=== PATIENT | male | born 1950 | race Caucasian/White ===

== ENCOUNTER 2020-04-24 11:40 | Emergency (ER) | payer MEDICARE, SELFPAY ==
[2020-04-24 11:41] VITALS: PULSE 136; RESP 20; TEMP 35.7; O2SAT 98
--- NOTE | 2020-04-24 12:26 | ED.GENADULT ---
HPI - General Adult General Chief complaint: Skin/Abscess/Foreign Body Stated complaint: big boil on my butt Time Seen by Provider: 04/24/20 12:14 Source: patient and family Mode of arrival: ambulatory Limitations: no limitations History of Present Illness HPI narrative: Patient 70 years old white male presents with abscess at the right buttock started 2 weeks ago, was seen by Dr. Haskins and started on antibiotic, the abscess got bigger over the last 7 days. Patient is diabetic, denies any fever, chills, nausea, vomiting. Patient Related Data Home Medications Medication Instructions Recorded Confirmed montelukast 10 mg tablet 10 mg PO DAILY 04/15/19 04/06/20 multivitamin with iron 1 tablet PO DAILY 04/15/19 04/06/20 pantoprazole 40 mg tablet,delayed 40 mg PO QAM 04/15/19 04/06/20 release pantoprazole 40 mg tablet,delayed 40 mg PO QAM 04/15/19 04/06/20 release potassium gluconate 595 mg (99 mg) 595 mg PO DAILY 04/15/19 04/06/20 tablet aspirin 81 mg tablet,delayed 81 mg PO DAILY 04/16/19 04/06/20 release ezetimibe 10 mg tablet 10 mg PO DAILY 11/03/19 04/06/20 icosapent ethyl 1 gram capsule 2 gm PO BID 11/03/19 04/06/20 Allergies Allergy/AdvReac Type Severity Reaction Status Date / Time lidocaine Allergy Unknown Hives Verified 04/24/20 11:44 NEOPREEN Allergy Severe RASH Uncoded 04/06/20 11:05 Review of Systems Review of Systems: Narrative: CONSTITUTIONAL: Denies fever, chills, or sweats. EYES: Denies visual changes, redness, or discharge. ENT: Denies rhinorrhea, congestion, sore throat, or otalgia. CARDIOVASCULAR: Denies chest pain, palpitations, or edema. RESPIRATORY: Denies cough or dyspnea. GASTROINTESTINAL: Denies abdominal pain, nausea, vomiting, or diarrhea. GENITOURINARY: Denies dysuria or hematuria. SKIN: Denies rash or itching. MUSCULOSKELETAL: Denies back pain, joint pain, or myalgia. NEUROLOGIC: Denies headache, numbness, or weakness. PSYCHIATRIC: Denies anxiety or depression. [facility] Past Medical History Medical History (Updated 04/24/20 @ 12:59 by Rubina Dao MD) Bronchitis DJD (degenerative joint disease) GERD (gastroesophageal reflux disease) Hypercholesterolemia Tobacco abuse Surgical History Surgical History H/O knee surgery H/O wrist surgery History of adenoidectomy History of colonoscopy History of tonsillectomy Social History Social History Smoking packs per day: 1.5 Smoking cigarettes per day: 30.0 Years smoked: 57 Smoking pack-years: 85.50 Smoking status: Current every day smoker Alcohol intake: never Gender identity (if verbalized by the patient): Male Exam Narrative: Exam Narrative: General appearance: Well-developed, well-nourished Skin: Normal color, abscess-like lesion at the left buttock with border with the anus, 6 cm, fluctuant, hard in consistency, red and diffusely tender Head: Normocephalic, nontraumatic Eyes: Clear conjunctiva ENT: Oropharynx normal, ears normal, nose normal Neck: Supple, nontender Chest and respiratory: Airway patent, no respiratory distress, no accessory muscle use Heart: Regular rate/rhythm Abdomen: Soft, nontender, no organomegaly, quiet bowel sounds Vascular: Normal peripheral pulses, normal capillary refill. Musculoskeletal: Normal range of motion, nontender back Neurologic: Alert and oriented ?3, [employer]IS[employer]LYST is normal as tested, no gross motor deficit Course Course Emergency Course: Stable Consultations Consultation #1: Dr. Haskins I&D, outpatient follow-up tomorrow Date: 04/24/20 Time: 13:44 Vital Signs Vital signs: Vital Signs Temp
[2020-04-24 12:43] LABS: Basophils Absolute Auto 0.1 K/mm3 (0.0-0.1); Basophils Percent Auto 0.5 % (0.2-1.2); Eosinophils Absolute Auto 0.1 K/mm3 (0-0.3); Hematocrit 41.9 % (42.0-52.0); Hemoglobin 14.9 g/dL (14.0-18.0); Immature Granulocyte Absolute 0.12 K/mm3 (0.00-0.031); Immature Granulocyte Percent A 0.9 % (0-0.5); Lymphocytes Absolute Auto 1.99 K/mm3 (0.9-3.2); Lymphocytes Percent Auto 15.1 % (18.3-44.2); Mean Corpuscular HGB Conc 35.6 g/dl (32-36); Mean Corpuscular Hemoglobin 33.1 pg (26-34); Mean Corpuscular Volume 93.1 fl (80-100); Mean Platelet Volume 10.9 fl (7.4-10.4); Monocytes Percent Auto 7.3 % (2.6-8.5); Neutrophils Absolute Auto 9.9 K/mm3 (1.3-6.7); Neutrophils Percent Auto 75.2 % (45.5-73.1); Platelet Count Result 192 k/mm3 (150-375); Red Cell Distribution Width 12.9 % (11.5-14.5); White Blood Count 13.2 K/mm3 (4.5-10.0)
[2020-04-24 12:55] LABS: Alanine Aminotransferase 17 U/L (4-50); Albumin Level 4.1 g/dL (3.5-5.1); Alkaline Phosphatase 41 U/L (38-126); Anion Gap 8 mmol/L (8-16); Aspartate Amino Transferase 22 U/L (17-59); Bilirubin,Total 0.7 mg/dL (0.2-1.3); Blood Urea Nitrogen 11 mg/dL (9-20); Calcium 8.6 mg/dL (8.4-10.2); Carbon Dioxide 27 mmol/L (22-30); Chloride 104 mmol/L (98-107); Estimated CRCL calculation 87 ml/min; Estimated Glomerular Filt Rate > 60; Glucose 153 mg/dL (75-110); Potassium 3.6 mmol/L (3.4-5.0); Sodium 139 mmol/L (137-145)
[2020-04-24] MEDS: MORPHINE SULFATE (*CRX) 4 MG/ML INJ IV PUSH (13:16)
[2020-04-24] MEDS: ONDANSETRON INJ 4 MG/2 ML VIAL IV PUSH (13:17)
[2020-04-24 13:57] VITALS: BP 142/87; PULSE 98; RESP 18; O2SAT 99
== END 2020-04-24 13:59 | disposition home or self-care (01) ==
PROVIDERS: Emergency Provider Emergency Medicine; PCP Internal Medicine
DX: L02.31 Cutaneous abscess of buttock (principal); K21.9 Gastro-esophageal reflux disease without esophagitis; E78.00 Pure hypercholesterolemia, unspecified; F17.210 Nicotine dependence, cigarettes, uncomplicated
CPT/HCPCS: 10061; 36415; 46040; 80053; 85025; 87070; 87077; 87205; 96374; 96375; 99284; J2270; J2405

== ENCOUNTER 2020-12-28 13:55 | Outpatient (CLI) | payer MEDICARE, SELFPAY ==
[2020-12-28 14:24] LABS: Basophils Absolute Auto 0.1 K/mm3 (0.0-0.1); Basophils Percent Auto 0.9 % (0.2-1.2); Eosinophils Absolute Auto 0.3 K/mm3 (0-0.3); Eosinophils Percent Auto 4.1 % (0-4.4); Hemoglobin 15.2 g/dL (14.0-18.0); Immature Granulocyte Absolute 0.04 K/mm3 (0.00-0.031); Immature Granulocyte Percent A 0.5 % (0-0.5); Lymphocytes Absolute Auto 2.51 K/mm3 (0.9-3.2); Lymphocytes Percent Auto 32.1 % (18.3-44.2); Mean Corpuscular HGB Conc 33.8 g/dl (32-36); Mean Corpuscular Hemoglobin 31.6 pg (26-34); Mean Corpuscular Volume 93.6 fl (80-100); Mean Platelet Volume 10.6 fl (7.4-10.4); Monocytes Absolute Auto 0.6 K/mm3 (0.1-0.6); Neutrophils Absolute Auto 4.3 K/mm3 (1.3-6.7); Neutrophils Percent Auto 55.4 % (45.5-73.1); Platelet Count Result 141 k/mm3 (150-375); Red Blood Count 4.81 M/mm3 (4.6-6.20); Red Cell Distribution Width 13.8 % (11.5-14.5); White Blood Count 7.8 K/mm3 (4.5-10.0)
[2020-12-28 15:41] LABS: Alanine Aminotransferase 24 U/L (4-50); Albumin Level 4.4 g/dL (3.5-5.1); Alkaline Phosphatase 47 U/L (38-126); Anion Gap 7 mmol/L (8-16); Aspartate Amino Transferase 34 U/L (17-59); Bilirubin,Total 0.5 mg/dL (0.2-1.3); Blood Urea Nitrogen 12 mg/dL (9-20); Calcium 9.6 mg/dL (8.4-10.2); Carbon Dioxide 28 mmol/L (22-30); Chloride 103 mmol/L (98-107); Estimated Glomerular Filt Rate > 60; Glucose 147 mg/dL (65-110); Iron 82 ug/dL (49-181); Potassium 4.3 mmol/L (3.4-5.0); Sodium 138 mmol/L (137-145)
[2020-12-28 15:50] LABS: Percent Iron Saturation 20 % (20-50)
[2020-12-28 16:47] LABS: Folic Acid 17.7 ng/mL (2.76->20)
[2021-01-05 22:43] LABS: Platelet Ab,Indirect (IgA) POSITIVE (NEGATIVE); Platelet Ab,Indirect (IgG) NEGATIVE (NEGATIVE); Platelet Ab,Indirect (IgM) NEGATIVE (NEGATIVE)
== END 2020-12-28 13:56 | disposition home or self-care (01) ==
LOC: ANHLAB 13:57
PROVIDERS: PCP Internal Medicine; Visit Provider Internal Medicine Hematology & Oncology
DX: D69.59 Other secondary thrombocytopenia (principal)
CPT/HCPCS: 36415; 80053; 82607; 82728; 82746; 83540; 83550; 85025; 86022

== ENCOUNTER 2022-01-10 09:23 | Outpatient (CLI) | payer MEDICARE, SELFPAY ==
[2022-01-10 09:35] LABS: Basophils Absolute Auto 0.1 K/mm3 (0.0-0.1); Basophils Percent Auto 0.8 % (0.2-1.2); Eosinophils Absolute Auto 0.4 K/mm3 (0-0.3); Eosinophils Percent Auto 4.8 % (0-4.4); Hematocrit 42.6 % (42.0-52.0); Hemoglobin 14.8 g/dL (14.0-18.0); Immature Granulocyte Absolute 0.07 K/mm3 (0.00-0.031); Immature Granulocyte Percent A 0.9 % (0-0.5); Lymphocytes Absolute Auto 2.31 K/mm3 (0.9-3.2); Lymphocytes Percent Auto 30.7 % (18.3-44.2); Mean Corpuscular HGB Conc 34.7 g/dl (32-36); Mean Corpuscular Hemoglobin 31.8 pg (26-34); Mean Corpuscular Volume 91.4 fl (80-100); Mean Platelet Volume 10.5 fl (7.4-10.4); Monocytes Absolute Auto 0.6 K/mm3 (0.1-0.6); Monocytes Percent Auto 7.7 % (2.6-8.5); Neutrophils Absolute Auto 4.1 K/mm3 (1.3-6.7); Neutrophils Percent Auto 55.1 % (45.5-73.1); Platelet Count Result 155 k/mm3 (150-375); Red Blood Count 4.66 M/mm3 (4.6-6.20); Red Cell Distribution Width 13.2 % (11.5-14.5); White Blood Count 7.5 K/mm3 (4.5-10.0)
[2022-01-10 09:38] LABS: Blood Urea Nitrogen 9 mg/dL (8-26); Carbon Dioxide 26 mmol/L (22-30); Chloride 100 mmol/L (98-109); Estimated Glomerular Filt Rate > 60; Glucose 115 mg/dL (70-105); Ionized Calcium (POC) 1.04 mmol/L (1.11-1.31); Potassium 3.6 mmol/L (3.5-4.9); Sodium 142 mmol/L (138-146)
[2022-01-10 10:57] LABS: Alanine Aminotransferase 21 U/L (6-50); Albumin Level 4.2 g/dL (3.5-5.1); Alkaline Phosphatase 39 U/L (38-126); Aspartate Amino Transferase 26 U/L (17-59); Bilirubin,Total 0.5 mg/dL (0.2-1.3); Blood Urea Nitrogen 10 mg/dL (9-20); Calcium 7.9 mg/dL (8.4-10.2); Carbon Dioxide 25 mmol/L (22-30); Estimated Glomerular Filt Rate > 60; Glucose 114 mg/dL (65-110); Potassium 3.5 mmol/L (3.4-5.0); Sodium 141 mmol/L (137-145)
[2022-01-10 11:09] LABS: Anion Gap 15 mmol/L (8-16); Chloride 101 mmol/L (98-107)
== END 2022-01-10 09:24 | disposition home or self-care (01) ==
LOC: ANHLAB 09:25
PROVIDERS: PCP Internal Medicine; Visit Provider Internal Medicine Hematology & Oncology
DX: D69.59 Other secondary thrombocytopenia (principal)
CPT/HCPCS: 36415; 80047; 80053; 85025

== ENCOUNTER 2023-01-09 09:55 | Outpatient (CLI) | payer MEDICARE, SELFPAY ==
[2023-01-09 10:11] LABS: Basophils Absolute Auto 0.1 K/mm3 (0.0-0.1); Basophils Percent Auto 0.6 % (0.2-1.2); Eosinophils Absolute Auto 0.3 K/mm3 (0-0.3); Eosinophils Percent Auto 3.5 % (0-4.4); Hematocrit 43.4 % (42.0-52.0); Hemoglobin 14.6 g/dL (14.0-18.0); Immature Granulocyte Absolute 0.07 K/mm3 (0.00-0.031); Immature Granulocyte Percent A 0.8 % (0-0.5); Lymphocytes Absolute Auto 2.41 K/mm3 (0.9-3.2); Mean Corpuscular HGB Conc 33.6 g/dl (32-36); Mean Corpuscular Hemoglobin 31.7 pg (26-34); Mean Corpuscular Volume 94.1 fl (80-100); Mean Platelet Volume 10.5 fl (7.4-10.4); Monocytes Absolute Auto 0.7 K/mm3 (0.1-0.6); Monocytes Percent Auto 7.7 % (2.6-8.5); Neutrophils Absolute Auto 5.4 K/mm3 (1.3-6.7); Neutrophils Percent Auto 60.4 % (45.5-73.1); Platelet Count Result 145 k/mm3 (150-375); Red Blood Count 4.61 M/mm3 (4.6-6.20); Red Cell Distribution Width 13.7 % (11.5-14.5); White Blood Count 8.9 K/mm3 (4.5-10.0)
[2023-01-09 10:18] LABS: Blood Urea Nitrogen 16 mg/dL (8-26); Carbon Dioxide 28 mmol/L (22-30); Chloride 102 mmol/L (98-109); Estimated Glomerular Filt Rate > 60; Glucose 126 mg/dL (70-105); Ionized Calcium (POC) 1.23 mmol/L (1.11-1.31); Potassium 4.6 mmol/L (3.5-4.9); Sodium 140 mmol/L (138-146)
[2023-01-09 10:58] LABS: Alanine Aminotransferase 19 U/L (6-50); Albumin Level 4.2 g/dL (3.5-5.1); Alkaline Phosphatase 49 U/L (38-126); Anion Gap 8 mmol/L (8-16); Aspartate Amino Transferase 22 U/L (17-59); Bilirubin,Total 0.7 mg/dL (0.2-1.3); Blood Urea Nitrogen 17 mg/dL (9-20); Calcium 9.7 mg/dL (8.4-10.2); Carbon Dioxide 27 mmol/L (22-30); Chloride 103 mmol/L (98-107); Estimated Glomerular Filt Rate > 60; Glucose 124 mg/dL (65-110); Potassium 4.5 mmol/L (3.4-5.0); Sodium 138 mmol/L (137-145)
== END 2023-01-09 09:56 | disposition home or self-care (01) ==
LOC: ANHLAB 10:01
PROVIDERS: Visit Provider Internal Medicine Hematology & Oncology
DX: D69.59 Other secondary thrombocytopenia (principal)
CPT/HCPCS: 36415; 80047; 80053; 85025

== ENCOUNTER 2023-12-19 10:30 | Outpatient (CLI) | payer MEDICARE, SELFPAY ==
--- NOTE | ~2023-12-19 | US_ITS ---
EXAMINATION: US soft tissue LE RT DATE: 12/19/2023 10:45 INDICATION: Localized swelling, mass and lump, right lower limb. TECHNIQUE: Multiple grayscale and Doppler ultrasound images of the right lower limb were obtained. COMPARISON: None FINDINGS: In the patient's area of concern in right calf, there is a 1.4 x 1.0 x 0.4 cm hypoechoic mera bcutaneous mass. IMPRESSION: 1. Small subcutaneous mass in the patient's area of concern in right calf, likely inflammation or hem atoma. Reviewed, dictated and finalized at location A. IMPRESSION: 1. Small subcutaneous mass in the patient's area of concern in right calf, like ly inflammation or hematoma.
== END 2023-12-19 10:31 | disposition home or self-care (01) ==
LOC: GOSHIMG 10:31
PROVIDERS: PCP Internal Medicine; Visit Provider Podiatrist Foot & Ankle Surgery
DX: R22.41 Localized swelling, mass and lump, right lower limb (principal)
CPT/HCPCS: 76882

== ENCOUNTER 2024-01-28 10:06 | Outpatient (CLI) | payer MEDICARE, SELFPAY ==
[2024-01-28 10:17] LABS: Basophils Absolute Auto 0.1 K/mm3 (0.0-0.1); Basophils Percent Auto 0.7 % (0.2-1.2); Eosinophils Absolute Auto 0.5 K/mm3 (0-0.3); Eosinophils Percent Auto 6.1 % (0-4.4); Hematocrit 42.3 % (42.0-52.0); Hemoglobin 14.6 g/dL (14.0-18.0); Immature Granulocyte Absolute 0.06 K/mm3 (0.00-0.031); Immature Granulocyte Percent A 0.7 % (0-0.5); Lymphocytes Absolute Auto 2.75 K/mm3 (0.9-3.2); Lymphocytes Percent Auto 33.1 % (18.3-44.2); Mean Corpuscular HGB Conc 34.5 g/dl (32-36); Mean Corpuscular Hemoglobin 31.7 pg (26-34); Mean Platelet Volume 10.5 fl (7.4-10.4); Monocytes Absolute Auto 0.6 K/mm3 (0.1-0.6); Monocytes Percent Auto 7.7 % (2.6-8.5); Neutrophils Absolute Auto 4.3 K/mm3 (1.3-6.7); Neutrophils Percent Auto 51.7 % (45.5-73.1); Platelet Count Result 152 k/mm3 (150-375); Red Cell Distribution Width 14.3 % (11.5-14.5); White Blood Count 8.3 K/mm3 (4.5-10.0)
[2024-01-28 10:21] LABS: Blood Urea Nitrogen 8 mg/dL (8-26); Carbon Dioxide 30 mmol/L (22-30); Chloride 101 mmol/L (98-109); Estimated Glomerular Filt Rate > 60; Glucose 106 mg/dL (70-105); Ionized Calcium (POC) 1.12 mmol/L (1.11-1.31); Potassium 4.1 mmol/L (3.5-4.9); Sodium 141 mmol/L (138-146)
[2024-01-28 11:44] LABS: Alanine Aminotransferase 17 U/L (6-50); Albumin Level 4.1 g/dL (3.5-5.1); Alkaline Phosphatase 59 U/L (38-126); Anion Gap 7 mmol/L (4-12); Aspartate Amino Transferase 24 U/L (17-59); Bilirubin,Total 0.7 mg/dL (0.2-1.3); Blood Urea Nitrogen 9 mg/dL (9-20); Calcium 8.8 mg/dL (8.4-10.2); Carbon Dioxide 29 mmol/L (22-30); Chloride 104 mmol/L (98-107); Estimated Glomerular Filt Rate > 60; Glucose 108 mg/dL (65-110); Potassium 4.2 mmol/L (3.4-5.0); Sodium 140 mmol/L (137-145)
== END 2024-01-28 10:07 | disposition home or self-care (01) ==
LOC: ANHLAB 10:07
PROVIDERS: PCP Internal Medicine; Visit Provider Internal Medicine Hematology & Oncology
DX: D69.59 Other secondary thrombocytopenia (principal)
CPT/HCPCS: 36415; 80047; 80053; 85025

== ENCOUNTER 2024-09-09 11:11 | Emergency (ER) | payer MEDICARE, SELFPAY ==
--- NOTE | ~2024-09-09 | XR_ITS ---
CHEST RADIOGRAPH, PA AND LATERAL CLINICAL HISTORY: nausea . COMPARISON: Reference is made to a CT examination of the abdomen and pelvis demonstrating varicose br onchiectasis and right basilar consolidation with left lower lobe atelectasis. TECHNIQUE: PA and lateral views of the chest. FINDINGS The cardiomediastinal silhouette is borderline enlarged. Redemonstration of right basilar consolidation with left basilar atelectasis. The remainder of the lungs are clear. IMPRESSION: Right basilar consolidation with left basilar atelectasis. Reviewed, dictated and finalized at location A.
--- NOTE | ~2024-09-09 | CT_ITS ---
CLINICAL INDICATION: Nausea and vomiting COMPARISON: None. TECHNIQUE: Multiple contiguous axial images of the abdomen and pelvis were performed following the ad ministration of with 100 mL Omnipaque-350 intravenous contrast The dose-length product (DLP) was 1279.96 mGy-cm. Automated exposure control and iterative reconstruction technique were employed. FINDINGS/OBSERVATIONS: Visualized lower thorax: Varicose bronchiectasis with consolidation in the right lower lobe. Atelectasis within the left lower lobe. The remainder of the bilateral lung bases are otherwise clear. The heart is enlarged, without pericardial effusion. Small hiatal hernia is present. Liver: The liver demonstrates homogeneous enhancement and is enlarged measuring 20 cm in longitudinal dimens ion. Gallbladder and biliary system: The gallbladder is decompressed, consistent with recent oral intake. Pancreas: The pancreas enhances homogeneously without ductal dilatation. Spleen: The spleen enhances homogeneously and is not enlarged. Kidneys: The bilateral kidneys enhance symmetrically without hydronephrosis or renal calculi. Adrenal glands: Unremarkable. Gastrointestinal tract: Retained gastric contents within the stomach, suggesting recent oral intake. Colonic diverticulosis without surrounding inflammatory change. Fecal stasis within the rectum without significant mural thickening or surrounding inflammatory archer e. Appendix: The air-filled appendix is of normal caliber (axial series, images 126 through 141). Vasculature: Calcified atherosclerotic disease. Lymph nodes: No pathologically enlarged or morphologically suspicious lymph nodes within the retroperitoneum or at the root of the mesentery. Pelvic structures: The bladder is only minimally distended, and otherwise unremarkable. The prostate gland is not significantly enlarged. Body wall and musculoskeletal: Along the undersurface of the anterior abdominal wall at the level of the umbilicus is an irregular m ultilobulated focus of mixed attenuation with rim calcifications measuring 5 x 7.5 x 9.1 cm, likely c alcified mesh. Age-appropriate degenerative disease within the lumbosacral spine with osteophyte formation, disc spa ce narrowing, endplate changes and vacuum phenomena. Significant facet arthropathy is also noted. There are bridging endplate osteophytes at multiple levels in the thoracic spine, consistent with dif fuse idiopathic skeletal hyperostosis (DISH). IMPRESSION: No acute findings within the lower chest, abdomen or pelvis. Innumerable nonacute findings, as detailed above. Reviewed, dictated and finalized at location A.
--- OUTSIDE RECORDS SUMMARY | 2024-09-09 11:14 | XMS_ITS | Data Portability ---
Author Organization [facility] [employer]ental Units, Main Office Address [address] [place] [address] Care Team Providers Care Vault Clerk Name Role Phone CARMEN UP Primary Care Provider [phone] CARMEN UP Referring Provider Assessment Encounter Date Assessment Date Assessment LastModified by Organization Details LastModified Time 02/20/2024 02/20/2024 Left scrotal abscess. Appears to be improving on its own. Continues to drain. Patient feeling much better. Recommend conservative management keep clean dressing changes as needed. Follow-up here p.r.n.. [email or web address] Not available 02/20/2024 12:59:16 03/26/2024 03/26/2024 11/16/2021: TSH: WNL Chol 114, TG 246, HDL 41, LDL 24 Urine micro alb 6.1 01/10/2022: Dr June CMP: Gluc 114 CBC: WNL 03/13/2022: TSH: WNL TG 206 07/02/2022: Gluc 109 CBC: WNL 07/26/2022: A1C 5.7 PSA <0.064 Chol 231, TG 339, HDL 32, LDL 131 CBC/CMP: Dr Hernandez 11/09/2022: TG 178 02/06/2023: A1C 6.4 TG 243 PSA <0.064 07/03/2023: Dr Hernandez IJ Gluc 119 WBC 10.9 10/11/2023: Gluc 112 A1C 6.3 01/10/2024: A1C 6.4 TG 300 01/28/2024: Dr June [email or web address] Not available 03/25/2024 09:49:30 06/23/2024 06/23/2024 This note is dictated and transcribed by MModal Fluency Direct Software. Billet Bed Operator variances may occur. Despite proofreading, typographical errors may occur. Occasional wrong-word or '[id number]' substitutions may have occurred due to the inherent limitations of voice recording. Read the chart carefully and recognize, using context, where substitutions have occurred. [email or web address] Not available 06/23/2024 15:52:04 07/23/2024 07/23/2024 11/16/2021: TSH: WNL Chol 114, TG 246, HDL 41, LDL 24 Urine micro alb 6.1 01/10/2022: Dr June CMP: Gluc 114 CBC: WNL 03/13/2022: TSH: WNL TG 206 07/02/2022: Gluc 109 CBC: WNL 07/26/2022: A1C 5.7 PSA <0.064 Chol 231, TG 339, HDL 32, LDL 131 CBC/CMP: Dr Hernandez 11/09/2022: TG 178 02/06/2023: A1C 6.4 TG 243 PSA <0.064 07/03/2023: Dr Hernandez IJ Gluc 119 WBC 10.9 10/11/2023: Gluc 112 A1C 6.3 04/03/2024: A1C 6.4 Gluc 115 TG 298 06/25/2024: [facility] TG 173 OV 06/25/2024: A1C 5.9 45 minutes spent with the patient, labs reviewed, multiple referrals provided [email or web address] Not available 07/23/2024 11:54:16 Plan of Treatment Reminders Order Date Submit Date Provider Last Modified By Organization Details Last Modified Time Details Appointments Establish ed Patient 2024 10:15A M Junior Barnard DPM Not available Not available Not available Any 15 2024 10:30A M Carmen mallory MD Not available Not available Not available Lab vitamin D, 25-hydrox y, total, serum [email or web address] (Lab), [address] [place], [address], 07/24/2024 10:06:44 glycohemo globin, total, blood [email or web address] (Lab), [address] [place], [address], 07/24/2024 10:06:44 microalbu min, urine [address] (Lab), [address] [place], [address], 07/24/2024 10:06:44 lipid panel, serum [address] (Lab), [address] [place], [address], 07/24/2024 10:06:44 CBC w/ auto diff [address] (Lab), [address] [place], [address], 07/24/2024 10:06:45 CMP, serum or plasma [address] (Lab), [address] [place], [address], 07/24/2024 10:06:45 TSH, serum or plasma [address] (Lab), [address] [place], [address], 07/24/2024 10:06:45 vitamin D, 25-hydrox y, total, serum 2024 025 [email or web address] [facility] (Lab), [address] [place], [address], 03/26/2024 12:11:03 glycohemo globin, total, blood 2024 025 RENNY [facility] (Lab), [address] [place], [address], 04/03/2024 15:44:51 microalbu min, urine [address] (Lab), [address] [place], [address], 03/26/2024 12:11:04 CMP, serum or plasma 2024 025 [facility] (Lab), [address] [place], [address], 04/03/2024 14:20:16 lipid panel, serum 2024 025 [facility] (Lab), [address] [place], [address], 04/03/2024 14:12:41 CBC w/ auto diff 2024 025 [facility] (Lab), [address] [place], [address], 04/03/2024 13:42:55 CMP, serum or plasma [address] (Lab), [address] [place], [address], 03/26/2024 12:11:05 TSH, serum or plasma 2024 025 [facility] (Lab), [address] [place], [address], 04/03/2024 14:50:45 Referral podiatris t referral - Please call patient to schedule an appointme nt. Thank you. 2024 025 RENNY HOWELLM, [address] [facility], [address], [place], [address], 07/23/2024 14:54:09 gastroent erologist referral - Please call patient to schedule an appointme nt. Thank you. 2024 025 SHUBHAM Rivera MD, [address], [place], [address], 07/23/2024 15:20:36 pulmonolo gist referral - Please call patient to schedule an appointme nt. Thank you. 2024 025 [email or web address] Ze Blanco MD, [address] [place], [address], 07/23/2024 11:44:58 hematolog ist referral - Please call patient to schedule an appointme nt. Thank you. 2024 025 [email or web address] Yaya June MD, [address], [place], [address], 04/16/2024 17:12:19 podiatris t referral 2024 025 [email or web address] Junior Barnard DPM, [address] [facility], [address], [place], [address], 05/02/2024 11:49:20 cardiolog ist referral 2024 025 [email or web address] [place], [address], [address], [address], 05/02/2024 11:51:33 Procedures None recorded. Surgeries None recorded. Imaging LDCT, chest, for lung cancer screening - Please call patient to schedule. 2024 025 [facility], [facility] , [facility] [address], [place], [address], 08/25/2024 17:08:41 Medication Orders Nexlizet 180 mg-10 mg tablet 2024 025 [email or web address] [id number], [address], [place], [place], [id number], 06/04/2024 11:23:46 Patient TargetsNo targets recorded. Patient Instructions Encounter Date Encounter Id Patient Instructions Last Modified By Organization Details Last Modified Time 03/26/2024 [id number] diabetic eye exam* [email or web address] Not available 03/26/2024 12:11:06 Reason for Referral Supervisor Phosphorus Processing Referral for A sthma Please call patient to schedule an appointment. Thank you. Referring Physician: Carmen Up Internal Medicine, Encounter Date: 03/26/2024 Multi Sensor Operator Referral for Type 2 diabetes mellitus without complication Referring Physician: Carmen Up Internal [facility], Encounter Date: 03/26/2024 Plodder Operator Referral for Co ronary arteriosclerosis Referring Physician: Carmen Up Internal Medicine, Encounter Date: 03/26/2024 Please call patient to sched ule an appointment. Thank you. Referring Physician: Carmen Up Internal Medicine, Encounter Date: 03/26/2024 Motor Builder Winder Referral for Non-alcoholic fatty liver Please call patient to schedule an appointment. Thank you. Referring Physician: Carmen Up Internal Medicine, Encounter Date: 07/23/2024 Multi Sensor Operator Referral for Type 2 diabetes mellitus without complication Please call patient to schedule an appointment. Thank you. Referring Physician: Carmen Up Internal Medicine, Encounter Date: 07/23/2024 Results Created Date Observation Date Name Description Value Unit Range Abnormal Flag Note LastModifiedBy Organization Detail LastModifiedTime 04/03/1904/03/2024 CBC/C OMPLE TE BLD COUNT W/DIF F white blood cells 6.5 x10'3 /uL 4.2-10 .8 Not Available [facility] (Lab) [address] [place], [address], 04/03/2024 13:42:55 04/03/19 25 04/03/2024 CBC/C OMPLE TE BLD COUNT W/DIF F red blood cells 4.74 x10'6 /uL 4.10-5 .80 Not Available [facility] (Lab) [address] [place], [address], 04/03/2024 13:42:55 04/03/19 25 04/03/2024 CBC/C OMPLE TE BLD COUNT W/DIF F hemoglobin 15.2 g/dL 13.2-1 7.0 Not Available [facility] (Lab) [address] [place], [address], 04/03/2024 13:42:55 04/03/19 25 04/03/2024 CBC/C OMPLE TE BLD COUNT W/DIF F hematocrit 43.9 % 39.3-5 0.0 Not Available [facility] (Lab) [address] [place], [address], 04/03/2024 13:42:55 04/03/19 25 04/03/2024 CBC/C OMPLE TE BLD COUNT W/DIF F mean red cell volume 92.6 fL 80.0-9 7.0 Not Available [facility] (Lab) [address] [place], [address], 04/03/2024 13:42:55 04/03/19 25 04/03/2024 CBC/C OMPLE TE BLD COUNT W/DIF F mean red cell hemoglobin 32.1 pg 27.0-3 3.0 Not Available [facility] (Lab) [address] [place], [address], 04/03/2024 13:42:55 04/03/19 25 04/03/2024 CBC/C OMPLE TE BLD COUNT W/DIF F mean RBC HGB concentratio n 34.6 g/dL 31.0-3 6.0 Not Available [facility] (Lab) [address] [place], [address], 04/03/2024 13:42:55 04/03/19 25 04/03/2024 CBC/C OMPLE TE BLD COUNT W/DIF F red cell distribution width 13.9 % 11.8-1 5.5 Not Available [facility] (Lab) [address] [place], [address], 04/03/2024 13:42:55 04/03/19 25 04/03/2024 CBC/C OMPLE TE BLD COUNT W/DIF F platelets 151 x10'3 /uL 150-40 0 Not Available [facility] (Lab) [address] [place], [address], 04/03/2024 13:42:55 04/03/19 25 04/03/2024 CBC/C OMPLE TE BLD COUNT W/DIF F mean platelet volume 11.7 fL 9.0-12 .4 Not Available [facility] (Lab) [address] [place], [address], 04/03/2024 13:42:55 04/03/19 25 04/03/2024 CBC/C OMPLE TE BLD COUNT W/DIF F neutrophils 52.0 % 39.0-7 2.0 Not Available [facility] (Lab) [address] [place], [address], 04/03/2024 13:42:55 04/03/19 25 04/03/2024 CBC/C OMPLE TE BLD COUNT W/DIF F lymphocytes 34.4 % 16.0-4 7.0 Not Available [facility] (Lab) [address] [place], [address], 04/03/2024 13:42:55 04/03/19 25 04/03/2024 CBC/C OMPLE TE BLD COUNT W/DIF F monocytes 6.7 % 5.0-12 .0 Not Available [facility] (Lab) [address] [place], [address], 04/03/2024 13:42:55 04/03/19 25 04/03/2024 CBC/C OMPLE TE BLD COUNT W/DIF F eosinophils 4.9 % 1.0-7. 0 Not Available [facility] (Lab) [address] [place], [address], 04/03/2024 13:42:55 04/03/19 25 04/03/2024 CBC/C OMPLE TE BLD COUNT W/DIF F basophils 0.9 % 0.0-2. 0 Not Available [facility] (Lab) [address] [place], [address], 04/03/2024 13:42:55 04/03/19 25 04/03/2024 CBC/C OMPLE TE BLD COUNT W/DIF F immature granulocytes 1.1 % 0.00-0 .50 high Not Available [facility] (Lab) [address] [place], [address], 04/03/2024 13:42:55 04/03/19 25 04/03/2024 CBC/C OMPLE TE BLD COUNT W/DIF F neutrophils, absolute count 3.40 x10'3 /uL 1.5-8. 0 Not Available [facility] (Lab) [address] [place], [address], 04/03/2024 13:42:55 04/03/19 25 04/03/2024 CBC/C OMPLE TE BLD COUNT W/DIF F lymphocytes, absolute count 2.25 x10'3 /uL 1.07-3 .43 Not Available [facility] (Lab) [address] [place], [address], 04/03/2024 13:42:55 04/03/19 25 04/03/2024 CBC/C OMPLE TE BLD COUNT W/DIF F monocytes, absolute count 0.44 x10'3 /uL 0.29-0 .99 Not Available [facility] (Lab) [address] [place], [address], 04/03/2024 13:42:55 04/03/19 25 04/03/2024 CBC/C OMPLE TE BLD COUNT W/DIF F eosinophils, absolute count 0.32 x10'3 /uL 0.02-0 .53 Not Available [facility] (Lab) [address] [place], [address], 04/03/2024 13:42:55 04/03/19 25 04/03/2024 CBC/C OMPLE TE BLD COUNT W/DIF F basophils, absolute count 0.06 x10'3 /uL 0.01-0 .08 Not Available [facility] (Lab) [address] [place], [address], 04/03/2024 13:42:55 04/03/19 25 04/03/2024 CBC/C OMPLE TE BLD COUNT W/DIF F immature granulocytes ,absolute 0.07 x10'3 /uL 0.00-0 .05 high Not Available [facility] (Lab) [address] [place], [address], 04/03/2024 13:42:55 04/03/19 25 04/03/2024 CBC/C OMPLE TE BLD COUNT W/DIF F nucleated red blood cells 0.0 % -0 Not Available [facility] (Lab) [address] [place], [address], 04/03/2024 13:42:55 04/03/19 25 04/03/2024 CBC/C OMPLE TE BLD COUNT W/DIF F NRBC# 0.00 x10'3 /uL Not Available [facility] (Lab) [address] [place], [address], 04/03/2024 13:42:55 04/03/19 25 04/03/2024 LIPID PANEL cholesterol 144 mg/dL 140-19 9 NIH JANE NSUS RECOM MENDA TION FOR TABITHA STERO L: ADULT CHILD LOW RISK: <200 <170 BORDE RLINE : <200- 239 ----- HIGH RISK: >240 >200 Not Available [facility] (Lab) [address] [place], [address], 04/03/2024 14:12:41 04/03/19 25 04/03/2024 LIPID PANEL triglyceride s 298 mg/dL 0-150 high NIH JANE NSUS REPOR T RECOM MENDA TION FOR TRIGL YCERI MILDRED: ADULT CHILD LOW RISK: <150 ----- BODER LINE: 150-1 99 ----- HIGH RISK: >200 ----- Not Available [facility] (Lab) [address] [place], [address], 04/03/2024 14:12:41 04/03/1904/03/2024 LIPID PANEL HDL cholesterol 33 mg/dL 40- low Not Available [facility] (Lab) [address] [place], [address], 04/03/2024 14:12:41 04/03/1904/03/2024 LIPID PANEL LDL cholesterol, calculated 51 mg/dL 0-130 NIH JANE NSUS REPOR T RECOM MENDA TIONS FOR LDL: ADULT CHILD LOW RISK <130 <110 (OPTI MAL LDL) <100 ----- GABINO RLINE : 130-1 59 ----- HIGH RISK: >160 >130 A TRIGL YCERI DE RESUL T >400 INVAL IDATE S THE CALCU LATIO N FOR LDL FRACT IONAT ION - THE LDL RESUL T WILL NOT BE REPOR DESTINEE. Not Available [facility] (Lab) [address] [place], [address], 04/03/2024 14:12:41 04/03/19 25 04/03/2024 COMP MET PANEL /LIVE R sodium 140 mmol/ L 137-14 5 Not Available [facility] (Lab) [address] [place], [address], 04/03/2024 15:16:18 04/03/19 25 04/03/2024 COMP MET PANEL /LIVE R potassium 4.4 mmol/ L 3.5-5. 1 Not Available [facility] (Lab) [address] [place], [address], 04/03/2024 15:16:18 04/03/19 25 04/03/2024 COMP MET PANEL /LIVE R chloride 105 mmol/ L 98-107 Not Available [facility] (Lab) [address] [place], [address], 04/03/2024 15:16:18 04/03/19 25 04/03/2024 COMP MET PANEL /LIVE R carbon dioxide 30 mmol/ L 22-30 Not Available [facility] (Lab) [address] [place], [address], 04/03/2024 15:16:18 04/03/19 25 04/03/2024 COMP MET PANEL /LIVE R anion gap 9.4 mmol/ L 14-22 low Not Available [facility] (Lab) [address] [place], [address], 04/03/2024 15:16:18 04/03/19 25 04/03/2024 COMP MET PANEL /LIVE R glucose 115 mg/dL 70-99 high Not Available [facility] (Lab) [address] [place], [address], 04/03/2024 15:16:18 04/03/19 25 04/03/2024 COMP MET PANEL /LIVE R BUN 12 mg/dL 8-19 Not Available [facility] (Lab) [address] [place], [address], 04/03/2024 15:16:18 04/03/19 25 04/03/2024 COMP MET PANEL /LIVE R creatinine 0.82 mg/dL 0.66-1 .25 Not Available [facility] (Lab) [address] [place], [address], 04/03/2024 15:16:18 04/03/19 25 04/03/2024 COMP MET PANEL /LIVE R GFR >60 Refer ence Range : [place] ge GFR Healt hy Adult : >60 mL/mi n/1.7 3 m2 Chron ic Kidne y Disea se: 15-60 mL/mi n/1.7 3 m2 Kidne y Failu re: <15/m L/min /1.73 m2 www.n iddk. nih.g ov The MDRD study equat ion has not been valid ated in child clyde <18 years of age; pregn ant women ; the elder ly >85 years of age; or in some racia l or ethni c subgr oups, such as Hispa nics. Outsi de the valid ated jocy eters , estim ated GFR is less accur ate, requi ring clini teresa judgm ent on a case- by-ca se basis . Clini teresa inter preta tion for other races and ages must be made by the clini sydnie. The MDRD study equat ion has not been valid ated for the evalu ation of serum creat inine relat ed to nutri beatriz l statu s or medic ation usage . For perso ns <18 years of age, a pedia tric GFR calcu lator is avail able on the [facility] websi te: https ://gracia w.rojas davila.o marc/pr ofess ional s/kdo qi/gf r_cal culat or Not Available [facility] (Lab) [address] [place], [address], 04/03/2024 15:16:18 04/03/19 25 04/03/2024 COMP MET PANEL /LIVE R alkaline phosphatase 65 U/L 38-126 Not Available [facility] (Lab) [address] [place], [address], 04/03/2024 15:16:18 04/03/19 25 04/03/2024 COMP MET PANEL /LIVE R alanine aminotransfe rase 22 U/L 0-50 Not Available [facility] (Lab) [address] [place], [address], 04/03/2024 15:16:18 04/03/19 25 04/03/2024 COMP MET PANEL /LIVE R aspartate aminotransfe rase 29 U/L 15-46 Not Available [facility] (Lab) [address] [place], [address], 04/03/2024 15:16:18 04/03/19 25 04/03/2024 COMP MET PANEL /LIVE R bilirubin, total 0.70 mg/dL 0.20-1 .30 Not Available [facility] (Lab) [address] [place], [address], 04/03/2024 15:16:18 04/03/19 25 04/03/2024 COMP MET PANEL /LIVE R bilirubin, conjugated (direct) 0.00 mg/dL 0.00-0 .30 Not Available [facility] (Lab) [address] [place], [address], 04/03/2024 15:16:18 04/03/19 25 04/03/2024 COMP MET PANEL /LIVE R biliurubin,u ncong. (indirect) 0.20 mg/dL 0.00-1 .1 Not Available [facility] (Lab) [address] [place], [address], 04/03/2024 15:16:18 04/03/19 25 04/03/2024 COMP MET PANEL /LIVE R calcium 9.5 mg/dL 8.4-10 .2 Not Available [facility] (Lab) [address] [place], [address], 04/03/2024 15:16:18 04/03/19 25 04/03/2024 COMP MET PANEL /LIVE R total protein 7.1 g/dL 6.3-8. 2 Not Available [facility] (Lab) [address] [place], [address], 04/03/2024 15:16:18 04/03/19 25 04/03/2024 COMP MET PANEL /LIVE R albumin 4.1 g/dL 3.0-4. 4 Not Available [facility] (Lab) [address] [place], [address], 04/03/2024 15:16:18 04/03/19 25 04/03/2024 COMP MET PANEL /LIVE R globulin 3.0 g/dL 2.6-4. 2 Not Available [facility] (Lab) [address] [place], [address], 04/03/2024 15:16:18 04/03/19 25 04/03/2024 COMP MET PANEL /LIVE R A/G ratio 1.4 ratio 1.0-2. 0 Not Available [facility] (Lab) [address] [place], [address], 04/03/2024 15:16:18 04/03/19 25 04/03/2024 VITAM IN D 25-HY DROXY vd25oh 47.1 NG/mL 30-100 Vitam in D Statu s: Defic ient: <20 ng/mL Insuf ficie nt: 20-29 ng/mL Suffi cient : 30-10 0 ng/mL Not Available [facility] (Lab) [address] [place], [address], 04/03/2024 14:40:35 04/03/19 25 04/03/2024 TSH W/REF HECTOR FT4 TSH with reflex free T4 1.370 uIU/m L 0.465- 4.680 Not Available [facility] (Lab) [address] [place], [address], 04/03/2024 14:50:45 04/03/19 25 04/03/2024 HEMOG LOBIN A1C HA1C 6.4 % 4.0-6. 0 high Diabe milvia Scree rivera Crite carlyle: <5.7% Consi stent with absen ce of diabe milvia 5.7-6 .4% Consi stent with incre ased risk for diabe milvia (pred iabet es) >OR=6 .5% Consi stent with diabe milvia REFER ENCE: Diabe milvia Care 2016, 39(Gomez ppl.1 ):s13 -s22 Not Available [facility] (Lab) [address] [place], [address], 04/03/2024 15:44:51 07/31/19 25 07/30/2024 imagi ng/di agnos tic resul t No observ ation record ed. [facility] [address], [place], [address], 07/30/2024 18:21:20 Result Notes None recorded. Problems Name Problem SNOMED Code Status Onset Date Resolution Date Notes Provider Name and Address Organization Details Recorded Time Glucose level outside reference range 066542322 Active Not Available [facility] 3 06:11:27 Arthritis of left knee 2523532424765 104 Active 2018 Not Available [facility] 3 06:11:27 History of left total knee replacemen t 4308680186950 105 Active 2019 Not Available [facility] 3 06:11:27 Testicular hypofuncti on 668707840 Active [facility] Available [facility] 06:11:27 History of total knee arthroplas ty 5621509840583 Active 2018 Not Available [facility] 3 06:11:27 Pain in left sacroiliac joint 1020812089940 9102 Active 2021 Not Available [facility] 3 06:11:27 Pain in bilateral legs 8611939732291 9108 Active 2021 Not Available [facility] 3 06:11:27 Backache 124694286 Active Not Available [facility] 3 06:11:27 Dry skin 36916579 Active 2021 Not Available [facility] 3 06:11:27 Sciatica 19732957 Active Not Available [facility] 3 06:11:27 Gastroesop hageal reflux disease 389531824 Active Not Available [facility] 3 06:11:27 Morbid obesity 205652151 Active 2021 Not Available [facility] 3 06:11:27 Osteoarthr itis of knee 223093002 Active Not Available [facility] 3 06:11:27 Jaw pain 385707561 Active Not Available [facility] 3 06:11:27 Low back pain 790676659 Active Not Available [facility] 3 06:11:27 Insect bite to leg - nonvenomou s 751826012 Active Not Available [facility] 3 06:11:27 Knee pain Active Not Available [facility] 3 06:11:27 Type 2 diabetes mellitus without complicati on 786361792 Active 2022 Not Available [facility] 3 06:11:27 Neuropathy due to type 2 diabetes mellitus 4471391131458 06 Active 2020 Not Available [facility] 3 06:11:27 Sinusitis 53615528 Active Not Available [facility] 3 06:11:27 Neuropathy 313056556 Active Not Available [facility] 3 06:11:27 Osteoarthr itis 297272596 Active Not Available [facility] 3 06:11:27 Vertigo 593426859 Active Not Available [facility] 3 06:11:27 Dizziness 918249721 Active Not Available [facility] 3 06:11:27 Epidermoid cyst of skin 105347874 Active Not Available [facility] 3 06:11:27 Type 2 diabetes mellitus 12653375 Active 2021 Not Available [facility] 3 06:11:28 Pain of shoulder region 98841924 Active 2018 Not Available [facility] 3 06:11:28 Male hypogonadi sm 97837799 Active Not Available [facility] 3 06:11:28 Upper respirator y infection 87242510 Active Not Available [facility] 3 06:11:28 Hyperlipid emia 53676332 Active Not Available [facility] 3 06:11:28 Carpal tunnel syndrome 49498032 Active Not Available [facility] 3 06:11:28 Disorder of testis 61431318 Active Not Available [facility] 3 06:11:28 Rhinitis 89267878 Active Not Available [facility] 3 06:11:28 Diabetes mellitus 73059175 Active Not Available [facility] 3 06:11:28 Pain of elbow region 57139906 Active Not Available [facility] 3 06:11:28 Nausea 263482785 Active 2022 Not Available [facility] 3 06:11:27 Diarrhea 79844070 Active 2022 Not Available [facility] 3 06:11:28 Gastroesop hageal reflux disease without esophagiti s 040627328 Active 2022 Not Available [facility] 3 06:11:27 Essential hypertensi on 76293732 Active 2022 Not Available [facility] 3 06:11:28 Asthma 099981019 Active 2022 Not Available [facility] 3 06:11:27 Nicotine dependence 53261049 Active 2022 Not Available [facility] 3 06:11:28 Solitary nodule of lung 326252943 Active 2022 Not Available [facility] 3 06:11:28 Coronary arterioscl erosis 04611837 Active 2022 Not Available [facility] 3 06:11:28 Non-alcoho lic fatty liver 329704063 Active 2022 Not Available [facility] 3 06:11:27 Thrombocyt openic disorder 675239934 Active 2022 Not Available [facility] 3 06:11:27 Vitamin D deficiency 63130851 Active 2022 Not Available [facility] 3 06:11:27 Cyst of eyelid 72283130 Active 2022 Not Available [facility] 3 06:11:28 Chronic kidney disease 706386348 Active 2022 Not Available [facility] 3 06:11:28 Environmen lyle allergy 612358950 Active 2022 Not Available [facility] 3 06:11:28 Dry skin dermatitis [id number] Active 2022 Not Available [facility] 3 06:11:27 Hyperglyce hood 74186819 Active 2022 Kina Hahn null, [facility] 3 15:52:36 Chronic constipati on 682019576 Active 2022 Carmen haley MD [address], [place], [address] , [facility] 3 15:16:23 Urinary incontinen ce 640997428 Active 2022 Kina Hahn null, [facility] 3 14:26:37 Pneumonia 232840420 Active 2023 Lianne Florian RN null, [facility] 4 12:25:57 Cough 37181768 Active 2023 Lianne Florian RN null, [facility] 4 15:25:03 Skin lesion 69956231 Active 2023 Quin Martines MA null, [facility] 4 10:42:48 Ingrowing toenail 608357952 Active 2023 Junior Barnard DPM [address], [place], [address] , [facility] 4 15:39:48 Dystrophia unguium 81099936 Active 2023 Junior Barnard DPM [address], [place], [address] , [facility] 4 15:39:52 First metatarsop halangeal joint pain 529917011 Active 2023 Junior Barnard DPM [address], [place], [address] , [facility] 4 15:40:08 Hypertrigl yceridemia 985623402 Active 2023 Quin Martines MA null, [facility] 4 15:25:59 Mass of soft tissue of right lower limb [id number] 9105 Active 2023 Junior aBrnard DPM [address], [place], [address] , [facility] 4 12:38:11 Abdominal pain 03485598 Active 2023 Quin Martines MA null, [facility] 4 14:28:04 Furuncle 530588739 Active 2023 Carmen haley MD [address], [place], [address] , [facility] 4 17:24:16 Abscess of scrotum 67465902 Active 2023 Fish lee MD [address], [place], [address] , [facility] 4 16:11:23 Diabetic on oral treatment 741400704 Active 2024 Junior Barnard DPM [address], [place], [address] , [facility] 5 15:52:09 Problem Notes None recorded. Procedures Surgical History Date Name Laterality Status Provider Name and Address Organization Details Recorded Time 06/24/19 25 Nail Debridement completed Junior Barnard DPM [address], [place], [address], [facility] 06/23/2024 15:53:42 03/24/19 25 Nail Debridement completed Junior Barnard DPM [address], [place], [address], [facility] 03/25/2024 10:41:56 12/10/19 24 Nail Debridement completed Junior Barnard DPM [address], [place], [address], [facility] 12/10/2023 13:59:30 09/27/19 24 Chronic care management services completed Monalisa Fiore [facility] 09/27/2023 14:51:57 09/10/19 24 Nail Debridement completed Junior Barnard DPM [address], [place], [address], [facility] 10/03/2023 09:40:19 08/29/19 24 Chronic care management services completed Monalisa Fiore [facility] 08/29/2023 15:32:22 06/04/19 24 Joint Injection-Podiatr y completed Junior Barnard DPM [address], [place], [address], [facility] 06/04/2023 15:39:38 04/18/19 24 Medicare Wellness CPT Code, subsequent completed Akiko Stiles RN [facility] 04/18/2023 11:43:15 01/24/20 23 Colonoscopy completed Sue Erickson [facility] 04/18/2023 11:15:03 Carpal tunnel completed Not Available [facility] 05/02/2022 05:00:09 Rotator cuff surgery completed Not Available [facility] 05/02/2022 05:00:09 procedure on elbow completed Not Available [facility] 05/02/2022 05:00:09 Knee completed Not Available [facility] 03/2022 05:00:09 Knee Replacement completed Not Available [facility] 05/02/2022 05:00:09 Tonsillectomy completed Not Available [facility] 05/02/2022 05:00:09 Cataract Surgery completed Sue garcia Emanuel [facility] 03/26/2024 11:29:41 Imaging Results None recorded. Procedure Notes None recorded. Medical Equipment None Reported. Allergies Allergen ID Allergen Name Allergen Category Reaction Reaction Severity Criticality Documentation Date Start Date Code Code System Note Provider Name and Address Organization Details Recorded Time 9281 Vascepa medicatio n diarrhea severe Not available 05/02/2022 97283 80 RxNorm Not Available [facility] 3 05:15:09 9282 Substance with sulfonami de structure and antibacte rial mechanism of action (substanc e) medicatio n rash Not available Not available 05/02/2022 82647 8003 SNOMED Not Available [facility] 3 05:15:09 9283 Neoprene medicatio n rash Not available Not available 05/02/2022 06498 UNK Not Available [facility] 3 05:15:09 9284 lidocaine medicatio n rash Not available Not available 05/02/2022 6387 RxNorm Not Available [facility] 3 05:15:09 Medications Name Sig Start Date Stop Date Status Note LastModified by Organization Details LastModified Time losartan 50 mg tablet Take 1 tablet every day by oral route. 05/30 completed Not Available Not Available Not Available celecoxib 200 mg capsule active Not Available Not Available Not Available cyclobenz aprine 10 mg tablet TAKE 1 TABLET BY MOUTH EVERY 8 HOURS 08/02 completed Not Available Not Available Not Available amoxicill in 500 mg capsule TAKE 1 CAPSULE EVERY 8 HOURS UNTIL ALL TAKEN 02/11 completed Not Available Not Available Not Available fluconazo le 100 mg tablet active Not Available Not Available Not Available metformin 500 mg tablet TAKE 2 TABLETS BY MOUTH TWICE DAILY active Not Available Not Available No t Available atorvasta tin 80 mg tablet TAKE 1 TABLET BY MOUTH EVERY DAY 03/26 completed Not Available Not Available Not Available prednison e 10 mg tablet Take by oral route. 08/02 completed Not Available Not Available Not Available doxycycli ne hyclate 100 mg capsule Take 1 capsule twice a day by oral route for 14 days. active Not Available Not Available No t Available cefuroxim e axetil 250 mg tablet TAKE ONE TABLET TWICE DAILY UNTIL ALL TAKEN 10/27 completed Not Available Not Available Not Available ipratropi um 0.5 mg-albute rol 3 mg (2.5 mg base)/3 mL nebulizat ion soln Inhale 3 mL every 4-6 hours by nebuliza tion route as needed for 90 days. 04/07 completed Not Available Not Available Not Available ammonium lactate 12 % lotion APPLY TOPICALL Y TO FEET DAILY 11/27 completed Not Available Not Available Not Available sildenafi l 50 mg tablet TAKE ONE TABLET TWICE WEEKLY DIRECTED TAKE A HALF HOUR BEFORE SEX 07/09 completed Not Available Not Available Not Available azithromy janina 250 mg tablet TAKE 2 TABLETS ON DAY 1 THEN 1 TABLET DAILY THEREAFT ER TILL ALL TAKEN 08/30 completed Not Available Not Available Not Available aspirin 325 mg tablet Take 1 tablet every day by oral route. 03/23 completed Not Available Not Available Not Available ofloxacin 0.3 % eye drops 03/26 completed Not Available Not Available Not Available benzonata te 200 mg capsule Take 1 capsule twice a day by oral route as needed for 7 days. active Not Available Not Available No t Available cephalexi n 250 mg capsule Take 1 capsule every 6 hours by oral route for 7 days. active Not Available Not Available No t Available hydrocodo ne 5 mg-acetam inophen 325 mg tablet TAKE 1 TABLET BY MOUTH TWICE DAILY FOR 15 DAYS NEEDED 11/27 completed Not Available Not Available Not Available tretinoin 0.025 % topical cream active Not Available Not Available Not Available minocycli ne 100 mg capsule TAKE 1 CAPSULE BY MOUTH TWICE DAILY FOR 14 DAYS 07/24 completed Not Available Not Available Not Available ondansetr on HCl 4 mg tablet TAKE 1 TABLET BY MOUTH TWICE DAILY NEEDED 08/02 completed Not Available Not Available Not Available prednison e 20 mg tablet active Not Available Not Available Not Available metronida zole 250 mg tablet TAKE 1 TABLET BY MOUTH THREE TIMES DAILY FOR 10 DAYS 07/23 completed Not Available Not Available Not Available clindamyc in HCl 150 mg capsule active Not Available Not Available Not Available meclizine 12.5 mg tablet TAKE ONE TABLET TWICE DAILY active Not Available Not Available No t Available acetamino phen 300 mg-codein e 30 mg tablet Take 1 tablet every 6 hours by oral route as needed. 08/04 completed Not Available Not Available Not Available ciproflox acin 500 mg tablet TAKE 1 TABLET BY MOUTH TWICE DAILY FOR 10 DAYS 07/23 completed Not Available Not Available Not Available sulfameth oxazole 800 mg-trimet hoprim 160 mg tablet TAKE 1 TABLET TWICE A DAY UNTIL ALL TAKEN 08/04 completed Not Available Not Available Not Available aspirin 81 mg tablet,de layed release Take 1 tablet every day by oral route. 2021 active Not Available Not Available Not Avai lable tramadol 50 mg tablet TAKE ONE TO TWO TABLETS EVERY 6 HOURS NEEDED FOR PAIN 02/11 completed Not Available Not Available Not Available glimepiri de 1 mg tablet TAKE ONE TABLET DAILY -- STOP IF BLOOD SUGAR IS LESS THAN 150 FOR 2 DAYS active Not Available Not Available No t Available pantopraz ole 20 mg tablet,de layed release TAKE 1 TABLET BY MOUTH DAILY NEEDED active Not Available Not Available No t Available ketorolac 0.5 % eye drops 03/26 completed Not Available Not Available Not Available prednison e 10 mg tablets in a dose pack Take 1 tab by mouth, 3 times a day for 3 daysTake 1 tab by mouth 2 times a day for 2 daysTake 1 tab by mouth once a day for 1 day 04/05 completed Not Available Not Available Not Available oxycodone -acetamin ophen 5 mg-325 mg tablet TAKE 1 TABLET BY MOUTH EVERY 6 HOURS NEEDED FOR PAIN 09/30 completed Not Available Not Available Not Available hydrocort isone 2.5 % topical cream with perineal applicato r APPLY RECTALLY TO THE AFFECTED AREA TWICE DAILY FOR 2 WEEKS active Not Available Not Available No t Available potassium 99 mg tablet 2 times a week 2019 active Not Available Not Available Not Avai lable prednisol one acetate 1 % eye drops,julien pension 03/26 completed Not Available Not Available Not Available triamcino lone acetonide 0.1 % dental paste 02/19 completed Not Available Not Available Not Available tamsulosi n 0.4 mg capsule Take 1 capsule every day by oral route. active Not Available Not Available No t Available Kenalog 10 mg/mL suspensio n for injection In office injectio n administ ered by the provider 08/02 completed [facility]: [id number] 4-20 Not Available Not Available Not Available meclizine 25 mg tablet TAKE 1 TABLET BY MOUTH TWICE DAILY NEEDED active Not Available Not Available No t Available benzonata te 100 mg capsule TAKE 1 CAPSULE BY MOUTH TWICE DAILY FOR 5 DAYS NEEDED 04/18 completed Not Available Not Available Not Available hydrocodo ne 7.5 mg-acetam inophen 325 mg tablet TAKE 1 TABLET BY MOUTH TWICE DAILY FOR 15 DAYS NEEDED 08/02 completed Not Available Not Available Not Available cephalexi n 500 mg capsule Take 1 capsule twice a day by oral route. 03/26 completed Not Available Not Available Not Available pantopraz ole 40 mg tablet,de layed release TAKE 1 TABLET BY MOUTH EVERY DAY NEEDED active Not Available Not Available No t Available erythromy janina 5 mg/gram (0.5 %) eye ointment APPLY TO OUTER LEFT EYELID THREE TIMES DAILY FOR 1 WEEK active Not Available Not Available No t Available diclofena c potassium 50 mg tablet take one tablet twice a day as needed 06/02 completed Not Available Not Available Not Available gabapenti n 300 mg capsule TAKE 1 CAPSULE BY MOUTH THREE TIMES DAILY active Not Available Not Available No t Available diclofena c sodium 75 mg tablet,de layed release TAKE ONE TABLET TWICE DAILY WITH FOOD OR MILK active Not Available Not Available No t Available monteluka st 10 mg tablet TAKE 1 TABLET BY MOUTH DAILY IN THE EVENING active Not Available Not Available No t Available hydrocodo ne 5 mg-acetam inophen 500 mg tablet Take 1 tablet every 4-6 hours by oral route. active Not Available Not Available No t Available bisacodyl 5 mg tablet,de layed release TAKE 6 TABLETS BY MOUTH AT 8AM ON 01/22 completed Not Available Not Available Not Available desonide 0.05 % lotion active Not Available Not Available Not Available lisinopri l 5 mg tablet TAKE 1 TABLET BY MOUTH DAILY DIRECTED active Not Available Not Available No t Available mupirocin 2 % topical ointment APPLY A SMALL AMOUNT TO THE AFFECTED AREA BY TOPICAL ROUTE 2 TIMES PER DAY active Not Available Not Available No t Available diclofena c sodium 50 mg tablet,de layed release TAKE ONE TABLET TWICE DAILY WITH FOOD OR MILK-- TAKE ONLY NEEDED! 05/10 completed Not Available Not Available Not Available ergocalci ferol (vitamin D2) 1,250 mcg (50,000 unit) capsule TAKE 1 CAPSULE BY MOUTH ONCE A WEEK 07/23 completed Not Available Not Available Not Available lorazepam 1 mg tablet active Not Available Not Available Not Available azelastin e 137 mcg (0.1 %) nasal spray USE 1 SPRAY IN EACH NOSTRIL EVERY 12 HOURS 06/03 completed Not Available Not Available Not Available testoster one cypionate 200 mg/mL intramusc ular oil Inject 2 mL every 4 weeks by intramus cular route. 02/19 completed Not Available Not Available Not Available levofloxa janina 500 mg tablet Take 1 tablet every 24 hours by oral route. 06/26 completed Not Available Not Available Not Available methylpre dnisolone 4 mg tablets in a dose pack FOLLOW PACKAGE DIRECTIO NS 11/27 completed Not Available Not Available Not Available albuterol sulfate HFA 90 mcg/actua tion aerosol inhaler INHALE 1-2 PUFFS EVERY 4-6 HOURS active Not Available Not Available No t Available SSD 1 % topical cream active Not Available Not Available Not Available ondansetr on 4 mg disintegr ating tablet DISSOLVE 2 TABLETS ON THE TONGUE TWICE DAILY active Not Available Not Available No t Available fluticaso ne propionat e 50 mcg/actua tion nasal spray,julien pension SHAKE LIQUID AND USE 1 SPRAY IN EACH NOSTRIL TWICE DAILY 06/03 completed Not Available Not Available Not Available lisinopri l 2.5 mg tablet TAKE 1 TABLET BY MOUTH EVERY DAY 09/30 completed Not Available Not Available Not Available doxycycli ne hyclate 100 mg tablet TK 1 T PO BID active Not Available Not Available No t Available Microlet Lancet USE TWICE DAILY 04/07 completed Not Available Not Available Not Available amoxicill in 875 mg-potass ium clavulana te 125 mg tablet TAKE 1 TABLET BY MOUTH TWICE DAILY FOR 5 DAYS 04/18 completed Not Available Not Available Not Available neomycin 3.5 mg/g-poly myxin B 10,000 unit/g-de xameth 0.1 % eye oint APPLY A SMALL AMOUNT INTO BOTH EYES AT BEDTIME 11/27 completed Not Available Not Available Not Available neomycin- polymyxin -hydrocor t 3.5 mg-10,000 unit/mL-1 % ear drops,julien p INSTILL 3 DROPS INTO LEFT EAR TWICE DAILY 10/27 completed Not Available Not Available Not Available azithromy janina 500 mg tablet TAKE 1 TABLET BY MOUTH DAILY FOR 2 DAYS TAKE FIRST DOSE ON 03/02/2304/18 completed Not Available Not Available Not Available Skelaxin 800 mg tablet Take 1 tablet every day by oral route as needed for 30 days. 12/11 completed Not Available Not Available Not Available ezetimibe 10 mg tablet TAKE 1 TABLET BY MOUTH EVERY DAY 07/20 completed Too expensiv eStarted by Dr Hernandez [facility], wants to take fenofibr ate Not Available Not Available Not Available rosuvasta tin 5 mg tablet TAKE ONE TABLET DAILY active Not Available Not Available No t Available rosuvasta tin 20 mg tablet Take 2 tablets every day by oral route. 09/16 completed Not Available Not Available Not Available rosuvasta tin 40 mg tablet TAKE 1 TABLET BY MOUTH DAILY 04/12 completed Not Available Not Available Not Available Spiriva with HandiHale r 18 mcg and inhalatio n capsules Inhale 1 capsule every day by inhalati on route. 12/11 completed Not Available Not Available Not Available trospium 20 mg tablet TAKE 1 TABLET BY MOUTH TWICE DAILY active Not Available Not Available No t Available Tricor 48 mg tablet Take 1 tablet every day by oral route. 02/11 completed Not Available Not Available Not Available Boostrix Tdap 2.5 Lf unit-8 mcg-5 Lf/0.5 mL intramusc ular syringe ADM 0.5ML IM UTD active Not Available Not Available No t Available Fungi-Louise l active Not Available Not Available Not Available sildenafi l 50mg as needed 12/22 completed Not Available Not Available Not Available cyclobenz aprine 10mg (1 tab) as needed 10/08 completed Not Available Not Available Not Available Stool Softener PRN 08/02 completed Not Available Not Available Not Available Centrum 1 tab daily 2018 active Not Available Not Available Not Avai lable multivita min TK 1T PO QD 2019 active Not Available Not Available Not Avai lable Hydrocodo ne 12/08 completed Not Available Not Available Not Available fenofibra te 148MG 1T PO QD 07/25 completed Not Available Not Available Not Available lidocaine (PF) 10 mg/mL (1 %) injection solution In office injectio n administ ered by the provider 04/12 completed [facility]: [id number] 6- Not Available Not Available Not Available fenofibra te nanocryst allized 145 mg tablet TAKE 1 TABLET BY MOUTH EVERY DAY active Not Available Not Available No t Available Oysco 500/D 500 mg-5 mcg (200 unit) tablet TAKE 1 TABLET BY MOUTH DAILY 06/03 completed Not Available Not Available Not Available cholecalc iferol (vitamin D3) 1,250 mcg (50,000 unit) capsule TAKE 1 CAPSULE BY MOUTH ONCE A WEEK active Not Available Not Available No t Available Travel Sickness (meclizin e) 25 mg chewable tablet TAKE ONE TABLET 3 TIMES DAILY 05/01 completed Not Available Not Available Not Available GaviLyte- G 236 gram-22.7 4 gram-6.74 gram-5.86 gram oral solution MIX AND DRINK 1/2 JUG AT 5PM ON 01/22 AND 1/2 JUG AT 5AM ON 01/23 completed Not Available Not Available Not Available Xarelto 10 mg tablet active Not Available Not Available Not Available ropivacai ne (PF) 5 mg/mL (0.5 %) injection solution Take 20 mg by injectio n route. 08/02 completed [facility] [id number] 4- Not Available Not Available Not Available OneTouch Verio test strips TEST BLOOD GLUCOSE ONCE DAILY active Not Available Not Available No t Available Chantix Continuin g Month Box 1 mg tablet TAKE ONE TABLET TWICE DAILY 09/14 completed Not Available Not Available Not Available Chantix Starting Month Box 0.5 mg (11)-1 mg (42) tablets in dose pack Take 1 startr pk by oral route. active Not Available Not Available No t Available Vascepa 1 gram capsule Take 2 capsules twice a day by oral route. 03/23 completed Not Available Not Available Not Available Invokana 100 mg tablet TAKE 1 TABLET BY MOUTH EVERY DAY 04/05 completed Not Available Not Available Not Available Allergy Relief (cetirizi ne) 10 mg capsule Take 1 capsule daily by oral route. 2018 active Not Available Not Available Not Avai lable Breo Ellipta 100 mcg-25 mcg/dose powder for inhalatio n INHALE 1 PUFF BY MOUTH EVERY 24 HOURS. RINSE MOUTH AND SPIT AFTER EACH USE active Not Available Not Available No t Available Farxiga 10 mg tablet TAKE 1 TABLET BY MOUTH EVERY DAY 08/02 completed Not Available Not Available Not Available potassium chloride ER 20 mEq tablet,ex tended release TAKE 1 TABLET BY MOUTH EVERY DAY WITH FOOD 04/18 completed Not Available Not Available Not Available Jardiance 10 mg tablet Take 1 tablet every day by oral route for 90 days. 11/23 completed Not Available Not Available Not Available Incruse Ellipta 62.5 mcg/actua tion powder for inhalatio n INL 1 PUFF PO Q 24 H AT THE SAME TIME QD 03/23 completed Not Available Not Available Not Available Breo Ellipta 200 mcg-25 mcg/dose powder for inhalatio n INHALE 1 PUFF EVERY DAY AT THE SAME TIME EACH DAY. RINSE MOUTH AFTER EVERY USE. 08/04 completed Not Available Not Available Not Available naloxone 4 mg/actuat ion nasal spray CALL 911. SPR CONTENTS OF ONE SPRAYER (0.1ML) INTO ONE NOSTRIL. REPEAT IN 2-3 MIN IF SYMPTOMS OF OPIOID EMERGENC Y PERSIST, ALTERNAT E NOSTRILS 06/03 completed Not Available Not Available Not Available Flublok Quad [id number] (PF) 180 mcg (45 mcg x 4)/0.5 mL IM syringe IMMUNIZA TION 07/09 completed Not Available Not Available Not Available Fluzone High-Dose 2018- (PF) 180 mcg/0.5 mL intramusc ular syringe IMMUNIZA TION 12/29 completed Not Available Not Available Not Available OneTouch Verio Reflect Meter USE DIRECTED TO TEST BLOOD GLUCOSE ONCE DAILY 06/03 completed Not Available Not Available Not Available Nexlizet 180 mg-10 mg tablet Take by oral route for 90 days. active Not Available Not Available No t Available Fluad Quad (65yr up)(PF) 60 mcg (15 mcg x 4)/0.5mL IM syringe ADMINIST ER 0.5ML IN THE MUSCLE DIRECTED 12/08 completed Not Available Not Available Not Available Systane Complete PF active Not Available Not Available Not Available Vitals Date Recorded Body height Body mass index (BMI) Body weight Heart rate Respiratory rate Oxygen saturation Oxygen saturation in Arterial blood by Pulse oximetry Systolic And Diastolic Provider Name and Address Organization Details Last Updated DateTime 5 180.34 cm 35.1 kg/m2 716741. 28 g 112 /min 16 /min 97 % 97 % 151/95 mm[Hg] Nichelle uG [facility] 5 14:31:44 Date Recorded Body height Body mass index (BMI) Body weight Body temperature Heart rate Systolic And Diastolic Provider Name and Address Organization Details Last Updated DateTime 5 180.34 cm 34.9 kg/m2 774763. 09 g 97.6 [degF] 90 /min 124/60 mm[Hg] Sue Erickson [facility] 5 11:32:56 Date Recorded Body height Body mass index (BMI) Body weight Body temperature Heart rate Oxygen saturation Oxygen saturation in Arterial blood by Pulse oximetry Provider Name and Address Organization Details Last Updated DateTime 5 180.34 cm 34.9 kg/m2 202091. 09 g 97.7 [degF] 88 /min 96 % 96 % Raheem Gandara [facility] 5 14:55:40 Date Recorded Body height Body mass index (BMI) Body weight Body temperature Heart rate Systolic And Diastolic Provider Name and Address Organization Details Last Updated DateTime 5 180.34 cm 33.2 kg/m2 340147. 98 g 97.6 [degF] 84 /min 100/58 mm[Hg] Sue Erickson [facility] 5 11:09:30 Date Recorded Body height Body mass index (BMI) Body weight Heart rate Oxygen saturation Oxygen saturation in Arterial blood by Pulse oximetry Systolic And Diastolic Provider Name and Address Organization Details Last Updated DateTime 4 180.34 cm 35.1 kg/m2 796997. 28 g 88 /min 99 % 99 % 132/80 mm[Hg] Claribel Pugh [facility] 4 12:00:10 Social History Question Answer Notes LastModified by Organization Details LastModified Time Tobacco Smoking Status Current Every Day Smoker Not Available [facility] 05/02/2022 04:56:10 Do You Have An Advance Directive? No [id number] Information not available 05/02/2022 Are You Blind Or Do You Have Difficulty Seeing? No [id number] Information not available 05/02/2022 What Is Your Level Of Caffeine Consumption? Moderate [id number] Information not available 05/02/2022 In The 14 Days Before Symptom Onset, Have You Had Close Contact With A Laboratory-conf irmed COVID-19 While That Case Was Ill? No [id number] Information not available 05/02/2022 In The 14 Days Before Symptom Onset, Have You Had Close Contact With A Person Who Is Under Investigation For COVID-19 While That Person Was Ill? No [id number] Information not available 05/02/2022 Are You Deaf Or Do You Have Serious Difficulty Hearing? Yes Bilateral Hearing Aides MIGRATION.030 [id number] Information not available 05/02/2022 What Type Of Diet Are You Following? REGULAR MIGRATION.030 [id number] Information not available 05/02/2022 What Is The Highest Grade Or Level Of School You Have Completed Or The Highest Degree You Have Received? [id number] MIGRATION.030 [id number] Information not available 05/02/2022 Have There Been Any Changes To Your Family Or Social Situation? No MIGRATION.0301 012307 Information not available 05/02/2022 What Is The Fluoride Status Of Your Home? Fluoridated MIGRATION.030 471330 Information not available 05/02/2022 Are There Any Guns Present In Your Home? No MIGRATION.0301 495245 Information not available 05/02/2022 Do You Use Insect Repellent Routinely? No MIGRATION.0301 561794 Information not available 05/02/2022 Where Do You Live? Single[place]House MIGRATION.0301 116491 Information not available 05/02/2022 Guns Present In The Home? No [email or web address] Information not available 04/18/2023 Are You Able To Care For Yourself? Yes [email or web address] Information not available 04/18/2023 Are You Blind Or Do Yo Have Difficulty Seeing? No [email or web address] Information not available 04/18/2023 Are You Deaf Or Do You Have Serious Difficulty Hearing? No [email or web address] Information not available 04/18/2023 Live Alone Of With Others? With Others [email or web address] Information not available 04/18/2023 Do You Have A Medical Power Of Wildlife Control Agent? No MIGRATION.0301 601369 Information not available 05/02/2022 What Was The Date Of Your Most Recent Tobacco Screening? 07/23/2024 [email or web address] Information not available 07/23/2024 What Is Your Current Pack Years? [email or web address] MIGRATION.0301 610322 Information not available 05/02/2022 Do You Have Any Pets? Yes MIGRATION.0301 734568 Information not available 05/02/2022 What Is Your Relationship Status? MIGRATION.0301 508071 Information not available 05/02/2022 Do You Use Your Seat Belt Or Car Seat Routinely? Yes MIGRATION.0301 252807 Information not available 05/02/2022 Do You Have Smoke And Carbon Monoxide Detectors In Your Home? Yes MIGRATION.0301 792230 Information not available 05/02/2022 At What Age Did You Start Smoking Tobacco? 10 MIGRATION.0301 256704 Information not available 05/02/2022 Are You Passively Exposed To Smoke? No MIGRATION.0301 637310 Information not available 05/02/2022 Are There Any Smokers In Your House? No MIGRATION.0301 742931 Information not available 05/02/2022 How Much Tobacco Do You Smoke? 2 PPD MIGRATION.0301 158205 Information not available 05/02/2022 What Types Of Sporting Activities Do You Participate In? None MIGRATION.0301 181648 Information not available 05/02/2022 Do You Use Sunscreen Routinely? No MIGRATION.0301 645771 Information not available 05/02/2022 How Many Years Have You Smoked Tobacco? 64 [email or web address] Information not available 07/23/2024 Have You Recently Traveled Abroad? No MIGRATION.0301 724586 Information not available 05/02/2022 Do You Have Difficulty Walking Or Climbing Stairs? No MIGRATION.0301 631028 Information not available 05/02/2022 Do You Have Any Dietary Restrictions? No MIGRATION.0301 059825 Information not available 05/02/2022 Sex: Male Functional Status Question Answer Note LastModified by Organizat ion Details LastModified Time Do you use any illicit or recreational drugs? No MIGRATION.9867346 026 Information not available 05/02/2022 Do you or have you ever used any other forms of tobacco or nicotine? No MIGRATION.3372634 026 Information not available 05/02/2022 What is your level of alcohol consumption? None MIGRATION.2950657 026 Information not available 05/02/2022 Do you have transportation difficulties? No MIGRATION.8993731 026 Information not available 05/02/2022 Are you able to walk? YESWOREST MIGRATION.3274889 026 Information not available 05/02/2022 Do you have difficulty doing errands alone? No MIGRATION.5757176 026 Information not available 05/02/2022 Are you able to care for yourself? Yes MIGRATION.8127049 026 Information not available 05/02/2022 What is your occupation? Retired MIGRATION.8385986 026 Information not available 05/02/2022 Do you have difficulty dressing or bathing? No MIGRATION.7394104 026 Information not available 05/02/2022 What is your exercise level? None MIGRATION.4412864 026 Information not available 05/02/2022 Mental Status Question Answer Note LastModified by Organizat ion Details LastModified Time Do you feel stressed (tense, restless, nervous, or anxious, or unable to sleep at night)? [id number] MIGRATION.89876307 26 Information not available 05/02/2022 Do you have difficulty concentrating, remembering or making decisions? No MIGRATION.68343024 26 Information not available 05/02/2022 Family History Relationship Description Onset Age of this Age Resolved Age Notes LastModified by Organization Details LastModified Time Brother Psoriasis MIGRATION.061 [id number] Not available 05/02/2022 05:00:12 Medical History Condition Response NERVE DISEASE Y BLINDNESS N RHEUMATIC FEVER N KIDNEY STONES N BLADDER PROBLEMS N MRSA N OTHER # 1 N POLIO N LUNG DISEASE/DISORDER Y HISTORY OF DRUG ABUSE N RADIATION / CHEMOTHERAPY N COPD Y Other # 2 N BLOOD DISEASES N EAR OR HEARING PROBLEMS N MUMPS N SHINGLES N BOWEL PROBLEMS N DEPRESSION (INCLUDING POST ) N STROKE/TIA N ULCERS N BENIGN PROSTATIC HYPERPLASIA N MEASLES N HYPOTENSION N MYOCARDIAL INFARCTION N OBESITY N GERD/NAUSEA Y ANEURYSM N URINARY/BLADDER/KIDNEY PROBLEMS N CORONARY ARTERY DISEASE (CAD) N ADDICTION CONCERNS N ENDOMETRIOSIS N Impotence N USE OF BLOOD THINNERS N SKIN PROBLEMS N GASTROINTESTINAL DISORDER N PERIPHERAL VASCULAR DISEASE N MUSCLE,JOINT OR BONE PROBLEMS N GASTROINTESTINAL BLEEDING N BLOOD CLOTS N ASTHMA N CATARACTS N ERECTILE DYSFUNCTION N VARICOSITIES N GI PROBLEMS N Low Testosterone N INFERTILITY N AIDS/HIV N CHEMOTHERAPY / RADIATION N LIVER DISEASE N MALE HYPOGONADISM Y HYPERTENSION N Deficiency N TOURETTE'S N ANXIETY DISORDER N BLOOD TRANSFUSION N ANEMIA/BLOOD DISORDER N CHRONIC EAR INFECTIONS N BRONCHITIS N TUBERCULOSIS N GLAUCOMA N FOOT PROBLEM N DIVERTICULITIS N CHICKENPOX N SLEEP APNEA N INFECTIOUS DISEASE N HEART ARRHYTHMIA N PROSTATE N INSOMNIA N HIGH CHOLESTEROL / HYPERLIPIDEMIA Y HYPERTHYROIDISM N EYE PROBLEMS N EDEMA N CHRONIC PAIN SYNDROME N HYPOTHYROIDISM N CAROTID BLOCKAGE N CONSTIPATION N BACK / NECK PROBLEMS Y ATHEROSCLEROSIS N BREAST PROBLEMS N DIALYSIS N ECZEMA N OSTEOPOROSIS N ARTHRITIS Y APPENDICITIS N DIABETES, TYPE Y BAD TEETH N ENT N HEARTBURN / REFLUX N AUTISM SPECTRUM DISORDER (ASD) N HEPATITIS / LIVER DISEASE N GOUT N SLEEP DISORDER N ALZHEIMER'S DISEASE N Brain Problems N HERPES N DEMENTIA N HEADACHES/MIGRAINES N SEIZURES/EPILEPSY N VASCULAR DISEASE N PACEMAKER N Blood Disorder N DIZZINESS Y HEART DISEASE/HEART PROBLEMS N KIDNEY DISEASE N MULTIPLE SCLEROSIS N CARDIAC ARRHYTHMIA N CANCER: SPECIFY N ATRIAL FIBRILLATION N Gall Stones N PULMONARY EMBOLISM N AUTOIMMUNE DISEASE N Immunizations Vaccine Type Date Status Note Provider Nam e and Address Organization Details Recorded Time zoster recombinant 4 completed KATLYN Gonzalez [facility] 07/23/2024 11:07:09 zoster recombinant 3 completed Sue Erickson RMEmanuel rodriguez [facility] 07/23/2024 11:07:09 Influenza, adjuvanted, quadrivalent, PF 0 completed Sue Erickson RMEmanuel rodriguez, [facility] 07/23/2024 11:07:09 COVID-19, mRNA, LNP-S, PF, 30 mcg/0.3 mL dose 1 completed KATLYN Gonzalez [facility] 07/23/2024 11:07:10 COVID-19, mRNA, LNP-S, PF, 30 mcg/0.3 mL dose 1 completed Sue Erickson RMEmanuel rodriguez [facility] 07/23/2024 11:07:10 COVID-19, mRNA, LNP-S, PF, 30 mcg/0.3 mL dose, garrett-sucrose 2 completed KATLYN Gonzalez, [facility] 07/23/2024 11:07:10 RSV, bivalent, protein subunit RSVpreF, diluent reconstituted, 0.5 mL, PF 3 [facility] 11:07:10 COVID-19, mRNA, LNP-S, PF, garrett-sucrose, 30 mcg/0.3 mL 4 completed [facility] 11:07:10 COVID-19, mRNA, LNP-S, PF, garrett-sucrose, 30 mcg/0.3 mL 3 completed KATLYN Gonzalez, [facility] 07/23/2024 11:07:10 Tdap 8 completed KATLYN Gonzalez, [facility] 07/23/2024 11:07:10 Influenza, high-dose, quadrivalent, PF 3 completed Carmen Up MD [address] [place] [address], [id number], [facility] 12/11/2022 17:56:47 Influenza, split virus, trivalent, PF 3 completed Sue Erickson RMEmanuel rodriguez, [facility] 07/23/2024 11:07:10 COVID-19, mRNA, LNP-S, PF, 30 mcg/0.3 mL dose 1 completed KATLYN Gonzalez, [facility] 07/23/2024 11:07:09 COVID-19, mRNA, LNP-S, PF, 30 mcg/0.3 mL dose 1 completed Sue Erickson RMA jennifer, [facility] 07/23/2024 11:07:10 COVID-19, mRNA, LNP-S, PF, 100 mcg/0.5mL dose or 50 mcg/0.25mL dose 1 completed Sue Erickson RMA jennifer, [facility] 07/23/2024 11:07:09 Influenza, high-dose, trivalent, PF 0 completed Sue Erickson RMA null, [facility] 07/23/2024 11:07:10 Influenza, high-dose, trivalent, PF 9 completed Sue Erickson RMA null, [facility] 07/23/2024 11:07:10 Influenza, split virus, quadrivalent, preservative 8 completed Not Available [facility] 11/15/2022 06:11:29 Influenza, high-dose, quadrivalent, PF 2 completed Not Available [facility] 11/15/2022 06:11:29 Influenza, high-dose, quadrivalent, PF 1 completed Not Available [facility] 11/15/2022 06:11:29 Td (adult), 5 Lf tetanus toxoid, preservative free, adsorbed 1 completed Not Available [facility] 11/15/2022 06:11:29 pneumococcal polysaccharide PPV23 8 completed Not Available [facility] 11/15/2022 06:11:29 Influenza, high-dose, trivalent, PF 7 completed Not Available [facility] 11/15/2022 06:11:29 Pneumococcal conjugate PCV 13 5 completed Sue Erickson RMA null, [facility] 07/23/2024 11:07:10 Influenza, split virus, quadrivalent, PF 5 completed Not Available [facility] 11/15/2022 06:11:29 Influenza, split virus, trivalent, preservative 4 completed Sue rEickson RMA null, [facility] 07/23/2024 11:07:10 Influenza, high-dose, trivalent, PF 4 completed Carmen Up MD [address], [place], [address], [facility] 11/28/2023 15:03:07 Past Encounters Encounter ID Performer Location Encounter Start Date Encounter Closed Date Diagnosis/Indication Diagnosis SNOMED-CT Code Diagnosis ICD10 Code Diagnosis Note [id number] MD MARILEE HubbardS[facility] [place] [address] [facility] [address] [place] [address] 08/23/2020 00:00:00 08/23/2020 18:39:43 [id number] Carmen haley MD S_[facility] Internal Med [facility] [address] [facility] [address] [place] [address] 09/30/2020 00:00:00 09/30/2020 14:06:39 [id number] Carmen haley MD S[facility] Internal [facility] [address] [facility] [address] [place] [address] 10/04/2020 00:00:00 10/31/2020 09:41:36 [id number] [facility] ic[facility] [place] [address] [facility] [address] [place] [address] 10/24/2020 00:00:00 10/25/2020 06:18:09 [id number] Carmen haley MD S[facility] [place] [address] [address] 12/22/2020 00:00:00 12/22/2020 16:43:14 [id number] Carmen haley MD S[facility] Internal Med [facility] [address] [facility] [address] [place] [address] 03/23/2021 00:00:00 04/06/2021 12:25:44 [id number] MD MARILEE HubbardS[facility] Internal [facility] [address] [address] 04/25/2021 00:00:00 04/25/2021 11:08:49 [id number] S_Histor ic_Gateway _ATHENA_M IGRATION_ DEFAULT_1 _1 , 04/28/2021 00:00:00 04/30/2021 15:00:13 [id number] S_Histor ic_Gateway _ATHENA_M IGRATION_ DEFAULT_1 _1 , 06/23/2021 00:00:00 06/25/2021 21:30:01 [id number] Carmen haley MD S[facility] Internal Med [facility] [address] [place] [address] Ave[address] [address] 07/20/2021 00:00:00 07/24/2021 18:02:35 [id number] Carmen haley MD S[facility] Internal Med [facility] [address] [address] 11/23/2021 00:00:00 11/23/2021 18:03:40 [id number] S_Histor ic_Gateway _ATHENA_M IGRATION_ DEFAULT_1 _1 , 12/29/2021 00:00:00 12/31/2021 16:06:20 [id number] Hayes Solorzano MD [facility] [place] [address] [place] [address] 01/29/2022 00:00:00 01/29/2022 11:03:40 [id number] Hayes Solorzano MD S[facility] [place] [address] [place] [address] 03/12/2022 00:00:00 03/12/2022 11:08:46 [id number] MD MARILEE HubbardS_[facility] Internal Med [facility] [address] [place] [address] Ave[address] [address] 04/05/2022 00:00:00 04/05/2022 17:31:31 [id number] MD CARMINE Barone_[facility] [place] [address] [place] [address] 04/09/2022 00:00:00 04/09/2022 11:30:45 [id number] Carmen haley MD [facility] [address] [facility] [address] [place] [address] 08/02/2022 13:52:02 08/02/2022 14:39:00 Screening - NAD [id number] Z13.9 C-scope:, Dr Valdes nC-scope: 08/01/17: Next only if needed UTD on flu shot 12/05/18UT D on PCV #13, UTD #23 05/01/17Ge t shingles and TdapUTD COVID 19 vaccine Advised to quit smoking.He declines any interventi ons and states that he 'likes to smoke' and he will not 'quit'. RTC in 3 monthdo labsER if worsehe and his did verbalize their understand ing of the above Low back pain 386131471 M54.50 On hydorcodon e as needed, not using thisOn flexerill as needed not using this Hyperlipidemia 19088203 E78.5 On rosuvastat in 40mg daily, not taking thisOn zetia, filled by Dr Hernandez [facility] 07/08/2021 , d/c as expensiveO n fenofibrat e 145mg dailyGet labs Could not tolerate the vascepa, it gave him diarrhea Gastroesop hageal reflux disease without esophagitis 291824856 K21.9 On pantoprazo le 40mg daily, can take PRN, all side effects explained, can do TUMSEGD: Dr Delatorre n: 09/05/16: esophagiti s and gastritisA dvised to quit smoking! Type 2 sophia betes mellitus without complication 990748301 E11.9 Advised to diet!On metformin 500mg 2 tabs bidOn jardiance 10mg daily, given by Dr Hernandez, but very expensive, will d/c 07/20/2021 On invokana, will d/c 04/05/2022 as now his insurance will pay for FarxigaNot taking the farxiga either now Declines any ozempic todayGet A1C Did see eye MDDid see Dr Herrera Essential hypertension 79195301 I10 On lisinopril 5mg daily as per note from Dr Hernandez [facility] on 04/05/2020 Get labs Asthma 461086003 J45.90 9 On breo filled by Dr Brooks HHNNot on incruse filled by Dr Cecilia Del Cid n ventolin PRNNeeds to see Dr Castroeen by Mena Maradiaga PA 10/23/2021 Environmental allergy 42 5655162 T78.49XA On singulairD oes well Nicotine dependence 5629 4008 F17.200 LDCT 09/06/2021 : Next in one yearUS AAA 12/11/2021 : Neg Solitary n odule of lung 390764058 R91.1 LDCT 05/09/18: NotedPET CT: 06/16/18: NegKeep apt with pulmonolog ist is to see Dr Weaver on Saturday LDCT 08/17/2019 LDCT 08/31/2020 : Hepatic steatosisL DCT 09/06/2021 : Next on one year, needs to see [facility] Coronary arteriosclerosis 38524877 I25.10 S/p stress test 06/10/18: neg Did see Dr Hernandez 10/11/2020 , f/u in [address] Hernandez [facility] 10/09/2021 Non-alcoho lic fatty liver 586143770 K76.0 S/p US liver 10/16/18: Fatty liverS/p US abd 03/31/2021 : Fatty liver hepatomega ly Get an apt with Dr Frieddv ised to use hydrocodon e with tylenol sparingly 03/23/2021 Dr Koo 10/04/2021 Thrombocyt openic disorder 473884132 D69.6 Mildly lowRepeat the CBCDr Shaylee 01/11/2021 , next in one year, low PLT d/t NASHDr Shaylee 01/10/2022 Vitamin D deficiency 347 82971 E55.9 Cyst of eyelid 46060863 H02.829 Noted on the L medial canthusC/o slight pain, feels that he rubbed his eye when he had some allergy and this caused the cystGet on keflex po Did see Dr Berrios, and did remove it Chronic ki dney disease 466366860 N18.[address] Hernandez IJ on 12/01/2021 Given flomax but does not want to take this 04/05/2022 as it caused diarrhea Pain in le ft sacroiliac joint [id number] 3333441 M53.3 Dr Solorzano 03/12/2022 , f/u 04/09/2022 Vertigo [id number] R42 See case 08/01/2022 Diarrhea 23715750 R19.7 Seen in ER 07/02/2022 [facility] 07/02/2022 , see case, needs to see GI Dry skin dermatitis 2600 22414 L85.3 Seen in jaden feet, was seen by Dr Herrera and treated with amm lactate, will renew [id number] Carmen haley MD [facility] [address] [facility] [place] [address] 12/11/2022 14:17:40 12/11/2022 15:22:31 Screening - NAD [id number] Z13.9 C-scope:, Dr Valdes nC-scope: 08/01/17: Next only if needed UTD on flu shot 12/05/18UT D on PCV #13, UTD #23 05/01/17Ge t shingles and TdapUTD COVID 19 vaccineGet RSV vaccine Advised to quit smoking.He declines any interventi ons and states that he 'likes to smoke' and he will not 'quit'. RTC in 4 monthsdo labsER if worsehe and his did verbalize their understand ing of the above Low back pain 326515221 M54.50 On hydorcodon e as needed, not using thisOn flexerill as needed not using this Hyperlipidemia 28317151 E78.5 On rosuvastat in 40mg dailyOn zetia, filled by Dr Hernandez [facility] 07/08/2021 , d/c as expensiveO n fenofibrat e 145mg dailyGet labs Could not tolerate the vascepa, it gave him diarrhea Gastroesop hageal reflux disease without esophagitis 009284238 K21.9 On pantoprazo le 40mg daily, can take PRN, all side effects explained, can do TUMS EGD: Dr Delatorre n: 09/05/16: esophagiti s and gastritis Advised to quit smoking! Type 2 sophia betes mellitus without complication 949970086 E11.9 Advised to diet!On metformin 500mg 2 tabs bidOn jardiance 10mg daily, given by Dr Hernandez, but very expensive, will d/c 07/20/2021 On invokana, will d/c 04/05/2022 as now his insurance will pay for FarxigaNot taking the farxiga either now Declines any ozempic todayGet A1C Did see eye MDDid see Dr Herrera Essential hypertension 24191973 I10 On lisinopril 5mg daily as per note from Dr Hernandez [facility] on 04/05/2020 Get labs Asthma 297888022 J45.90 9 On breo filled by Dr Brooks HHJANEEot on incruse filled by Dr Cecilia Del Cid n ventolin PRNNeeds to see Dr Rios by Mena Maradiaga PA 10/23/2021 Environmental allergy 42 1853592 T78.49XA On singtamarirTeresa oes well Nicotine dependence 5629 4008 F17.200 LDCT 09/06/2021 : Next in one yearUS AAA 12/11/2021 : Neg Solitary n odule of lung 049245845 R91.1 LDCT 05/09/18: NotedPET CT: 06/16/18: NegKeep apt with pulmonolog ist is to see Dr Weaver on Saturday LDCT 08/17/2019 LDCT 08/31/2020 : Hepatic steatosisL DCT 09/06/2021 : Next on one year, [facility] : Next in one year Coronary arteriosclerosis 05380559 I25.10 S/p stress test 06/10/18: neg Did see Dr Hernandez 10/11/2020 , f/u in [address] David TIRADOV 10/09/2021 Dr David TIRADO 11/06/2022 , f/u in 05/06/2023 Non-alcoho lic fatty liver 776864577 K76.0 S/p US liver 10/16/18: Fatty liverS/p US abd 03/31/2021 : Fatty liver hepatomega ly Get an apt with Dr Rao ised to use hydrocodon e with tylenol sparingly 03/23/2021 Dr Koo 10/04/2021 , 09/17/2022 Thrombocyt openic disorder 425810620 D69.6 Mildly lowRepeat the CBCDr Shaylee 01/11/2021 , next in one year, low PLT d/t NASHDr Shaylee 01/10/2022 Vitamin D deficiency 347 76378 E55.9 Cyst of eyelid 40957925 H02.829 Noted on the L medial canthusC/o slight pain, feels that he rubbed his eye when he had some allergy and this caused the cystGet on keflex po Did see Dr Berrios, and did remove it Chronic ki dney disease 060713289 N18.[address] Hernandez IJ last OV 11/15/2022 , next in 3 monthsGive n flomax but does not want to take this 04/05/2022 as it caused diarrhea Pain in le ft sacroiliac joint 7746845516 8230125 M53.3 Dr Solorzano 03/12/2022 , 04/09/2022 Get a referral to [facility] Vertigo [id number] R42 See case 08/01/2022 Diarrhea 71109522 R19.7 Seen in ER 07/02/2022 [facility] A[facility]P 07/02/2022 , see case, needs to see GI Dry skin dermatitis 2600 01621 L85.3 Seen in [place], was seen by Dr Herrera and treated with amm lactate, will renew as needed Chronic constipation 236 015354 K59.09 This has now alternated with the diarrheaHe states that he would like a referral to GI, will refer to Dr Alvarez Administra tion of influenza vaccine [id number] Z23 [id number] Carmen haley MD [facility] [place] [address] [facility] [place] [address] 04/18/2023 11:04:47 04/18/2023 11:59:24 Screening - NAD 627387191 Z13.9 C-scope:, Dr Valdes nC-scope: 08/01/17: Next only if needed UTD on flu shot 12/05/18UT D on PCV #13, UTD #23 05/01/17Ge t shingles and TdapUTD COVID 19 vaccineGet RSV vaccine Advised to quit smoking.He declines any interventi ons and states that he 'likes to smoke' and he will not 'quit'. RTC in 4 monthsdo labsER if worsehe and his did verbalize their understand ing of the above Low back pain 270803749 M54.50 On hydorcodon e as needed, not using thisOn flexerill as needed not using this Hyperlipidemia 86440999 E78.5 Not on rosuvastat in 40mg dailyNot on zetia, filled by Dr Hernandez [facility] 07/08/2021 , d/c as expensiveN ot on fenofibrat e 145mg daily Now on atorvastat in 80mg dailyMore diet and exercise Get labs Could not tolerate the vascepa, it gave him diarrhea Gastroesop hageal reflux disease without esophagitis 335607318 K21.9 On pantoprazo le 40mg daily, can take PRN, all side effects explained, can do TUMS EGD: Dr Delatorre n: 09/05/16: esophagiti s and gastritis Advised to quit smoking! Type 2 sophia betes mellitus without complication 040430939 E11.9 Advised to diet!On metformin 500mg 2 tabs bidNot on jardiance 10mg daily, given by Dr Hernandez, but very expensive, will d/c 07/20/2021 On invokana, will d/c 04/05/2022 as now his insurance will pay for FarxigaNot taking the farxiga either now Declines any ozempic todayGet A1C Did see eye MDDid see Dr Herrera Essential hypertension 39139595 I10 On lisinopril 5mg daily as per note from Dr Hernandez [facility] on 04/05/2020 Get labs Asthma 449864576 J45.90 9 On breo filled by Dr Cecilia CAot on incruse filled by Dr Cecilia Del Cid n ventolin PRNNeeds to see Dr Rios by Mena DIXON 10/23/2021 Environmental allergy 42 0093078 T78.49XA On singtamarirTeresa oes well Nicotine dependence 5629 4008 F17.200 LDCT 09/06/2021 : Next in one yearUS AAA 12/11/2021 : Neg Solitary n odule of lung 184213885 R91.1 LDCT 05/09/18: NotedPET CT: 06/16/18: NegKeep apt with pulmonolog ist is to see Dr Weaver on Saturday LDCT 08/17/2019 LDCT 08/31/2020 : Hepatic steatosisL DCT 09/06/2021 : Next on one year, [facility] 09/10/2022 : Next in one year Coronary arteriosclerosis 50369544 I25.10 S/p stress test 06/10/18: neg Did see Dr Hernandez 10/11/2020 , f/u in [address] Hernandez [place] 10/09/2021 Dr Hernandez [facility] 11/06/2022 , f/u in 05/06/2023 Non-alcoho lic fatty liver 077690210 K76.0 S/p US liver 10/16/18: Fatty liverS/p US abd 03/31/2021 : Fatty liver hepatomega ly Get an apt with Dr Rao ised to use hydrocodon e with tylenol sparingly 03/23/2021 Dr Koo 10/04/2021 , 09/17/2022 Thrombocyt openic disorder 379304872 D69.6 Mildly lowRepeat the CBCDr Shaylee 01/11/2021 , next in one year, low PLT d/t NASHDr Shaylee 01/10/2022 Vitamin D deficiency 347 42122 E55.9 Cyst of eyelid 44033692 H02.829 Noted on the L medial canthusC/o slight pain, feels that he rubbed his eye when he had some allergy and this caused the cystGet on keflex po Did see Dr Berrios, and did remove it Chronic ki dney disease 343796484 N18.[address] Hernandez IJ last OV 11/15/2022 , next in 3 monthsGive n flomax but does not want to take this 04/05/2022 as it caused diarrhea Pain in le ft sacroiliac joint 7382728069 6934388 M53.3 Dr Solorzano 03/12/2022 , 04/09/2022 Get a referral to [facility] Vertigo [id number] R42 See case 08/01/2022 Diarrhea 64326396 R19.7 Seen in ER 07/02/2022 [facility] A/P 07/02/2022 , see case, needs to see GI Dry skin dermatitis 2600 98425 L85.3 Seen in jaden feet, was seen by Dr Herrera and treated with amm lactate, will renew as needed Chronic constipation 236 126623 K59.09 This has now alternated with the diarrheaHe states that he would like a referral to GI, will refer to Dr Alvarez Adult heal th examination [id number] Z00.00 Screening for disorder 141302933 Z13.9 [id number] Junior Barnard DPM [facility] [place] [address] [facility] [address] [place] [address] 06/04/2023 14:53:25 06/04/2023 16:01:49 Diabetes mellitus 89679509 E11.9 continue diabetic control per PCP recommenda tions Ingrowing toenail 351963 009 L60.0 bilateral great toesdebrid ed without incidented ucated on treatment optionsref uses partial matrixfoll ow-up as needed Dystrophia unguium 61841 009 L60.3 nails debrided without incident First metatarsophalangeal joint pain 193422851 M79.671 M79.672 left 1st metatarsop halangeal joint injection 06/04/2023 [id number] Carmen haley MD [facility] Internal [facility] [address] [facility] [address] [place] [address] 07/25/2023 11:01:10 07/25/2023 11:54:46 Screening - NAD 063134414 Z13.9 C-scope:, Dr Valdes nC-scope: 08/01/17: Next only if needed UTD on flu shot 12/05/18UT D on PCV #13, UTD #23 05/01/17Ge t shingles and TdapUTD COVID 19 vaccineGet RSV vaccine Advised to quit smoking.He declines any interventi ons and states that he 'likes to smoke' and he will not 'quit'. RTC in 4 monthsdo labsER if worsehe and his did verbalize their understand ing of the above Low back pain 208837975 M54.50 On hydorcodon e as needed, not using thisOn flexerill as needed not using this Hyperlipidemia 15237691 E78.5 Not on rosuvastat in 40mg dailyNot on zetia, filled by Dr Hernandez [facility] 07/08/2021 , d/c as expensiveN ot on fenofibrat e 145mg daily On atorvastat in 80mg dailyMore diet and exercise Get labs Could not tolerate the vascepa, it gave him diarrhea Gastroesop hageal reflux disease without esophagitis 289837723 K21.9 On pantoprazo le 40mg daily, can take PRN, all side effects explained, can do TUMS EGD: Dr Delatorre n: 09/05/16: esophagiti s and gastritis Advised to quit smoking! Type 2 sophia betes mellitus without complication 376126922 E11.9 Advised to diet!On metformin 500mg 2 tabs bidNot on jardiance 10mg daily, given by Dr Hernandez, but very expensive, will d/c 07/20/2021 On invokana, will d/c 04/05/2022 as now his insurance will pay for FarxigaNot taking the farxiga either now Declines any ozempic todayGet A1C Did see eye MDDid see Dr Herrera Essential hypertension 53600081 I10 On lisinopril 5mg daily as per note from Dr Hernandez [facility] on 04/05/2020 Get labs Asthma 337779222 J45.90 9 On breo filled by Dr Brooks HHJANEEot on incruse filled by Dr Cecilia Del Cid n ventolin PRNNeeds to see Dr Rios by Mena Maradiaga PA 10/23/2021 Environmental allergy 42 9608693 T78.49XA On singulairD oes well Nicotine dependence 5629 4008 F17.200 LDCT 09/06/2021 : Next in one yearUS AAA 12/11/2021 : Neg Solitary n odule of lung 442959076 R91.1 LDCT 05/09/18: NotedPET CT: 06/16/18: NegKeep apt with pulmonolog ist is to see Dr Weaver on Saturday LDCT 08/17/2019 LDCT 08/31/2020 : Hepatic steatosisL DCT 09/06/2021 : Next on one year, needs to see SLHVLDCT 09/10/2022 : Next in one year Coronary arteriosclerosis 82829724 I25.10 S/p stress test 06/10/18: neg Did see Dr Hernandez 10/11/2020 , f/u in [address] Hernandez SLV 10/09/2021 Dr Hernandez SL 11/06/2022 , f/u in 05/06/2023 Dr Hernandez [facility] 05/07/2023 : f/u in 6 months Non-alcoho lic fatty liver 718439021 K76.0 S/p US liver 10/16/18: Fatty liverS/p US abd 03/31/2021 : Fatty liver hepatomega ly Get an apt with Dr Frieddv ised to use hydrocodon e with tylenol sparingly 03/23/2021 Dr Koo 10/04/2021 , 09/17/2022 , needs to see GI hepatology Thrombocyt openic disorder 602176680 D69.6 Mildly lowRepeat the CBCDr Shaylee 01/11/2021 , next in one year, low PLT d/t NASHDr Shaylee 01/10/2022 Vitamin D deficiency 347 86184 E55.9 Cyst of eyelid 09995439 H02.829 Noted on the L medial canthusC/o slight pain, feels that he rubbed his eye when he had some allergy and this caused the cystGet on keflex po Did see Dr Berrios, and did remove it Chronic ki dney disease 289352166 N18.[address] Hernandez IJ last OV 11/15/2022 , next in 3 monthsGive n flomax but does not want to take this 04/05/2022 as it caused diarrhea Pain in le ft sacroiliac joint 2081962465 4074895 M53.3 Dr Solorzano 03/12/2022 , 04/09/2022 Chelsea Michelle NP 06/19/2023 [facility] Vertigo [id number] R42 See case 08/01/2022 Diarrhea 90873830 R19.7 Seen in ER 07/02/2022 [facility] 07/02/2022 , see case, needs to see GI Dry skin dermatitis 2600 98224 L85.3 Seen in [place]aden feet, was seen by Dr Herrera and treated with amm lactate, will renew as needed Chronic constipation 236 407188 K59.09 This has now alternated with the diarrheaHe states that he would like a referral to GI, will refer to Dr Alvarez Adult [facility] th examination 004019955 Z00.00 Screening for disorder 593095612 Z13.9 [id number] Carmen haley MD [facility] [address] [place] [address] 1 08/29/2023 15:28:20 09/02/2023 18:02:24 Chronic kidney disease 805109088 N18.9 Essential hypertension 46567260 I10 Hyperlipidemia 17996382 E78.5 Type 2 sophia betes mellitus 82067580 E11.9 [id number] Junior Barnard DPM [facility] Pod[facility] [place] [address] [address] 09/10/2023 12:20:31 10/03/2023 10:44:54 Diabetes mellitus 92630571 E11.9 continue diabetic control per PCP recommenda tionsconti nue supportive shoe gearCheck feet daily for wounds infectionF ollow-up 3 months Dystrophia unguium 69601 009 L60.3 nails debrided without incident [id number] Carmen haley MD [facility] [address] [facility] [address] 09/27/2023 14:49:03 11/21/2023 15:16:31 Essential hypertension 51855007 I10 Hyperlipidemia 70634535 E78.5 Type 2 sophia betes mellitus 31421176 E11.9 Neuropathy 722924615 G62 .9 [id number] Carmen haley MD [facility] [address] [facility], [address] 11/28/2023 11:22:46 11/28/2023 12:41:17 Hyperlipidemia 55862413 E78.5 Not on rosuvastat in 40mg dailyNot on zetia, filled by Dr Hernandez [facility] 07/08/2021 , d/c as expensiveN ot on fenofibrat e 145mg daily On atorvastat in 80mg dailyMore diet and exercise Get labs Could not tolerate the vascepa, it gave him diarrhea Screening - NAD 33846502 3 Z13.9 C-scope:, Dr Valdes nC-scope: 08/01/17: Next only if needed UTD on flu shot 12/05/18UT D on PCV #13, UTD #23 05/01/17Ge t shingles and TdapUTD COVID 19 vaccineGet RSV vaccine Advised to quit smoking.He declines any interventi ons and states that he 'likes to smoke' and he will not 'quit'. RTC in 4 monthsdo labsER if worsehe and his did verbalize their understand ing of the above Low back pain 044421028 M54.50 On hydorcodon e as needed, not using thisOn flexerill as needed not using this Gastroesop hageal reflux disease without esophagitis 689660953 K21.9 On pantoprazo le 40mg daily, can take PRN, all side effects explained, can do TUMS EGD: Dr Delatorre n: 09/05/16: esophagiti s and gastritis Advised to quit smoking! Type 2 sophia betes mellitus without complication 812711149 E11.9 Advised to diet!On metformin 500mg 2 tabs bidNot on jardiance 10mg daily, given by Dr Hernandez, but very expensive, will d/c 07/20/2021 On invokana, will d/c 04/05/2022 as now his insurance will pay for FarxigaNot taking the farxiga either now Declines any ozempic todayGet A1C Did see eye MDDid see Dr Herrera Essential hypertension 41926962 I10 On lisinopril 5mg daily as per note from Dr Hernandez SL on 04/05/2020 Get labs Asthma 196419600 J45.90 9 On breo filled by Dr Cecilia CAot on incruse filled by Dr Cecilia Del Cid n ventolin PRNNeeds to see Dr Rios by Mena Maradiaga PA 10/23/2021 Environmental allergy 42 2973253 T78.49XA On singtamarirTeresa oes well Nicotine dependence 5629 4008 F17.200 LDCT 09/06/2021 : Next in one yearLDCT 09/13/2023 : NegUS AAA 12/11/2021 : Neg Solitary n odule of lung 829600407 R91.1 LDCT 05/09/18: NotedPET CT: 06/16/18: NegKeep apt with pulmonolog ist is to see Dr Weaver on Saturday LDCT 08/17/2019 LDCT 08/31/2020 : Hepatic steatosisL DCT 09/06/2021 : Next on one year, needs to see SLLDCT 09/10/2022 : Next in one yearLDCT 09/13/2023 : Next in one year Coronary arteriosclerosis 87859659 I25.10 S/p stress test 06/10/18: neg Did see Dr Hernandez 10/11/2020 , f/u in [address] Hernandez [facility] 10/09/2021 Dr Hernandez [facility] 11/06/2022 , f/u in 05/06/2023 Dr Hernandez [facility] 05/07/2023 : f/u in 6 months Non-alcoho lic fatty liver 376367588 K76.0 S/p US liver 10/16/18: Fatty liverS/p US abd 03/31/2021 : Fatty liver hepatomega ly Get an apt with Dr Frieddv ised to use hydrocodon e with tylenol sparingly 03/23/2021 Dr Koo 10/04/2021 , 09/17/2022 , needs to see GI hepatology Thrombocyt openic disorder 846226485 D69.6 CBC Stable labs on 10/11/2023 Dr June 01/11/2021 Dr June 01/10/2022 Vitamin D deficiency 347 05180 E55.9 Cyst of eyelid 64617056 H02.829 Noted on the L medial canthusC/o slight pain, feels that he rubbed his eye when he had some allergy and this caused the cystGet on keflex po Did see Dr Berrios, and did remove it Chronic ki dney disease 563503901 N18.[address] Hernandez IJ last OV 11/15/2022 , next in 3 monthsGive n flomax but did not take this 04/05/2022 as it caused diarrhea Pain in le ft sacroiliac joint 9769789432 7340524 M53.3 Dr Solorzano 03/12/2022 , 04/09/2022 Chelsea Michelle NP 06/19/2023 [facility] Vertigo 727126920 R42 See case 08/01/2022 Diarrhea 51822260 R19.7 Seen in ER 07/02/2022 [facility] A[facility] 07/02/2022 , see case, needs to see GI Dry skin dermatitis 2600 51118 L85.3 Seen in [place]aden feet, was seen by Dr Herrera and treated with amm lactate, will renew as needed Chronic constipation 236 665863 K59.09 This has now alternated with the diarrheaHe states that he would like a referral to GI, will refer to Dr Alvarez Administra tion of influenza vaccine 42514082 Z23 [id number] Junior Barnard DPM [facility] [place] [address] [place] [address] 12/10/2023 11:33:32 12/11/2023 12:27:56 Mass of soft tissue of right lower limb 8507160574 9864915 R22.41 rule out benign soft tissue mass versus malignancy with ultrasound possible MRI depending on ultrasound findingsfo llow-up testing Diabetes mellitus 855130 09 E11.9 continue diabetic control per PCP recommenda tionsconti nue supportive shoe gearCheck feet daily for wounds infectionF ollow-up 3 months Dystrophia unguium 06340 009 L60.3 nails debrided without incident [id number] Junior Barnard DPM [facility] [place] [address] [address] 01/07/2024 14:02:58 02/28/2024 10:36:35 Mass of soft tissue of right lower limb 1772480486 0129955 R22.41 rule out benign soft tissue mass- Negativeco ntinue to monitor the area if the area pain or soft tissue lump debris appears follow-up for MRIfollow- up 3 months [id number] MD [facility] Internal Med [facility] [address] [facility] [address] [address] 02/11/2024 16:44:53 02/11/2024 17:29:09 Furuncle 529398563 L02.92 Noted on the L inner groin next to the scrotum, no obvious discharge noted but it is tender and fluctuant, will get on keflex and refer to Dr Mckinnon [id number] Fish lee MD [facility] General Surgery [address] [place] [address] 02/20/2024 11:21:14 02/27/2024 15:58:20 Abscess of scrotum 53079957 N49.2 Left [id number] Junior Barnard DPM [facility] Pod[facility] [place] [address] [place] [address] 2024 14:22:22 03/30/2024 11:43:28 Diabetes mellitus 62458983 E11.9 continue diabetic control per PCP recommenda tionsconti nue supportive shoe gearCheck feet daily for wounds infectionF ollow-up 3 months Dystrophia unguium 58168 009 L60.3 nails debrided without incident [id number] Carmen haley MD [facility] Internal [facility] [address] [facility], [facility] [address] [place] [address] 03/26/2024 11:12:01 03/26/2024 12:13:38 Hyperlipidemia 79292874 E78.5 Not on rosuvastat in 40mg dailyNot on zetia, filled by Dr Hernandez [facility] 07/08/2021 , d/c as expensiveN ot on fenofibrat e 145mg daily On atorvastat in 80mg daily, d/c this 03/26/2024 , d/t body achesStart on nexlizet daily 03/26/2024 More diet and exercise Get labs Could not tolerate the vascepa, it gave him diarrhea Screening - NAD 02721662 3 Z13.9 C-scope:, Dr Valdes nC-scope: 08/01/17: Next only if needed UTD on flu shot 12/05/18UT D on PCV #13, UTD #23 05/01/17Ge t shingles and TdapUTD COVID 19 vaccineGet RSV vaccine Advised to quit smoking.He declines any interventi ons and states that he 'likes to smoke' and he will not 'quit'. RTC in 4 monthsdo labsER if worsehe and his did verbalize their understand ing of the above Low back pain 697543510 M54.50 On hydorcodon e as needed, not using thisOn flexerill as needed not using this Gastroesop hageal reflux disease without esophagitis 082846679 K21.9 On pantoprazo le 40mg daily, can take PRN, all side effects explained, can do TUMS EGD: Dr Delatorre n: 09/05/16: esophagiti s and gastritis Advised to quit smoking! Type 2 sophia betes mellitus without complication 613647069 E11.9 Advised to diet!On metformin 500mg 2 tabs bidNot on jardiance 10mg daily, given by Dr Hernandez, but very expensive, will d/c 07/20/2021 On invokana, will d/c 04/05/2022 as now his insurance will pay for FarxigaNot taking the farxiga either now Declines any ozempic todayGet A1C Did see eye MDDid see Dr Herrera Essential hypertension 37624246 I10 On lisinopril 5mg daily as per note from Dr Hernandez [facility] on 04/05/2020 Get labs Asthma 163368811 J45.90 9 On breo filled by Dr Brooks HHNNot on incruse filled by Dr Cecilia Del Cid n ventolin PRNNeeds to see Dr Rios by Mena Maradiaga PA 10/23/2021 Environmental allergy 42 5126944 T78.49XA On singulairD oes well Nicotine dependence 5629 4008 F17.200 LDCT 09/06/2021 : Next in one yearLDCT 09/13/2023 : NegUS AAA 12/11/2021 : Neg Solitary n odule of lung 351830927 R91.1 LDCT 05/09/18: NotedPET CT: 06/16/18: NegKeep apt with pulmonolog ist is to see Dr Weaver on Saturday LDCT 08/17/2019 LDCT 08/31/2020 : Hepatic steatosisL DCT 09/06/2021 : Next on one year, needs to see SLHVLDCT 09/10/2022 : Next in one yearLDCT 09/13/2023 : Next in one year Coronary arteriosclerosis 91747322 I25.10 S/p stress test 06/10/18: neg Did see Dr Hernandez 10/11/2020 , f/u in [address] Hernandez SL[facility] 10/09/2021 Dr Hernandez SL 11/06/2022 , f/u in 05/06/2023 Dr Hernandez [facility] 05/07/2023 : f/u in 6 months Non-alcoho lic fatty liver 342968866 K76.0 S/p US liver 10/16/18: Fatty liverS/p US abd 03/31/2021 : Fatty liver hepatomega ly Get an apt with Dr Frieddv ised to use hydrocodon e with tylenol sparingly 03/23/2021 Dr Koo 10/04/2021 , 09/17/2022 , needs to see GI hepatology Dr Rivera 11/07/2023 , f/u PRN Thrombocyt openic disorder 432924680 D69.6 CBC Stable labs on 10/11/2023 Dr June 01/11/2021 Dr June 01/10/2022 Vitamin D deficiency 347 32159 E55.9 Cyst of eyelid 24803692 H02.829 Noted on the L medial canthusC/o slight pain, feels that he rubbed his eye when he had some allergy and this caused the cystGet on keflex po Did see Dr Berrios, and did remove it Chronic ki dney disease 139547668 N18.[address] Hernandez IJ last OV 11/15/2022 , next in 3 monthsGive n flomax but did not take this 04/05/2022 as it caused diarrhea Pain in le ft sacroiliac joint 8245160324 5715051 M53.3 Dr Solorzano 03/12/2022 , 04/09/2022 Chelsea Michelle TECHNICAL STAFF ASSISTANT 06/19/2023 [facility] Vertigo 681643505 R42 See case 08/01/2022 Diarrhea 00195963 R19.7 Seen in ER 07/02/2022 [facility] 07/02/2022 , see case, needs to see GI OV 03/26/2024 : Does we;; Dry skin dermatitis 2600 95249 L85.3 Seen in [place] feet, was seen by Dr Herrera and treated with amm lactate, will renew as needed Chronic constipation 236 468762 K59.09 This has now alternated with the diarrheaHe states that he would like a referral to GI, will refer to Dr Alvarez [id number] Junior Barnard DPM [facility] [place] [address] [facility] [address] [place] [address] 06/23/2024 14:51:20 06/24/2024 09:46:31 Diabetes mellitus 07041879 E11.9 continue diabetic control per PCP recommenda tionsconti nue supportive shoe gearCheck feet daily for wounds infectionF ollow-up 3 months Dystrophia unguium 94710 009 L60.3 nails debrided without incident Diabetic o n oral treatment 948652643 Z79.84 [id number] Carmen haley MD [facility] Internal [facility] [address] [facility] [address] [place] [address] 07/23/2024 10:52:16 07/23/2024 12:08:54 Hyperlipidemia 30523346 E78.5 Not on rosuvastat in 40mg dailyNot on zetia, filled by Dr Hernandez [facility] 07/08/2021 , d/c as expensiveN ot on atorvastat in 80mg dailyCould not tolerate the vascepa, it gave him diarrhea On fenofibrat e 145 mg dailyOn nexlizet 180-10mg dailyMore diet and exercise Get labs Screening - NAD 13405262 3 Z13.9 C-scope:, Dr Valdes nC-scope: 08/01/17: Next only if neededNow to get C-scope/EG D: Dr Rivera 08/19/2024 UTD on flu shot 12/05/18UT D on PCV #13, UTD #23 05/01/17Ge t shingles and TdapUTD COVID 19 vaccineGet RSV vaccine Advised to quit smoking.He declines any interventi ons and states that he 'likes to smoke' and he will not 'quit'. RTC in 4 monthsdo Feng if worsehe and his did verbalize their understand ing of the above Low back pain 950736792 M54.50 On hydorcodon e as needed, not using thisOn flexerill as needed not using this Gastroesop hageal reflux disease without esophagitis 617545592 K21.9 On pantoprazo le 40mg daily, can take PRN, all side effects explained, can do TUMS EGD: Dr Delatorre n: 09/05/16: esophagiti s and gastritis Advised to quit smoking! Type 2 sophia betes mellitus without complication 081794894 E11.9 Advised to diet!On metformin 500mg 2 tabs bidNot on jardiance 10mg daily, given by Dr Hernandez, but very expensive, will d/c 07/20/2021 On invokana, will d/c 04/05/2022 as now his insurance will pay for FarxigaNot taking the farxiga either now Declines any ozempic todayGet A1C Did see eye MDDid see Dr Herrera Essential hypertension 98332969 I10 On lisinopril 5mg daily as per note from Dr Hernandez SL on 04/05/2020 On KGet labs Asthma 691402345 J45.90 9 On breo filled by Dr Brooks HHJANEEot on incruse filled by Dr Cecilia Del Cid n ventolin PRNNeeds to see Dr Rios by Mena Maradiaga PA 10/23/2021 Seen by Mena DIXON 04/14/2024 Environmental allergy 42 7965072 T78.49XA On singulairD oes well Nicotine dependence 5629 4008 F17.200 LDCT 09/06/2021 : Next in one yearLDCT 09/13/2023 : NegUS AAA 12/11/2021 : Neg Solitary n odule of lung 973320253 R91.1 LDCT 05/09/18: NotedPET CT: 06/16/18: NegKeep apt with pulmonolog ist is to see Dr Weaver on Saturday LDCT 08/17/2019 LDCT 08/31/2020 : Hepatic steatosisL DCT 09/06/2021 : Next on one year, [facility] : Next in one yearLDCT 09/13/2023 : Next in one year Coronary arteriosclerosis 36646308 I25.10 S/p stress test 06/10/18: neg Did see Dr Hernandez 10/11/2020 , f/u in [address] Hernandez SL 10/09/2021 Dr Hernandez [facility] 11/06/2022 , f/u in 05/06/2023 Dr Hernandez [facility] 05/07/2023 : f/u in 6 monthsDr Hernandez [facility] 06/08/2024 , to get ECHO 07/30/2024 Non-alcoho lic fatty liver 745965634 K76.0 S/p US liver 10/16/18: Fatty liverS/p US abd 03/31/2021 : Fatty liver hepatomega ly Get an apt with Dr Rao ised to use hydrocodon e with tylenol sparingly 03/23/2021 Dr Koo 10/04/2021 , 09/17/2022 , needs to see GI hepatology Now sees Dr Rivera next on 09/18/2024 Thrombocyt openic disorder 612875971 D69.6 CBC Stable labs on 10/11/2023 Dr June 01/11/2021 Dr June 01/10/2022 Dr June 01/28/2024 : F/u as needed Vitamin D deficiency 347 12212 E55.9 Cyst of eyelid 82739028 H02.829 Noted on the L medial canthusC/o slight pain, feels that he rubbed his eye when he had some allergy and this caused the cystGet on keflex po Did see Dr Berrios, and did remove it Chronic ki dney disease 844591091 N18.[address] Hernandez IJ last OV 11/15/2022 , next in 3 monthsGive n flomax but did not take this 04/05/2022 as it caused diarrhea Pain in le ft sacroiliac joint 6729131671 3635159 M53.3 Dr Solorzano 03/12/2022 , 04/09/2022 Chelsea Michelle TECHNICAL STAFF ASSISTANT 06/19/2023 [facility]PC Vertigo 535431135 R42 See case 08/01/2022 Diarrhea 06331819 R19.7 [facility] see case, needs to see GI OV 07/23/2024 :Dr Rivera 07/10/2024 Dry skin dermatitis 2600 73050 L85.3 Seen in [place] feet, was seen by Dr Herrera and treated with amm lactate, will renew as needed Chronic constipation 236 059553 K59.09 This has now alternated with the diarrheaHe states that he would like a referral to GI, will refer to Dr Alvarez OV 07/23/2024 :Now sees Dr Rivera Goals Section Goal Description Progress Status Start Date LastModified by Organization Details LastModified Time Blood Pressure Maintains blood pressure goal as defined by care team improving active 2023 Monalisa Fiore CCM Information not available 09/27/2023 18:55:58 Exercise Regularly Follows a regular exercise regimen or instructed exercise plan as per care team recommendation (s) NoCcorky active 2023 Monalisa Fiore CCM Information not available 08/29/2023 19:39:04 Fluid Balance Managemen t Exhibits no signs or symptoms related to fluid imbalance NoChange active 2023 Monalisa Fiore CCM Information not available 08/29/2023 19:39:04 Activitie s of Daily Living Performs activities of daily living independently or with minimal assistance Kaz active 2023 Monalisa Fiore CCM Information not available 08/29/2023 19:39:04 Medicatio n Regimen Follows medication regimen as per care team recommendation (s) improving active 2023 Monalisa Fiore CCM Information not available 09/27/2023 18:56:13 Follow-up Appointme nt(s) Attends referral and/or follow-up appointment(s) as per care team recommendation (s) Kaz active 2023 Monalisa Fiore CCM Information not available 08/29/2023 19:39:04 Food Security Reports ability to access and obtain foods to meet nutritional needs NoCshannonge active 2023 Monalisa Fiore CCM Information not available 08/29/2023 19:39:04 Vaccinati on Status Remains up to date on vaccines as per care team recommendation (s) Kaz active 2023 Monalisa Fiore CCM Information not available 08/29/2023 19:39:05 Decreased Alcohol Consumpti on Reports decreased alcohol consumption as per care team recommendation (s) [facility] active 2023 Monalisa Fiore CCM Information not available 08/29/2023 19:39:05 Chronic Disease Symptom Managemen t Reports no new or [facility] Monalisa Fiore CCM Information not available 08/29/2023 19:39:05 Blood Glucose Maintains blood glucose within target range [facility] Monalisa Fiore CCM Information not available 08/29/2023 19:39:05 Effective Coping Manages life events with effective coping methods [facility] Monalisa Fiore CCM Information not available 08/29/2023 19:39:05 Diet Adherence Follows prescribed or recommended diet [facility] active 2023 Monalisa Fiore CCM Information not available 08/29/2023 19:39:05 Knowledge of Disease or Condition Demonstrates understanding of disease(s) or condition(s) [facility] active 2023 Monalisa Fiore CCM Information not available 08/29/2023 19:39:05 Fall Safety Reports no recent falls and/or [facility] M[facility] Fi[facility] CCM Information not available 08/29/2023 19:39:05 Financial Stability Reports financial status and/or income meets needs [facility] active 2023 Monalisa Fiore CCM Information not available 08/29/2023 19:39:05 Lab Testing Completes lab testing as per care team recommendation (s) [facility] active 2023 Monalisa Fiore CCM Information not available 08/29/2023 19:39:05 Diagnosti c Testing Completes diagnostic testing as per care team recommendation (s) [facility] active 2023 Monalisa Fiore CCM Information not available 08/29/2023 19:39:05 Hemoglobi n A1C Lowers or maintains hemoglobin A1C (HbA1c) as per care team recommendation (s) [TARGET: less than or equal to 7%] [facility] Monalisa Fiore CCM Information not available 08/29/2023 19:39:06 Weight Loss Decreases body weight as per care team recommendation (s) [facility] active 2023 Monalisa Fiore CCM Information not available 08/29/2023 19:39:06 Lipid Levels Maintains normal lipid levels as defined by care team [facility] active 2023 Monalisa Fiore CCM Information not available 08/29/2023 19:39:06 Weight Allan melgoza Exhibits stable weight with normal fluctuation [facility] active 2023 Monalisa Fiore CCM Information not available 08/29/2023 19:39:06 Health Concerns Section Related Observation LastModified by Organization Detai ls LastModified Time None Recorded Concern Status LastModified by Organization Details LastModified Time Hyperlipidemia Active Monalisa Fiore CCM Not Available 0 08/29/2023 19:39:34 Type 2 diabetes mellitus Active Monalisa Fiore CCM Not Available 08/29/2023 19:4 0:31 Essential hypertension Active Monalisa Fiore CCM Not Chinyere ilable 08/29/2023 19:39:53 Chronic kidney disease Active Monalisa Fiore CCM Not Chinyere ilable 08/29/2023 19:40:11 Advance Directives Directive N: Payers Insurance Date Sequence Insurance Name Policy Number Policy Kelsey Covered Member ID Kelsey Member ID Guarantor Name 07/20/2024 1 [facility] (MEDICARE REPLACEMENT/A DVANTAGE - HMO) [id number] Glenn Villalpando [id number] Glenn Villalpando Notes Date Note Type Note Provider Name and Address Organization Details Recorded Time 02/20/2024 text/html Patient complain s of swelling pain and drainage in his left groin for the last 2 weeks. Was given antibiotics by primary care physician. Denies fevers or chills. States it is getting better now and does not feel it nearly as much Fish Hernandez MD [address] [facility], [facility] [address], [place], [address], [place] [facility] [email or web address] [facility] [employer] 02/20/2024 16:11:34 2024 text/html . Patient is a [age] year-old male diabetic he returns for diabetic quick care. He denies any open wounds or injury of the foot. He states his nails are long and painful. He would like to have them cut as he cannot bend over to cut them. he has minor dry skin, but overall is doing very well. He has some mild swelling of the lower extremity. Denies any calf pain or intermittent clarification with walking. Junior Barnard, FLO [address] [facility], [address], [place], [address], [facility] [employer] 03/25/2024 11:06:44 03/26/2024 text/html 09/27/17Past Hx:DMIIAllergiesHypo gonadismLBPAllergies GERDHLDReviewed his past social, family and surgical historyHe is here for his one month apt, he states that he is doing well.He states that he was seen in the ER at [facility] recently for pancreatitis and is to now see Dr Vidal to get more testsHe also wants to discuss his testosterone levels and see if he needs this anymore. OV 02/19/18ACV:Here with URI symptomsHas sinus and nasal congestion with +ve cough,No blood in sputum or noseNo fevers or chills, no N/V, no chest pain or SOB, feels tiredHas had some diarrhea, no blood in stoolNo rashes noted+ve sinus headaches notedHe does continue to smoke OV 03/28/17:Here as he has been having sinus congestion and coughHe went to a on Saturday and caught the 'bug'Cough is clear, no bloodNo fevers or chills, feels coldNo N/VMild diarrhea, no blood+ve sinus tenderness OV 05/01/17:Here for his routine aptHe is doing well, here with his OV 08/14/17:Here for his routine aptHe feels that he is doing wellHe would like to get a 'bug bite' checked out, was admitted to [facility] a week ago for the biteNo pain, no fevers or chillsHe states that he is doing very well OV 09/23/17:Here to discuss his pain medsHe states that a script for the hydrocodone will last a yearHe has seen Dr Drew a back surgeon and is not seeing him any moreHe also states that he cannot do a MRI as it hurts it back OV 12/11/17:Here for his routine aptHe did do the labsHe wants to discuss his L ear, that has been hurting for 2 months, did see ENT Dr Noe OV 03/10/18:Here for his routine aptHe states that he is doing well at this timeHe did do the labs on 03/03/18He wants to get his testosterone checked and does want some viagra OV 04/08/18:Here to discuss the use of diclofenacHe takes this for his arthritis, in the hands and feels that this does helpS/p CTR 40 years agoS/p jaden hand surgery has had 'plates and screws'OV 05/14/18:Here with his wifeHere to discuss test results of the LDCTHe feels that he is doing well, he actually has tried to exercise, but he states that he has not had success with weight lossOV 06/09/18:Here for his routine aptHe feels wellHe did do the labs on 06/02/18 and is here to review theseOV 07/09/18:Her for ACV;C/o URI sx for a weekC/o sinus congestion and nasal congestionNo blood in sputum, or noseNo chest pain or SOBNo rashNo N/V or diarrhea OV 09/16/18:Here for ACV:C/o L>R LBPOngoing since 2-3 daysNo N/T in the LE, no weakness in the legsNo recent or remote trauma at this time, he was just stooping down to brush his teethPain increases with activity and decreases with restHe also has a L eye styeNo pain, no vision complaints, no photophobia, no diplopia, no excessive lacrimationOV 10/08/18:Here for his routine aptHere with his wifeHe does feel well, he did do the labs and is here to review these OV 12/29/18:ACV:Here for his apt to discuss mouth painSince a weekNoted to have swelling on the R side of the upper mouthCannot wear denturesNo fevers or chillsNo N/V or diarrheaNo rashNo problems eating soft foods and is able to hydrate wellNo cough, no blood in sputum or noseNo chest pain or SOBNo wheezingOV 02/11/19Here for his routine aptHe did do the labsHas L knee and shoulder painHe denies any acute or remote trauma to the shoulder or the kneeHe is to already see Dr Solorzano for the knee pain and the plan is to do surgeryOV 04/02/2019;Here for his post hospt aptHe feels well today but does have the pain in the knee stillHe is here with his wifeHe did have the labs done in the hospitalOV 12/09/2019;Here for his routine aptHe is here with his wifeHe is doing well, does have some R elbow pain, pain is sharp, no N/T in the handsHe is RHDHe is here for his MWVHe did do the labsOV 04/12/2020:Here for his routine aptHe feels well todayHe did do the labsHe states that the surgery with Dr Ware has helped but the elbow pain is not completley gone awayHe ishere with his OV 08/23/2020:Here for his routine aptHe is doing wellHere with Maryanne did do the labs OV 10/04/2020:Here for his one week f/u s/p OV for L finger injuryTreated with doxycycline and mupirocinAlso given tenivac injectionFeels that the finger is not better, but still has some pain but now there is a swelling and some 'pus'OV 12/22/2020:Here for his routine aptHe is doing well nowHe did do the labs on 11/14/2020He c/o R elbow pain, he went on his own to see Dr Haskins wants a referralOV 03/23/2021:Here for his routine aptHe is doing well OV 07/20/2021:Here for his routine aptHe feels wellHe is here with his wifeHe did do the labs on 2OV 11/23/2021:Here for his f/u apt with his , he did do the labs on 11/16/2021 OV 04/05/2022:Here for his f/u apt with his , does well, labs done on 03/13/2022, he is here for his MWV too, he is now agreeable to see pain management as his does too OV 08/02/2022:Here for his f/u apt with his , he does feel well, noted that he has had some vertigo, he did do the labs OV 12/11/2022: Here for his f/u apt, he is here with his , is doing very well, would like to see a back specialist, no N/T or weakness in the LE, no loss of bowel or bladder control, has LBP OV 04/18/2023: Here for his f/u apt with his , he is doing very well, he is here also for his MWV OV 07/25/2023: Here for his routine apt, he is here for his MWV, he did do the labs 07/03/2023, done by Dr David FAJARDO OV 11/28/2023: Here for his f/u apt, he is doing well here with his , he did do the labs on 10/11/2023 OV 02/11/2024: Here for his ACV, has noted a cyst in the groin area, tender and needs to get it 'lanced', no fevers or chills, no d/c from the cyst OV 03/26/2024: Here for his f/u apt, he is here with his Maria De Jesus, is doing well today, states that he has not yet done the labs he is waiting for Dr David Delong labs too, he has also got more muscle aches d/t the atorvastatin and would like to change this medication Carmen Up MD [address], [address], [place], [address], [employer] 03/26/2024 12:13:04 06/23/2024 text/html . Patient is a 74-year-old male diabetic who returns for diabetic foot care he denies any new complaints. Patient would like his nails cut. Junior Barnard DPM [address], [address], [place], [address], [employer] 06/23/2024 15:54:08 07/23/2024 text/html 09/27/17Past Hx:DMIIAllergiesHypo gonadismLBPAlllatricia Rowlandiewed his past social, family and surgical historyHe is here for his one month apt, he states that he is doing well.He states that he was seen in the ER at [facility] recently for pancreatitis and is to now see Dr Vidal to get more testsHe also wants to discuss his testosterone levels and see if he needs this anymore. OV 02/19/18ACV:Here with URI symptomsHas sinus and nasal congestion with +ve cough,No blood in sputum or noseNo fevers or chills, no N/V, no chest pain or SOB, feels tiredHas had some diarrhea, no blood in stoolNo rashes noted+ve sinus headaches notedHe does continue to smoke OV 03/28/17:Here as he has been having sinus congestion and coughHe went to a on Saturday and caught the 'bug'Cough is clear, no bloodNo fevers or chills, feels coldNo N/VMild diarrhea, no blood+ve sinus tenderness OV 05/01/17:Here for his routine aptHe is doing well, here with his OV 08/14/17:Here for his routine aptHe feels that he is doing wellHe would like to get a 'bug bite' checked out, was admitted to [facility] a week ago for the biteNo pain, no fevers or chillsHe states that he is doing very well OV 09/23/17:Here to discuss his pain medsHe states that a script for the hydrocodone will last a yearHe has seen Dr Drew a back surgeon and is not seeing him any moreHe also states that he cannot do a MRI as it hurts it back OV 12/11/17:Here for his routine aptHe did do the labsHe wants to discuss his L ear, that has been hurting for 2 months, did see ENT Dr Noe OV 03/10/18:Here for his routine aptHe states that he is doing well at this timeHe did do the labs on 03/03/18He wants to get his testosterone checked and does want some viagra OV 04/08/18:Here to discuss the use of diclofenacHe takes this for his arthritis, in the hands and feels that this does helpS/p CTR 40 years agoS/p jaden hand surgery has had 'plates and screws'OV 05/14/18:Here with his wifeHere to discuss test results of the LDCTHe feels that he is doing well, he actually has tried to exercise, but he states that he has not had success with weight lossOV 06/09/18:Here for his routine aptHe feels wellHe did do the labs on 06/02/18 and is here to review theseOV 07/09/18:Her for ACV;C/o URI sx for a weekC/o sinus congestion and nasal congestionNo blood in sputum, or noseNo chest pain or SOBNo rashNo N/V or diarrhea OV 09/16/18:Here for ACV:C/o L>R LBPOngoing since 2-3 daysNo N/T in the LE, no weakness in the legsNo recent or remote trauma at this time, he was just stooping down to brush his teethPain increases with activity and decreases with restHe also has a L eye styeNo pain, no vision complaints, no photophobia, no diplopia, no excessive lacrimationOV 10/08/18:Here for his routine aptHere with his wifeHe does feel well, he did do the labs and is here to review these OV 12/29/18:ACV:Here for his apt to discuss mouth painSince a weekNoted to have swelling on the R side of the upper mouthCannot wear denturesNo fevers or chillsNo N/V or diarrheaNo rashNo problems eating soft foods and is able to hydrate wellNo cough, no blood in sputum or noseNo chest pain or SOBNo wheezingOV 02/11/19Here for his routine aptHe did do the labsHas L knee and shoulder painHe denies any acute or remote trauma to the shoulder or the kneeHe is to already see Dr Solorzano for the knee pain and the plan is to do surgeryOV 04/02/2019;Here for his post hospt aptHe feels well today but does have the pain in the knee stillHe is here with his wifeHe did have the labs done in the hospitalOV 12/09/2019;Here for his routine aptHe is here with his wifeHe is doing well, does have some R elbow pain, pain is sharp, no N/T in the handsHe is RHDHe is here for his MWVHe did do the labsOV 04/12/2020:Here for his routine aptHe feels well todayHe did do the labsHe states that the surgery with Dr Ware has helped but the elbow pain is not completley gone awayHe ishere with his OV 08/23/2020:Here for his routine aptHe is doing wellHere with PatHe did do the labs OV 10/04/2020:Here for his one week f/u s/p OV for L finger injuryTreated with doxycycline and mupirocinAlso given tenivac injectionFeels that the finger is not better, but still has some pain but now there is a swelling and some 'pus'OV 12/22/2020:Here for his routine aptHe is doing well nowHe did do the labs on 11/14/2020He c/o R elbow pain, he went on his own to see Dr Haskins wants a referralOV 03/23/2021:Here for his routine aptHe is doing well OV 07/20/2021:Here for his routine aptHe feels wellHe is here with his wifeHe did do the labs on 2OV 11/23/2021:Here for his f/u apt with his , he did do the labs on 11/16/2021 OV 04/05/2022:Here for his f/u apt with his , does well, labs done on 03/13/2022, he is here for his MWV too, he is now agreeable to see pain management as his does too OV 08/02/2022:Here for his f/u apt with his , he does feel well, noted that he has had some vertigo, he did do the labs OV 12/11/2022: Here for his f/u apt, he is here with his , is doing very well, would like to see a back specialist, no N/T or weakness in the LE, no loss of bowel or bladder control, has LBP OV 04/18/2023: Here for his f/u apt with his , he is doing very well, he is here also for his MWV OV 07/25/2023: Here for his routine apt, he is here for his MWV, he did do the labs 07/03/2023, done by Dr Hernandez IJ OV 11/28/2023: Here for his f/u apt, he is doing well here with his , he did do the labs on 10/11/2023 OV 02/11/2024: Here for his ACV, has noted a cyst in the groin area, tender and needs to get it 'lanced', no fevers or chills, no d/c from the cyst OV 03/26/2024: Here for his f/u apt, he is here with his Pat, is doing well today, states that he has not yet done the labs he is waiting for Dr Hernandez IJs labs too, he has also got more muscle aches d/t the atorvastatin and would like to change this medication OV 07/23/2024: Here for his f/u apt, he feels well today, her is here with his Carmen Up MD [address] [facility], [address], [place], [address], [facility] 07/23/2024 11:57:04
--- OUTSIDE RECORDS SUMMARY | 2024-09-09 11:14 | XMS_ITS | Patient Health Record ---
Author Organization [facility] Address [address] [place] [address] Care Team Providers Care Hide Shaker Name Role Phone David Juve Unavailable [phone] Reason For Referral No Information Medications Medication SIG (Take, Route, Frequency, Duration) Notes Start Date End Date Status Vitamin D (Ergocalciferol) 1.25 MG (18212 UT) TAKE 1 CAPSULE BY MOUTH ONCE A WEEK; Duration: 91 Active Problems Problem Type SNOMED Code ICD Code Onset Dates Problem Status W/U Status Risk Notes Problem Hyperglycemia due to type 2 diabetes mellitus (990691451931082) Type 2 diabetes mellitus with hyperglycemia (E11.65) Active confirmed Problem Secondary hyperparathyroidism (02748131) Secondary hyperparathyroidism , not elsewhere classified (E21.1) Active confirmed Problem Morbid obesity (disorder) (963861562) Morbid (severe) obesity due to excess calories (E66.01) Active confirmed Problem Hypervitaminosis D (94753966) 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) Active confirmed Problem Pure hyperglyceridemia (604211263) Pure hyperglyceridemia (E78.1) Active confirmed Problem Chronic kidney disease stage 2 (635594327) Chronic kidney disease, stage 2 (mild) (N18.2) Active confirmed Problem Retention of urine (564331584) Retention of urine, unspecified (R33.9) Active confirmed Problem Chronic fatigue syndrome (disorder) (55458891) Chronic fatigue, unspecified (R53.82) Active confirmed Problem Proteinuria (07973434) Other proteinuria (R80.8) Active confirmed Problem Essential hypertension (55232715) Essential hypertension (I10) Active confirmed Encounters Encounter Location Date Provider Diagnosis [facility] [address] [facility] [address] [place] [address] 10/18/2023 Juve Hernandez Chronic kidney disea se, stage 2 (mild) N18.2 ; Essential hypertension I10 ; Other proteinuria R80.8 ; Type 2 diabetes mellitus with hyperglycemia E11.65 ; Morbid (severe) obesity due to excess calories E66.01 ; Retention of urine, unspecified R33.9 and Secondary hyperparathyroidism, not elsewhere classified E21.1 [facility] [address] [address] 01/17/2024 Juve Hernandez Chronic kidney disea se, stage 2 (mild) N18.2 ; Other proteinuria R80.8 ; Morbid (severe) obesity due to excess calories E66.01 ; Type 2 diabetes mellitus with hyperglycemia E11.65 ; Retention of urine, unspecified R33.9 ; Secondary hyperparathyroidism, not elsewhere classified E21.1 and Essential hypertension I10 [facility] [address] [address] 04/10/2024 Juve Hernandez Chronic kidney disea se, stage 2 (mild) N18.2 ; Other proteinuria R80.8 ; Morbid (severe) obesity due to excess calories E66.01 ; Type 2 diabetes mellitus with hyperglycemia E11.65 ; Retention of urine, unspecified R33.9 ; Secondary hyperparathyroidism, not elsewhere classified E21.1 ; Essential hypertension I10 and Pure hyperglyceridemia E78.1 [facility] [address] [address] 07/24/2024 Juve Hernandez Chronic kidney disea se, stage 2 (mild) N18.2 ; Essential hypertension I10 ; Other proteinuria R80.8 ; Morbid (severe) obesity due to excess calories E66.01 ; Type 2 diabetes mellitus with hyperglycemia E11.65 ; Retention of urine, unspecified R33.9 ; Secondary hyperparathyroidism, not elsewhere classified E21.1 ; Pure hyperglyceridemia E78.1 ; Hypervitaminosis D E67.3 and Chronic fatigue, unspecified R53.82 Assessments Encounter Date Diagnosis (ICD Code) Assessment Notes Treatment Notes Treatment Clinical Notes Section Notes 10/18/2023 Chronic kidney disease, stage 2 (mild) (ICD-10 - N18.2) 10/18/2023 Essential hypertension (ICD-10 - I10) 01/17/2024 Chronic kidney disease, stage 2 (mild) (ICD-10 - N18.2) 04/10/2024 Chronic kidney disease, stage 2 (mild) (ICD-10 - N18.2) 04/10/2024 Other proteinuria (ICD-10 - R80.8) 07/24/2024 Chronic kidney disease, stage 2 (mild) (ICD-10 - N18.2) 07/24/2024 Essential hypertension (ICD-10 - I10) 04/10/2024 Morbid (severe) obesity due to excess calories (ICD-10 - E66.01) 01/17/2024 Other proteinuria (ICD-10 - R80.8) 10/18/2023 Other proteinuria (ICD-10 - R80.8) 10/18/2023 Type 2 diabetes mellitus with hyperglycemia (ICD-10 - E11.65) 04/10/2024 Type 2 diabetes mellitus with hyperglycemia (ICD-10 - E11.65) 07/24/2024 Other proteinuria (ICD-10 - R80.8) 01/17/2024 Morbid (severe) obesity due to excess calories (ICD-10 - E66.01) 07/24/2024 Morbid (severe) obesity due to excess calories (ICD-10 - E66.01) 04/10/2024 Retention of urine, unspecified (ICD-10 - R33.9) 10/18/2023 Morbid (severe) obesity due to excess calories (ICD-10 - E66.01) 01/17/2024 Type 2 diabetes mellitus with hyperglycemia (ICD-10 - E11.65) 10/18/2023 Retention of urine, unspecified (ICD-10 - R33.9) 01/17/2024 Retention of urine, unspecified (ICD-10 - R33.9) 04/10/2024 Secondary hyperparathyroidism, not elsewhere classified (ICD-10 - E21.1) 07/24/2024 Type 2 diabetes mellitus with hyperglycemia (ICD-10 - E11.65) 07/24/2024 Retention of urine, unspecified (ICD-10 - R33.9) 04/10/2024 Essential hypertension (ICD-10 - I10) 01/17/2024 Secondary hyperparathyroidism, not elsewhere classified (ICD-10 - E21.1) 10/18/2023 Secondary hyperparathyroidism, not elsewhere classified (ICD-10 - E21.1) 01/17/2024 Essential hypertension (ICD-10 - I10) 04/10/2024 Pure hyperglyceridemia (ICD-10 - E78.1) 07/24/2024 Secondary hyperparathyroidism, not elsewhere classified (ICD-10 - E21.1) 07/24/2024 Pure hyperglyceridemia (ICD-10 - E78.1) 07/24/2024 Hypervitaminosis D (ICD-10 - E67.3) 07/24/2024 Chronic fatigue, unspecified (ICD-10 - R53.82) Plan Of Treatment Next Appt Details Provider Name:Juve Hernandez , 10/09/2024 01:15:00 PM, [address] [facility] [address], [address],
--- OUTSIDE RECORDS SUMMARY | 2024-09-09 11:14 | XMS_ITS | Clinical Summary ---
Author Organization [facility] [place] Address [address] [place] [address] Care Team Providers Care Senior Foreman Name Role Phone Alona Up MD Primary Care Provide r Allergies Active Allergy Reactions Criticality Noted Date Comments Sulfa Rash Medium 07/29/2024 Encounters Date Type Department Care Team Description 07/29/2024 11:00 AM CDT - 07/29/2024 11:59 PM CDT Hospital [facility] [address] [place] [address] Abnormal weight loss Discharge Disposition: Discharge to home or self care from Last 3 Months Social History Tobacco Use Types Packs/Day Years Used Date Smoking Tobacco: Never Assessed Sex and Gender Information Value Date Recorded Sex Assigned at Not on file 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 Gender Identity Not on file Sexual Orientation Not on file Plan of Treatment Health Maintenance Due Date Last Done Comments Depression Screening 1950 Fall Risk Assessment 1950 Hepatitis C Screening 1950 Hepatitis B Screening 1966 Well Visit 65+ 2013 Covid-19 Vaccine (9 - 2023-2 5 season) 2024 12/10/2023, 12/15/2022, 09/22/2021, Additional history exists DTaP/Tdap/Td Vaccine (3 - Td or Tdap) 09/30/2030 09/30/2020, 12/15/2017 Pneumococcal vaccine 65+ Completed 05/01/2017, 12/04 Zoster Vaccine Completed 04/06/2023, 12/28/2022 Influenza Vaccine Completed 11/28/2023, , 12/01/2021, Additional history exists Procedures Procedure Name Priority Date/Time Associated Diagnosis Comments CT ABDOMEN PELVIS W CONTRAST Schedule Routine, Read Routine (OP Routine) 07/29/2024 11:09 AM CDT Abnormal weight loss from Last 3 Months Results * CT Abdomen Pelvis W Contrast (07/29/2024 11:09 AM CDT) Anatomical Region Laterality Modality Body N/A Computed Tomogra phy 08/05/2024 4:54 PM CDT Narrative 08/05/2024 5:03 PM CDT EXAM DESCRIPTION: CT ABDOMEN PELVIS W CONTRAST REASON FOR STUDY: abnormal weight loss Patient states he has had unintentional weight loss of 40 pounds since March of this year with nausea and abdominal pain. No prior surgical history TECHNIQUE: CT scan of the abdomen and pelvis was performed with intravenous and without oral contrast using helical scanning technique with dynamic intravenous contrast injection. Reconstructed coronal and sagittal MPR images were reviewed. All images stored on PACS. Automated exposure control was used as a dose optimization technique for this examination. CONTRAST TYPE/DOSE: 100mL of IOVERSOL 350 MG IODINE/ML INTRAVENOUS SYRINGE injected via right arm IV . COMPARISON: None Available . REFERENCE: Per ACR white paper recommendations, unless otherwise specified no follow-up imaging is recommended for incidental renal and adrenal lesions per consensus recommendations based on imaging criteria. Further lab evaluation could be pursued based on clinical findings. FINDINGS: LOWER CHEST: Atelectasis left lung base. LIVER: Normal size. No cystic or solid masses. GALLBLADDER: Cholelithiasis.. BILE DUCTS: No intrahepatic or extrahepatic biliary ductal dilatation. SPLEEN: Normal size. No focal lesions. PANCREAS: No cystic or solid masses. No significant calcifications. No adjacent inflammation or peripancreatic fluid collections. Pancreatic duct not dilated. ADRENALS: Normal. KIDNEYS/URINARY TRACT: No significant cystic or solid masses. No evidence of nephrolithiasis. No hydronephrosis or hydroureter. Symmetric enhancement. The urinary bladder is unremarkable. GI: No dilated bowel loops. No obvious wall thickening. Normal appendix. Scattered diverticular disease without diverticulitis. Small distal duodenal diverticulum. There is normal appendix. PERITONEUM: 6.8 by 4.0 cm peripherally calcified fat density mass in the anterior abdomen likely an area of fat necrosis. No ascites or pneumoperitoneum RETROPERITONEUM: No mass or adenopathy. REPRODUCTIVE: No significant abnormality. VASCULATURE: No abdominal aortic aneurysm. MUSCULOSKELETAL: No significant abnormality. OTHER: No other abnormality. IMPRESSION: No acute findings in the abdomen or pelvis. Cholelithiasis. Colonic diverticulosis without evidence of diverticulitis. THIS IS AN ELECTRONICALLY VERIFIED FINAL REPORT 08/05/2024 5:03 PM - Electronically signed by Riccardo Carrera M.D. RW T: Report ID: [id number] Reading Location: [id number] Procedure Note Riccardo Carrera MD - 08/05/2024 EXAM DESCRIPTION: CT ABDOMEN PELVIS W CONTRAST REASON FOR STUDY: abnormal weight loss Patient states he has had unintentional weight loss of 40 pounds sinceJanuary of this year with nausea and abdominal pain. No prior surgical history TECHNIQUE: CT scan of the abdomen and pelvis was performed withintravenous and without oral contrast using helical scanning technique with dynamic intravenous contrast injection. Reconstructed coronal and sagittal MPRimages were reviewed. All images stored on PACS. Automated exposure control was used as a dose optimization technique forthis examination. CONTRAST TYPE/DOSE: 100mL of IOVERSOL 350 MG IODINE/ML INTRAVENOUSSYRINGE injected via right arm IV . COMPARISON: None Available . REFERENCE: Per ACR white paper recommendations, unless otherwise specifiedno follow-up imaging is recommended for incidental renal and adrenal lesionsper consensus recommendations based on imaging criteria. Further labevaluation could be pursued based on clinical findings. FINDINGS: LOWER CHEST: Atelectasis left lung base. LIVER: Normal size. No cystic or solid masses. GALLBLADDER: Cholelithiasis.. BILE DUCTS: No intrahepatic or extrahepatic biliary ductal dilatation. SPLEEN: Normal size. No focal lesions. PANCREAS: No cystic or solid masses. No significant calcifications. No adjacent inflammation or peripancreatic fluid collections. Pancreatic ductnot dilated. ADRENALS: Normal. KIDNEYS/URINARY TRACT: No significant cystic or solid masses. Noevidence of nephrolithiasis. No hydronephrosis or hydroureter. Symmetric enhancement. The urinary bladder is unremarkable. GI: No dilated bowel loops. No obvious wall thickening. Normal appendix. Scattered diverticular disease without diverticulitis. Small distalduodenal diverticulum. There is normal appendix. PERITONEUM: 6.8 by 4.0 cm peripherally calcified fat density mass in the anterior abdomen likely an area of fat necrosis. No ascites or pneumoperitoneum RETROPERITONEUM: No mass or adenopathy. REPRODUCTIVE: No significant abnormality. VASCULATURE: No abdominal aortic aneurysm. MUSCULOSKELETAL: No significant abnormality. OTHER: No other abnormality. IMPRESSION: No acute findings in the abdomen or pelvis. Cholelithiasis. Colonic diverticulosis without evidence of diverticulitis. THIS IS AN ELECTRONICALLY VERIFIED FINAL REPORT 08/05/2024 5:03 PM - Electronically signed by Riccardo Carrera M.D. RW T: Report ID: [id number] Reading Location: [place] [address] Alisa Rivera MD IMG CT PROCEDURES Final R esult from Last 3 Months Insurance [facility] MEDICARE ADVANTAGE [facility] MEDICARE Address: [facility] [address] [place] [address] Care Teams Senior Foreman Relationship Specialty Start Date End Date Alona Up MD [address] [address] PCP - General 07/25/17
--- OUTSIDE RECORDS SUMMARY | 2024-09-09 11:14 | XMS_ITS ---
Author Organization [facility] Address [address] [address] Care Team Providers Care Test Examiner Name Role Phone Trinity Up Primary Care Provider CROW Estrada Unavailable [phone] Encounters Encounter Location Date Provider Diagnosis [facility] [address] [address] 03/25/2024 CROW ESTRADA Plan Of Treatment No Information Progress Notes * Glenn VILLALPANDODOB:1950 (74 yo M)Acc No.[id number]:03/25/2024 Patient: Glenn ROJAS Provider: Ana ESTRADA M.D. :1950 A ge:74 Y S ex:Male Date:03/25/2024 Address:[address] [place] [address] Pcp:Trinity Up Subjective: * Chief Complaints: * * Medical History: Objective: * Vitals: Assessment: Plan: * Treatment: * * Electronic signature of FRANCESCA ESTRADA MD on 09/09/2024 at 11:14 AM CDT Sign off status: Pending * Provider: Ana ESTRADA M.D. Date: 03/25/2024 Generated for Zachary woodard/Georges/Katyitting on: 0 09/09/2024 11:14 AM CDT
--- OUTSIDE RECORDS SUMMARY | 2024-09-09 11:14 | XMS_ITS ---
Author Organization [facility] Address [address] [place] [address] Care Team Providers Care Zinc Furnace Charger Name Role Phone David Juve Unavailable [phone] Medications Medication SIG (Take, Route, Frequency, Duration) Notes Start Date End Date Status Vitamin D (Ergocalciferol) 1.25 MG (91697 UT) TAKE ONE CAPSULE BY MOUTH ONCE A WEEK; Duration: 91 Active Encounters Encounter Location Date Provider Diagnosis [facility] [address] [facility] [address] [place] [address] 01/17/2024 Juve Hernandez Chronic kidney disease, stage 2 (mild) N18.2 ; Other proteinuria R80.8 ; Morbid (severe) obesity due to excess calories E66.01 ; Type 2 diabetes mellitus with hyperglycemia E11.65 ; Retention of urine, unspecified R33.9 ; Secondary hyperparathyroidism, not elsewhere classified E21.1 and Essential hypertension I10 Assessments Encounter Date Diagnosis (ICD Code) Assessment Notes Treatment Notes Treatment Clinical Notes Section Notes 01/17/2024 Chronic kidney disease, stage 2 (mild) (ICD-10 - N18.2) 01/17/2024 Other proteinuria (ICD-10 - R80.8) 01/17/2024 Morbid (severe) obesity due to excess calories (ICD-10 - E66.01) 01/17/2024 Type 2 diabetes mellitus with hyperglycemia (ICD-10 - E11.65) 01/17/2024 Retention of urine, unspecified (ICD-10 - R33.9) 01/17/2024 Secondary hyperparathyroidis m, not elsewhere classified (ICD-10 - E21.1) 01/17/2024 Essential hypertension (ICD-10 - I10) Plan Of Treatment Next Appt Details Provider Name:Juve Hernandez , 10/09/2024 01:15:00 PM, [address] [facility], [facility] [address], [place], [address], Progress Notes * AMENA FOSTERDOB:1950 (74 yo F)Acc No.[id number]:01/17/2024 Progress Notes Patient: AMENA ROJAS Provider: Julieth FORTUNE MD, Jaden.Emanuel.Kedar.P, F.A.S.N. :1950 A ge:73 Y S ex:Female Date:01/17/2024 Address:[address] [place] [address] [place] [address] Subjective: * Chief Complaints: * * Medical History: * Medications: T aking Vitamin D (Ergocalciferol) 1.25 MG (44449 UT) Capsule TAKE ONE CAPSULE BY MOUTH ONCE A WEEK Objective: * Vitals: Assessment: * Assessment: 1. C hronic kidney disease, stage 2 (mild) - N18.2 (Primary) 2 . O ther proteinuria - R80.8 3 . M orbid (severe) obesity due to excess calories - E66.01? 4. T ype 2 diabetes mellitus with hyperglycemia - E11.65 5 . R etention of urine, unspecified - R33.9 6 . S econdary hyperparathyroidism, not elsewhere classified - E21.1 7 . E ssential hypertension - I10 Plan: * Treatment: * Billing Information: * Visit Code: 88715 Office Visit, Est Pt., Level 4. * Procedure Codes: * Electronic signature of Moira Hernandez MD on 09/09/2024 at 11:14 AM CDT Sign off status: Pending * Provider: Julieth FORTUNE MD, F.Emanuel.C.P, F.A.S.N. Date: 03/18/2023 Generated for Printing/Faxing/eTransmitting on: 0 09/09/2024 11:14 AM CDT
--- OUTSIDE RECORDS SUMMARY | 2024-09-09 11:14 | XMS_ITS | Encounter Summary ---
Author Organization [facility] Address [address] [place] [address] Care Team Providers Care Textile Colorist Dyer Name Role Phone Trinity Up MD Primary Care Provider Encounter Details Date Type Department Care Team (Late st Contact Info) Description 05/28/2023 Lab Requisition [facility] - DermPath Lab [address] [place] [address] Garret Machado MD [address] [place] [address] Social History Tobacco Use Types Packs/Day Years Used Date Smoking Tobacco: Every Day Cigarettes 2 55 Smokeless Tobacco: Never Alcohol Use Standard Drinks/Week Comments Not Currently 0 (1 standard drink = 0.6 oz pur e alcohol) AUDIT-C Answer Date Recorded Frequency of Alcohol Consumption Never 04/21/2019 Average Number of Drinks Not on file 020 Frequency of Binge Drinking Not on file 04/04 Sex and Gender Information Value Date Recorded Sex Assigned at Not on file 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 Author Medication Management General On track( 022 1:38 PM CDT) Treva Lopez, RN Note: Expected end date: Ongoing Interventions: Take all medications as prescribed Let your doctor know right away about any changes in your medications Make sure to request a refill of your medication at least one week prior to your last dose documented as of this encounter Procedures Procedure Name Priority Date/Time Associated Diagnosis Comments DERMATOPATHOLOGY Routine 05/28/2023 12:0 0 AM CDT documented in this encounter Results * DERMATOPATHOLOGY (05/28/2023 12:00 AM CDT) Case Report Dermatopathology Report Case: [id number] Authorizing Provider: Garret Machado MD Collected: 05/28/2023 12:00 AM Ordering Location: [facility] - Received: 05/28/2023 03:41 PM DermPath Lab Pathologist: Jaki Rueda MD Specimen: Skin, right gnosticist 2:41 PM CDT DERMATOPATHOLOGY LABORATORY Final Diagnosis Specimen A. SKIN, right gnosticist: BASAL CELL CARCINOMA, NODULAR TYPE (C44.319) 2:41 PM CDT DERMATOPATHOLOGY LABORATORY at 1441 CDT Clinical History R/O BCC. 2:41 PM CDT DERMATOPATHOLOGY LABORATORY Gross Description Specimen A: Received is one formalin filled container labeled with the patient's name and designated right gnosticist. The specimen consists of a shave biopsy measuring 9x12x4 mm. Jar 0. 2:41 PM CDT DERMATOPATHOLOGY LABORATORY Microscopic Description Specimen A. SKIN, right gnosticist: Within the dermis there are aggregates of basaloid cells with a high nuclear to cytoplasmic ratio and peripheral palisading. 2:41 PM CDT DERMATOPATHOLOGY LABORATORY Disclaimer An external and internal positive and negative controls are appropriate for the histochemical, immunohistochemical and immunofluorescence stain(s) in this case (if any), except where stated explicitly. The performance characteristics of the stain(s) cited in this report were developed and its performance characteristic determined by the Dermatopathology Laboratory at [facility], directed by Dr. Richard Rueda. These tests need not be, and therefore are not, approved by the [place] Food and Drug Administration. The tests are used for clinical purposes. Billing Codes Specimen Charges Stain Charges 69062 1 03/28/202 4 2:41 PM CDT DERMATOPATHOLOGY LABORATORY Embedded Images 4 2:41 PM CDT DERMATOPATHOLOGY LABORATORY Pathology/Cytolog y TISSUE SPECIMEN FROM SKIN / Unknown 05/28/2023 05/28/2023 3:41 PM CDT Garret Machado MD LAB - PATHOLOGY/CYTOLOGY ORDERAB LES Final Result DERMATOPATHOLOGY LABORATORY [facility] - Department of Dermatology [facility] [address] [place] [address], [address] [phone] documented in this encounter Visit Diagnoses Not on filedocumented in this encounter Care Teams Textile Colorist Dyer Relationship Specialty Start Date End Date Trinity Up MD [address] [address] PCP - General Internal Medicine 12/03/18 documented as of this encounter
--- OUTSIDE RECORDS SUMMARY | 2024-09-09 11:14 | XMS_ITS | Clinical Summary ---
Author Organization [facility] Address [address] [place] [address] Care Team Providers Care Testing Coordinator Name Role Phone Trinity Up MD Primary Care Provider Source Comments [facility],non-owned Affiliates and Associated Physician Practices is amultiple site organization consisting of ambulatory clinics and hospital sitesin [place], [place], [place]. This disclosure is being madepursuant to the Care Everywhere program and may not contain all information available regarding this patient. Last updated 17.[facility] Allergies Active Allergy Reactions Criticality Noted Date Comments Epa Ethyl Sheryl Diarrhea High 12/28/2020 Ezetimibe Unknown 12/28/2020 Fenofibrate Unknown 12/28/2020 Lidocaine Rash Medium 12/28/2020 Sulfa Drugs Rash Medium 04/21/2019 Medications * Be aware that medications may not be up to date on this document. Alwaysverify current medications with the patient. albuterol HFA (PROVENTIL; VENTOLIN; PROAIR) 108 (90 Base) MCG/ACT inhaler Active BREO ELLIPTA 200-25 MCG/INH inhaler 9 Active metFORMIN (GLUCOPHAGE) 500 MG tablet Take 1 (one) tablet by mouth once daily Active pantoprazole EC (PROTONIX) 40 MG tablet Take 1 (one) tablet by mouth once daily Active Multiple Vitamins-Monroe als (CENTRUM SILVER 50+MEN) TABS Take 1 tablet by mouth once daily Active cetirizine (ZYRTEC) 10 MG tablet Take 1 (one) tablet by mouth once daily Active Potassium 99 MG tablet Take 1 (one) tablet by mouth once daily Active aspirin EC (ECOTRIN) 81 MG tablet Take 1 (one) tablet by mouth once daily Active lisinopril (PRINIVIL; ZESTRIL) 5 MG tablet Take 1 (one) tablet by mouth once daily Active Docusate Calcium (STOOL SOFTENER PO) Take by mouth once daily Active acetaminophen (TYLENOL) 500 MG tablet Take 2 (two) tablets by mouth 3 times daily as needed for Fever or Pain Maximum allowable Acetaminophen amount = 4 Grams (4000 mg) / 24 hours. Active Cholecalcifero l (vitamin D3) 1.25 MG (75010 UT) capsule Take 1 (one) capsule by mouth every 7 days Active montelukast (Singulair) 10 MG tablet Take 1 (one) tablet by mouth at bedtime Active Active Problems Problem Noted Date Diagnosed Date NAFLD (nonalcoholic fatty liver disease) Overview (10/06/2021): 10/03/21 Fibroscan CAP 351, LSM 8.2 kPa Diabetes mellitus type 2, controlled, without co mplications 04/21/2019 GERD (gastroesophageal reflux disease) 0 Asthma 04/21/2019 Other hyperlipidemia 04/21/2019 Social History Tobacco Use Types Packs/Day Years Used Date Smoking Tobacco: Every Day Cigarettes 2 55 Smokeless Tobacco: Never Tobacco Cessation:Ready to Q uit: Not Asked; Counseling Given: Not Answered Alcohol Use Standard Drinks/Week Comments Not Currently 0 (1 standard drink = 0.6 oz pur e alcohol) AUDIT-C Answer Date Recorded Frequency of Alcohol Consumption Never 04/21/2019 Average Number of Drinks Not on file 020 Frequency of Binge Drinking Not on file 04/04 Sex and Gender Information Value Date Recorded Sex Assigned at Not on file 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 Gender Identity Not on file Sexual Orientation Not on file Last Filed Vital Signs Vital Sign Reading Time Taken Comments Blood Pressure 121/79 09/17/2022 11:20 AM CDT Pulse 81 09/17/2022 11:20 AM CDT Temperature 36.3 C (97.4 F) 09/17/2022 11:20 AM CDT Respiratory Rate 18 09/18/2021 1:29 PM CDT Oxygen Saturation 97% 09/17/2022 11: 20 AM CDT Inhaled Oxygen Concentration - - Weight 107.6 kg (237 lb 3.2 oz) 023 11:20 AM CDT Height 180.3 cm (5' 11) 09/17/2022 11: 20 AM CDT Body Mass Index 33.08 09/17/2022 11:20 AM CDT Plan of Treatment Health Maintenance Due Date Last Done Comments HEPATITIS C SCREENING 03/20/1966 DTAP/TDAP/TD VACCINES (1 - Tdap) 1967 PNEUMOCOCCAL VACCINE 50+ (1 of 2 - PCV) 1967 DIABETES-STATIN 1988 LUNG CANCER SCREENING 1998 ZOSTER VACCINE (1 of 2) 1998 DIABETES RETINOPATHY SCREENING 04/21/2019 DIABETES-FOOT EXAM WITH MONOFILAMENT 04/21/2019 DIABETES-HGB A1C 04/21/2019 DIABETES-SERUM CREATININE 09/18/2022 09/18/2021 Respiratory Syncytial Virus (RSV) Vaccine Pt: or over 60 yrs (1 - 1-dose 75+ series) 2023 COVID-19 VACCINE (2023- season) 2023 12/07/2020, 06/03/2020, 05/10/2020 DEPRESSION SCREENING 03/04/2024 DIABETES - URINE PROTEIN SCREENING 03/04/2024 MEDICARE AWV CALENDAR YEAR 2024 INFLUENZA VACCINE (#1) 2024 0, 12/05/2018, 11/20/2017, Additional history exists HEPATITIS B VACCINE Aged Out No longe r eligible based on patient's age to complete this topic HIB VACCINE Aged Out No longer eligi ble based on patient's age to complete this topic HPV VACCINE Aged Out No longer eligi ble based on patient's age to complete this topic MENINGOCOCCAL (Group B) VACCINE SHARED DECISION-MAKING Aged Out No longer eligible based on patient's age to complete this topic MENINGOCOCCAL GROUPS A/C/Y/W VACCINE Aged Out No longer eligible based on patient's age to complete this topic Goals Goal Patient Goal Type Associated Problems Recent Progress Patient-Stated? Author Medication Management General On track( 022 1:38 PM CDT) No Treva Macario RN Note: Expected end date: Ongoing Interventions: Take all medications as prescribed Let your doctor know right away about any changes in your medications Make sure to request a refill of your medication at least one week prior to your last dose Procedures Procedure Name Priority Date/Time Associated Diagnosis Comments COMPREHENSIVE METABOLIC PANEL Routine 09/18/2021 2:19 PM CDT NAFLD (nonalcoholic fatty liver disease) from Last 3 Months or Most Recently Relevant to Health Maintenance Results * (ABNORMAL) COMPREHENSIVE METABOLIC PANEL (09/18/2021 2:19 PM CDT) BUN 7 7 - 26 mg/dL 09/18/2021 3:[address] [facility] Creatinine 0.79 0.71 - 1.16 mg/dL 09/18/2021 3:[address] [facility] Sodium 142 136 - 145 mmol/L 09/18/2021 3:[address] [facility] Potassium 3.9 3.5 - 4.5 mmol/L 09/18/2021 3:[address] [facility] Chloride 106 98 - 107 mmol/L 09/18/2021 3:[address] [facility] CO2 24 22 - 29 mmol/L 09/18/2021 3:[address] [facility] Glucose 129(H) 70 - 115 mg/dL 09/18/2021 3:[address] [facility] Calcium 9.3 8.4 - 10.2 mg/dL 09/18/2021 3:[address] [facility] Protein Total 7.3 6.0 - 8.3 g/dL 09/18/2021 3:[address] [facility] Albumin 3.5 3.4 - 5.0 g/dL 09/18/2021 3:[address] [facility] Bilirubin Total 0.5 0.2 - 1.2 mg/dL 09/18/2021 3:[address] [facility] Alkaline Phosphatase 45 40 - 150 U/L 09/18/2021 3:[address] [facility] ALT 16 5 - 55 U/L 09/18/2021 3:[address] [facility] AST 19 5 - 34 U/L 09/18/2021 3:27 PM CDT [facility] Anion Gap 16 8 - 18 09/18/2021 3:27 PM T [facility] BUN/Creatinine Ratio 9 7 - 23 09/18/2021 3:27 PM T [facility] Osmolality Calculated 294 270 - 300 mOsm/kg 09/18/2021 3:27 PM T [facility] Albumin/Globulin Ratio 0.9(L) 1.1 - 2.3 09/18/2021 3:27 PM T [facility] eGFR by CKD-EPI >90 >=90 mL/min/1.7 3 m2 09/18/2021 3:27 PM T [facility] Blood BLOOD SPECIMEN / Unknown Lab Venipuncture / Unknown 09/18/2021 2:19 PM CDT 09/18/2021 2:57 PM CDT Mitul Koo MD LAB - CHEMISTRY ORDERABLES Fin al Result [facility] [address] [place] [address], [facility] [place] [phone] from Last 3 Months or Most Recently Relevant to Health Maintenance Insurance [facility] MANAGED MEDICARE ADV MEDICARE [facility] Care Teams Testing Coordinator Relationship Specialty Start Date End Date Trinity Up MD [address] [facility] [address] [place] [id number] PCP - General Internal Medicine 12/03/18
--- OUTSIDE RECORDS SUMMARY | 2024-09-09 11:14 | XMS_ITS | Encounter Summary ---
Author Organization 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 - Received: 06/12/2023 06:52 AM DermPath Lab Pathologist: Jaki Rueda MD Specimen: Skin, right mosque 5:02 PM CDT DERMATOPATHOLOGY LABORATORY Final Diagnosis Specimen A. SKIN, right mosque: BASAL CELL CARCINOMA, KERATOTIC TYPE; FRAGMENTS OF (C44.319) 5:02 PM CDT DERMATOPATHOLOGY LABORATORY at 1702 CDT Clinical History BCC bx Site 4 5:02 PM CDT DERMATOPATHOLOGY LABORATORY Gross Description Specimen A: Received is one formalin filled container labeled with the patient's name and designated right mosque. The specimen consists of a shave biopsy measuring 10x9x1 mm. Jar 0. 5:02 PM CDT DERMATOPATHOLOGY LABORATORY Microscopic Description Specimen A. SKIN, right mosque: The specimen is fragmented. The dermis is infiltrated by nests of basaloid cells that show peripheral palisading and are associated with fibromyxoid stroma. Both mitotic figures and necrotic cells are identified. There are also areas with squamous differentiation and keratinization within the nests. 5:02 PM CDT DERMATOPATHOLOGY LABORATORY Disclaimer An external and internal positive and negative controls are appropriate for the histochemical, immunohistochemical and immunofluorescence stain(s) in this case (if any), except where stated explicitly. The performance characteristics of the stain(s) cited in this report were developed and its performance characteristic determined by the Dermatopathology Laboratory at [facility], directed by Dr. Richard Rueda. These tests need not be, and therefore are not, approved by the [place] Food and Drug Administration. The tests are used for clinical purposes. Billing Codes Specimen Charges Stain Charges 82903 1 4 5:02 PM CDT DERMATOPATHOLOGY LABORATORY Embedded Images 4 5:02 PM CDT DERMATOPATHOLOGY LABORATORY Pathology/Cytolo gy TISSUE SPECIMEN FROM SKIN / Unknown 06/11/2023 3:33 AM CDT 06/12/2023 6:52 AM CDT Garret Machado MD LAB - PATHOLOGY/CYTOLOGY ORDERAB LES Final Result DERMATOPATHOLOGY LABORATORY [facility] - Department of Dermatology [facility] Medicine [address] [place] [address], [address] [phone] documented in this encounter Visit Diagnoses Not on filedocumented in this encounter Care Teams Core Piler Relationship Specialty Start Date End Date Trinity Up MD [address] [phone] PCP - General Internal Medicine 12/03/18 documented as of this encounter
--- OUTSIDE RECORDS SUMMARY | 2024-09-09 11:15 | XMS_ITS ---
Author Organization [facility] Address [address] [facility] [address] [facility] [address] [place] [address] Care Team Providers Care Blindstitch Machine Operator Name Role Phone Juve Hernandez Unavailable [phone] Medications Medication SIG (Take, Route, Frequency, Duration) Notes Start Date End Date Status Vitamin D (Ergocalciferol) 1.25 MG (75544 UT) TAKE ONE CAPSULE BY MOUTH ONCE A WEEK; Duration: 91 Active Problems Problem Type SNOMED Code ICD Code Onset Dates Problem Status W/U Status Risk Notes Problem Pure hyperglyceridemia (E78.1) Active confirmed Encounters Encounter Location Date Provider Diagnosis [place] [facility] [address] [facility] [address] [place] [address] 04/10/2024 Juve Hernandez Chronic kidney disea se, stage 2 (mild) N18.2 ; Other proteinuria R80.8 ; Morbid (severe) obesity due to excess calories E66.01 ; Type 2 diabetes mellitus with hyperglycemia E11.65 ; Retention of urine, unspecified R33.9 ; Secondary hyperparathyroidism, not elsewhere classified E21.1 ; Essential hypertension I10 and Pure hyperglyceridemia E78.1 Assessments Encounter Date Diagnosis (ICD Code) Assessment Notes Treatment Notes Treatment Clinical Notes Section Notes 04/10/2024 Chronic kidney disease, stage 2 (mild) (ICD-10 - N18.2) 04/10/2024 Other proteinuria (ICD-10 - R80.8) 04/10/2024 Morbid (severe) obesity due to excess calories (ICD-10 - E66.01) 04/10/2024 Type 2 diabetes mellitus with hyperglycemia (ICD-10 - E11.65) 04/10/2024 Retention of urine, unspecified (ICD-10 - R33.9) 04/10/2024 Secondary hyperparathyroidism, not elsewhere classified (ICD-10 - E21.1) 04/10/2024 Essential hypertension (ICD-10 - I10) 04/10/2024 Pure hyperglyceridemia (ICD-10 - E78.1) Plan Of Treatment Next Appt Details Provider Name:Juve David , 10/09/2024 01:15:00 PM, [address] [facility], [facility] [address], [place], [address], Progress Notes * AMENA FOSTERDOB:1950 (74 yo F)Acc No.[id number]:04/10/2024 Progress Notes Patient: AMENA ROJAS Provider: Julieth FORTUNE MD, F.A.C.P, F.A.S.N. :1950 A ge:74 Y S ex:Female Date:04/10/2024 Address:[address] [place], [place] [id number] Subjective: * Chief Complaints: * * Medical History: * Medications: T aking Vitamin D (Ergocalciferol) 1.25 MG (49442 UT) Capsule TAKE ONE CAPSULE BY MOUTH [...] 7 . E ssential hypertension - I10 8 . P ure hyperglyceridemia - E78.1 Plan: * Treatment: * Billing Information: * Visit Code: 45999 Office Visit, Est Pt., Level 4. * Procedure Codes: * Electronic signature of Moira Hernandez MD on 09/09/2024 at 11:15 AM CDT Sign off status: Pending * Provider: Julieth FORTUNE MD, F.A.C.P, F.A.S.N. Date: 0 04/10/2024 Generated for Printing/Faxing/eTransmitting on: 0 09/09/2024 11:15 AM CDT
--- OUTSIDE RECORDS SUMMARY | 2024-09-09 11:15 | XMS_ITS | Referral Summary ---
Author Organization [facility] [place] Address [address] [place] [address] Care Team Providers Care Slabber Light Name Role Phone Alona Up MD Primary Care Provide r Encounters Date Type Department Care Team Description 07/29/2024 11:00 AM CDT - 07/29/2024 11:59 PM CDT Hospital [facility] [address] [place] [address] Abnormal weight loss Discharge Disposition: Discharge to home or self care from Last 3 Months Allergies Active Allergy Reactions Criticality Noted Date Comments Sulfa Rash Medium 07/29/2024 Social History Tobacco Use Types Packs/Day Years Used Date Smoking Tobacco: Never Assessed Sex and Gender Information Value Date Recorded Sex Assigned at Not on file 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 RW T: Report ID: [id number] Reading Location: [place] [address] Procedure Note Riccardo Carrera MD - 08/05/2024 [...] Riccardo Carrera M.D. RW T: Report ID: [id number] Reading Location: [place] [address] Alisa Rivera MD IMG CT PROCEDURES Final R esult from Last 3 Months Insurance [facility] MEDICARE ADVANTAGE Care Teams Slabber Light Relationship Specialty Start Date End Date Alona Up MD [address] [facility] [address] [place] [address] PCP - General 07/25/17
--- OUTSIDE RECORDS SUMMARY | 2024-09-09 11:15 | XMS_ITS ---
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 [address] [place] [address] 07/24/2024 Juve Hernandez Chronic kidney disea se, [...] Treatment Notes Treatment Clinical Notes Section Notes 07/24/2024 Chronic kidney disease, stage 2 (mild) (ICD-10 - N18.2) 07/24/2024 Essential hypertension (ICD-10 - I10) 07/24/2024 Other proteinuria (ICD-10 - R80.8) 07/24/2024 Morbid (severe) obesity due to excess calories (ICD-10 - E66.01) 07/24/2024 Type 2 diabetes mellitus with hyperglycemia (ICD-10 - E11.65) 07/24/2024 Retention of urine, unspecified (ICD-10 - R33.9) 07/24/2024 Secondary hyperparathyroidism, not elsewhere classified (ICD-10 - E21.1) 07/24/2024 Pure hyperglyceridemia (ICD-10 - E78.1) 07/24/2024 Hypervitaminosis D (ICD-10 - E67.3) 07/24/2024 Chronic fatigue, unspecified (ICD-10 - R53.82) Plan Of Treatment Next Appt Details Provider Name:Juve David , 10/09/2024 01:15:00 PM, [address]43 [facility], [facility] [address], [place], [address], Progress Notes * AMENA FOSTERDOB:1950 (74 yo F)Acc No.[id number]:07/24/2024 Progress Notes Patient: AMENA ROJAS Provider: Julieth FORTUNE MD, F.A.C.P, F.A.S.N. :1950 A ge:74 Y S ex:Female Date:07/24/2024 Address:[address] [place], [place] [address] Subjective: * Chief Complaints: * * Medical History: Objective: * Vitals: Assessment: * Assessment: 1. C hronic kidney disease, stage 2 (mild) - N18.2 (Primary) 2 . E ssential hypertension - I10 3 . O ther proteinuria - R80.8 4 . M orbid (severe) obesity due to excess calories - E66.01 5 . T ype 2 diabetes mellitus with hyperglycemia - E11.65 6 . R etention of urine, unspecified - R33.9 ? 7 . S econdary hyperparathyroidism, not elsewhere classified - E21.1 8 . P ure hyperglyceridemia - E78.1 9 . H ypervitaminosis D - E67.3 & #160; 1 0. C hronic fatigue, unspecified - R53.82 Plan: * Treatment: * Billing Information: * Visit Code: 07215 Office Visit, Est Pt., Level 4. * Procedure Codes: * Electronic signature of Moira Hernandez MD on 09/09/2024 at 11:14 AM CDT Sign off status: Pending * Provider: Julieth FORTUNE MD, F.A.C.P, F.A.S.N. Date: 07/24/2024 Generated for Printing/Faxing/eTransmitting on: 0 09/09/2024 11:14 AM CDT
--- OUTSIDE RECORDS SUMMARY | 2024-09-09 11:15 | XMS_ITS | Patient Health Record ---
Author Organization [facility] [employer] Address [address] [address] Care Team Providers Care Window Framer Name Role Phone MargiechuchoTrinity haley Primary Care Provider CROW Estrada Unavailable [phone] Allergies Allergen (clinical drug ingredient) Drug/Non Drug Allergy documented on EMR Reaction Allergy Type Onset Date Status icosapent ethyl Vascepa Unknown Drug Allergy A ctive Neoprene Neoprene Unknown Allergy Active Substance with sulfonamide structure and antibacterial mechanism of action (substance) Sulfa Antibiotics Unknown Drug Allergy Active Reason For Referral No Information Medications Medication SIG (Take, Route, Frequency, Duration) Notes Start Date End Date Status Atorvastatin Calcium 10 MG 1 tablet Oral ly Once a day Active Vitamin D 50 MCG (1999 UT) 1 capsule Ora lly Once a day Active Potassium 99 MG 1 tablet Orally Once a day Active Trospium Chloride 20 MG 1 tablet at bedt yohana on an empty stomach Orally Once a day Active Gabapentin 300 MG 1 capsule Orally Sta rt 1 cap QHS x 1 week, then 2 caps qhs x 1 week, then 1 q AM and 2 qHS Active Centrum Adult 50+ MultiGummies - as directed Orally Active Lisinopril 5 MG 1 tablet Orally Once a day Active Montelukast Sodium 10 MG 1 tablet Orally Once a day Active metFORMIN HCl 500 MG 1 tablet with a tonja l Orally Once a day Active Pantoprazole Sodium 20 MG 1 tablet 1/2 t o 1 hour before morning meal Orally Once a day Active Tamsulosin HCl 0.4 MG 1 capsule Orally O nce a day Active Magnesium 400 MG as directed Orally Active Breo Ellipta 100-25 MCG/ACT 1 puff Inhal ation Once a day Active Bone Density 300-200 MG-UNIT 2 tablets before a meal Orally Once a day Active Aspir-81 Active Social History Tobacco Use: Social History Observation Description Date Details (start date - stop date) Current Smoker NA - NA AUDIT-C (Standard) Question Answer Notes Did you have a drink containing alcohol in the p ast year? No Points 0 Interpretation Negative Tobacco Control (Standard) Question Answer Notes Tobacco use: Current every day smoker Additional Findings: Tobacco user Chain smoker Problems Problem Type SNOMED Code ICD Code Onset Dates Problem Status W/U Status Risk Notes Problem 82034948 Sacroiliitis (M46.1) Active confirmed Problem 874165076 Lumbar spondylosis (M47.816) Active confirmed Problem 12228630 Spinal stenosis of lumbar region with neurogenic claudication (M48.062) Active confirmed Vital Signs Heart Rate 113 /min 12/04/2023 Temperature 98.6 degrees Fahrenheit 12/04/2023 Blood pressure diastolic 88 mm Hg 12/04/2023 Height 71 in 12/04/2023 Blood pressure systolic 141 mm Hg 12/04/2023 Weight 263 lbs 12/04/2023 BMI 36.68 kg/m2 12/04/2023 Encounters Encounter Location Date Provider Diagnosis [facility] [address] [place] [address] 12/04/2023 CROW ESTRADA Spinal stenosis of lumbar region with neurogenic claudication M48.062 ; Lumbar spondylosis M47.816 and Sacroiliitis M46.1 Assessments Encounter Date Diagnosis (ICD Code) Assessment Notes Treatment Notes Treatment Clinical Notes Section Notes 12/04/2023 Lumbar spondylosis (ICD-10 - M47.816) THe patient has lumbar spondylosis with multilevel lumbar spondylosis from L1-L2 to L5-S1 level. He had lumbar medial branch blocks for the L4-L5 and L5-S1 facet joints. That did provide him with some relief of pain confirming the diagnosis. He also has pain in the L1-L2 and L2-L3 and L3-L4 joints. The patient tolerated candidate for considering the frequency nerve ablation posture, the L4-L5 and L5-S1 joints and then if he has more pain in the joints above to consider doing ablation for the L1-L2 and L2-L3 and L3-L4 facet joints. He was recommended to lose weight as it will affect his long-term prognosis. And he was also recommended to quit smoking. Due to his weight and tobacco use he is not a surgical candidate. 12/04/2023 Spinal stenosis of lumbar region with neurogenic claudication (ICD-10 - M48.062) The patient complains of low back pain and bilateral lower extremity pain, left more than right leg. We discussed the causes and the treatment options for the low back pain. The patient was recommended to take back precautions, and to avoid any activities that aggravate the symptoms. And home exercises were recommended. The patient has clinical and radiological evidence of lumbar spinal stenosis with neurogenic claudication. The patients symptoms are worse with standing and walking and relieved with sitting. The MRI findings indicate Ligamentum Flavum hypertrophy. The patient would be a good candidate for the MILD procedure. The procedure was discussed with the patient as well as risks and benefits. The patient would like to proceed with the MILD procedure. He has had multiple epidural steroid injections with only short-term pain relief. He is not a candidate for surgery due to his obesity and tobacco use. Therefore at this time MILD procedure might be of value to relieve his leg pain symptoms. 12/04/2023 Sacroiliitis (ICD-10 - M46.1) The patient has pain in his lower back due to multiple causes including lumbar spinal stenosis, lumbar spondylosis and also the sacroiliac joint dysfunction. He has had physical therapy in the past. He was recommended to continue with his exercises to prevent recurrent symptoms. Plan Of Treatment No Information Insurance Providers Payer Name Payer Address Payer Phone Subscriber Number Group Number Insured Name Patient Relationship to Insured Coverage Start Date Coverage End Date [employer] MEDICARE COMPLETE [address] [address] [place] [address] [id number] Glenn Villalpando Self - patient is the insured Medical (General) History Medical History History ICD Code asthma - moderate persistent hypertension type II diabetes Arthritis Surgical History Surgery Date(Month/Year) tonsillectomy 1950 carpal tunnel release bilateral 1970 bilateral knee replacement 1989 bilateral rotator cuff tear repair 1990 cyst removal 1999 left knee replacement 2019 cataract-lens implants Right elbow arthroplasty 2019
--- OUTSIDE RECORDS SUMMARY | 2024-09-09 11:15 | XMS_ITS | Clinical Summary ---
Author Organization [facility] Jose argueta [facility] Address [address] [place] [address] Care Team Providers Care Transitional Living Specialist Name Role Phone Trinity Up MD Primary Care Provider Allergies Active Allergy Reactions Criticality Noted Date Comments Adhesive Tape-Silicones Rash Low 12/28/2020 Ezetimibe Unknown 12/28/2020 Fenofibrate Unknown 12/28/2020 Icosapent Ethyl Diarrhea High 12/28/2020 Lidocaine Rash Low 12/28/2020 Sulfa (Sulfonamide Antibiotics) Rash Medium 04/04 Medications Cetirizine 10 mg Capsule Allergy Relief (cetirizine) 10 mg capsule Take 1 capsule every day by oral route. 9 Active aspirin (OLE) 325 mg tablet 81 mg. 0 Active fluticasone furoate-vilant Susana (BREO ELLIPTA) 100-25 mcg/dose Disk with Device Breo Ellipta 100 mcg-25 mcg/dose powder for inhalation Active multivitamin tx with iron and folic acid tablet (Centrum) 18-400 mg-mcg Tablet Centrum 1 tab daily 9 Active blood sugar diagnostic (Contour Next Test Strips) Strip Contour Next Test Strips USE TO TEST BLOOD SUGAR ONCE DAILY Active ergocalciferol (VITAMIN D2) 50,000 unit capsule ergocalciferol (vitamin D2) 1,250 mcg (50,000 unit) capsule Active HYDROcodone-ac etaminophen (NORCO) 7.5-325 mg Tablet hydrocodone 7.5 mg-acetaminophen 325 mg tablet TAKE 1 TABLET BY MOUTH TWICE A DAY NEEDED Active lisinopriL (PRINIVIL) 5 mg tablet lisinopril 5 mg tablet Take 1 tablet every day by oral route. 0 Active metFORMIN (GLUCOPHAGE) 500 mg tablet metformin 500 mg tablet 9 Active montelukast (SINGULAIR) 10 mg tablet montelukast 10 mg tablet TAKE 1 TABLET BY MOUTH EVERY DAY IN THE EVENING 9 Active Multivitamin Capsule multivitamin TK 1T PO QD 0 Active mupirocin (BACTROBAN) 2 % Ointment mupirocin 2 % topical ointment APPLY SPARINGLY TO AFFECTED AREA TWICE A DAY Active pantoprazole (PROTONIX) 20 mg Tablet, Delayed Release (E.C.) pantoprazole 20 mg tablet,delayed release TAKE 1 TABLET BY MOUTH DAILY NEEDED ONLY Active Potassium 99 mg Tablet potassium 99 mg tablet Take 1 tablet every day by oral route. 0 Active rosuvastatin (CRESTOR) 40 mg tablet rosuvastatin 40 mg tablet Active docusate sodium (STOOL SOFTENER ORAL) Stool Softener PRN 0 Active albuterol sulfate 90 mcg/Actuation inhaler Ventolin HFA 90 mcg/actuation aerosol inhaler Inhale 2 puffs every 4-6 hours by inhalation route as needed. 0 Active acetaminophen (TYLENOL) 500 mg tablet Take 500 mg by mouth every 6 hours as needed. Active MAGNESIUM SULFATE, BULK, MISC Take 420 mg by mouth daily. Active CALCIUM CITRATE-VITAMI N D3 ORAL Take by mouth daily. 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 Encounters Date Type Department Care Team Description 08/18/2024 External Device Data [facility] ABSTRACTION Provider, Abstract 07/23/2024 External Device Data [facility] ABSTRACTION Provider, Abstract 07/23/2024 External Device Data [facility] ABSTRACTION Provider, Abstract 07/22/2024 External Device Data [facility] AB[facility]CTION Provider, Abstract 07/21/2024 External Device Data [facility] ABSTRACTION Provider, Abstract 06/16/2024 External Device Data [facility] ABSTRACTION Provider, Abstract from Last 3 Months Family History Relation Name Status Comments Brother Alive Father Mother Sister Alive Social History Tobacco Use Types Packs/Day Years Used Date Smoking Tobacco: Every Day Smokeless Tobacco: Never Tobacco Cessation:Ready to Q uit: Not Asked; Counseling Given: Not Answered Alcohol Use Standard Drinks/Week Comments Never 0 (1 standard drink = 0.6 oz pur e alcohol) Sex and Gender Information Value Date Recorded Sex Assigned at Not on file Legal Sex Male 10:51 AM CDT Gender Identity Not on file Sexual Orientation Not on file Last Filed Vital Signs Vital Sign Reading Time Taken Comments Blood Pressure 121/80 01/28/2024 10: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 Pulse 91 01/28/2024 10:26 AM OIL SPRAYING 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 Temperature 36.9 C (98.4 F) 01/28/2024 10:26 AM OIL 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 Respiratory Rate 17 01/28/2024 10:2 6 AM OIL SPRAYING 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 Oxygen Saturation 94% 01/28/2024 10: 26 AM OIL SPRAYING 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 Inhaled Oxygen Concentration - - Weight 114.6 kg (252 lb 9.6 oz) 024 10:26 AM OIL SPRAYING 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 Height 180.3 cm (5' 11) 01/11/2021 10: 59 AM OIL SPRAYING 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 Body Mass Index 35.23 01/11/2021 10:59 AM OIL SPRAYING 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 Plan of Treatment Health Maintenance Due Date Last Done Comments DIABETES ANNUAL FOOT EXAM 1966 DIABETES ANNUAL RETINAL EXAM 1966 DIABETES MICROALBUMIN ANNUAL SCREEN 1966 LDL CHOLESTEROL ANNUAL 1966 ZOSTER VACCINE (1 of 2) 1998 DTAP/TDAP/TD VACCINES (1 - Tdap) 10/01/2020 10/01/19 21 DIABETES HBA1C Q 6 MONTHS 01/14/2022 07/14/2021 RSV VACCINE (60+ or ) (1 - 1-dose 75+ series) 2023 INFLUENZA VACCINE (#1) 2024 2, 12/22/2020, 11/28/2019, Additional history exists PNEUMOCOCCAL VACCINE 50+ YEARS Completed 05/01/2017 , 12/31/[address] [id number] Care Teams Transitional Living Specialist Relationship Specialty Start Date End Date Trinity Up MD PCP - General Internal Medicine 12/28/20
[2024-09-09 11:17] VITALS: BP 164/86; PULSE 84; RESP 22; TEMP 36.4; O2SAT 93
--- NOTE | 2024-09-09 11:28 | ECG_ITS ---
Test Date: 2024-09-09 11:38:35 Measurements Intervals [place] Rate: 79 P: 49 [place]: 261 QRS: 24 QRSD: 93 T: 53 QT: 358 QTc: 412 Interpretive Statements ALTERNATE LEAD PLACEMENT: Pediatric V1: V1, V2: V2, V3: V3R, V4: V4, V5: V5, V6: V6 No evidence of myocardial injury Electronically Signed On 09-09-2024 14:42:29 CDT by Efrain Brewer M.D.
[2024-09-09] MEDS: PANTOPRAZOLE SODIUM IV 40 MG VIAL IV PUSH (11:35)
[2024-09-09] MEDS: SODIUM CHLORIDE 0.9% IV 1,000 ML 999 ML IV CONT (11:35)
[2024-09-09] MEDS: ONDANSETRON INJ 4 MG/2 ML VIAL IV PUSH (11:35)
[2024-09-09 11:39] LABS: Hematocrit 41.3 % (42.0-52.0); Hemoglobin 14.1 g/dL (14.0-18.0); Immature Granulocyte Percent A 1.6 % (0-0.5); Lymphocytes Absolute Auto 2.33 K/mm3 (0.9-3.2); Mean Corpuscular HGB Conc 34.1 g/dl (32-36); Mean Corpuscular Hemoglobin 31.0 pg (26-34); Mean Corpuscular Volume 90.8 fl (80-100); Nucleated Red Blood Cells Absolute Auto 0.000 K/mm3 (0.0-0.012); Nucleated Red Blood Cells Perc 0.0 % (0.0-0.2); Platelet Count Result 227 k/mm3 (150-375); Red Blood Count 4.55 M/mm3 (4.6-6.20); White Blood Count 8.0 K/mm3 (4.5-10.0)
--- OUTSIDE RECORDS SUMMARY | 2024-09-09 11:48 | XMS_ITS | Encounter Summary ---
Author Organization 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 SKIN, right faith: BASAL CELL CARCINOMA, KERATOTIC TYPE; FRAGMENTS OF (C44.319) 5:02 PM CDT DERMATOPATHOLOGY LABORATORY at 1702 CDT Clinical History BCC bx Site 4 5:02 PM CDT DERMATOPATHOLOGY LABORATORY Gross Description Specimen A: Received is one formalin filled container labeled with the patient's name and designated right faith. The specimen consists of a shave biopsy measuring 10x9x1 mm. Jar 0. 5:02 PM CDT DERMATOPATHOLOGY LABORATORY Microscopic Description Specimen A. SKIN, right faith: The specimen is fragmented. The dermis is [...] characteristic determined by the Dermatopathology Laboratory at [facility], directed by Dr. Richard Rueda. These tests need not be, and therefore are not, approved by the [place] Food and Drug Administration. The tests are used for clinical purposes. Billing Codes Specimen Charges Stain Charges 33387 1 4 5:02 PM CDT DERMATOPATHOLOGY LABORATORY Embedded Images 4 5:02 PM CDT DERMATOPATHOLOGY LABORATORY Pathology/Cytolo gy TISSUE SPECIMEN FROM SKIN / Unknown 06/11/2023 3:33 AM CDT 06/12/2023 6:52 AM CDT Garret Machado MD LAB - PATHOLOGY/CYTOLOGY ORDERAB LES Final Result DERMATOPATHOLOGY LABORATORY [facility] - Department of Dermatology [facility] Medicine [address] [place] [address], [address] [phone] documented in this encounter Visit Diagnoses Not on filedocumented in this encounter Care Teams Environmental Programs Manager Relationship Specialty Start Date End Date Trinity Up MD [address] [phone] PCP - General Internal Medicine 12/03/18 documented as of this encounter
--- OUTSIDE RECORDS SUMMARY | 2024-09-09 11:48 | XMS_ITS | Encounter Summary ---
Author Organization [facility] Address 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 SKIN, right mu-ism: BASAL CELL CARCINOMA, NODULAR TYPE (C44.319) 2:41 PM CDT DERMATOPATHOLOGY LABORATORY at 1441 CDT Clinical History R/O BCC. 2:41 PM CDT DERMATOPATHOLOGY LABORATORY Gross Description Specimen A: Received is one formalin filled container labeled with the patient's name and designated right mu-ism. The specimen consists of a shave biopsy measuring 9x12x4 mm. Jar 0. 2:41 PM CDT DERMATOPATHOLOGY LABORATORY Microscopic Description Specimen A. SKIN, right mu-ism: Within the dermis there are aggregates of [...] characteristic determined by the Dermatopathology Laboratory at [facility], directed by Dr. Richard Rueda. These tests need not be, and therefore are not, approved by the [place] Food and Drug Administration. The tests are used for clinical purposes. Billing Codes Specimen Charges Stain Charges 11995 1 03/28/202 4 2:41 PM CDT DERMATOPATHOLOGY LABORATORY Embedded Images 4 2:41 PM CDT DERMATOPATHOLOGY LABORATORY Pathology/Cytolog y TISSUE SPECIMEN FROM SKIN / Unknown 05/28/2023 05/28/2023 3:41 PM CDT Garret Machado MD LAB - PATHOLOGY/CYTOLOGY ORDERAB LES Final Result DERMATOPATHOLOGY LABORATORY [facility] - Department of Dermatology [facility] [address] [place] [address], [address]rd Floor [address] [phone] documented in this encounter Visit Diagnoses Not on filedocumented in this encounter Care Teams Radiologic Therapist Relationship Specialty Start Date End Date Trinity Up MD [address] [phone] PCP - General Internal Medicine 12/03/18 documented as of this encounter
--- OUTSIDE RECORDS SUMMARY | 2024-09-09 11:49 | XMS_ITS | Clinical Summary ---
Author Organization [facility] Address [address] [place] [place] [address] Care Team Providers Care Oracle Database Manager Name Role Phone Trinity Up MD Primary Care Provider Source Comments [facility],non-owned Affiliates and Associated Physician Practices is amultiple site organization consisting of ambulatory clinics and hospital sitesin [place], [place], [place] and [place]. This disclosure is being madepursuant to the Care Everywhere program and may not contain all information available regarding this patient. 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 Gender Identity Not on file Sexual Orientation [...] 7 - 26 mg/dL 09/18/2021 3:27 PM [facility] Creatinine 0.79 0.71 - 1.16 mg/dL 09/18/2021 3:27 PM [facility] Sodium 142 136 - 145 mmol/L 09/18/2021 3:27 PM [facility] Potassium 3.9 3.5 - 4.5 mmol/L 09/18/2021 3:27 PM [facility] Chloride 106 98 - 107 mmol/L 09/18/2021 3:27 PM [facility] CO2 24 22 - 29 mmol/L 09/18/2021 3:27 PM [facility] Glucose 129(H) 70 - 115 mg/dL 09/18/2021 3:27 PM [facility] Calcium 9.3 8.4 - 10.2 mg/dL 09/18/2021 3:27 PM [facility] Protein Total 7.3 6.0 - 8.3 g/dL 09/18/2021 3:27 PM [facility] Albumin 3.5 3.4 - 5.0 g/dL 09/18/2021 3:27 PM [facility] Bilirubin Total 0.5 0.2 - 1.2 mg/dL 09/18/2021 3:27 PM [facility] Alkaline Phosphatase 45 40 - 150 U/L 09/18/2021 3:27 PM [facility] ALT 16 5 - 55 U/L 09/18/2021 3:27 PM [facility] AST 19 5 - 34 U/L 09/18/2021 3:27 PM CDT [facility] Anion Gap 16 8 - 18 09/18/2021 3:27 PM T [facility] BUN/Creatinine Ratio 9 7 - 23 09/18/2021 3:27 PM T [facility] Osmolality Calculated 294 270 - 300 mOsm/kg 09/18/2021 3:27 PM T [facility] Albumin/Globulin Ratio 0.9(L) 1.1 - 2.3 09/18/2021 3:27 PM T [facility] eGFR by CKD-EPI >90 >=90 mL/min/1.7 3 m2 09/18/2021 3:27 PM T [facility] Blood BLOOD SPECIMEN / Unknown Lab Venipuncture / Unknown 09/18/2021 2:19 PM CDT 09/18/2021 2:57 PM CDT Mitul Koo MD LAB - CHEMISTRY ORDERABLES Fin al Result [facility] [address] [place] [address], [facility] [phone] from Last 3 Months or Most Recently Relevant to Health Maintenance Insurance [facility] [place] [address] [place] [address] [facility] Care Teams Oracle Database Manager Relationship Specialty Start Date End Date Trinity Up MD [address] [facility] [address] [place] [phone] PCP - General Internal Medicine 12/03/18
--- OUTSIDE RECORDS SUMMARY | 2024-09-09 11:49 | XMS_ITS | Referral Summary ---
Author Organization [facility] [place] Address [address] [place] [address] Care Team Providers Care Moving Consultant Name Role Phone Alona Up MD Primary Care Provide r Encounters Date Type Department Care Team Description 07/29/2024 11:00 AM CDT - 07/29/2024 11:59 PM CDT Hospital [facility] [address] [place] [address] Abnormal weight loss Discharge Disposition: Discharge to home or self care from Last 3 Months Allergies Active Allergy Reactions Criticality Noted Date Comments Sulfa Rash Medium 07/29/2024 Social History Tobacco Use Types Packs/Day Years Used Date Smoking Tobacco: Never Assessed Sex and Gender Information Value Date Recorded Sex Assigned at Not on file 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 RW T: Report ID: [id number] Reading Location: [place] [address] Procedure Note Riccardo Carrera MD - 08/05/2024 [...] Riccardo Carrera M.D. RW T: Report ID: [id number] Reading Location: [place] [address] Alisa Rivera MD IMG CT PROCEDURES Final R esult from Last 3 Mon[address] Insurance [facility] MEDICARE ADVANTAGE [facility] MEDICARE Address: [facility] [address] [place] [address] Care Teams Moving Consultant Relationship Specialty Start Date End Date Alona Up MD [address] [facility] [address] [place] [address] PCP - General 07/25/17
--- OUTSIDE RECORDS SUMMARY | 2024-09-09 11:49 | XMS_ITS | Clinical Summary ---
Author Organization [facility] Jose argueta [facility] Address [address] [place] [address] Care Team Providers Care Fitting Room Attendant Name Role Phone Trinity Up MD Primary [...] Comments Blood Pressure 121/80 01/28/2024 10:29 AM HYDROMETER FINISHER Pulse 91 01/28/2024 10:26 AM HYDROMETER FINISHER Temperature 36.9 C (98.4 F) 01/28/2024 10:26 AM HYDROMETER FINISHER Respiratory Rate 17 01/28/2024 10:2 6 AM HYDROMETER FINISHER Oxygen Saturation 94% 01/28/2024 10: 26 AM HYDROMETER FINISHER Inhaled Oxygen Concentration - - Weight 114.6 kg (252 lb 9.6 oz) 024 10:26 AM HYDROMETER FINISHER Height 180.3 cm (5' 11) 01/11/2021 10: 59 AM HYDROMETER FINISHER Body Mass Index 35.23 01/11/2021 10:59 AM HYDROMETER FINISHER Plan of Treatment Health Maintenance Due Date [...] 50+ YEARS Completed 05/01/2017 , 12/31/[address] [id number] Care Teams Fitting Room Attendant Relationship Specialty Start Date End Date Trinity Up MD PCP - General Internal Medicine 12/28/20
--- OUTSIDE RECORDS SUMMARY | 2024-09-09 11:49 | XMS_ITS | Clinical Summary ---
Author Organization [facility] [place] Address [address] [place] [phone] Care Team Providers Care Senior Geotechnical Engineer Name Role Phone Alona Up MD Primary Care Provide r Allergies Active Allergy Reactions Criticality Noted Date Comments Sulfa Rash Medium 07/29/2024 Encounters Date Type Department Care Team Description 07/29/2024 11:00 AM CDT - 07/29/2024 11:59 PM CDT Hospital Encounter [facility] [address] [place] [address] Abnormal weight loss Discharge Disposition: Discharge to home or self care from Last 3 Months Social History Tobacco Use Types Packs/Day Years Used Date Smoking Tobacco: Never Assessed Sex and Gender Information Value Date Recorded Sex Assigned at Not on file Legal Sex Male 9:33 PM PATENT COUNSEL Gender Identity Not on file Sexual Orientation [...] Riccardo Carrera M.D. RW T: Report ID: [id number] Reading Location: [id number] Procedure Note Riccardo Carrera MD - 08/05/2024 [...] Riccardo Carrera M.D. RW T: Report ID: [id number] Reading Location: [place] [address] Alisa Rivera MD IMG CT PROCEDURES Final R esult from Last 3 Months Insurance [facility] MEDICARE ADVANTAGE Care Teams Senior Geotechnical Engineer Relationship Specialty Start Date End Date Alona Up MD [address] [address] PCP - General 07/25/17
--- NOTE | 2024-09-09 11:50 | ECG_ITS ---
Test Date: 2024-09-09 11:50:33 Measurements Intervals Turner Rate: 72 P: 37 PA: 256 QRS: 16 QRSD: 93 T: 53 QT: 360 QTc: 396 Interpretive Statements SINUS RHYTHM WITH FIRST DEGREE AV BLOCK WITH OCCASIONAL ECTOPIC PREMATURE COMPLEXES Compared to ECG 09/09/2024 11:38:35 First degree AV block now present Electronically Signed On 09-10-2024 11:31:49 CDT by Efrain Brewer M.D.
[2024-09-09 11:52] LABS: Alanine Aminotransferase 22 U/L (6-50); Albumin Level 4.4 g/dL (3.5-5.1); Alkaline Phosphatase 36 U/L (38-126); Anion Gap 11 mmol/L (4-12); Aspartate Amino Transferase 40 U/L (17-59); Bilirubin,Total 0.7 mg/dL (0.2-1.3); Blood Urea Nitrogen 11 mg/dL (9-20); Calcium 8.3 mg/dL (8.4-10.2); Carbon Dioxide 27 mmol/L (22-30); Chloride 103 mmol/L (98-107); Estimated CRCL calculation 88 ml/min; Estimated Glomerular Filt Rate > 60; Glucose 133 mg/dL (65-110); Lipase 208 U/L (23-300); Potassium 3.5 mmol/L (3.4-5.0); Sodium 141 mmol/L (137-145); Total Protein 8.0 g/dL (6.3-8.2)
--- NOTE | 2024-09-09 12:06 | ED.NAVMDI ---
HPI - Nausea/Vomiting/Diarrhea General Chief complaint: Nausea/Vomiting/Diarrhea Stated complaint: n/v, shakes Time Seen by Provider: 09/09/24 11:14 History of Present Illness HPI Narrative: Patient is a 74-year-old male who presents ER with nausea vomiting. He has had in with issues with this for last 3 months. He has had an endoscopy that showed esophagitis and gastritis. He has been on sucralfate over last week. Reports he has also tried Pepto-Bismol with minimal improvement. He takes Protonix 20 mg daily. No blood in vomit or stool. No fevers chills or sweats. No syncope. Related Data Home Medications ?Medication ?Instructions ?Recorded ?Confirmed ?Last Taken ?Type potassium gluconate 595 mg (99 mg) 595 mg PO DAILY 04/15/19 04/14/24 Unknown History tablet aspirin 81 mg tablet,delayed 81 mg PO DAILY 04/16/19 04/14/24 Unknown History release lisinopril 10 mg tablet 5 mg PO DAILY 10/03/20 04/14/24 Unknown History metformin 500 mg tablet 500 mg PO DAILY 10/03/20 04/14/24 Unknown History acetaminophen 500 mg oral powder 500 mg PO Q6H PRN 10/23/21 04/14/24 Unknown History packet (Tylenol Extra Strength) pitatngs-rbi-yijgn acid 0.4 1 tablet PO DAILY 10/23/21 04/14/24 Unknown History mg-lycopene 300 mcg-lutein 250 mcg tablet (Centrum Silver) calcium 500 mg (as 1 tablet PO 08/29/22 04/14/24 Unknown History carbonate)-vitamin D3 5 mcg (200 unit) tablet (Oysco 500/D) ergocalciferol (vitamin D2) 1,250 1,250 mcg PO 08/29/22 04/14/24 Unknown History mcg (50,000 unit) capsule pantoprazole 20 mg tablet,delayed mg PO 08/29/22 04/14/24 Unknown History release Allergies Allergy/AdvReac Type Severity Reaction Status Date / Time Sulfa (Sulfonamide Allergy Mild Rash Verified 09/09/24 11:26 Antibiotics) lidocaine Allergy Unknown Hives Verified 09/09/24 11:26 NEOPREEN Allergy Severe RASH Uncoded 09/09/24 11:26 Review of Systems Review of Systems: All systems reviewed & are unremarkable except as noted in HPI and below Constitutional: Constitutional: Reports no additional constitutional complaints Cardiovascular: Cardiovascular: Reports no additional cardiovascular complaints Respiratory: Respiratory: Reports no additional respiratory complaints Gastrointestinal: Gastrointestinal: Reports no additional gastrointestinal complaints Genitourinary: Genitourinary: Reports no additional male genitourinary complaints Integumentary/Breasts: Skin/Breast: Reports system reviewed and no additional complaints, except as docu [facility] Past Medical History Medical History Obesity (BMI 30-39.9) Tobacco abuse Hypercholesterolemia DJD (degenerative joint disease) Bronchitis GERD (gastroesophageal reflux disease) RAOUL (obstructive sleep apnea) COPD (chronic obstructive pulmonary disease) Surgical History Surgical History H/O wrist surgery History of tonsillectomy H/O knee surgery History of adenoidectomy History of colonoscopy Social History Social History Smoking packs per day: 2 Smoking cigarettes per day: 40.0 Years smoked: 60 Smoking pack-years: 120.00 Smoking status: Current every day smoker Tobacco type: cigarettes Second hand tobacco smoke exposure: Yes Alcohol intake: never Gender identity (if verbalized by the patient): Male Exam Narrative: GENERAL: Well-appearing, well-nourished, and in no acute distress. HEAD: Normocephalic, atraumatic. ENT: Mucous membranes moist. CHEST: Clear to auscultation. No respiratory distress. HEART: Regular rate and rhythm. Normal peripheral pulses. ABDOMEN: Soft, nontender, nondistended. EXTREMITIES: Normal range of motion. No edema. SKIN: Warm, dry, no rash. NEURO: Alert and oriented x3. PSYCH: Normal mood and affect. Course Course Emergency Course: Unremarkable labs and imaging. Discharge home. Will give increased dosage of Protonix to 40 mg twice a day for the next 2 weeks. Follow up with his GI doctor. Antiemetics for home. Vital Signs Vital signs: Vital Signs Temperature 97.6 F 09/09/24 11:17 Pulse Rate 84 09/09/24 11:17 Respiratory Rate 22 H 09/09/24 11:17 Blood Pressure 164/86 H 09/09/24 11:17 Pulse Oximetry 93 07/09/25 11:17 Oxygen Delivery Room Air 09/09/24 11:17 Temperature 97.6 F 09/09/24 11:17 Pulse Rate 69 09/09/24 13:00 Respiratory Rate 16 09/09/24 13:00 Blood Pressure 136/75 09/09/24 13:00 Pulse Oximetry 93 09/09/24 13:00 Oxygen Delivery Room Air 09/09/24 11:17 MDM - Nausea/Vomiting/Diarrhea Lab Data 09/09/24 11:32 09/09/24 11:32 Labs: Lab Results 09/09/24 Range/Units 11:32 WBC 8.0 (4.5-10.0) K/mm3 RBC 4.55 L (4.6-6.20) M/mm3 Hgb 14.1 (14.0-18.0) g/dL Hct 41.3 L (42.0-52.0) % MCV 90.8 (80-100) fl MCH 31.0 (26-34) pg MCHC 34.1 (32-36) g/dl RDW 13.6 (11.5-14.5) % Plt Count 227 (150-375) k/mm3 MPV 11.2 H (7.4-10.4) fl Immature Gran % (Auto) 1.6 H (0-0.5) % Neut % (Auto) 61.0 (45.5-73.1) % Lymph % (Auto) 29.2 (18.3-44.2) % Crook % (Auto) 5.8 (2.6-8.5) % Eos % (Auto) 1.9 (0-4.4) % Baso % (Auto) 0.5 (0.2-1.2) % Lymph # (Auto) 2.33 (0.9-3.2) K/mm3 Crook # (Auto) 0.5 (0.1-0.6) K/mm3 Eos # (Auto) 0.2 (0-0.3) K/mm3 Baso # (Auto) 0.0 (0.0-0.1) K/mm3 Abs Immat Gran (auto) 0.13 H (0.00-0.031) K/mm3 Absolute Neuts (auto) 4.9 (1.3-6.7) K/mm3 Absolute Nucleated RBC 0.000 (0.0-0.012) K/mm3 Nucleated RBC % 0.0 (0.0-0.2) % Sodium 141 (137-145) mmol/L Potassium 3.5 (3.4-5.0) mmol/L Chloride 103 (98-107) mmol/L Carbon Dioxide 27 (22-30) mmol/L Anion Gap 11 (4-12) mmol/L BUN 11 (9-20) mg/dL Creatinine 0.75 (0.7-1.3) mg/dL Estim Creat Clear Calc 88 ml/min Estimated GFR > 60 (59 - ) Glucose 133 H (65-110) mg/dL Calcium 8.3 L (8.4-10.2) mg/dL Total Bilirubin 0.7 (0.2-1.3) mg/dL AST 40 (17-59) U/L ALT 22 (6-50) U/L Alkaline Phosphatase 36 L (38-126) U/L Total Protein 8.0 (6.3-8.2) g/dL Albumin 4.4 (3.5-5.1) g/dL Lipase 208 (23-300) U/L Imaging Data Radiologist's impression: ITS Impressions Abdomen/Pelvis CT 09/09/24 12:24 IMPRESSION: No acute findings within the lower chest, abdomen or pelvis. Innumerable nonacute findings, as detailed above. Chest X-Ray 09/09/24 12:47 IMPRESSION: Right basilar consolidation with left basilar atelectasis. Discharge Plan Discharge Clinical Impression: Gastritis, Vomiting Patient Disposition: Home Condition: Stable Instructions: Gastritis (ED) Additional Instructions: Return to the emergency department if you develop severe abdominal pain, severe nausea and vomiting to the point where you are unable to keep down fluids, if you develop chest pain or difficulty breathing, blood in your stool, dizziness or fainting, or if you develop any other new or concerning symptoms as these could be signs of more serious medical illness. Try to stay well hydrated. Patient Language: Ukrainian Prescriptions: New ondansetron 4 mg tablet,disintegrating 4 mg PO Q6H PRN (Reason: nausea and vomiting) Qty: 10 0RF pantoprazole [Protonix] 40 mg tablet,delayed release (DR/EC) 40 mg PO BID Qty: 28 0RF Held pantoprazole 20 mg tablet,delayed release (DR/EC) PO Hold Instructions: Resume on 09/24/24. No Action potassium gluconate 595 mg (99 mg) tablet 595 mg PO DAILY aspirin 81 mg tablet,delayed release (DR/EC) 81 mg PO DAILY metformin 500 mg tablet 500 mg PO DAILY lisinopril 10 mg tablet 5 mg PO DAILY fluticasone furoate-vilanterol [Breo Ellipta] 100-25 mcg/dose blister with device 1 inh INHALATION Q24H 30 Days Qty: 60 11RF Rx Instructions: Rinse mouth and spit after each use albuterol sulfate [Ventolin HFA] 90 mcg/actuation HFA aerosol inhaler 1 - 2 inh inhalation Q4-6H Qty: 8.5 3RF Centrum Silver 0.4 mg-300 mcg- 250 mcg tablet 1 tablet PO DAILY Tylenol Extra Strength 500 mg powder in packet 500 mg PO Q6H PRN ergocalciferol (vitamin D2) 1,250 mcg (50,000 unit) capsule 1,250 mcg PO calcium carbonate-vitamin D3 [Oysco 500/D] 500 mg-5 mcg (200 unit) tablet 1 tablet PO montelukast 10 mg tablet 10 mg PO DAILY Qty: 30 11RF Follow-up/Referrals: Annel,MD Trinity [Primary Care Provider] - 1 Week
[2024-09-09 13:00] VITALS: BP 136/75; PULSE 69; RESP 16; O2SAT 93
[2024-09-09 14:24] VITALS: BP 158/93; PULSE 107; RESP 18; O2SAT 93
== END 2024-09-09 14:40 | disposition home or self-care (01) ==
PROVIDERS: Emergency Provider Emergency Medicine; PCP Internal Medicine
DX: K29.70 Gastritis, unspecified, without bleeding (principal); R11.2 Nausea with vomiting, unspecified; F17.210 Nicotine dependence, cigarettes, uncomplicated; E78.5 Hyperlipidemia, unspecified; K21.9 Gastro-esophageal reflux disease without esophagitis; G40.909 Epilepsy, unspecified, not intractable, without status epilepticus; J44.9 Chronic obstructive pulmonary disease, unspecified; M19.90 Unspecified osteoarthritis, unspecified site
CPT/HCPCS: 36415; 71046; 74177; 80053; 83690; 85025; 93005; 96361; 96374; 96375; 99284; J2405; J2470; J7030; Q9967

== ENCOUNTER 2024-09-13 11:17 | Inpatient (IN) | payer MEDICARE, SELFPAY ==
[2024-09-13] VITALS (17 sets, daily range): BP systolic 102–149; BP diastolic 64–101; PULSE 71–105; RESP 16–24; TEMP 36.6; O2SAT 90–98; BMI 30.6
--- NOTE | ~2024-09-13 | XR_ITS ---
Clinical Indication: Weakness AP and lateral views of the chest: Comparison: 09/09/2024 Findings: Probable subsegmental left basilar atelectatic change. Right lung clear. Cardiomediastinal silhouette is within normal limits. Bones and soft tissues are unremarkable. Impression: Subsegmental left basilar atelectatic change. Reviewed, dictated and finalized at location . Impression: Subsegmental left basilar atelectatic change.
--- NOTE | ~2024-09-13 | US_ITS ---
BILATERAL LOWER EXTREMITY VENOUS ULTRASOUND Ordering provider: Michel Hoffman MD History: . PE . Comparison: None. FINDINGS: RIGHT LOWER EXTREMITY VEINS: --COMMON FEMORAL: Patent and free of thrombus. Normal compressibility, phasic flow and augmentation. --PROXIMAL SUPERFICIAL FEMORAL: Patent and free of thrombus. Normal compressibility, phasic flow and augmentation. --DISTAL SUPERFICIAL FEMORAL: Patent and free of thrombus. Normal compressibility, phasic flow and au gmentation. --POPLITEAL: Thrombosis is noted. --POSTERIOR TIBIAL: Patent and free of thrombus. Normal compressibility, phasic flow and augmentation . LEFT LOWER EXTREMITY VEINS: --COMMON FEMORAL: Patent and free of thrombus. Normal compressibility, phasic flow and augmentation. --PROXIMAL SUPERFICIAL FEMORAL: Patent and free of thrombus. Normal compressibility, phasic flow and augmentation. --DISTAL SUPERFICIAL FEMORAL: Patent and free of thrombus. Normal compressibility, phasic flow and au gmentation. --POPLITEAL: Patent and free of thrombus. Normal compressibility, phasic flow and augmentation. --POSTERIOR TIBIAL: Patent and free of thrombus. Normal compressibility, phasic flow and augmentation . IMPRESSION: DVT in the right popliteal vein. Other appearances are unremarkable. Physician: Michel Hoffman MD Was notified with the result of the patient at 6:25 PM on September 13, 2024 Reviewed, dictated and finalized at location A.
--- NOTE | ~2024-09-13 | CT_ITS ---
CTA chest PE abdomen pel Ordering provider: Michel Hoffman MD History: . Vomiting, Weight loss, Shortness of breath . Comparison: September 09, 2024 Technique: CT angiogram chest was performed following timed intravenous injection of contrast. Thin s lice axial images and reformatted coronal images were obtained. Three dimensional reformatted images of the chest were also obtained using a [employer] workstation. Also, CT of the abdomen and pelvis was pe rformed with IV contrast. . Automated exposure control and iterative reconstruction technique were e mployed. The dose-length product was 2060.20 mGy-cm. 100 mL Omnipaque 350 was given IV. FINDINGS: CHEST: --PULMONARY ARTERIES: Pulmonary embolism is seen in the left main pulmonary artery and its branches. Right ventricular strain is noted. --VISUALIZED THORACIC INLET: Normal. --MEDIASTINUM: Aorta/coronary arteries: Moderate atheromatous disease. . Heart/other: The heart is slightly enlarged. Lymph nodes: No mediastinal or hilar adenopathy. Small lymph nodes are seen with the largest measures 1.2 cm. --LUNGS: Consolidation seen in the right lower lobe suggestive of atelectasis versus pneumonia. Atelectatic ch anges seen in the left lower lobe area. No pulmonary nodules or masses. No effusions. No pneumothorax . Underlying emphysematous changes are noted. --MUSCULOSKELETAL: Bones: Age appropriate degenerative changes of the spine. Superficial soft tissues: The superficial soft tissues are normal. ABDOMEN/PELVIS: --MUSCULOSKELETAL: Superficial soft tissues: The superficial soft tissues are normal. Bones: Age appropriate degenerative changes of the spine. Bilateral hip moderate osteoarthritic archer es. --UPPER ABDOMINAL ORGANS: Liver: Hepatomegaly. Gallbladder: Normal. Spleen: Normal. Stomach/duodenum: Thickened wall of the stomach is seen.Further evaluation advised. Pancreas: Slightly atrophic. Adrenals: Normal. Kidneys: Normal. --PELVIC ORGANS: The bladder is normal. No bladder stones. --BOWEL AND MESENTERY: Colon: No evidence of diverticulitis. Normal appendix. Small Bowel: Normal. No obstruction. Peritoneum/mesentery: No free air or free fluid. No mesenteric lymphadenopathy. Area of calcification seen in the anterior mesentery unchanged from previous examination. --RETROPERITONEUM: Mild atheromatous disease of the abdominal aorta. No retroperitoneal lymphadenop athy. IMPRESSION: CHEST: 1. Pulmonary embolism with right ventricular strain. 2. Consolidation in the right lower lobe area. Atelectatic changes in the left lung base. ABDOMEN/PELVIS: 1. No evidence of appendicitis, diverticulitis or intestinal obstruction. 2. Grossly thickened wall of the stomach. Further evaluation advised. 3. Slightly atrophic pancreas. 4. Calcified mesenteric area unchanged from previous examination. 5. Hepatomegaly. Was notified with the result of the patient at 2:50 PM on September 13, 2024 Reviewed, dictated and finalized at location A.
--- OUTSIDE RECORDS SUMMARY | 2024-09-13 11:20 | XMS_ITS | Encounter Summary ---
Author Organization [facility] Health Address [address] [place] [address] Care Team Providers Care Day Care Director Name Role Phone Trinity Up MD Primary Care Provider Encounter Details Date Type Department Care Team (Late st Contact Info) Description 05/28/2023 Lab Requisition [facility] - DermPath Lab [address] [place] [address] Garret Machado MD [address] [place] [address] Social History Tobacco Use Types Packs/Day Years [...] on file Legal Sex Male 5:26 AM SPECIAL NEEDS NANNY Gender Identity Not on file Sexual Orientation [...] AM CDT) Case Report Dermatopathology Report Case: [id number] Authorizing Provider: Garret Machado MD Collected: 05/28/2023 12:00 AM Ordering Location: [facility] - Received: 05/28/2023 03:41 PM DermPath Lab Pathologist: Jaki Rueda MD Specimen: Skin, right hoahaoism 2:41 PM CDT DERMATOPATHOLOGY LABORATORY Final Diagnosis Specimen A. SKIN, right hoahaoism: BASAL CELL CARCINOMA, NODULAR TYPE (C44.319) 2:41 PM CDT DERMATOPATHOLOGY LABORATORY at 1441 CDT Clinical History R/O BCC. 2:41 PM CDT DERMATOPATHOLOGY LABORATORY Gross Description Specimen A: Received is one formalin filled container labeled with the patient's name and designated right hoahaoism. The specimen consists of a shave biopsy measuring 9x12x4 mm. Jar 0. 2:41 PM CDT DERMATOPATHOLOGY LABORATORY Microscopic Description Specimen A. SKIN, right hoahaoism: Within the dermis there are aggregates of [...] determined by the Dermatopathology Laboratory at [facility], directed by Dr. Richard Rueda. These tests need not be, and therefore are not, approved by the [place] Food and Drug Administration. The tests are used for clinical purposes. Billing Codes Specimen Charges Stain Charges 50810 1 03/28/202 4 2:41 PM CDT DERMATOPATHOLOGY LABORATORY Embedded Images 4 2:41 PM CDT DERMATOPATHOLOGY LABORATORY Pathology/Cytolog y TISSUE SPECIMEN FROM SKIN / Unknown 05/28/2023 05/28/2023 3:41 PM CDT Garret Machado MD LAB - PATHOLOGY/CYTOLOGY ORDERAB LES Final Result DERMATOPATHOLOGY LABORATORY [facility] - Department of Dermatology [facility] [address] [place] [address], [address] [phone] documented in this encounter Visit Diagnoses Not on filedocumented in this encounter Care Teams Day Care Director Relationship Specialty Start Date End Date Trinity Up MD [address] [id number] PCP - General Internal Medicine 12/03/18 documented as of this encounter
--- OUTSIDE RECORDS SUMMARY | 2024-09-13 11:20 | XMS_ITS | Data Portability ---
Author Organization [facility], Main Office Address [address] [place] [address] Care Team Providers Care Supervisor [employer] Name Role Phone CARMEN UP Primary Care Provider [phone] CARMEN UP Referring Provider [phone] Assessment Encounter Date Assessment Date Assessment LastModified [...] and transcribed by MModal Fluency Direct Software. Ice Maker variances may occur. Despite proofreading, typographical errors may occur. Occasional wrong-word or '[id number]' substitutions may have occurred due to the [...] D, 25-hydrox y, total, serum [email or web address] (Lab), [address] [place], [address], 07/24/2024 10:06:44 glycohemo globin, total, blood [email or web address] (Lab), [address] [place], [address], 07/24/2024 10:06:44 microalbu min, urine [address] (Lab), [address] [place], [address], 07/24/2024 10:06:44 lipid panel, serum [address] (Lab), [address] [place], [address], 07/24/2024 10:06:44 CBC w/ auto diff 2024 025 [facility] (Lab), [address] [place], [address], 09/09/2024 16:50:16 CMP, serum or plasma 2024 025 [facility] (Lab), [address] [place], [address], 09/09/2024 16:50:15 TSH, serum or plasma [address] (Lab), [address] [place], [address], 07/24/2024 10:06:45 vitamin D, 25-hydrox y, total, serum [email or web address] [place] [address] (Lab), [address] [place], [address], 03/26/2024 12:11:03 glycohemo globin, total, blood 2024 025 [facility] (Lab), [address] [place], [address], 04/03/2024 15:44:51 microalbu min, urine [address] (Lab), [address] [place], [address], 03/26/2024 12:11:04 CMP, serum or plasma 2024 025 [facility] (Lab), [address] [place], [address], 04/03/2024 14:20:16 lipid panel, serum 2024 025 [facility] (Lab), [address] [place], [address], 04/03/2024 14:12:41 CBC w/ auto diff 2024 025 [facility] (Lab), [address] [place], [address], 04/03/2024 13:42:55 CMP, serum or plasma [address] (Lab), [address] [place], [address], 03/26/2024 12:11:05 TSH, serum or plasma 2024 025 [facility] (Lab), [address] [place], [address], 04/03/2024 14:50:45 Referral podiatris t referral - Please call patient to schedule an appointme nt. Thank you. 2024 025 RENNY HOWELLM, [address] [facility], [address], [place], [address], 07/23/2024 14:54:09 gastroent erologist referral - Please call patient to schedule an appointme nt. Thank you. 2024 025 SHUBHAM Rivera MD, [address], [place], [address], 07/23/2024 15:20:36 pulmonolo gist referral - Please call patient to schedule an appointme nt. Thank you. 2024 025 Ze Blanco MD, [address] [place], [address], 07/23/2024 11:44:58 hematolog ist referral - Please call patient to schedule an appointme nt. Thank you. 2024 025 [email or web address] Yaya June MD, [address], [place], [address], 04/16/2024 17:12:19 podiatris t referral 2024 025 [email or web address] Junior HOWELLM, [address] [facility], [address], [place], [address], 05/02/2024 11:49:20 cardiolog ist referral 2024 025 [email or web address] [place], [address], [address], [place], [address], 05/02/2024 11:51:33 Procedures None recorded. Surgeries None recorded. Imaging LDCT, chest, for lung cancer screening - Please call patient to schedule. 2024 025 [email or web address] [facility], [address] [facility] , [facility] [address], [place], [address], 08/25/2024 17:08:41 Medication Orders Nexlizet 180 mg-10 mg tablet 2024 025 [email or web address] [id number], [address], [place], [place], [id number], 06/04/2024 11:23:46 Patient TargetsNo targets recorded. Patient Instructions Encounter Date Encounter Id Patient Instructions Last Modified By Organization Details Last Modified Time 03/26/2024 [id number] diabetic eye exam* [email or web address] Not available 03/26/2024 12:11:06 Reason for Referral Deal Architect Referral for A sthma Please call patient to schedule an appointment. Thank you. Referring Physician: Carmen Up Internal Medicine, Encounter Date: 03/26/2024 Manager Professional Development Referral for Type 2 diabetes mellitus without complication Referring Physician: Carmen Up Internal Medicine, Encounter Date: 03/26/2024 Registered Art Therapist Referral for Co ronary arteriosclerosis Referring Physician: Carmen Up [facility], Encounter Date: 03/26/2024 Please call patient to sched ule an appointment. Thank you. Referring Physician: Carmen Up [facility], Encounter Date: 03/26/2024 Lining Strap Closer Referral for Non-alcoholic fatty liver Please call patient to schedule an appointment. Thank you. Referring Physician: Carmen Up Internal Medicine, Encounter Date: 07/23/2024 Manager Professional Development Referral for Type 2 diabetes mellitus without complication Please call patient to schedule an appointment. Thank you. Referring Physician: Carmen Up [facility], Encounter Date: 07/23/2024 Results Created Date Observation Date Name Description Value Unit Range Abnormal Flag Note LastModifiedBy Organization Detail LastModifiedTime 04/03/1904/03/2024 CBC/C OMPLE TE BLD COUNT W/DIF F white blood cells 6.5 x10'3 /uL 4.2-10 .8 Not Available [facility] (Lab) [address] [place], [address], 04/03/2024 13:42:55 04/03/19 25 04/03/2024 CBC/C OMPLE TE BLD COUNT W/DIF F red blood cells 4.74 x10'6 /uL 4.10-5 .80 Not Available [facility] (Lab) [address] [place], [address], 04/03/2024 13:42:55 04/03/19 25 04/03/2024 CBC/C OMPLE TE BLD COUNT W/DIF F hemoglobin 15.2 g/dL 13.2-1 7.0 Not Available [facility] (Lab) [address] [place], [address], 04/03/2024 13:42:55 04/03/19 25 04/03/2024 CBC/C OMPLE TE BLD COUNT W/DIF F hematocrit 43.9 % 39.3-5 0.0 Not Available [facility] (Lab) [address] [place], [address], 04/03/2024 13:42:55 04/03/19 25 04/03/2024 CBC/C OMPLE TE BLD COUNT W/DIF F mean red cell volume 92.6 fL 80.0-9 7.0 Not Available [facility] (Lab) [address] [place], [address], 04/03/2024 13:42:55 04/03/19 25 04/03/2024 CBC/C OMPLE TE BLD COUNT W/DIF F mean red cell hemoglobin 32.1 pg 27.0-3 3.0 Not Available [facility] (Lab) [address] [place], [address], 04/03/2024 13:42:55 04/03/19 25 04/03/2024 CBC/C OMPLE TE BLD COUNT W/DIF F mean RBC HGB concentratio n 34.6 g/dL 31.0-3 6.0 Not Available [facility] (Lab) [address] [place], [address], 04/03/2024 13:42:55 04/03/19 25 04/03/2024 CBC/C OMPLE TE BLD COUNT W/DIF F red cell distribution width 13.9 % 11.8-1 5.5 Not Available [facility] (Lab) [address] [place], [address], 04/03/2024 13:42:55 04/03/19 25 04/03/2024 CBC/C OMPLE TE BLD COUNT W/DIF F platelets 151 x10'3 /uL 150-40 0 Not Available [facility] (Lab) [address] [place], [address], 04/03/2024 13:42:55 04/03/19 25 04/03/2024 CBC/C OMPLE TE BLD COUNT W/DIF F mean platelet volume 11.7 fL 9.0-12 .4 Not Available [facility] (Lab) [address] [place], [address], 04/03/2024 13:42:55 04/03/19 25 04/03/2024 CBC/C OMPLE TE BLD COUNT W/DIF F neutrophils 52.0 % 39.0-7 2.0 Not Available [facility] (Lab) [address] [place], [address], 04/03/2024 13:42:55 04/03/19 25 04/03/2024 CBC/C OMPLE TE BLD COUNT W/DIF F lymphocytes 34.4 % 16.0-4 7.0 Not Available [facility] (Lab) [address] [place], [address], 04/03/2024 13:42:55 04/03/19 25 04/03/2024 CBC/C OMPLE TE BLD COUNT W/DIF F monocytes 6.7 % 5.0-12 .0 Not Available [facility] (Lab) [address] [place], [address], 04/03/2024 13:42:55 04/03/19 25 04/03/2024 CBC/C OMPLE TE BLD COUNT W/DIF F eosinophils 4.9 % 1.0-7. 0 Not Available [facility] (Lab) [address] [place], [address], 04/03/2024 13:42:55 04/03/19 25 04/03/2024 CBC/C OMPLE TE BLD COUNT W/DIF F basophils 0.9 % 0.0-2. 0 Not Available [facility] (Lab) [address] [place], [address], 04/03/2024 13:42:55 04/03/19 25 04/03/2024 CBC/C OMPLE TE BLD COUNT W/DIF F immature granulocytes 1.1 % 0.00-0 .50 high Not Available [facility] (Lab) [address] [place], [address], 04/03/2024 13:42:55 04/03/19 25 04/03/2024 CBC/C OMPLE TE BLD COUNT W/DIF F neutrophils, absolute count 3.40 x10'3 /uL 1.5-8. 0 Not Available [facility] (Lab) [address] [place], [address], 04/03/2024 13:42:55 04/03/19 25 04/03/2024 CBC/C OMPLE TE BLD COUNT W/DIF F lymphocytes, absolute count 2.25 x10'3 /uL 1.07-3 .43 Not Available [facility] (Lab) [address] [place], [address], 04/03/2024 13:42:55 04/03/19 25 04/03/2024 CBC/C OMPLE TE BLD COUNT W/DIF F monocytes, absolute count 0.44 x10'3 /uL 0.29-0 .99 Not Available [facility] (Lab) [address] [place], [address], 04/03/2024 13:42:55 04/03/19 25 04/03/2024 CBC/C OMPLE TE BLD COUNT W/DIF F eosinophils, absolute count 0.32 x10'3 /uL 0.02-0 .53 Not Available [facility] (Lab) [address] [place], [address], 04/03/2024 13:42:55 04/03/19 25 04/03/2024 CBC/C OMPLE TE BLD COUNT W/DIF F basophils, absolute count 0.06 x10'3 /uL 0.01-0 .08 Not Available [facility] (Lab) [address] [place], [address], 04/03/2024 13:42:55 04/03/19 25 04/03/2024 CBC/C OMPLE TE BLD COUNT W/DIF F immature granulocytes ,absolute 0.07 x10'3 /uL 0.00-0 .05 high Not Available [facility] (Lab) [address] [place], [address], 04/03/2024 13:42:55 04/03/19 25 04/03/2024 CBC/C OMPLE TE BLD COUNT W/DIF F nucleated red blood cells 0.0 % -0 Not Available [facility] (Lab) [address] [place], [address], 04/03/2024 13:42:55 04/03/19 25 04/03/2024 CBC/C OMPLE TE BLD COUNT W/DIF F NRBC# 0.00 x10'3 /uL Not Available [facility] (Lab) [address] [place], [address], 04/03/2024 13:42:55 04/03/19 25 04/03/2024 LIPID PANEL cholesterol 144 mg/dL 140-19 9 NIH JANE NSUS RECOM MENDA TION FOR TABITHA STERO L: ADULT CHILD LOW RISK: <200 <170 BORDE RLINE : <200- 239 ----- HIGH RISK: >240 >200 Not Available [facility] (Lab) [address] [place], [address], 04/03/2024 14:12:41 04/03/19 25 04/03/2024 LIPID PANEL triglyceride s 298 mg/dL 0-150 high NIH JANE NSUS REPOR T RECOM MENDA TION FOR TRIGL YCERI MILDRED: ADULT CHILD LOW RISK: <150 ----- BODER LINE: 150-1 99 ----- HIGH RISK: >200 ----- Not Available [facility] (Lab) [address] [place], [address], 04/03/2024 14:12:41 04/03/19 25 04/03/2024 LIPID PANEL HDL cholesterol 33 mg/dL 40- low Not Available [facility] (Lab) [address] [place], [address], 04/03/2024 14:12:41 04/03/19 25 04/03/2024 LIPID PANEL LDL cholesterol, calculated 51 mg/dL 0-130 NIH JANE NSUS REPOR T RECOM MENDA TIONS FOR LDL: ADULT CHILD LOW RISK <130 <110 (OPTI MAL LDL) <100 ----- ROCKYDE RLINE : 130-1 59 ----- HIGH RISK: >160 >130 A TRIGL YCERI DE RESUL T >400 INVAL IDATE S THE CALCU LATIO N FOR LDL FRACT IONAT ION - THE LDL RESUL T WILL NOT BE REPOR DESTINEE. Not Available [facility] (Lab) [address] [place], [address], 04/03/2024 14:12:41 04/03/19 25 04/03/2024 COMP MET PANEL /LIVE R sodium 140 mmol/ L 137-14 5 Not Available [facility] (Lab) [address] [place], [address], 04/03/2024 15:16:18 04/03/19 25 04/03/2024 COMP MET PANEL /LIVE R potassium 4.4 mmol/ L 3.5-5. 1 Not Available [facility] (Lab) [address] [place], [address], 04/03/2024 15:16:18 04/03/19 25 04/03/2024 COMP MET PANEL /LIVE R chloride 105 mmol/ L 98-107 Not Available [facility] (Lab) [address] [place], [address], 04/03/2024 15:16:18 04/03/19 25 04/03/2024 COMP MET PANEL /LIVE R carbon dioxide 30 mmol/ L 22-30 Not Available [facility] (Lab) [address] [place], [address], 04/03/2024 15:16:18 04/03/19 25 04/03/2024 COMP MET PANEL /LIVE R anion gap 9.4 mmol/ L 14-22 low Not Available [facility] (Lab) [address] [facility] [place], [address], 04/03/2024 15:16:18 04/03/19 25 04/03/2024 COMP MET PANEL /LIVE R glucose 115 mg/dL 70-99 high Not Available [facility] (Lab) [address] [facility] [place], [address], 04/03/2024 15:16:18 04/03/19 25 04/03/2024 COMP MET PANEL /LIVE R BUN 12 mg/dL 8-19 Not Available [facility] (Lab) [address] [place], [address], 04/03/2024 15:16:18 04/03/19 25 04/03/2024 COMP MET PANEL /LIVE R creatinine 0.82 mg/dL 0.66-1 .25 Not Available [facility] (Lab) [address] [facility] [place], [address], 04/03/2024 15:16:18 04/03/19 25 04/03/2024 COMP MET PANEL /LIVE R GFR >60 Refer ence Range : Lares ge GFR Healt hy Adult : >60 [...] serum creat inine relat ed to nutri ebatriz l statu s or medic ation usage . For perso ns <18 years of age, a pedia tric GFR calcu lator is avail able on the [facility] websi te: https ://gracia w.rojas davila.o rg/pr ofess ional s/kdo qi/gf r_cal culat or Not Available [facility] (Lab) [address] [place], [address], 04/03/2024 15:16:18 04/03/19 25 04/03/2024 COMP MET PANEL /LIVE R alkaline phosphatase 65 U/L 38-126 Not Available [facility] (Lab) [address] [place], [address], 04/03/2024 15:16:18 04/03/19 25 04/03/2024 COMP MET PANEL /LIVE R alanine aminotransfe rase 22 U/L 0-50 Not Available [facility] (Lab) [address] [place], [address], 04/03/2024 15:16:18 04/03/19 25 04/03/2024 COMP MET PANEL /LIVE R aspartate aminotransfe rase 29 U/L 15-46 Not Available [facility] (Lab) [address] [place], [address], 04/03/2024 15:16:18 04/03/19 25 04/03/2024 COMP MET PANEL /LIVE R bilirubin, total 0.70 mg/dL 0.20-1 .30 Not Available [facility] (Lab) [address] [place], [address], 04/03/2024 15:16:18 04/03/19 25 04/03/2024 COMP MET PANEL /LIVE R bilirubin, conjugated (direct) 0.00 mg/dL 0.00-0 .30 Not Available [facility] (Lab) [address] [place], [address], 04/03/2024 15:16:18 04/03/19 25 04/03/2024 COMP MET PANEL /LIVE R biliurubin,u ncong. (indirect) 0.20 mg/dL 0.00-1 .1 Not Available [facility] (Lab) [address] [place], [address], 04/03/2024 15:16:18 04/03/19 25 04/03/2024 COMP MET PANEL /LIVE R calcium 9.5 mg/dL 8.4-10 .2 Not Available [facility] (Lab) [address] [place], [address], 04/03/2024 15:16:18 04/03/19 25 04/03/2024 COMP MET PANEL /LIVE R total protein 7.1 g/dL 6.3-8. 2 Not Available [facility] (Lab) [address] [place], [address], 04/03/2024 15:16:18 04/03/19 25 04/03/2024 COMP MET PANEL /LIVE R albumin 4.1 g/dL 3.0-4. 4 Not Available [facility] (Lab) [address] [place], [address], 04/03/2024 15:16:18 04/03/19 25 04/03/2024 COMP MET PANEL /LIVE R globulin 3.0 g/dL 2.6-4. 2 Not Available [facility] (Lab) [address] [place], [address], 04/03/2024 15:16:18 04/03/19 25 04/03/2024 COMP MET PANEL /LIVE R A/G ratio 1.4 ratio 1.0-2. 0 Not Available [facility] (Lab) [address] [place], [address], 04/03/2024 15:16:18 04/03/19 25 04/03/2024 VITAM IN D 25-HY DROXY [id number] 47.1 NG/mL 30-100 Vitam in D Statu s: Defic ient: <20 ng/mL Insuf ficie nt: 20-29 ng/mL Suffi cient : 30-10 0 ng/mL Not Available [facility] (Lab) [address] [place], [address], 04/03/2024 14:40:35 04/03/19 25 04/03/2024 TSH W/REF HECTOR FT4 TSH with reflex free T4 1.370 uIU/m L 0.465- 4.680 Not Available [facility] (Lab) [address] [place], [address], 04/03/2024 14:50:45 04/03/19 25 04/03/2024 HEMOG LOBIN A1C HA1C 6.4 % 4.0-6. 0 high Diabe milvia Scree rivera Crite carlyle: <5.7% Consi stent with absen ce of diabe milvia 5.7-6 .4% Consi stent with incre ased risk for diabe milvia (pred iabet es) >OR=6 .5% Consi stent with diabe milvia REFER ENCE: Diabe milvia Care 2016, 39(Gomez ppl.1 ):s13 -s22 Not Available [facility] (Lab) [address] [facility], [place], [address], 04/03/2024 15:44:51 07/31/19 25 07/30/2024 imagi ng/di agnos tic resul t No observ ation record ed. [facility] [address], [place], [address], 07/30/2024 18:21:20 09/10/19 25 09/09/2024 imagi ng/di agnos tic resul t No observ ation record ed. [address], [place], [address], 09/09/2024 13:54:37 09/10/19 25 09/09/2024 imagi ng/di agnos tic resul t No observ ation record ed. [address], [place], [address], 09/09/2024 13:55:19 Result Notes None recorded. Problems Name Problem SNOMED Code Status Onset Date Resolution Date Notes Provider Name and Address Organization Details Recorded Time Glucose level outside reference range 870655967 Active Not Available [facility] 3 06:11:27 Arthritis of left knee 9313257789307 104 Active 2018 Not Available [facility] 3 06:11:27 History of left total knee replacemen t 3638446331010 105 Active 2019 Not Available [facility] 3 06:11:27 Testicular hypofuncti on 740805361 Active Not Available [facility] 3 06:11:27 History of total knee arthroplas ty 3185166121896 Active 2018 Not Available [facility] 3 06:11:27 Pain in left sacroiliac joint 5141943885481 9102 Active 2021 Not Available [facility] 3 06:11:27 Pain in bilateral legs 4989979405880 9108 Active 2021 Not Available [facility] 3 06:11:27 Backache 174943088 Active Not Available [facility] 3 06:11:27 Dry skin 03636033 Active 2021 Not Available [facility] 3 06:11:27 Sciatica 56397268 Active Not Available [facility] 3 06:11:27 Gastroesop hageal reflux disease 046708543 Active Not Available [facility] 3 06:11:27 Morbid obesity 821653719 Active 2021 Not Available [facility] 3 06:11:27 Osteoarthr itis of knee 304042337 Active Not Available [facility] 3 06:11:27 Jaw pain 411346264 Active Not Available [facility] 3 06:11:27 Low back pain 397849265 Active Not Available [facility] 3 06:11:27 Insect bite to leg - nonvenomou s 141775686 Active Not Available [facility] 3 06:11:27 Knee pain Active Not Available [facility] 3 06:11:27 Type 2 diabetes mellitus without complicati on 354221410 Active 2022 Not Available [facility] 3 06:11:27 Neuropathy due to type 2 diabetes mellitus 8401033112890 06 Active 2020 Not Available [facility] 3 06:11:27 Sinusitis 00610968 Active Not Available [facility] 3 06:11:27 Neuropathy 590152590 Active Not Available [facility] 3 06:11:27 Osteoarthr itis 347145114 Active Not Available [facility] 3 06:11:27 Vertigo 061559591 Active Not Available [facility] 3 06:11:27 Dizziness 579367758 Active Not Available [facility] 3 06:11:27 Epidermoid cyst of skin 370574495 Active Not Available [facility] 3 06:11:27 Type 2 diabetes mellitus 56104100 Active 2021 Not Available [facility] 3 06:11:28 Pain of shoulder region 25890268 Active 2018 Not Available [facility] 3 06:11:28 Male hypogonadi sm 27853151 Active Not Available [facility] 3 06:11:28 Upper respirator y infection 82497828 Active Not Available [facility] 3 06:11:28 Hyperlipid emia 89137044 Active Not Available [facility] 3 06:11:28 Carpal tunnel syndrome 00568278 Active Not Available [facility] 3 06:11:28 Disorder of testis 47168757 Active Not Available [facility] 3 06:11:28 Rhinitis 36686204 Active Not Available [facility] 3 06:11:28 Diabetes mellitus 23306612 Active Not Available [facility] 3 06:11:28 Pain of elbow region 42533598 Active Not Available [facility] 3 06:11:28 Nausea 047722872 Active 2022 Not Available [facility] 3 06:11:27 Diarrhea 95515043 Active 2022 Not Available [facility] 3 06:11:28 Gastroesop hageal reflux disease without esophagiti s 928937223 Active 2022 Not Available [facility] 3 06:11:27 Essential hypertensi on 65497916 Active 2022 Not Available [facility] 3 06:11:28 Asthma 651174258 Active 2022 Not Available [facility] 3 06:11:27 Nicotine dependence 61015110 Active 2022 Not Available [facility] 3 06:11:28 Solitary nodule of lung 069283574 Active 2022 Not Available [facility] 3 06:11:28 Coronary arterioscl erosis 97128051 Active 2022 Not Available [facility] 3 06:11:28 Non-alcoho lic fatty liver 865471142 Active 2022 Not Available [facility] 3 06:11:27 Thrombocyt openic disorder 064411482 Active 2022 Not Available [facility] 3 06:11:27 Vitamin D deficiency 50478789 Active 2022 Not Available [facility] 3 06:11:27 Cyst of eyelid 52443686 Active 2022 Not Available [facility] 3 06:11:28 Chronic kidney disease 033530359 Active 2022 Not Available [facility] 3 06:11:28 Environmen lyle allergy 936954926 Active 2022 Not Available [facility] 3 06:11:28 Dry skin dermatitis 269596021 Active 2022 Not Available [facility] 3 06:11:27 Hyperglyce hood 10265451 Active 2022 Kina Hahn null, [facility] 3 15:52:36 Chronic constipati on 147024298 Active 2022 Carmen haley MD [address], [place], [address] , [facility] 3 15:16:23 Urinary incontinen ce 379010247 Active 2022 Kina rodriguez, [facility] 3 14:26:37 Pneumonia 904142099 Active 2023 Lianne Florian RN null, [facility] 4 12:25:57 Cough 85938882 Active 2023 Lianne Florian RN null, [facility] 4 15:25:03 Skin lesion 46482830 Active 2023 Quin Martines MA null, [facility] 4 10:42:48 Ingrowing toenail 830347018 Active 2023 Junior Barnard DPM [address], [place], [address] , [facility] 4 15:39:48 Dystrophia unguium 90226854 Active 2023 Junior Barnard DPM [address], [place], [address] , [facility] 4 15:39:52 First metatarsop halangeal joint pain 684157637 Active 2023 Junior Barnard DPM [address], [place], [address] , [facility] 4 15:40:08 Hypertrigl yceridemia 401792948 Active 2023 Quin Martines MA null, [facility] 4 15:25:59 Mass of soft tissue of right lower limb 1433124772635 9105 Active 2023 Junior Barnard DPM [address], [place], [address] , [facility] 4 12:38:11 Abdominal pain 11556964 Active 2023 Quin Martines MA null, [facility] 4 14:28:04 Furuncle 341845072 Active 2023 Carmen haley MD [address], [place], [address] , [facility] 4 17:24:16 Abscess of scrotum 97924407 Active 2023 Fish lee MD [address], [place], [address] , [facility] 4 16:11:23 Diabetic on oral treatment 843935258 Active 2024 Junior Barnard DPM [address], [place], [address] , [facility] [facility] 15:52:09 Problem Notes None recorded. Procedures Surgical History Date Name Laterality Status Provider Name and Address Organization Details Recorded Time 06/24/19 25 Nail Debridement completed Junior Barnard DPM [address], [place], [address], [facility] [employer] [facility] [employer] [facility] 06/23/2024 15:53:42 03/24/19 25 Nail Debridement completed Junior Barnard DPM [address], [place], [address], [facility] [employer] [facility] [employer] [facility] 03/25/2024 10:41:56 12/10/19 24 Nail Debridement completed Junior Barnard DPM [address], [place], [address], [facility] [employer] [facility] [employer] [facility] 12/10/2023 13:59:30 09/27/19 24 Chronic care management services completed Monalisa Fiore [facility] [employer] [facility] [employer] [facility] 09/27/2023 14:51:57 09/10/19 24 Nail Debridement completed Junior Barnard DPM [address], [place], [address], [employer] [facility] [employer] [facility] 10/03/2023 09:40:19 08/29/19 24 Chronic care management services completed Monalisa Fiore [facility] [employer] [facility] [employer] [facility] 08/29/2023 15:32:22 06/04/19 24 Joint Injection-Podiatr y completed Junior Barnard DPM [address], [place], [address], [facility] [employer] [facility] 06/04/2023 15:39:38 04/18/19 24 Medicare Wellness CPT Code, subsequent completed Akiko Stiles RN [facility] [employer] [facility] 04/18/2023 11:43:15 01/24/20 23 Colonoscopy completed KATLYN Gonzalez PA [employer] [facility] [employer] [facility] 04/18/2023 11:15:03 Carpal tunnel completed Not Available [facility] 05/02/2022 05:00:09 Rotator cuff surgery completed Not Available [facility] 05/02/2022 05:00:09 procedure on elbow completed [facility] 05/02/2022 05:00:09 Knee completed Not Available [facility] 03/2022 05:00:09 Knee Replacement completed Not Available [facility] 05/02/2022 05:00:09 Tonsillectomy completed Not Available [facility] 05/02/2022 05:00:09 Cataract Surgery completed KATLYN Romero [place] - [place] [employer] [facility] 03/26/2024 11:29:41 Imaging Results None recorded. Procedure Notes None recorded. Medical Equipment None Reported. Allergies Allergen ID Allergen Name Allergen Category Reaction Reaction Severity Criticality Documentation Date Start Date Code Code System Note Provider Name and Address Organization Details Recorded Time 9281 Vascepa medicatio n diarrhea severe Not available 05/02/2022 02929 80 RxNorm Not Available [facility] 3 05:15:09 9282 Substance with sulfonami de structure and antibacte rial mechanism of action (substanc e) medicatio n rash Not available Not available 05/02/2022 61085 8003 SNOMED Not Available [facility] 3 05:15:09 9283 Neoprene medicatio n rash Not available Not available 05/02/2022 69553 UNK Not Available [facility] 3 05:15:09 9284 lidocaine medicatio n rash Not available Not available 05/02/2022 6387 RxNorm Not Available [facility] 3 05:15:09 Medications Name Sig Start Date [...] TAKE 1 TABLET BY MOUTH EVERY DAY 01/23 /2025 completed Not Available Not Available Not Available [...] administ ered by the provider 08/02 completed [facility]: [id number] 4-20 Not Available Not Available Not [...] completed Too expensiv eStarted by Dr Hernandez [facility], wants to take fenofibr ate Not Available [...] administ ered by the provider 04/12 completed [facility]: [id number] 08-18 Not Available Not Available Not Available fenofibra [...] mg by injectio n route. 08/02 completed [facility] 82805-81 06-02 Not Available Not Available Not Available OneTouch [...] Available Not Available Not Available Flublok Quad 2610-3623 (PF) 180 mcg (45 mcg x 4)/0.5 [...] Updated DateTime 5 180.34 cm 35.1 kg/m2 903012. 28 g 112 /min 16 /min 97 % 97 % 151/95 mm[Hg] Nichelle Gu [place] [facility] [employer] 5 14:31:44 Date Recorded Body height Body mass index (BMI) Body weight Body temperature Heart rate Systolic And Diastolic Provider Name and Address Organization Details Last Updated DateTime 5 180.34 cm 34.9 kg/m2 189765. 09 g 97.6 [degF] 90 /min 124/60 mm[Hg] Sue Erickson [facility] [employer] [facility] 5 11:32:56 Date Recorded Body height Body mass index (BMI) Body weight Body temperature Heart rate Oxygen saturation Oxygen saturation in Arterial blood by Pulse oximetry Provider Name and Address Organization Details Last Updated DateTime 5 180.34 cm 34.9 kg/m2 787013. 09 g 97.7 [degF] 88 /min 96 % 96 % Raheem Gandara [facility] [employer] [facility] 5 14:55:40 Date Recorded Body height Body mass index (BMI) Body weight Body temperature Heart rate Systolic And Diastolic Provider Name and Address Organization Details Last Updated DateTime 5 180.34 cm 33.2 kg/m2 480954. 98 g 97.6 [degF] 84 /min 100/58 mm[Hg] Sue Erickson [facility] [place] [facility] [employer] [facility] 5 11:09:30 Date Recorded Body height Body mass index (BMI) Body weight Heart rate Oxygen saturation Oxygen saturation in Arterial blood by Pulse oximetry Systolic And Diastolic Provider Name and Address Organization Details Last Updated DateTime 4 180.34 cm 35.1 kg/m2 834038. 28 g 88 /min 99 % 99 % 132/80 mm[Hg] KATLYN Felton [place] [facility] 4 12:00:10 Social History Question Answer Notes LastModified by Organization Details LastModified Time Tobacco Smoking Status Current Every Day Smoker Not Available [facility] 05/02/2022 04:56:10 Do You Have An Advance Directive? No MIGRATION.030 235346 Information not available 05/02/2022 Are You Blind Or Do You Have Difficulty Seeing? No MIGRATION.030 954230 Information not available 05/02/2022 What Is Your Level Of Caffeine Consumption? Moderate MIGRATION.030 764076 Information not available 05/02/2022 In The 14 Days Before Symptom Onset, Have You Had Close Contact With A Laboratory-conf irmed COVID-19 While That Case Was Ill? No MIGRATION.030 296361 Information not available 05/02/2022 In The 14 Days Before Symptom Onset, Have You Had Close Contact With A Person Who Is Under Investigation For COVID-19 While That Person Was Ill? No MIGRATION.030 376705 Information not available 05/02/2022 Are You Deaf Or Do You Have Serious Difficulty Hearing? Yes Bilateral Hearing Aides MIGRATION.[id number] Information not available 05/02/2022 What Type Of Diet Are You Following? REGULAR MIGRATION.300026 Information not available 05/02/2022 What Is The Highest Grade Or Level Of School You Have Completed Or The Highest Degree You Have Received? [id number] MIGRATION.300026 Information not available 05/02/2022 Have There Been Any Changes To Your Family Or Social Situation? No MIGRATION.030 234458 Information not available 05/02/2022 What Is The Fluoride Status Of Your Home? Fluoridated MIGRATION.300026 Information not available 05/02/2022 Are There Any Guns Present In Your Home? No MIGRATION.030 287615 Information not available 05/02/2022 Do You Use Insect Repellent Routinely? No MIGRATION.0301 814085 Information not available 05/02/2022 Where Do You Live? [place]House MIGRATION.0301 828628 Information not available 05/02/2022 Guns Present In The Home? No [email or web address] Information not available 04/18/2023 Are You Able To Care For Yourself? Yes Information not available 04/18/2023 Are You Blind Or Do Yo Have Difficulty Seeing? No Information not available 04/18/2023 Are You Deaf Or Do You Have Serious Difficulty Hearing? No [email or web address] Information not available 04/18/2023 Live Alone Of With Others? With Others [email or web address] Information not available 04/18/2023 Do You Have A Medical Power Of Photo Specialist? No MIGRATION.0301 161386 Information not available 05/02/2022 What Was The Date Of Your Most Recent Tobacco Screening? 07/23/2024 [email or web address] Information not available 07/23/2024 What Is Your Current Pack Years? 30ormorepackyears MIGRATION.0301 468054 Information not available 05/02/2022 Do You Have Any Pets? Yes MIGRATION.0301 065901 Information not available 05/02/2022 What Is Your Relationship Status? MIGRATION.0301 857176 Information not available 05/02/2022 Do You Use Your Seat Belt Or Car Seat Routinely? Yes MIGRATION.0301 891739 Information not available 05/02/2022 Do You Have Smoke And Carbon Monoxide Detectors In Your Home? Yes MIGRATION.0301 492948 Information not available 05/02/2022 At What Age Did You Start Smoking Tobacco? 10 MIGRATION.0301 146948 Information not available 05/02/2022 Are You Passively Exposed To Smoke? No MIGRATION.0301 900619 Information not available 05/02/2022 Are There Any Smokers In Your House? No MIGRATION.0301 621765 Information not available 05/02/2022 How Much Tobacco Do You Smoke? 2 PPD MIGRATION.0301 271516 Information not available 05/02/2022 What Types Of Sporting Activities Do You Participate In? None MIGRATION.0301 432354 Information not available 05/02/2022 Do You Use Sunscreen Routinely? No MIGRATION.0301 699271 Information not available 05/02/2022 How Many Years Have You Smoked Tobacco? 64 [email or web address] Information not available 07/23/2024 Have You Recently Traveled Abroad? No MIGRATION.0301 167164 Information not available 05/02/2022 Do You Have Difficulty Walking Or Climbing Stairs? No MIGRATION.0301 418235 Information not available 05/02/2022 Do You Have Any Dietary Restrictions? No MIGRATION.0301 579485 Information not available 05/02/2022 Sex: Male Functional Status Question Answer Note LastModified by [email or web address] Details LastModified Time Do you use any illicit or recreational drugs? No MIGRATION.4033212 026 Information not available 05/02/2022 Do you or have you ever used any other forms of tobacco or nicotine? No MIGRATION.1783471 026 Information not available 05/02/2022 What is your level of alcohol consumption? None MIGRATION.3334577 026 Information not available 05/02/2022 Do you have transportation difficulties? No MIGRATION.0220082 026 Information not available 05/02/2022 Are you able to walk? YESWOREST MIGRATION.3109269 026 Information not available 05/02/2022 Do you have difficulty doing errands alone? No MIGRATION.1306059 026 Information not available 05/02/2022 Are you able to care for yourself? Yes MIGRATION.3403209 026 Information not available 05/02/2022 What is your occupation? Retired MIGRATION.7603519 026 Information not available 05/02/2022 Do you have difficulty dressing or bathing? No MIGRATION.9548822 026 Information not available 05/02/2022 What is your exercise level? None MIGRATION.3098762 026 Information not available 05/02/2022 Mental Status Question Answer Note LastModified by [employer] Details LastModified Time Do you feel stressed (tense, restless, nervous, or anxious, or unable to sleep at night)? QU8890-5 MIGRATION.40666147 26 Information not available 05/02/2022 Do you have difficulty concentrating, remembering or making decisions? No MIGRATION.53760087 26 Information not available 05/02/2022 Family History Relationship Description Onset Age of this Age Resolved Age Notes LastModified by Organization Details LastModified Time Brother Psoriasis MIGRATION.373 [id number] Not available 05/02/2022 05:00:12 Medical History Condition [...] ARTERY DISEASE (CAD) N ADDICTION CONCERNS N Impotence N ENDOMETRIOSIS N USE OF BLOOD THINNERS N SKIN [...] GLAUCOMA N FOOT PROBLEM N DIVERTICULITIS N SLEEP APNEA N CHICKENPOX N INFECTIOUS DISEASE N PROSTATE N HEART ARRHYTHMIA N INSOMNIA N HIGH CHOLESTEROL / HYPERLIPIDEMIA Y EYE PROBLEMS N HYPERTHYROIDISM N EDEMA N CHRONIC PAIN SYNDROME N HYPOTHYROIDISM N CONSTIPATION N CAROTID BLOCKAGE N BACK / NECK PROBLEMS Y ATHEROSCLEROSIS N BREAST PROBLEMS N DIALYSIS N ECZEMA N OSTEOPOROSIS N ARTHRITIS Y APPENDICITIS N DIABETES, TYPE Y BAD TEETH N ENT N HEARTBURN / REFLUX N AUTISM SPECTRUM DISORDER (ASD) N HEPATITIS / LIVER DISEASE N GOUT N SLEEP DISORDER N ALZHEIMER'S DISEASE N Brain Problems N DEMENTIA N HERPES N SEIZURES/EPILEPSY N HEADACHES/MIGRAINES N VASCULAR DISEASE N PACEMAKER N Blood Disorder N DIZZINESS Y HEART DISEASE/HEART PROBLEMS N KIDNEY DISEASE N MULTIPLE SCLEROSIS N CANCER: SPECIFY N CARDIAC ARRHYTHMIA N ATRIAL FIBRILLATION N Gall Stones N PULMONARY EMBOLISM N AUTOIMMUNE DISEASE N Immunizations Vaccine Type Date Status Note Provider Nam e and Address Organization Details Recorded Time zoster recombinant 4 completed KATLYN Gonzalez [facility] [employer] [facility] 07/23/2024 11:07:09 zoster recombinant 3 completed KATLYN Gonzalez, [facility] [employer] [facility] 07/23/2024 11:07:09 Influenza, adjuvanted, quadrivalent, PF 0 completed WANDA GonzalezEmanuel null, [facility] 07/23/2024 11:07:09 COVID-19, mRNA, LNP-S, PF, 30 mcg/0.3 mL dose 1 completed [facility] 11:07:10 COVID-19, mRNA, LNP-S, PF, 30 mcg/0.3 mL dose 1 completed [facility]24 11:07:10 COVID-19, mRNA, LNP-S, PF, 30 mcg/0.3 mL dose, garrett-sucrose 2 completed [facility] 07/23/2024 11:07:10 RSV, bivalent, protein subunit RSVpreF, diluent reconstituted, 0.5 mL, PF 3 completed [facility]ks[facility] 07/23/2024 11:07:10 COVID-19, mRNA, LNP-S, PF, garrett-sucrose, 30 mcg/0.3 mL 4 completed Sue Erickson RMEmanuel rodriguez, [facility] 07/23/2024 11:07:10 COVID-19, mRNA, LNP-S, PF, garrett-sucrose, 30 mcg/0.3 mL 3 completed Sue Erickson RMA null, [facility] 07/23/2024 11:07:10 Tdap 8 completed Sue Erickson RMA null, [facility] 07/23/2024 11:07:10 Influenza, high-dose, quadrivalent, PF 3 completed Carmen Up MD [address] [address], [place], [address], [facility] 12/11/2022 17:56:47 Influenza, split virus, trivalent, PF 3 completed WANDA GonzalezA null, [facility] 07/23/2024 11:07:10 COVID-19, mRNA, LNP-S, PF, 30 mcg/0.3 mL dose 1 completed Sue Erickson RMA null, [facility] 07/23/2024 11:07:09 COVID-19, mRNA, LNP-S, PF, 30 mcg/0.3 mL dose 1 completed Sue Erickson RMA null, [facility] 07/23/2024 11:07:10 COVID-19, mRNA, LNP-S, PF, 100 mcg/0.5mL dose or 50 mcg/0.25mL dose 1 completed Sue Erickson RMA null, [facility] 07/23/2024 11:07:09 Influenza, high-dose, trivalent, PF 0 completed Sue Erickson RMA null, [facility] 07/23/2024 11:07:10 Influenza, high-dose, trivalent, PF 9 completed Sue Erickson RMA null, [facility] 07/23/2024 11:07:10 Influenza, split virus, quadrivalent, preservative 8 completed Not Available [facility] 11/15/2022 06:11:29 Influenza, high-dose, quadrivalent, PF 2 completed Not Available [facility] 11/15/2022 06:11:29 Influenza, high-dose, quadrivalent, PF 1 completed Not Available [facility] 11/15/2022 06:11:29 Td (adult), 5 Lf tetanus toxoid, preservative free, adsorbed 1 completed Not Available [facility] 11/15/2022 06:11:29 pneumococcal polysaccharide PPV23 8 completed Not Available [facility] 11/15/2022 06:11:29 Influenza, high-dose, trivalent, PF 7 completed Not Available [facility] 11/15/2022 06:11:29 Pneumococcal conjugate PCV 13 10/30/201 5 completed KATLYN Gonzalez, [employer] 07/23/2024 11:07:10 Influenza, split virus, quadrivalent, PF 5 completed Not Available [facility] 11/15/2022 06:11:29 Influenza, split virus, trivalent, preservative 4 completed KATLYN Gonzalez, [employer] [facility] 07/23/2024 11:07:10 Influenza, high-dose, trivalent, PF 4 completed Carmen Up MD [address] [facility], [place], [address], [employer] [facility] 11/28/2023 15:03:07 Past Encounters Encounter ID Performer Location Encounter Start Date Encounter Closed Date Diagnosis/Indication Diagnosis SNOMED-CT Code Diagnosis ICD10 Code Diagnosis Note [id number] Carmen haley MD [facility] [place] [address] [facility] [address] [place] [address] 08/23/2020 00:00:00 08/23/2020 18:39:43 [id number] Carmen haley MD [facility] [address] [place] [address]., [facility] [address] [place] [address] 09/30/2020 00:00:00 09/30/2020 14:06:39 [id number] Carmen haley MD [facility] [address] [place] [address]., [facility] [address] [place] [address] 10/04/2020 00:00:00 10/31/2020 09:41:36 [id number] S_[facility] [place] [address] [facility] [address] [place] [address] 10/24/2020 00:00:00 10/25/2020 06:18:09 [id number] Carmen haley MD [facility] [place] [address] [address] 12/22/2020 00:00:00 12/22/2020 16:43:14 [id number] Carmen haley MD [facility] [address] [address] 03/23/2021 00:00:00 04/06/2021 12:25:44 [id number] Carmen haley MD [facility] [address] [address] 04/25/2021 00:00:00 04/25/2021 11:08:49 [id number] [facility] _ATHENA_M IGRATION_ DEFAULT_1 _1 , 04/28/2021 00:00:00 04/30/2021 15:00:13 [id number] [facility] _ATHENA_M IGRATION_ DEFAULT_1 _1 , 06/23/2021 00:00:00 06/25/2021 21:30:01 [id number] Carmen haley MD [facility] [address] [address] 07/20/2021 00:00:00 07/24/2021 18:02:35 [id number] Carmne haley MD [facility] [address] [address] 11/23/2021 00:00:00 11/23/2021 18:03:40 [id number] [facility] _ATHENA_M IGRATION_ DEFAULT_1 _1 , 12/29/2021 00:00:00 12/31/2021 16:06:20 [id number] Hayes Solorzano MD [facility] [place] [address] [place] [address] 01/29/2022 00:00:00 01/29/2022 11:03:40 [id number] Hayes Solorzano MD [facility] [place] [address] [facility] [address] [place] [address] 03/12/2022 00:00:00 03/12/2022 11:08:46 [id number] Carmen haley MD [facility] Internal Med [facility] [address] [facility] [address] [place] [address] 04/05/2022 00:00:00 04/05/2022 17:31:31 [id number] Hayes Solorzano MD [facility] [place] [address] [facility] [address] [place] [address] 04/09/2022 00:00:00 04/09/2022 11:30:45 [id number] Carmen haley MD [facility] Internal Med [facility] [address] [facility] [address] [place] [address] 08/02/2022 13:52:02 08/02/2022 14:39:00 Screening - NAD 260928963 Z13.9 C-scope:, Dr Valdes nC-scope: 08/01/17: Next [...] ing of the above Low back pain 543557575 M54.50 On hydorcodon e as needed, not using thisOn flexerill as needed not using this Hyperlipidemia 30834754 E78.5 On rosuvastat in 40mg daily, not taking thisOn zetia, filled by Dr Hernandez [facility] 07/08/2021 , d/c as expensiveO n fenofibrat e 145mg dailyGet labs Could not tolerate the vascepa, it gave him diarrhea Gastroesop hageal reflux disease without esophagitis 658392393 K21.9 On pantoprazo le 40mg daily, can take PRN, all side effects explained, can do TUMSEGD: Dr Delatorre n: 09/05/16: esophagiti s and gastritisA dvised to quit smoking! Type 2 sophia betes mellitus without complication 387266825 E11.9 Advised to diet!On metformin 500mg 2 tabs bidOn jardiance 10mg daily, given by Dr Hernandez, but very expensive, will d/c 07/20/2021 On invokana, will d/c 04/05/2022 as now his insurance will pay for FarxigaNot taking the farxiga either now Declines any ozempic todayGet A1C Did see eye MDDid see Dr Herrera Essential hypertension 66358611 I10 On lisinopril 5mg daily as per note from Dr Hernandez [facility] on 04/05/2020 Get labs Asthma 149713330 J45.90 9 On breo filled by Dr Brooks HHNNot on incruse filled by Dr Cecilia Del Cid n ventolin PRNNeeds to see Dr Castroeen by Mena Maradiaga PA 10/23/2021 Environmental allergy 42 2064294 T78.49XA On singtamarirD oes well Nicotine dependence 5629 4008 F17.200 LDCT 09/06/2021 : Next in one yearUS AAA 12/11/2021 : Neg Solitary n odule of lung 427606898 R91.1 LDCT 05/09/18: NotedPET CT: 06/16/18: NegKeep apt with pulmonolog ist is to see Dr Weaver on Saturday LDCT 08/17/2019 LDCT 08/31/2020 : Hepatic steatosisL DCT 09/06/2021 : Next on one year, needs to see [facility] Coronary arteriosclerosis 69909164 I25.10 S/p stress test 06/10/18: neg Did see Dr Hernandez 10/11/2020 , f/u in [address] eHrnandez [facility] 10/09/2021 Non-alcoho lic fatty liver 143569825 K76.0 S/p US liver 10/16/18: Fatty liverS/p US abd 03/31/2021 : Fatty liver hepatomega ly Get an apt with Dr Frieddv ised to use hydrocodon e with tylenol sparingly 03/23/2021 Dr Koo 10/04/2021 Thrombocyt openic disorder 786704731 D69.6 Mildly lowRepeat the CBCDr Shaylee 01/11/2021 , next in one year, low PLT d/t NASHDr Shaylee 01/10/2022 Vitamin D deficiency 347 06433 E55.9 Cyst of eyelid 40122292 H02.829 Noted on the L medial canthusC/o slight pain, feels that he rubbed his eye when he had some allergy and this caused the cystGet on keflex po Did see Dr Berrios, and did remove it Chronic ki dney disease 053906312 N18.[address] Hernandez IJ on 12/01/2021 Given flomax but does not want to take this 04/05/2022 as it caused diarrhea Pain in le ft sacroiliac joint [id number] 8464239 M53.3 Dr Solorzano 03/12/2022 , f/u 04/09/2022 Vertigo 822233722 R42 See case 08/01/2022 Diarrhea 07010932 R19.7 Seen in ER 07/02/2022 GRCT A/P 07/02/2022 , see case, needs to see GI Dry skin dermatitis 2600 01027 L85.3 Seen in jaden feet, was seen by Dr Herrera and treated with amm lactate, will renew [id number] Carmen haley MD [facility] [address] [facility] [place] [address] 12/11/2022 14:17:40 12/11/2022 15:22:31 Screening - NAD 621612764 Z13.9 C-scope:, Dr Valdes nC-scope: 08/01/17: Next [...] ing of the above Low back pain 170829112 M54.50 On hydorcodon e as needed, not using thisOn flexerill as needed not using this Hyperlipidemia 72428008 E78.5 On rosuvastat in 40mg dailyOn zetia, filled by Dr Hernandez [facility] 07/08/2021 , d/c as expensiveO n fenofibrat e 145mg dailyGet labs Could not tolerate the vascepa, it gave him diarrhea Gastroesop hageal reflux disease without esophagitis 272671741 K21.9 On pantoprazo le 40mg daily, can take PRN, all side effects explained, can do TUMS EGD: Dr Delatorre n: 09/05/16: esophagiti s and gastritis Advised to quit smoking! Type 2 sophia betes mellitus without complication 237246868 E11.9 Advised to diet!On metformin 500mg 2 tabs bidOn jardiance 10mg daily, given by Dr Hernandez, but very expensive, will d/c 07/20/2021 On invokana, will d/c 04/05/2022 as now his insurance will pay for DewaynexigaNot taking the farxiga either now Declines any ozempic todayGet A1C Did see eye MDDid see Dr Herrera Essential hypertension 95095469 I10 On lisinopril 5mg daily as per note from Dr Hernandez [facility] on 04/05/2020 Get labs Asthma 009530912 J45.90 9 On breo filled by Dr Cecilia CAot on incruse filled by Dr Cecilia Del Cid n ventolin PRNNeeds to see Dr Castroeen by Mena Maradiaga PA 10/23/2021 Environmental allergy 42 1601136 T78.49XA On singulairD oes well Nicotine dependence 5629 4008 F17.200 LDCT 09/06/2021 : Next in one yearUS AAA 12/11/2021 : Neg Solitary n odule of lung 862376295 R91.1 LDCT 05/09/18: NotedPET CT: 06/16/18: NegKeep apt with pulmonolog ist is to see Dr Weaver on Saturday LDCT 08/17/2019 LDCT 08/31/2020 : Hepatic steatosisL DCT 09/06/2021 : Next on one year, [facility] : Next in one year Coronary arteriosclerosis 92859738 I25.10 S/p stress test 06/10/18: neg Did see Dr Hernandez 10/11/2020 , f/u in [address] Hernandez [facility] 10/09/2021 Dr Hernandez [facility] 11/06/2022 , f/u in 05/06/2023 Non-alcoho lic fatty liver 781281816 K76.0 S/p US liver 10/16/18: Fatty liverS/p US abd 03/31/2021 : Fatty liver hepatomega ly Get an apt with Dr Frieddv ised to use hydrocodon e with tylenol sparingly 03/23/2021 Dr Koo 10/04/2021 , 09/17/2022 Thrombocyt openic disorder 012207812 D69.6 Mildly lowRepeat the CBCDr Shaylee 01/11/2021 , next in one year, low PLT d/t NASHDr Shaylee 01/10/2022 Vitamin D deficiency 347 69084 E55.9 Cyst of eyelid 14330561 H02.829 Noted on the L medial canthusC/o slight pain, feels that he rubbed his eye when he had some allergy and this caused the cystGet on keflex po Did see Dr Berrios, and did remove it Chronic ki dney disease 623521568 N18.[address] Hernandez IJ last OV 11/15/2022 , next in 3 monthsGive n flomax but does not want to take this 04/05/2022 as it caused diarrhea Pain in le ft sacroiliac joint 4269593510 7502614 M53.3 Dr Solorzano 03/12/2022 , 04/09/2022 Get a referral to [facility] Vertigo [id number] R42 See case 08/01/2022 Diarrhea 91525768 R19.7 Seen in ER 07/02/2022 [facility] 07/02/2022 , see case, needs to see GI Dry skin dermatitis 5309 85106 L85.3 Seen in jaden feet, was seen by Dr Herrera and treated with amm lactate, will renew as needed Chronic constipation 236 031801 K59.09 This has now alternated with the diarrheaHe states that he would like a referral to GI, will refer to Dr Alvarez Administra tion of influenza vaccine 79613549 Z23 [id number] Carmen haley MD [facility] [place] [address] [facility] [place] [address] 04/18/2023 11:04:47 04/18/2023 11:59:24 Screening - NAD 215305409 Z13.9 C-scope:, Dr Valdes nC-scope: 08/01/17: Next [...] ing of the above Low back pain 818609068 M54.50 On hydorcodon e as needed, not using thisOn flexerill as needed not using this Hyperlipidemia 82904714 E78.5 Not on rosuvastat in 40mg dailyNot on zetia, filled by Dr Hernandez [facility] 07/08/2021 , d/c as expensiveN ot on fenofibrat e 145mg daily Now on atorvastat in 80mg dailyMore diet and exercise Get labs Could not tolerate the vascepa, it gave him diarrhea Gastroesop hageal reflux disease without esophagitis 704626607 K21.9 On pantoprazo le 40mg daily, can take PRN, all side effects explained, can do TUMS EGD: Dr Delatorre n: 09/05/16: esophagiti s and gastritis Advised to quit smoking! Type 2 sophia betes mellitus without complication 477020634 E11.9 Advised to diet!On metformin 500mg 2 tabs bidNot on jardiance 10mg daily, given by Dr Hernandez, but very expensive, will d/c 07/20/2021 On invokana, will d/c 04/05/2022 as now his insurance will pay for FarxigaNot taking the farxiga either now Declines any ozempic todayGet A1C Did see eye MDDid see Dr Herrera Essential hypertension 78082087 I10 On lisinopril 5mg daily as per note from Dr David TIRADOHV on 04/05/2020 Get labs Asthma 925694497 J45.90 9 On breo filled by Dr Cecilia CAot on incruse filled by Dr Cecilia Del Cid n ventolin PRNNeeds to see Dr Rios by Mena DIXON 10/23/2021 Environmental allergy 42 6235606 T78.49XA On singulairD oes well Nicotine dependence 5629 4008 F17.200 LDCT 09/06/2021 : Next in one yearUS AAA 12/11/2021 : Neg Solitary n odule of lung 868615610 R91.1 LDCT 05/09/18: NotedPET CT: 06/16/18: NegKeep apt with pulmonolog ist is to see Dr Weaver on Saturday LDCT 08/17/2019 LDCT 08/31/2020 : Hepatic steatosisL DCT 09/06/2021 : Next on one year, [facility]/10/[facility]22 : Next in one year Coronary arteriosclerosis 15044156 I25.10 S/p stress test 06/10/18: neg Did see Dr Hernandez 10/11/2020 , f/u in [address] Hernandez [facility] 10/09/2021 Dr Hernandez [facility] 11/06/2022 , f/u in 05/06/2023 Non-alcoho lic fatty liver 390117466 K76.0 S/p US liver 10/16/18: Fatty liverS/p US abd 03/31/2021 : Fatty liver hepatomega ly Get an apt with Dr Rao ised to use hydrocodon e with tylenol sparingly 03/23/2021 Dr Koo 10/04/2021 , 09/17/2022 Thrombocyt openic disorder 650250632 D69.6 Mildly lowRepeat the CBCDr Shaylee 01/11/2021 , next in one year, low PLT d/t NASHDr Shaylee 01/10/2022 Vitamin D deficiency 347 60728 E55.9 Cyst of eyelid 56876107 H02.829 Noted on the L medial canthusC/o slight pain, feels that he rubbed his eye when he had some allergy and this caused the cystGet on keflex po Did see Dr Berrios, and did remove it Chronic ki dney disease 943508069 N18.[address] Hernandez IJ last OV 11/15/2022 , next in 3 monthsGive juan benignonick but does not want to take this 04/05/2022 as it caused diarrhea Pain in le ft sacroiliac joint 3449669158 9906980 M53.3 Dr Solorzano 03/12/2022 , 04/09/2022 Get a referral to [facility] Vertigo [id number] R42 See case 08/01/2022 Diarrhea 37499757 R19.7 Seen in ER 07/02/2022 [facility] 07/02/2022 , see case, needs to see GI Dry skin dermatitis 2600 95033 L85.3 Seen in jaden feet, was seen by Dr Herrera and treated with amm lactate, will renew as needed Chronic constipation 236 081364 K59.09 This has now alternated with the diarrheaHe states that he would like a referral to GI, will refer to Dr Alvarez Adult heal th examination 624470085 Z00.00 Screening for disorder 670907510 Z13.9 [id number] Junior Barnard DPM [facility] [place] [address] [facility] [address] [place] [address] 06/04/2023 14:53:25 06/04/2023 16:01:49 Diabetes mellitus 49354449 E11.9 continue diabetic control per PCP recommenda tions Ingrowing toenail 402884 009 L60.0 bilateral great toesdebrid ed without incidented ucated on treatment optionsref uses partial matrixfoll ow-up as needed Dystrophia unguium 84955 009 L60.3 nails debrided without incident First metatarsophalangeal joint pain 522128769 M79.671 M79.672 left 1st metatarsop halangeal joint injection 06/04/2023 [id number] Carmen haley MD [facility] [address] [facility] [address] [place] [address] 07/25/2023 11:01:10 07/25/2023 11:54:46 Screening - NAD 897975121 Z13.9 C-scope:, Dr Valdes nC-scope: 08/01/17: Next [...] ing of the above Low back pain 515470077 M54.50 On hydorcodon e as needed, not using thisOn flexerill as needed not using this Hyperlipidemia 52566894 E78.5 Not on rosuvastat in 40mg dailyNot on zetia, filled by Dr David PARRA 07/08/2021 , d/c as expensiveN ot on fenofibrat e 145mg daily On atorvastat in 80mg dailyMore diet and exercise Get labs Could not tolerate the vascepa, it gave him diarrhea Gastroesop hageal reflux disease without esophagitis 976817915 K21.9 On pantoprazo le 40mg daily, can take PRN, all side effects explained, can do TUMS EGD: Dr Delatorre n: 09/05/16: esophagiti s and gastritis Advised to quit smoking! Type 2 sophia betes mellitus without complication 508881071 E11.9 Advised to diet!On metformin 500mg 2 tabs bidNot on jardiance 10mg daily, given by Dr Hernandez, but very expensive, will d/c 07/20/2021 On invokana, will d/c 04/05/2022 as now his insurance will pay for FarxigaNot taking the farxiga either now Declines any ozempic todayGet A1C Did see eye MDDid see Dr Herrera Essential hypertension 41923223 I10 On lisinopril 5mg daily as per note from Dr Hernandez [facility] on 04/05/2020 Get labs Asthma 434968063 J45.90 9 On breo filled by Dr Brooks HHJANEEot on incruse filled by Dr Cecilia Del Cid n ventolin PRNNeeds to see Dr Rios by Mena DIXON 10/23/2021 Environmental allergy 42 5161097 T78.49XA On singulairD oes well Nicotine dependence 5629 4008 F17.200 LDCT 09/06/2021 : Next in one yearUS AAA 12/11/2021 : Neg Solitary n odule of lung 853206083 R91.1 LDCT 05/09/18: NotedPET CT: 06/16/18: NegKeep apt with pulmonolog ist is to see Dr Weaver on Saturday LDCT 08/17/2019 LDCT 08/31/2020 : Hepatic steatosisL DCT 09/06/2021 : Next on one year, needs to see [facility] 09/10/2022 : Next in one year Coronary arteriosclerosis 89586934 I25.10 S/p stress test 06/10/18: neg Did see Dr Hernandez 10/11/2020 , f/u in [address] Hernandez SL 10/09/2021 Dr Hernandez [facility] 11/06/2022 , f/u in 05/06/2023 Dr Hernandez [facility] 05/07/2023 : f/u in 6 months Non-alcoho lic fatty liver 233289120 K76.0 S/p US liver 10/16/18: Fatty liverS/p US abd 03/31/2021 : Fatty liver hepatomega ly Get an apt with Dr Frieddv ised to use hydrocodon e with tylenol sparingly 03/23/2021 Dr Koo 10/04/2021 , 09/17/2022 , needs to see GI hepatology Thrombocyt openic disorder 043214894 D69.6 Mildly lowRepeat the CBCDr Shaylee 01/11/2021 , next in one year, low PLT d/t NASHDr Shaylee 01/10/2022 Vitamin D deficiency 347 79989 E55.9 Cyst of eyelid 70708026 H02.829 Noted on the L medial canthusC/o slight pain, feels that he rubbed his eye when he had some allergy and this caused the cystGet on keflex po Did see Dr Berrios, and did remove it Chronic ki dney disease 674538672 N18.[address] Hernandez IJ last OV 11/15/2022 , next in 3 monthsGive n flomax but does not want to take this 04/05/2022 as it caused diarrhea Pain in le ft sacroiliac joint 8344197876 9637252 M53.3 Dr Solorzano 03/12/2022 , 04/09/2022 Chelsea Michelle NP 06/19/2023 [facility] Vertigo [id number] R42 See case 08/01/2022 Diarrhea 93006543 R19.7 Seen in ER 07/02/2022 [facility] 07/02/2022 , see case, needs to see GI Dry skin dermatitis 2600 73289 L85.3 Seen in jaden feet, was seen by Dr Herrera and treated with amm lactate, will renew as needed Chronic constipation 236 453945 K59.09 This has now alternated with the diarrheaHe states that he would like a referral to GI, will refer to Dr Alvarez Adult [facility] th examination 333453582 Z00.00 Screening for disorder 969708134 Z13.9 [id number] Carmen haley MD [facility] Med [facility] [address] [facility] [place] [address] 08/29/2023 15:28:20 09/02/2023 18:02:24 Chronic kidney disease 991836188 N18.9 Essential hypertension 33983938 I10 Hyperlipidemia 08345140 E78.5 Type 2 sophia betes mellitus 86219564 E11.9 [id number] Junior Barnrad DPM [facility] [place] [address] [place] [address] [address] [place] [address] 09/10/2023 12:20:31 10/03/2023 10:44:54 Diabetes mellitus 18694536 E11.9 continue diabetic control per PCP recommenda tionsconti nue supportive shoe gearCheck feet daily for wounds infectionF ollow-up 3 months Dystrophia unguium 99842 009 L60.3 nails debrided without incident [id number] Carmen haley MD [facility] [place] [address] [facility] [place] [address] 09/27/2023 14:49:03 11/21/2023 15:16:31 Essential hypertension 76784374 I10 Hyperlipidemia 61609692 E78.5 Type 2 sophia betes mellitus 21033707 E11.9 Neuropathy 387109793 G62 .[id number] [facility] Internal Med [facility] [address] [facility], [place] [address] 11/28/2023 11:22:46 11/28/2023 12:41:17 Hyperlipidemia 31624084 E78.5 Not on rosuvastat in 40mg dailyNot on zetia, filled by Dr Hernandez [facility] 07/08/2021 , d/c as expensiveN ot on fenofibrat e 145mg daily On atorvastat in 80mg dailyMore diet and exercise Get labs Could not tolerate the vascepa, it gave him diarrhea Screening - NAD 02534532 3 Z13.9 C-scope:, Dr Valdes nC-scope: 08/01/17: [...] ing of the above Low back pain 611300168 M54.50 On hydorcodon e as needed, not using thisOn flexerill as needed not using this Gastroesop hageal reflux disease without esophagitis 809002317 K21.9 On pantoprazo le 40mg daily, can take PRN, all side effects explained, can do TUMS EGD: Dr Delatorre n: 09/05/16: esophagiti s and gastritis Advised to quit smoking! Type 2 sophia betes mellitus without complication 704809306 E11.9 Advised to diet!On metformin 500mg 2 tabs bidNot on jardiance 10mg daily, given by Dr Hernandez, but very expensive, will d/c 07/20/2021 On invokana, will d/c 04/05/2022 as now his insurance will pay for FarxigaNot taking the farxiga either now Declines any ozempic todayGet A1C Did see eye MDDid see Dr Herrera Essential hypertension 10685428 I10 On lisinopril 5mg daily as per note from Dr David TIRADO on 04/05/2020 Get labs Asthma 160956556 J45.90 9 On breo filled by Dr Brooks HHNNot on incruse filled by Dr Cecilia Del Cid n ventolin PRNNeeds to see Dr Rios by Mena Maradiaga PA 10/23/2021 Environmental allergy 42 0574954 T78.49XA On singulairD oes well Nicotine dependence 5629 4008 F17.200 LDCT 09/06/2021 : Next in one yearLDCT 09/13/2023 : NegUS AAA 12/11/2021 : Neg Solitary n odule of lung 501460055 R91.1 LDCT 05/09/18: NotedPET CT: 06/16/18: NegKeep apt with pulmonolog ist is to see Dr Weaver on Saturday LDCT 08/17/2019 LDCT 08/31/2020 : Hepatic steatosisL DCT 09/06/2021 : Next on one year, [facility] : Next in one yearLDCT 09/13/2023 : Next in one year Coronary arteriosclerosis 34799208 I25.10 S/p stress test 06/10/18: neg Did see Dr Hernandez 10/11/2020 , f/u in [address] David TIRADO 10/09/2021 Dr David PARRA 11/06/2022 , f/u in 05/06/2023 Dr Hernandez [facility] 05/07/2023 : f/u in 6 months Non-alcoho lic fatty liver 954327056 K76.0 S/p US liver 10/16/18: Fatty liverS/p US abd 03/31/2021 : Fatty liver hepatomega ly Get an apt with Dr Rao ised to use hydrocodon e with tylenol sparingly 03/23/2021 Dr Koo 10/04/2021 , 09/17/2022 , needs to see GI hepatology Thrombocyt openic disorder 703440021 D69.6 CBC Stable labs on 10/11/2023 Dr June 01/11/2021 Dr June 01/10/2022 Vitamin D deficiency 347 32506 E55.9 Cyst of eyelid 16007320 H02.829 Noted on the L medial canthusC/o slight pain, feels that he rubbed his eye when he had some allergy and this caused the cystGet on keflex po Did see Dr Berrios, and did remove it Chronic ki dney disease 925436539 N18.[address] Hernandez IJ last OV 11/15/2022 , next in 3 monthsGive n flomax but did not take this 04/05/2022 as it caused diarrhea Pain in le ft sacroiliac joint 3994944167 2995027 M53.3 Dr Solorzano 03/12/2022 , 04/09/2022 Chelsea Michelle NP 06/19/2023 [facility] Vertigo 563594711 R42 See case 08/01/2022 Diarrhea 24276090 R19.7 Seen in ER 07/02/2022 [facility] 07/02/2022 , see case, needs to see GI Dry skin dermatitis 2600 48297 L85.3 Seen in jaden feet, was seen by Dr Herrera and treated with amm lactate, will renew as needed Chronic constipation 236 958741 K59.09 This has now alternated with the diarrheaHe states that he would like a referral to GI, will refer to Dr Alvarez Administra tion of influenza vaccine 42371141 Z23 [id number] Junior Barnard DPM [facility] [place] [address] [address] 12/10/2023 11:33:32 12/11/2023 12:27:56 Mass of soft tissue of right lower limb 2173645096 0940760 R22.41 rule out benign soft tissue mass versus malignancy with ultrasound possible MRI depending on ultrasound findingsfo llow-up testing Diabetes mellitus 453900 09 E11.9 continue diabetic control per PCP recommenda tionsconti nue supportive shoe gearCheck feet daily for wounds infectionF ollow-up 3 months Dystrophia unguium 13506 009 L60.3 nails debrided without incident [id number] Junior Barnard DPM [facility] [place] [address] [place] [address] 01/07/2024 14:02:58 02/28/2024 10:36:35 Mass of soft tissue of right lower limb 2216113924 0694588 R22.41 rule out benign soft tissue mass- Negativeco ntinue to monitor the area if the area pain or soft tissue lump debris appears follow-up for MRIfollow- up 3 months [id number] Carmen haley MD [facility] Internal Med [facility] [address] [place] [address] 02/11/2024 16:44:53 02/11/2024 17:29:09 Furuncle 799022892 L02.92 Noted on the L inner groin next to the scrotum, no obvious discharge noted but it is tender and fluctuant, will get on keflex and refer to Dr Mckinnon [id number] Fish lee MD [facility] General Surgery [address] [place] [address] 02/20/2024 11:21:14 02/27/2024 15:58:20 Abscess of scrotum 23881808 N49.2 Left [id number] Junior Barnard DPM [facility] Pod[facility] [place] [address] [place] [address] 2024 14:22:22 03/30/2024 11:43:28 Diabetes mellitus 25322511 E11.9 continue diabetic control per PCP recommenda tionsconti nue supportive shoe gearCheck feet daily for wounds infectionF ollow-up 3 months Dystrophia unguium 91435 009 L60.3 nails debrided without incident [id number] Carmen haley MD [facility] Internal Med [facility] [address] 03/26/2024 11:12:01 03/26/2024 12:13:38 Hyperlipidemia 04385475 E78.5 Not on rosuvastat in 40mg dailyNot on zetia, filled by Dr Hernandez [facility] 07/08/2021 , d/c as expensiveN ot on fenofibrat e 145mg daily On atorvastat in 80mg daily, d/c this 03/26/2024 , d/t body achesStart on nexlizet daily 03/26/2024 More diet and exercise Get labs Could not tolerate the vascepa, it gave him diarrhea Screening - NAD 03658375 3 Z13.9 C-scope:, Dr Valdes nC-scope: 08/01/17: [...] ing of the above Low back pain 498880778 M54.50 On hydorcodon e as needed, not using thisOn flexerill as needed not using this Gastroesop hageal reflux disease without esophagitis 520093055 K21.9 On pantoprazo le 40mg daily, can take PRN, all side effects explained, can do TUMS EGD: Dr Delatorre n: 09/05/16: esophagiti s and gastritis Advised to quit smoking! Type 2 sophia betes mellitus without complication 000889399 E11.9 Advised to diet!On metformin 500mg 2 tabs bidNot on jardiance 10mg daily, given by Dr Hernandez, but very expensive, will d/c 07/20/2021 On invokana, will d/c 04/05/2022 as now his insurance will pay for FarxigaNot taking the farxiga either now Declines any ozempic todayGet A1C Did see eye MDDid see Dr Herrera Essential hypertension 09295926 I10 On lisinopril 5mg daily as per note from Dr Hernandez [facility] on 04/05/2020 Get labs Asthma 417029431 J45.90 9 On breo filled by Dr Brooks HHNNot on incruse filled by Dr Cecilia Del Cid n chloe PRNNeeds to see Dr Rios by Mena DIXON 10/23/2021 Environmental allergy 42 7750435 T78.49XA On singulairD oes well Nicotine dependence 5629 4008 F17.200 LDCT 09/06/2021 : Next in one yearLDCT 09/13/2023 : NegUS AAA 12/11/2021 : Neg Solitary n odule of lung 530472428 R91.1 LDCT 05/09/18: NotedPET CT: 06/16/18: NegKeep apt with pulmonolog ist is to see Dr Weaver on Saturday LDCT 08/17/2019 LDCT 08/31/2020 : Hepatic steatosisL DCT 09/06/2021 : Next on one year, [facility] : Next in one yearLDCT 09/13/2023 : Next in one year Coronary arteriosclerosis 23006826 I25.10 S/p stress test 06/10/18: neg Did see Dr Hernandez 10/11/2020 , f/u in [address] Hernandez [facility] 10/09/2021 Dr Hernandez [facility] 11/06/2022 , f/u in 05/06/2023 Dr Hernandez [facility] 05/07/2023 : f/u in 6 months Non-alcoho lic fatty liver 511608467 K76.0 S/p US liver 10/16/18: Fatty liverS/p US abd 03/31/2021 : Fatty liver hepatomega ly Get an apt with Dr Frieddv ised to use hydrocodon e with tylenol sparingly 03/23/2021 Dr Koo 10/04/2021 , 09/17/2022 , needs to see GI hepatology Dr Rivera 11/07/2023 , f/u PRN Thrombocyt openic disorder 255915462 D69.6 CBC Stable labs on 10/11/2023 Dr June 01/11/2021 Dr June 01/10/2022 Vitamin D deficiency 347 66256 E55.9 Cyst of eyelid 06215778 H02.829 Noted on the L medial canthusC/o slight pain, feels that he rubbed his eye when he had some allergy and this caused the cystGet on keflex po Did see Dr Berrios, and did remove it Chronic ki dney disease 064942355 N18.[address] Hernandez IJ last OV 11/15/2022 , next in 3 monthsGive n flomax but did not take this 04/05/2022 as it caused diarrhea Pain in le ft sacroiliac joint 6393058806 5201952 M53.3 Dr Solorzano 03/12/2022 , 04/09/2022 Chelsea [facility] 06/19/2023 [facility] Vertigo [id number] R42 See case 08/01/2022 Diarrhea 84977224 R19.7 Seen in ER 07/02/2022 [facility] 07/02/2022 , see case, needs to see GI OV 03/26/2024 : Does we;; Dry skin dermatitis 2600 67588 L85.3 Seen in [place]aden feet, was seen by Dr Herrera and treated with amm lactate, will renew as needed Chronic constipation 236 425375 K59.09 This has now alternated with the diarrheaHe states that he would like a referral to GI, will refer to Dr Alvarez [id number] Junior Barnard DPM [facility] [place] [address] [facility] [address] [place] [address] 06/23/2024 14:51:20 06/24/2024 09:46:31 Diabetes mellitus 90657677 E11.9 continue diabetic control per PCP recommenda tionsconti nue supportive shoe gearCheck feet daily for wounds infectionF ollow-up 3 months Dystrophia unguium 56571 009 L60.3 nails debrided without incident Diabetic o n oral treatment 056694153 Z79.84 [id number] Carmen haley MD [facility] Internal [facility] [address] [facility] [place] [address] 07/23/2024 10:52:16 07/23/2024 12:08:54 Hyperlipidemia 21018370 E78.5 Not on rosuvastat in 40mg dailyNot on zetia, filled by Dr Hernandez [facility] 07/08/2021 , d/c as expensiveN ot on atorvastat in 80mg dailyCould not tolerate the vascepa, it gave him diarrhea On fenofibrat e 145 mg dailyOn nexlizet 180-10mg dailyMore diet and exercise Get labs Screening - NAD 41937220 3 Z13.9 C-scope:, Dr Valdes nC-scope: 08/01/17: [...] ing of the above Low back pain 061365989 M54.50 On hydorcodon e as needed, not using thisOn flexerill as needed not using this Gastroesop hageal reflux disease without esophagitis 636875274 K21.9 On pantoprazo le 40mg daily, can take PRN, all side effects explained, can do TUMS EGD: Dr Delatorre n: 09/05/16: esophagiti s and gastritis Advised to quit smoking! Type 2 sophia betes mellitus without complication 021923464 E11.9 Advised to diet!On metformin 500mg 2 tabs bidNot on jardiance 10mg daily, given by Dr Hernandez, but very expensive, will d/c 07/20/2021 On invokana, will d/c 04/05/2022 as now his insurance will pay for KennethgaNot taking the farxiga either now Declines any ozempic todayGet A1C Did see eye MDDid see Dr Herrera Essential hypertension 62438208 I10 On lisinopril 5mg daily as per note from Dr Hernandez SL on 04/05/2020 On KGet labs Asthma 567147423 J45.90 9 On breo filled by Dr Brooks HHJANEEot on incruse filled by Dr Cecilia Del Cid n ventyarely PRNNeeds to see Dr Rios by Mena DIXON 10/23/2021 Seen by Mena DIXON 04/14/2024 Environmental allergy 42 7582797 T78.49XA On singulairTeresa oes well Nicotine dependence 5629 4008 F17.200 LDCT 09/06/2021 : Next in one yearLDCT 09/13/2023 : NegUS AAA 12/11/2021 : Neg Solitary n odule of lung 124289376 R91.1 LDCT 05/09/18: NotedPET CT: 06/16/18: NegKeep apt with pulmonolog ist is to see Dr Weaver on Saturday LDCT 08/17/2019 LDCT 08/31/2020 : Hepatic steatosisL DCT 09/06/2021 : Next on one year, needs to see SLLDCT 09/10/2022 : Next in one yearLDCT 09/13/2023 : Next in one year Coronary arteriosclerosis [id number] I25.10 S/p stress test 06/10/18: neg Did see Dr Hernandez 10/11/2020 , f/u in [address] Hernandez [facility] 10/09/2021 Dr Hernandez [facility] 11/06/2022 , f/u in 05/06/2023 Dr Hernandez [facility] 05/07/2023 : f/u in 6 monthsDr Hernandez [facility] 06/08/2024 , to get ECHO 07/30/2024 Non-alcoho lic fatty liver [id number] K76.0 S/p US liver 10/16/18: Fatty liverS/p US abd 03/31/2021 : Fatty liver hepatomega ly Get an apt with Dr Frieddv ised to use hydrocodon e with tylenol sparingly 03/23/2021 Dr Koo 10/04/2021 , 09/17/2022 , needs to see GI hepatology Now sees Dr Rivera next on 09/18/2024 Thrombocyt openic disorder 257934878 D69.6 CBC Stable labs on 10/11/2023 Dr June 01/11/2021 Dr June 01/10/2022 Dr June 01/28/2024 : F/u as needed Vitamin D deficiency 347 03505 E55.9 Cyst of eyelid 51382675 H02.829 Noted on the L medial canthusC/o slight pain, feels that he rubbed his eye when he had some allergy and this caused the cystGet on keflex po Did see Dr Berrios, and did remove it Chronic ki dney disease 730248167 N18.[address] Hernandez IJ last OV 11/15/2022 , next in 3 monthsGive n flomax but did not take this 04/05/2022 as it caused diarrhea Pain in le ft sacroiliac joint [id number] 4367333 M53.3 Dr Solorzano 03/12/2022 , 04/09/2022 Chelsea Michelle NP 06/19/2023 IPC Vertigo 127124083 R42 See case 08/01/2022 Diarrhea 98717714 R19.7 Seen in ER 07/02/2022 [facility] 07/02/2022 , see case, needs to see GI OV 07/23/2024 :Dr Rivera 07/10/2024 Dry skin dermatitis 2600 60531 L85.3 Seen in [place], was seen by Dr Herrera and treated with amm lactate, will renew as needed Chronic constipation 236 931856 K59.09 This has now alternated with the [...] plan as per care team recommendation (s) NoChange active 2023 Monalisa Fiore CCM Information not available 08/29/2023 19:39:04 Fluid Balance Managemen t Exhibits no signs or symptoms related to fluid imbalance NoChange active 2023 Monalisa Fiore CCM Information not available 08/29/2023 19:39:04 Activitie s of Daily Living Performs activities of daily living independently or with minimal assistance Chantehange active 2023 Monalisa Fiore CCM Information not available 08/29/2023 19:39:04 Medicatio n Regimen Follows medication regimen as per care team recommendation (s) improving active 2023 Monalisa Fiore CCM Information not available 09/27/2023 18:56:13 Follow-up Appointme nt(s) Attends referral and/or follow-up appointment(s) as per care team recommendation (s) [facility] active 2023 Monalisa Fiore CCM Information not available 08/29/2023 19:39:04 Food Security Reports ability to access and obtain foods to meet nutritional needs [facility] active 2023 Monalisa Fiore CCM Information not available 08/29/2023 19:39:04 Vaccinati on Status Remains up to date on vaccines as per care team recommendation (s) [facility] active 2023 Monalisa Fiore CCM Information not available 08/29/2023 19:39:05 Decreased Alcohol Consumpti on Reports decreased alcohol consumption as per care team recommendation (s) shannon active 2023 Monalisa Fiore CCM Information not available 08/29/2023 19:39:05 Chronic Disease Symptom Managemen t Reports no new or worsening symptoms [facility] active 2023 Monalisa Fiore CCM Information not available 08/29/2023 19:39:05 Blood Glucose Maintains blood glucose within target range [facility] active 2023 Monalisa Fiore CCM Information not available 08/29/2023 19:39:05 Effective Coping Manages life events with effective coping methods [facility] active 2023 Monalisa Fiore CCM Information not available 08/29/2023 19:39:05 Diet Adherence Follows prescribed or recommended diet [facility] active 2023 Monalisa Fiore CCM Information not available 08/29/2023 19:39:05 Knowledge of Disease or Condition Demonstrates understanding of disease(s) or condition(s) [facility] active 2023 Monalisa Fiore CCM Information not available 08/29/2023 19:39:05 Fall Safety Reports no recent falls and/or fall injuries [facility] 2023 Monalisa Fiore CCM Information not available 08/29/2023 19:39:05 Financial Stability Reports financial status and/or income meets needs [facility] active 2023 Monalisa Fiore CCM Information not available 08/29/2023 19:39:05 Lab Testing Completes lab testing as per care team recommendation (s) [facility] active 2023 Monailsa Fiore CCM Information not available 08/29/2023 19:39:05 Diagnosti c Testing Completes diagnostic testing as per care team recommendation (s) NoCcorky active 2023 Monalisa Fiore CCM Information not available 08/29/2023 19:39:05 Hemoglobi n A1C Lowers or maintains hemoglobin A1C (HbA1c) as per care team recommendation (s) [TARGET: less than or equal to 7%] NoCshannonge active 2023 Monalisa Fiore CCM Information not available 08/29/2023 19:39:06 Weight Loss Decreases body weight as per care team recommendation (s) NoCcorky active 2023 Monalisa Fiore CCM Information not available 08/29/2023 19:39:06 Lipid Levels Maintains normal lipid levels as defined by care team [facility] active 2023 Monalisa Fiore CCM Information not available 08/29/2023 19:39:06 Weight Maintengage ce Exhibits stable weight with normal fluctuation NoCcorky active 2023 Monalisa Fiore CCM Information [...] Kelsey Member ID Guarantor Name 07/20/2024 1 [facility] (MEDICARE REPLACEMENT/A DVANTAGE - HMO) [id number] Glenn Villalpando [id number] Glenn Villalpando Notes Date Note Type Note Provider Name and Address Organization Details Recorded Time 02/20/2024 text/html Patient complain s of swelling pain and drainage in his left groin for the last 2 weeks. Was given antibiotics by primary care physician. Denies fevers or chills. States it is getting better now and does not feel it nearly as much Fish Hernandez MD [address], [place], [address], [employer] [facility] 02/20/2024 16:11:34 2024 text/html . Patient is [...] pain or intermittent clarification with walking. Junior Barnard DPM [address], [place], [address], [employer] 03/25/2024 11:06:44 03/26/2024 text/html 09/27/17Past Hx:DMIIAllergiesHypo gonadismLPEElllatricia Toledowed his past social, family and surgical historyHe is here for his one month apt, he states that he is doing well.He states that he was seen in the ER at [facility] recently for pancreatitis and is to now [...] 'bug bite' checked out, was admitted to [facility] a week ago for the biteNo pain, [...] this medication Carmen Up MD [address], [place], [address], [employer] 03/26/2024 12:13:04 06/23/2024 text/html . Patient is a 74-year-old male diabetic who returns for diabetic foot care he denies any new complaints. Patient would like his nails cut. Junior Barnard DPM [address], [place], [address], [employer] 06/23/2024 15:54:08 07/23/2024 text/html 09/27/17Past Hx:DMIIAllergiesHypo gonadismLKevan Toledowed his past social, family and surgical historyHe is here for his one month apt, he states that he is doing well.He states that he was seen in the ER at [facility] recently for pancreatitis and is to now [...] 'bug bite' checked out, was admitted to [facility] a week ago for the biteNo pain, [...] is here with his Carmen Up MD [address] [place] [address], [facility] [address], [place], [address], [facility] 07/23/2024 11:57:04
--- OUTSIDE RECORDS SUMMARY | 2024-09-13 11:20 | XMS_ITS | Clinical Summary ---
Author Organization [facility] Address [address] [place] [address] Care Team Providers Care Geotechnical Department Manager Name Role Phone Trinity Up MD Primary Care Provider Source Comments [facility],non-owned Affiliates and Associated Physician Practices is amultiple site organization consisting of ambulatory clinics and hospital sitesin [place], [place], [place] and [place]. This disclosure is being madepursuant to the Care Everywhere program and may not contain all information available regarding this patient. 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 Gender Identity Not on file Sexual Orientation [...] 7 - 26 mg/dL 09/18/2021 3:27 PM [facility] Creatinine 0.79 0.71 - 1.16 mg/dL 09/18/2021 3:27 PM [facility] Sodium 142 136 - 145 mmol/L 09/18/2021 3:27 PM [facility] Potassium 3.9 3.5 - 4.5 mmol/L 09/18/2021 3:27 PM [facility] Chloride 106 98 - 107 mmol/L 09/18/2021 3:27 PM [facility] CO2 24 22 - 29 mmol/L 09/18/2021 3:27 PM [facility] Glucose 129(H) 70 - 115 mg/dL 09/18/2021 3:27 PM [facility] Calcium 9.3 8.4 - 10.2 mg/dL 09/18/2021 3:27 PM [facility] Protein Total 7.3 6.0 - 8.3 g/dL 09/18/2021 3:27 PM [facility] Albumin 3.5 3.4 - 5.0 g/dL 09/18/2021 3:27 PM [facility] Bilirubin Total 0.5 0.2 - 1.2 mg/dL 09/18/2021 3:27 PM [facility] Alkaline Phosphatase 45 40 - 150 U/L 09/18/2021 3:27 PM [facility] ALT 16 5 - 55 U/L 09/18/2021 3:27 PM [facility] AST 19 5 - 34 U/L 09/18/2021 3:27 PM CDT [facility] Anion Gap 16 8 - 18 09/18/2021 3:27 PM T [facility] BUN/Creatinine Ratio 9 7 - 23 09/18/2021 3:27 PM T [facility] Osmolality Calculated 294 270 - 300 mOsm/kg 09/18/2021 3:27 PM T [facility] Albumin/Globulin Ratio 0.9(L) 1.1 - 2.3 09/18/2021 3:27 PM T [facility] eGFR by CKD-EPI >90 >=90 mL/min/1.7 3 m2 09/18/2021 3:27 PM T [facility] Blood BLOOD SPECIMEN / Unknown Lab Venipuncture / Unknown 09/18/2021 2:19 PM CDT 09/18/2021 2:57 PM CDT Mitul Koo MD LAB - CHEMISTRY ORDERABLES Fin al Result [facility] [address] [place] [address], [facility] [phone] from Last 3 Months or Most Recently Relevant to Health Maintenance Insurance [facility] MANAGED MEDICARE ADV MEDICARE [facility] Care Teams Geotechnical Department Manager Relationship Specialty Start Date End Date Trinity Up MD [address] [facility] [address] [place] [phone] PCP - General Internal Medicine 12/03/18
--- OUTSIDE RECORDS SUMMARY | 2024-09-13 11:20 | XMS_ITS | Patient Health Record ---
Author Organization [facility] Address [address] [place] [address] Care Team Providers Care Pbx Supervisor Name Role Phone David Juve Unavailable [phone] Reason For Referral No Information Medications Medication SIG (Take, Route, Frequency, Duration) Notes Start Date End Date Status Vitamin D (Ergocalciferol) 1.25 MG (93542 UT) TAKE 1 CAPSULE BY MOUTH ONCE A WEEK; Duration: 91 Active Problems Problem Type SNOMED Code ICD Code Onset Dates Problem Status W/U Status Risk Notes Problem Hyperglycemia due to type 2 diabetes mellitus (254024209487759) Type 2 diabetes mellitus with hyperglycemia (E11.65) Active confirmed Problem Secondary hyperparathyroidism (32806787) Secondary hyperparathyroidism , not elsewhere classified (E21.1) Active confirmed Problem Morbid obesity (disorder) (525890261) Morbid (severe) obesity due to excess calories (E66.01) Active confirmed Problem Hypervitaminosis D (88776046) 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) Active confirmed Problem Pure hyperglyceridemia (501643486) Pure hyperglyceridemia (E78.1) Active confirmed Problem Chronic kidney disease stage 2 (296256878) Chronic kidney disease, stage 2 (mild) (N18.2) Active confirmed Problem Retention of urine (943168822) Retention of urine, unspecified (R33.9) Active confirmed Problem Chronic fatigue syndrome (disorder) (19357391) Chronic fatigue, unspecified (R53.82) Active confirmed Problem Proteinuria (85839040) Other proteinuria (R80.8) Active confirmed Problem Essential hypertension (68181871) Essential hypertension (I10) Active confirmed Encounters Encounter Location Date Provider Diagnosis [place] [facility] [address] [facility] [address] [place] [address] 10/18/2023 Juve Hernandez Chronic kidney disea se, stage 2 (mild) N18.2 ; Essential hypertension I10 ; Other proteinuria R80.8 ; Type 2 diabetes mellitus with hyperglycemia E11.65 ; Morbid (severe) obesity due to excess calories E66.01 ; Retention of urine, unspecified R33.9 and Secondary hyperparathyroidism, not elsewhere classified E21.1 [place] [facility] [address] [address] 01/17/2024 Juve Hernandez Chronic kidney disea se, stage 2 (mild) N18.2 ; Other proteinuria R80.8 ; Morbid (severe) obesity due to excess calories E66.01 ; Type 2 diabetes mellitus with hyperglycemia E11.65 ; Retention of urine, unspecified R33.9 ; Secondary hyperparathyroidism, not elsewhere classified E21.1 and Essential hypertension I10 [place] [facility] [address] [address] 04/10/2024 Juve Hernandez Chronic kidney disea se, stage 2 (mild) N18.2 ; Other proteinuria R80.8 ; Morbid (severe) obesity due to excess calories E66.01 ; Type 2 diabetes mellitus with hyperglycemia E11.65 ; Retention of urine, unspecified R33.9 ; Secondary hyperparathyroidism, not elsewhere classified E21.1 ; Essential hypertension I10 and Pure hyperglyceridemia E78.1 [place] [facility] [address] [address] 07/24/2024 Juve Hernandez Chronic kidney disea se, [...] Name:Juve Hernandez , 10/09/2024 01:15:00 PM, [address] [facility] [address], [address],
--- OUTSIDE RECORDS SUMMARY | 2024-09-13 11:20 | XMS_ITS | Encounter Summary ---
Author Organization 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 SKIN, right evangelical: BASAL CELL CARCINOMA, KERATOTIC TYPE; FRAGMENTS OF (C44.319) 5:02 PM CDT DERMATOPATHOLOGY LABORATORY at 1702 CDT Clinical History BCC bx Site 4 5:02 PM CDT DERMATOPATHOLOGY LABORATORY Gross Description Specimen A: Received is one formalin filled container labeled with the patient's name and designated right evangelical. The specimen consists of a shave biopsy measuring 10x9x1 mm. Jar 0. 5:02 PM CDT DERMATOPATHOLOGY LABORATORY Microscopic Description Specimen A. SKIN, right evangelical: The specimen is fragmented. The dermis is [...] characteristic determined by the Dermatopathology Laboratory at [facility], directed by Dr. Richard Rueda. These tests need not be, and therefore are not, approved by the [place] Food and Drug Administration. The tests are used for clinical purposes. Billing Codes Specimen Charges Stain Charges 15277 1 4 5:02 PM CDT DERMATOPATHOLOGY LABORATORY Embedded Images 4 5:02 PM CDT DERMATOPATHOLOGY LABORATORY Pathology/Cytolo gy TISSUE SPECIMEN FROM SKIN / Unknown 06/11/2023 3:33 AM CDT 06/12/2023 6:52 AM CDT Garret Machado MD LAB - PATHOLOGY/CYTOLOGY ORDERAB LES Final Result DERMATOPATHOLOGY LABORATORY [facility] - Department of Dermatology [facility] Medicine [address] [place] [address], [address] [phone] documented in this encounter Visit Diagnoses Not on filedocumented in this encounter Care Teams Hiv Cts Specialist Relationship Specialty Start Date End Date Trinity Up MD [address] [phone] PCP - General Internal Medicine 12/03/18 documented as of this encounter
--- OUTSIDE RECORDS SUMMARY | 2024-09-13 11:20 | XMS_ITS | Referral Summary ---
Author Organization [facility] [place] Address [address] [place] [address] Care Team Providers Care Social Welfare Research Worker Name Role Phone Alona Up MD Primary Care Provide r Encounters Date Type Department Care Team Description 07/29/2024 11:00 AM CDT - 07/29/2024 11:59 PM CDT Hospital [facility] [place] [address] [place] [address] Abnormal weight loss Discharge Disposition: Discharge to home or self care from Last 3 Months Allergies Active Allergy Reactions Criticality Noted Date Comments Sulfa Rash Medium 07/29/2024 Social History Tobacco Use Types Packs/Day Years Used Date Smoking Tobacco: Never Assessed Sex and Gender Information Value Date Recorded Sex Assigned at Not on file 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 RW T: Report ID: [id number] Reading Location: [place] [address] Procedure Note Riccardo Carrera MD - 08/05/2024 [...] Riccardo Carrera M.D. RW T: Report ID: [id number] Reading Location: [place] [address] Alisa Rivera MD IMG CT PROCEDURES Final R esult from Last 3 Months Insurance [facility] MEDICARE ADVANTAGE Care Teams Social Welfare Research Worker Relationship Specialty Start Date End Date Alona Up MD [address] [facility] [address] [place] [address] PCP - General 07/25/17
--- OUTSIDE RECORDS SUMMARY | 2024-09-13 11:20 | XMS_ITS | Clinical Summary ---
Author Organization [facility] [place] Address [address] [place] [address] Care Team Providers Care Supervisor Engraving Name Role Phone Alona Up MD Primary Care Provide r Allergies Active Allergy Reactions Criticality Noted Date Comments Sulfa Rash Medium 07/29/2024 Encounters Date Type Department Care Team Description 07/29/2024 11:00 AM CDT - 07/29/2024 11:59 PM CDT Hospital [facility] [place] [address] [place] [address] Abnormal weight loss Discharge Disposition: Discharge to home or self care from Last 3 Months Social History Tobacco Use Types Packs/Day Years Used Date Smoking Tobacco: Never Assessed Sex and Gender Information Value Date Recorded Sex Assigned at Not on file 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 RW T: Report ID: [id number] Reading Location: [id number] Procedure Note Riccardo Carrera MD - 08/05/2024 [...] Riccardo Carrera M.D. RW T: Report ID: [id number] Reading Location: [place] [address] Alisa Rivera MD IMG CT PROCEDURES Final R esult from Last 3 Months Insurance [facility] MEDICARE ADVANTAGE [facility] Address: [facility] [address] [place] [address] Care Teams Supervisor Engraving Relationship Specialty Start Date End Date Alona Up MD [address] [address] PCP - General 07/25/17
--- OUTSIDE RECORDS SUMMARY | 2024-09-13 11:20 | XMS_ITS ---
Author Organization [facility] Address [address] [place] [address] Care Team Providers Care Battery Container Inspector Name Role Phone David Juve Unavailable [phone] Medications Medication SIG (Take, Route, Frequency, Duration) Notes Start Date End Date Status Vitamin D (Ergocalciferol) 1.25 MG (40555 UT) TAKE ONE CAPSULE BY MOUTH ONCE A WEEK; Duration: 91 Active Encounters Encounter Location Date Provider Diagnosis [place] [facility] [address] [facility] [address] [place] [address] 01/17/2024 Juve Hernandez Chronic kidney disease, stage [...] Name:Juve Hernandez , 10/09/2024 01:15:00 PM, [address] [facility], [facility] [address], [place], [address], Progress Notes * AMENA FOSTERDOB:1950 (74 yo F)Acc No.[id number]:01/17/2024 Progress Notes Patient: AMENA ROJAS Provider: Julieth FORTUNE MD, Jaden.Emanuel.C.P, F.A.S.N. :1950 A ge:73 Y S ex:Female Date:01/17/2024 Address:[address] [place] [address] [place] [address] Subjective: * Chief Complaints: * * Medical History: * Medications: T aking Vitamin D (Ergocalciferol) 1.25 MG (06745 UT) Capsule TAKE ONE CAPSULE BY MOUTH [...] Treatment: * Billing Information: * Visit Code: 13438 Office Visit, Est Pt., Level 4. * Procedure Codes: * Electronic signature of Moira Hernandez MD on 09/13/2024 at 11:20 AM CDT Sign off status: Pending * Provider: Julieth FORTUNE MD, F.Emanuel.C.P, F.A.S.N. Date: 03/18/2023 Generated for Printing/Faxing/eTransmitting on: 0 09/13/2024 11:20 AM CDT
--- OUTSIDE RECORDS SUMMARY | 2024-09-13 11:20 | XMS_ITS | Clinical Summary ---
Author Organization [facility] Jose argueta [facility] Address [address] [place] [address] Care Team Providers Care Computer Information Science Professor Name Role Phone Trinity Up MD Primary [...] Comments Blood Pressure 121/80 01/28/2024 10:29 AM STARBUCKS CLERK Pulse 91 01/28/2024 10:26 AM STARBUCKS CLERK Temperature 36.9 C (98.4 F) 01/28/2024 10:26 AM STARBUCKS CLERK Respiratory Rate 17 01/28/2024 10:2 6 AM STARBUCKS CLERK Oxygen Saturation 94% 01/28/2024 10: 26 AM STARBUCKS CLERK Inhaled Oxygen Concentration - - Weight 114.6 kg (252 lb 9.6 oz) 024 10:26 AM STARBUCKS CLERK Height 180.3 cm (5' 11) 01/11/2021 10: 59 AM STARBUCKS CLERK Body Mass Index 35.23 01/11/2021 10:59 AM STARBUCKS CLERK Plan of Treatment Health Maintenance Due Date [...] 50+ YEARS Completed 05/01/2017 , 12/31/[address] [id number] Care Teams Computer Information Science Professor Relationship Specialty Start Date End Date Trinity Up MD PCP - General Internal Medicine 12/28/20
--- OUTSIDE RECORDS SUMMARY | 2024-09-13 11:20 | XMS_ITS ---
Author Organization [facility] Address [address] [address] Care Team Providers Care Auto Apprentice Mechanic Name Role Phone Trinity Up Primary Care Provider CROW Estrada Unavailable [phone] Encounters Encounter Location Date Provider Diagnosis [facility] [address] [address] 03/25/2024 CROW ESTRADA Plan Of Treatment No Information Progress Notes * Glenn VILLALPANDODOB:1950 (74 yo M)Acc No.[id number]:03/25/2024 Patient: Glenn ROJAS Provider: Ana ESTRADA M.D. :1950 A ge:74 Y S ex:Male Date:03/25/2024 Address:[address] [place] [address] Pcp:Trinity Up Subjective: * Chief Complaints: * * Medical History: Objective: * Vitals: Assessment: Plan: * Treatment: * * Electronic signature of FRANCESCA ESTRADA MD on 09/13/2024 at 11:20 AM CDT Sign off status: Pending * Provider: Ana ESTRADA M.D. Date: 03/25/2024 Generated for Zachary woodard/Georges/Katyitting on: 09/13/2024 11:20 AM CDT
--- OUTSIDE RECORDS SUMMARY | 2024-09-13 11:21 | XMS_ITS ---
Author Organization [facility] Office Address [address] [facility] 61 [facility] G30 [place] [address] Care Team Providers Care Jewel Grinder Name Role Phone Juve Hernandez Unavailable [phone] Medications Medication SIG (Take, Route, Frequency, Duration) Notes Start Date End Date Status Vitamin D (Ergocalciferol) 1.25 MG (48319 UT) TAKE ONE CAPSULE BY MOUTH ONCE A WEEK; Duration: 91 Active Problems Problem Type SNOMED Code ICD Code Onset Dates Problem Status W/U Status Risk Notes Problem Pure hyperglyceridemia (E78.1) Active confirmed Encounters Encounter Location Date Provider Diagnosis [place] [facility] 2043 [facility] 15 [place] [address] 04/10/2024 Juve Hernandez Chronic kidney disea se, [...] Name:Juve David , 10/09/2024 01:15:00 PM, 2043 [facility], [facility] 15, [place], [address], Progress Notes * AMENA FOSTERDOB:1950 (74 yo F)Acc No.[id number]:04/10/2024 Progress Notes Patient: AMENA ROJAS Provider: Julieth FORTUNE MD, F.A.C.P, F.A.S.N. :1950 A ge:74 Y S ex:Female Date:04/10/2024 Address:[address] [place], [place] [id number] Subjective: * Chief Complaints: * * Medical History: * Medications: T aking Vitamin D (Ergocalciferol) 1.25 MG (53394 UT) Capsule TAKE ONE CAPSULE BY MOUTH [...] Treatment: * Billing Information: * Visit Code: 53250 Office Visit, Est Pt., Level 4. * Procedure Codes: * Electronic signature of Moira Hernandez MD on 09/13/2024 at 11:21 AM CDT Sign off status: Pending * Provider: Julieth FORTUNE MD, F.A.C.P, F.A.S.N. Date: 0 04/10/2024 Generated for Printing/Faxing/eTransmitting on: 0 09/13/2024 11:21 AM CDT
--- OUTSIDE RECORDS SUMMARY | 2024-09-13 11:21 | XMS_ITS ---
Author Organization [facility] Address [address] [place] [address] Care Team Providers Care Building Custodian Name Role Phone David Juve Unavailable [phone] Problems Problem Type SNOMED Code ICD Code Onset Dates Problem Status W/U Status Risk Notes Problem Hypervitaminosis D (06110128) 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) Active confirmed Problem Chronic fatigue syndrome (disorder) (82403155) Chronic fatigue, unspecified (R53.82) Active confirmed Encounters Encounter Location Date Provider Diagnosis [place] [facility] 2043 [facility] 15 [place] [address] 07/24/2024 Juve Hernandez Chronic kidney disea se, [...] Name:Juve David , 10/09/2024 01:15:00 PM, 2043 [facility], [facility], [place], [address], Progress Notes * AMENA FOSTERDOB:1950 (74 yo F)Acc No.[id number]:07/24/2024 Progress Notes Patient: AMENA ROJAS Provider: Julieth FORTUNE MD, F.A.C.P, F.A.S.N. :1950 A ge:74 Y S ex:Female Date:07/24/2024 Address:[address] [place], [place] [id number] Subjective: * Chief Complaints: * * Medical [...] Treatment: * Billing Information: * Visit Code: 87340 Office Visit, Est Pt., Level 4. * Procedure Codes: * Electronic signature of Moira Hernandez MD on 09/13/2024 at 11:20 AM CDT Sign off status: Pending * Provider: Julieth FORTUNE MD, F.A.C.P, F.A.S.N. Date: 07/24/2024 Generated for Printing/Faxing/eTransmitting on: 0 09/13/2024 11:20 AM CDT
--- OUTSIDE RECORDS SUMMARY | 2024-09-13 11:21 | XMS_ITS | Patient Health Record ---
Author Organization [facility] Address [address] [address] Care Team Providers Care Back Tender Insulation Board Name Role Phone MargiechuchoTrinity haley Primary Care Provider CROW Estrada Unavailable [phone] Allergies Allergen (clinical drug ingredient) Drug/Non Drug [...] Problem Status W/U Status Risk Notes Problem 52971628 Sacroiliitis (M46.1) Active confirmed Problem 127947536 Lumbar spondylosis (M47.816) Active confirmed Problem 26669509 Spinal stenosis of lumbar region with neurogenic claudication (M48.062) Active confirmed Vital Signs Heart Rate 113 /min 12/04/2023 Temperature 98.6 degrees Fahrenheit 12/04/2023 Blood pressure diastolic 88 mm Hg 12/04/2023 Height 71 in 12/04/2023 Blood pressure systolic 141 mm Hg 12/04/2023 Weight 263 lbs 12/04/2023 BMI 36.68 kg/m2 12/04/2023 Encounters Encounter Location Date Provider Diagnosis [facility] [id number] [place] [address] 12/04/2023 CROW ESTRADA Spinal stenosis of lumbar [...] Date [employer] MEDICARE COMPLETE [address] [address] [place] [phone] Glenn Villalpando Self - patient is the [...]
--- NOTE | 2024-09-13 11:38 | ECG_ITS ---
Test Date: 2024-09-13 11:42:03 Measurements Intervals [place] Rate: 75 P: 16 [place]: 236 QRS: 12 QRSD: 96 T: 43 QT: 356 QTc: 398 Interpretive Statements SINUS RHYTHM WITH FIRST DEGREE AV BLOCK ABNORMAL ECG Compared to ECG 09/09/2024 11:50:33 No significant changes Electronically Signed On 09-13-2024 11:43:43 CDT by Jude Dave M.D.
[2024-09-13 11:54] LABS: Hematocrit 41.0 % (42.0-52.0); Hemoglobin 14.2 g/dL (14.0-18.0); Immature Granulocyte Percent A 1.7 % (0-0.5); Lymphocytes Absolute Auto 1.69 K/mm3 (0.9-3.2); Mean Corpuscular HGB Conc 34.6 g/dl (32-36); Mean Corpuscular Hemoglobin 31.0 pg (26-34); Mean Corpuscular Volume 89.5 fl (80-100); Nucleated Red Blood Cells Absolute Auto 0.000 K/mm3 (0.0-0.012); Nucleated Red Blood Cells Perc 0.0 % (0.0-0.2); Platelet Count Result 210 k/mm3 (150-375); Red Blood Count 4.58 M/mm3 (4.6-6.20); White Blood Count 9.1 K/mm3 (4.5-10.0)
[2024-09-13 12:02] LABS: Alanine Aminotransferase 30 U/L (6-50); Albumin Level 4.2 g/dL (3.5-5.1); Alkaline Phosphatase 33 U/L (38-126); Anion Gap 13 mmol/L (4-12); Aspartate Amino Transferase 45 U/L (17-59); Bilirubin,Total 0.8 mg/dL (0.2-1.3); Blood Urea Nitrogen 8 mg/dL (9-20); Calcium 7.6 mg/dL (8.4-10.2); Carbon Dioxide 26 mmol/L (22-30); Chloride 100 mmol/L (98-107); Estimated CRCL calculation 98 ml/min; Estimated Glomerular Filt Rate > 60; Glucose 161 mg/dL (65-110); Potassium 3.0 mmol/L (3.4-5.0); Sodium 139 mmol/L (137-145); Total Protein 7.8 g/dL (6.3-8.2)
--- OUTSIDE RECORDS SUMMARY | 2024-09-13 12:48 | XMS_ITS | Encounter Summary ---
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 SKIN, right mormonism: BASAL CELL CARCINOMA, NODULAR TYPE (C44.319) 2:41 PM CDT DERMATOPATHOLOGY LABORATORY at 1441 CDT Clinical History R/O BCC. 2:41 PM CDT DERMATOPATHOLOGY LABORATORY Gross Description Specimen A: Received is one formalin filled container labeled with the patient's name and designated right mormonism. The specimen consists of a shave biopsy measuring 9x12x4 mm. Jar 0. 2:41 PM CDT DERMATOPATHOLOGY LABORATORY Microscopic Description Specimen A. SKIN, right mormonism: Within the dermis there are aggregates of [...] characteristic determined by the Dermatopathology Laboratory at [facility], directed by Dr. Richard Rueda. These tests need not be, and therefore are not, approved by the [place] Food and Drug Administration. The tests are used for clinical purposes. Billing Codes Specimen Charges Stain Charges 43833 1 03/28/202 4 2:41 PM CDT DERMATOPATHOLOGY LABORATORY Embedded Images 4 2:41 PM CDT DERMATOPATHOLOGY LABORATORY Pathology/Cytolog y TISSUE SPECIMEN FROM SKIN / Unknown 05/28/2023 05/28/2023 3:41 PM CDT Garret Machado MD LAB - PATHOLOGY/CYTOLOGY ORDERAB LES Final Result DERMATOPATHOLOGY LABORATORY [facility] - Department of Dermatology [facility] [address] [place] [address], [address] [phone] documented in this encounter Visit Diagnoses Not on filedocumented in this encounter Care Teams Boilermaker Loftsman Relationship Specialty Start Date End Date Trinity Up MD [address] [address] PCP - General Internal Medicine 12/03/18 documented as of this encounter
--- OUTSIDE RECORDS SUMMARY | 2024-09-13 12:49 | XMS_ITS | Clinical Summary ---
Author Organization [facility] Address [address] [place] [address] Care Team Providers Care Fuel Cell Repairer Name Role Phone Trinity Up MD Primary Care Provider Source Comments [facility],non-owned Affiliates and Associated Physician Practices is amultiple site organization consisting of ambulatory clinics and hospital sitesin [place], [place], [place] and [place]. This disclosure is being madepursuant to the Care Everywhere program and may not contain all information available regarding this patient. 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 Gender Identity Not on file Sexual Orientation [...] 7 - 26 mg/dL 09/18/2021 3:27 PM [facility] Creatinine 0.79 0.71 - 1.16 mg/dL 09/18/2021 3:27 PM [facility] Sodium 142 136 - 145 mmol/L 09/18/2021 3:27 PM [facility] Potassium 3.9 3.5 - 4.5 mmol/L 09/18/2021 3:27 PM [facility] Chloride 106 98 - 107 mmol/L 09/18/2021 3:27 PM [facility] CO2 24 22 - 29 mmol/L 09/18/2021 3:27 PM [facility] Glucose 129(H) 70 - 115 mg/dL 09/18/2021 3:27 PM [facility] Calcium 9.3 8.4 - 10.2 mg/dL 09/18/2021 3:27 PM [facility] Protein Total 7.3 6.0 - 8.3 g/dL 09/18/2021 3:27 PM [facility] Albumin 3.5 3.4 - 5.0 g/dL 09/18/2021 3:27 PM [facility] Bilirubin Total 0.5 0.2 - 1.2 mg/dL 09/18/2021 3:27 PM [facility] Alkaline Phosphatase 45 40 - 150 U/L 09/18/2021 3:27 PM [facility] ALT 16 5 - 55 U/L 09/18/2021 3:27 PM [facility] AST 19 5 - 34 U/L 09/18/2021 3:27 PM CDT [facility] Anion Gap 16 8 - 18 09/18/2021 3:27 PM T [facility] BUN/Creatinine Ratio 9 7 - 23 09/18/2021 3:27 PM T [facility] Osmolality Calculated 294 270 - 300 mOsm/kg 09/18/2021 3:27 PM T [facility] Albumin/Globulin Ratio 0.9(L) 1.1 - 2.3 09/18/2021 3:27 PM T [facility] eGFR by CKD-EPI >90 >=90 mL/min/1.7 3 m2 09/18/2021 3:27 PM T [facility] Blood BLOOD SPECIMEN / Unknown Lab Venipuncture / Unknown 09/18/2021 2:19 PM CDT 09/18/2021 2:57 PM CDT Mitul Koo MD LAB - CHEMISTRY ORDERABLES Fin al Result [facility] [address] [place] [address], [facility] [phone] from Last 3 Months or Most Recently Relevant to Health Maintenance Insurance [facility] MANAGED MEDICARE ADV MEDICARE [facility] Care Teams Fuel Cell Repairer Relationship Specialty Start Date End Date Trinity Up MD [address]44 [facility] 15 [place] [phone] PCP - General Internal Medicine 12/03/18
--- OUTSIDE RECORDS SUMMARY | 2024-09-13 12:49 | XMS_ITS | Referral Summary ---
Author Organization [facility] [place] Address [address] [place] [address] Care Team Providers Care Motor Vehicle License Clerk Name Role Phone Alona Up MD Primary Care Provide r Encounters Date Type Department Care Team Description 07/29/2024 11:00 AM CDT - 07/29/2024 11:59 PM CDT Hospital En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 RW T: Report ID: [id number] Reading Location: [place] [address] Procedure Note Riccardo Carrera MD - 08/05/2024 [...] Riccardo Carrera M.D. RW T: Report ID: [id number] Reading Location: [place] [address] Alisa Rivera MD IMG CT PROCEDURES Final R esult from Last 3 Months Insurance [facility] MEDICARE ADVANTAGE Care Teams Motor Vehicle License Clerk Relationship Specialty Start Date End Date Alona Up MD [address] [facility] 15 [place] [address] PCP - General 07/25/17
--- OUTSIDE RECORDS SUMMARY | 2024-09-13 12:49 | XMS_ITS | Encounter Summary ---
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 SKIN, right adventism: BASAL CELL CARCINOMA, KERATOTIC TYPE; FRAGMENTS OF (C44.319) 5:02 PM CDT DERMATOPATHOLOGY LABORATORY at 1702 CDT Clinical History BCC bx Site 4 5:02 PM CDT DERMATOPATHOLOGY LABORATORY Gross Description Specimen A: Received is one formalin filled container labeled with the patient's name and designated right adventism. The specimen consists of a shave biopsy measuring 10x9x1 mm. Jar 0. 5:02 PM CDT DERMATOPATHOLOGY LABORATORY Microscopic Description Specimen A. SKIN, right adventism: The specimen is fragmented. The dermis is [...] characteristic determined by the Dermatopathology Laboratory at [facility], directed by Dr. Richard Rueda. These tests need not be, and therefore are not, approved by the [place] Food and Drug Administration. The tests are used for clinical purposes. Billing Codes Specimen Charges Stain Charges 34168 1 4 5:02 PM CDT DERMATOPATHOLOGY LABORATORY Embedded Images 4 5:02 PM CDT DERMATOPATHOLOGY LABORATORY Pathology/Cytolo gy TISSUE SPECIMEN FROM SKIN / Unknown 06/11/2023 3:33 AM CDT 06/12/2023 6:52 AM CDT Garret Machado MD LAB - PATHOLOGY/CYTOLOGY ORDERAB LES Final Result DERMATOPATHOLOGY LABORATORY [facility] - Department of Dermatology [facility] [address] [place] [address], [address] [phone] documented in this encounter Visit Diagnoses Not on filedocumented in this encounter Care Teams Awning Frame Maker Relationship Specialty Start Date End Date Trinity Up MD [address] [phone] PCP - General Internal Medicine 12/03/18 documented as of this encounter
--- OUTSIDE RECORDS SUMMARY | 2024-09-13 12:49 | XMS_ITS | Clinical Summary ---
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 COMMUNICATIONS ENGINEER Pulse 91 01/28/2024 10:26 AM SATELLITE COMMUNICATIONS ENGINEER Temperature 36.9 C (98.4 F) 01/28/2024 10:26 AM SATELLITE COMMUNICATIONS ENGINEER Respiratory Rate 17 01/28/2024 10:2 6 AM SATELLITE COMMUNICATIONS ENGINEER Oxygen Saturation 94% 01/28/2024 10: 26 AM SATELLITE COMMUNICATIONS ENGINEER Inhaled Oxygen Concentration - - Weight 114.6 kg (252 lb 9.6 oz) 024 10:26 AM SATELLITE COMMUNICATIONS ENGINEER Height 180.3 cm (5' 11) 01/11/2021 10: 59 AM SATELLITE COMMUNICATIONS ENGINEER Body Mass Index 35.23 01/11/2021 10:59 AM SATELLITE COMMUNICATIONS ENGINEER Plan of Treatment Health Maintenance Due Date [...] 50+ YEARS Completed 05/01/2017 , 12/31/[address] [id number] Care Teams Hat Measurer Relationship Specialty Start Date End Date Trinity Up MD PCP - General Internal Medicine 12/28/20
--- OUTSIDE RECORDS SUMMARY | 2024-09-13 12:49 | XMS_ITS | Clinical Summary ---
Author Organization [facility] [place] Address [address] [place] [address] Care Team Providers Care Continuous Crusher Operator Name Role Phone Alona Up MD Primary Care Provide r Allergies Active Allergy Reactions Criticality Noted Date Comments Sulfa Rash Medium 07/29/2024 Encounters Date Type Department Care Team Description 07/29/2024 11:00 AM CDT - 07/29/2024 11:59 PM CDT Hospital [facility] [place] [address] [place] [address] Abnormal weight loss Discharge Disposition: Discharge to home or self care from Last 3 Months Social History Tobacco Use Types Packs/Day Years Used Date Smoking Tobacco: Never Assessed Sex and Gender Information Value Date Recorded Sex Assigned at Not on file 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 RW T: Report ID: [id number] Reading Location: [id number] Procedure Note Riccardo Carrera MD - 08/05/2024 [...] Riccardo Carrera M.D. RW T: Report ID: [id number] Reading Location: [place] [address] Alisa Rivera MD IMG CT PROCEDURES Final R esult from Last 3 Months Insurance [facility] MEDICARE ADVANTAGE Care Teams Continuous Crusher Operator Relationship Specialty Start Date End Date Alona Up MD [address] [address] PCP - General 07/25/17
[2024-09-13] MEDS: IPRATROPIUM 0.5 MG/ALBUTEROL SULFATE 2.5 MG AMPUL.NEB 3 ML 12 ML INHALATION (12:53)
[2024-09-13] MEDS: ONDANSETRON INJ 4 MG/2 ML VIAL IV PUSH ×2 (12:54→19:00)
[2024-09-13] MEDS: MAGNESIUM SULF 2 GM/WATER 50ML 2 GM/50 ML BAG IVPB (12:54)
[2024-09-13] MEDS: SODIUM CHLORIDE 0.9% IV 1,000 ML 999 ML IV CONT (12:54)
[2024-09-13 12:59] LABS: Alveolar/Arterial O2 Gradient 49.1 mmHg; Fractional Inspired Oxygen 21 %; HCO3 ABG 25.1 mEq/l (22.0-26.0); Oxygen Content ABG 18.7 %vol (16.0-22.0); Oxygen Saturation ABG 92.1 % (95.0-100.0); PCO2 ABG 35.3 mmHg (35.0-45.0); PO2 ABG 58.4 mmHg (80.0-100.0); PO2 FiO2 Ratio Arterial Blood 2.78 %
[2024-09-13 13:01] LABS: Modified Allen's Test Pass; Site Drawn RIGHT RADIAL
[2024-09-13 13:08] LABS: Lipase 207 U/L (23-300); Magnesium 0.2 mg/dL (1.6-2.3)
[2024-09-13 13:14] LABS: INR 1.1; Prothrombin Time 14.5 Seconds (11.1-14.7)
[2024-09-13 13:15] LABS: Partial Thromboplastin Time 28.5 Seconds (22.3-36.8)
[2024-09-13 13:20] LABS: NT Pro B Type Natriuretic Pept 129 pg/mL (19.9-100); Troponin I < 0.012 ng/mL (0.000-0.034)
--- NOTE | 2024-09-13 13:27 | PC.NURSE ---
pt is aware he needs to give a urine sample. pt has a urinal at bedside. pt is A&OX4 and refusing a catheter
[2024-09-13 13:40] LABS: Thyroid Stimulating Hormone Reflex 0.833 uIU/mL (0.465-4.68)
[2024-09-13 13:52] LABS: Influenza A QL RT-PCR Negative (Negative); Influenza B QL RT-PCR Negative (Negative); RSV RNA, RT-PCR Negative (Negative); SARS-CoV-2 RNA PCR Negative (Negative)
[2024-09-13 14:43] LABS: Add Urine Microscopic? YES; Appearance Urine Clear (Clear); Glucose Urine UA Negative (Negative); Leukocyte Esterase Ur Negative LEU/UL (Negative); Nitrate Urine Negative (Negative); Non Pathogenic Casts 0-2; Specific Grav Ur 1.026 (1.001-1.035)
[2024-09-13] MEDS: HEPARIN SOD/D5W 100 UNITS/ML 25,000 UNITS/250 ML BAG 15 UNITS IV CONT (15:20)
--- NOTE | 2024-09-13 15:27 | ED.GENADULT ---
HPI - General Adult General Chief complaint: Weakness Stated complaint: weakness Time Seen by Provider: 09/13/24 12:18 History of Present Illness HPI narrative: This is a 74-year-old male presenting ED with chief complaint of nausea and vomiting. Patient has had nausea vomiting for the last 2 weeks. He has had decreased oral intake and has now become weak and fatigued. He does not have any abdominal pain. He had a EGD and colonoscopy performed by Dr. Alisa Rivera @ OSH showing erosive esophagitis, gastritis and then several polyps were taken from his colonoscopy. Patient's states he has had a 50lb unintentional weight loss since June of this year. After the patient arrived at our hospital he developed sudden onset chest pain and shortness of breath. Patient describes the chest pain in center of chest as achy. He feels like he cannot get a katlin breath. Patient says that he has noticed swelling of his left lower extremity. No other history of DVT or PE. Related Data Home Medications ?Medication ?Instructions ?Recorded ?Confirmed ?Last Taken ?Type potassium gluconate 595 mg (99 mg) 595 mg PO DAILY 04/15/19 04/14/24 Unknown History tablet aspirin 81 mg tablet,delayed 81 mg PO DAILY 04/16/19 04/14/24 Unknown History release lisinopril 10 mg tablet 5 mg PO DAILY 10/03/20 04/14/24 Unknown History metformin 500 mg tablet 500 mg PO DAILY 10/03/20 04/14/24 Unknown History acetaminophen 500 mg oral powder 500 mg PO Q6H PRN 10/23/21 04/14/24 Unknown History packet (Tylenol Extra Strength) [id number]-sds-xhjny acid 0.4 1 tablet PO DAILY 10/23/21 04/14/24 Unknown History mg-lycopene 300 mcg-lutein 250 mcg tablet (Centrum Silver) calcium 500 mg (as 1 tablet PO 08/29/22 04/14/24 Unknown History carbonate)-vitamin D3 5 mcg (200 unit) tablet (Oysco 500/D) ergocalciferol (vitamin D2) 1,250 1,250 mcg PO 08/29/22 04/14/24 Unknown History mcg (50,000 unit) capsule pantoprazole 20 mg tablet,delayed mg PO 08/29/22 04/14/24 Unknown History release Allergies Allergy/AdvReac Type Severity Reaction Status Date / Time Sulfa (Sulfonamide Allergy Mild Rash Verified 09/13/24 11:22 Antibiotics) lidocaine Allergy Unknown Hives Verified 09/13/24 11:22 NEOPREEN Allergy Severe RASH Uncoded 09/13/24 11:22 [facility] Past Medical History Medical History Obesity (BMI 30-39.9) Tobacco abuse Hypercholesterolemia DJD (degenerative joint disease) Bronchitis GERD (gastroesophageal reflux disease) RAOUL (obstructive sleep apnea) COPD (chronic obstructive pulmonary disease) Surgical History Surgical History H/O wrist surgery History of tonsillectomy H/O knee surgery History of adenoidectomy History of colonoscopy Social History Social History Smoking packs per day: 2 Smoking cigarettes per day: 40.0 Years smoked: 60 Smoking pack-years: 120.00 Smoking status: Current every day smoker Tobacco type: cigarettes Second hand tobacco smoke exposure: Yes Alcohol intake: never Gender identity (if verbalized by the patient): Male Exam Narrative: APPEARANCE: No apparent distress. Head: atraumatic. EYES: EOMI, NOSE: Atraumatic NECK: Trachea midline RESPIRATORY: No increased rate of breathing, CTAB CARDIOVASCULAR: Tachycardic, no significant edema of the lower extremities ABDOMINAL: Non-distended soft nontender MUSCULOSKELETAl: No obvious deformities NEURO: Alert. Moving 4/4 extremities SKIN:: Warm, dry. Normal color PSYCHIATRIC: Normal affect Course Vital Signs Vital signs: Vital Signs Temperature 97.8 F 09/13/24 11:19 Pulse Rate 79 09/13/24 11:19 Respiratory Rate 18 09/13/24 11:19 Blood Pressure 149/101 H 09/13/24 11:19 Pulse Oximetry 92 09/13/24 11:19 Oxygen Delivery Room Air 09/13/24 11:19 Temperature 97.8 F 09/13/24 11:19 Pulse Rate 102 H 09/13/24 14:45 Respiratory Rate 20 09/13/24 14:45 Blood Pressure 132/72 09/13/24 14:45 Pulse Oximetry 93 09/13/24 14:45 Oxygen Delivery Room Air 09/13/24 11:49 Medical Decision Making MDM Narrative Medical decision making narrative: -Course: 74-year-old male originally presenting to the ED for nausea vomiting who then developed sudden onset chest pain and shortness of breath. CTA chest abdomen pelvis was obtained which showed a right pulmonary artery embolism with right heart strain. Also shows consolidation versus atelectasis in the right lower lobe. Patient is not requiring supplemental oxygen. He is mildly tachycardic. No elevations in troponin and BNP is 129. Patient is intermediate risk/submassive PE. Patient has been started on heparin. Patient is on ceftriaxone and doxycycline to cover pneumonia. Bilateral venous ultrasounds ordered for prognostication. CT also showed a grossly thickened wall of the stomach which is likely the cause of his nausea and vomiting. He has had obtained a EGD/SCOPE recently at an outside facility and has not been informed of the results yet. Patient has received Zofran and IV fluids. Rest was laboratory studies were significant for a magnesium of 0.2. Patient received 2 g of magnesium. Magnesium repeat is 0.6 mg. 4 mg IV started. This is likely the cause of the patient's weakness. Potassium is 3.0 which is being repleted. Goals of care were discussed with the patient and he is DNR/DNI. Fluids/medications/pressors are okay. Patient was discussed with Dr. Carrillo and will be placed in the ICU. Patient will be admitted to the hospital for further management. -DDX includes but is not limited to: ACS pneumonia -Co-morbidities complicating care: Gastritis/GERD, diabetes, hypertension, COPD -External Chart Review: Review discharge paperwork from recent EGD -Hx from independent Sources: at bedside -Independent interpretation of studies: White count 9.1. Hemoglobin 14.2 with MCV of 89. Platelets 210. D-dimer elevated at 0.72. ABG showed 7.47/35.58/25.1 Potassium 3.0 Urine not indicative infection. Viral swabs negative. Independent EKG interpretation: Rhythm [sinus], Rate [75], [place] -[normal], [place] -[236], QRS [narrow], QTC [normal], T waves -[negative for concerning inversions], ST Segments - [Negative for concerning elevations] Final interpretations: [Normal Sinus Rhythm] Pulmonary Embolism Severity Index (PESI) from [employer] on 09/13/2024 All calculations should be rechecked by clinician prior to use RESULT SUMMARY: 96 points Class III, Intermediate Risk: 3.2-7.1% 30-day mortality in this group. INPUTS: Age ?> 74 years Sex ?> 10 = Male History of cancer ?> 0 = No History of heart failure ?> 0 = No History of chronic lung disease ?> 10 = Yes Heart rate >=10 ?> 0 = No Systolic BP <100 mmHg ?> 0 = No Respiratory rate >=0 ?> 0 = No Temperature <36?C/96.8?F ?> 0 = No Altered mental status (disorientation, lethargy, stupor, or coma) ?> 0 = No O2 saturation <90% ?> 0 = No Vital Signs Vital Signs: Vital Signs Temperature 97.8 F 09/13/24 11:19 Pulse Rate 79 09/13/24 11:19 Respiratory Rate 18 09/13/24 11:19 Blood Pressure 149/101 H 09/13/24 11:19 Pulse Oximetry 92 09/13/24 11:19 Oxygen Delivery Room Air 09/13/24 11:19 Temperature 97.8 F 09/13/24 11:19 Pulse Rate 102 H 09/13/24 14:45 Respiratory Rate 20 09/13/24 14:45 Blood Pressure 132/72 09/13/24 14:45 Pulse Oximetry 93 09/13/24 14:45 Oxygen Delivery Room Air 09/13/24 11:49 Lab Data 09/13/24 11:46 09/13/24 11:46 Labs: Lab Results 09/13/24 09/13/24 09/13/24 Range/Units 11:46 13:11 14:33 WBC 9.1 (4.5-10.0) K/mm3 RBC 4.58 L (4.6-6.20) M/mm3 Hgb 14.2 (14.0-18.0) g/dL Hct 41.0 L (42.0-52.0) % MCV 89.5 (80-100) fl MCH 31.0 (26-34) pg MCHC 34.6 (32-36) g/dl RDW 13.6 (11.5-14.5) % Plt Count 210 (150-375) k/mm3 MPV 11.2 H (7.4-10.4) fl Immature Gran % (Auto) 1.7 H (0-0.5) % Neut % (Auto) 74.9 H (45.5-73.1) % Lymph % (Auto) 18.6 (18.3-44.2) % [place] % (Auto) 4.1 (2.6-8.5) % Eos % (Auto) 0.3 (0-4.4) % Baso % (Auto) 0.4 (0.2-1.2) % Lymph # (Auto) 1.69 (0.9-3.2) K/mm3 [place] # (Auto) 0.4 (0.1-0.6) K/mm3 Eos # (Auto) 0.0 (0-0.3) K/mm3 Baso # (Auto) 0.0 (0.0-0.1) K/mm3 Abs Immat Gran (auto) 0.15 H (0.00-0.031) K/mm3 Absolute Neuts (auto) 6.8 H (1.3-6.7) K/mm3 Absolute Nucleated RBC 0.000 (0.0-0.012) K/mm3 Nucleated RBC % 0.0 (0.0-0.2) % PT 14.5 (11.1-14.7) Seconds INR 1.1 APTT 28.5 (22.3-36.8) Seconds D-Dimer 0.72 H (<0.48) ug/mL Sodium 139 (137-145) mmol/L Potassium 3.0 L (3.4-5.0) mmol/L Chloride 100 (98-107) mmol/L Carbon Dioxide 26 (22-30) mmol/L Anion Gap 13 H (4-12) mmol/L BUN 8 L (9-20) mg/dL Creatinine 0.69 L (0.7-1.3) mg/dL Estim Creat Clear Calc 98 ml/min Estimated GFR > 60 (59 - ) Glucose 161 H (65-110) mg/dL Lactic Acid 1.5 (0.7-2.0) mmol/L Calcium 7.6 L (8.4-10.2) mg/dL Phosphorus 3.6 (2.5-4.5) mg/dL Magnesium 0.2 L (1.6-2.3) mg/dL Total Bilirubin 0.8 (0.2-1.3) mg/dL AST 45 (17-59) U/L ALT 30 (6-50) U/L Alkaline Phosphatase 33 L (38-126) U/L Troponin I < 0.012 (0.000-0.034) ng/mL NT-Pro-B Natriuret Pep 129 H (19.9-100) pg/mL Total Protein 7.8 (6.3-8.2) g/dL Albumin 4.2 (3.5-5.1) g/dL Lipase 207 (23-300) U/L TSH (Reflex) 0.833 (0.465-4.68) uIU/mL Urine Color Yellow (Yellow) Urine Appearance Clear (Clear) Urine pH 7.0 (5.0-9.0) Ur Specific [place] 1.026 (1.001-1.035) Urine Protein 1+ H (Negative) mg/dL Urine Glucose (UA) Negative (Negative) mg/dL Urine Ketones Negative (Negative) mg/dL Ur Blood (Man) Negative (Negative) Urine Nitrate Negative (Negative) Urine Bilirubin Negative (Negative) Urine Urobilinogen 1.0 (<2.0) mg/dL Leukocyte Esterase Rfl Negative (Negative) BRYAN/UL Urine RBC 0-2 (0-2) /hpf Urine WBC 0-5 (0-3) /hpf Ur Squamous Epith Cells None seen (Few) /hpf Urine Bacteria None seen /hpf Urine Casts 0-2 Influenza A (RT-PCR) Negative (Negative) Influenza B (RT-PCR) Negative (Negative) RSV (RT-PCR) Negative (Negative) SARS-CoV-2 RNA (RT-PCR) Negative (Negative) 09/13/24 Range/Units 16:07 WBC (4.5-10.0) K/mm3 RBC (4.6-6.20) M/mm3 Hgb (14.0-18.0) g/dL Hct (42.0-52.0) % MCV (80-100) fl MCH (26-34) pg MCHC (32-36) g/dl RDW (11.5-14.5) % Plt Count (150-375) k/mm3 MPV (7.4-10.4) fl Immature Gran % (Auto) (0-0.5) % Neut % (Auto) (45.5-73.1) % Lymph % (Auto) (18.3-44.2) % [place] % (Auto) (2.6-8.5) % Eos % (Auto) (0-4.4) % Baso % (Auto) (0.2-1.2) % Lymph # (Auto) (0.9-3.2) K/mm3 [place] # (Auto) (0.1-0.6) K/mm3 Eos # (Auto) (0-0.3) K/mm3 Baso # (Auto) (0.0-0.1) K/mm3 Abs Immat Gran (auto) (0.00-0.031) K/mm3 Absolute Neuts (auto) (1.3-6.7) K/mm3 Absolute Nucleated RBC (0.0-0.012) K/mm3 Nucleated RBC % (0.0-0.2) % PT (11.1-14.7) Seconds INR APTT (22.3-36.8) Seconds D-Dimer (<0.48) ug/mL Sodium (137-145) mmol/L Potassium (3.4-5.0) mmol/L Chloride (98-107) mmol/L Carbon Dioxide (22-30) mmol/L Anion Gap (4-12) mmol/L BUN (9-20) mg/dL Creatinine (0.7-1.3) mg/dL Estim Creat Clear Calc ml/min Estimated GFR (59 - ) Glucose (65-110) mg/dL Lactic Acid (0.7-2.0) mmol/L Calcium (8.4-10.2) mg/dL Phosphorus (2.5-4.5) mg/dL Magnesium 0.6 L (1.6-2.3) mg/dL Total Bilirubin (0.2-1.3) mg/dL AST (17-59) U/L ALT (6-50) U/L Alkaline Phosphatase (38-126) U/L Troponin I < 0.012 (0.000-0.034) ng/mL NT-Pro-B Natriuret Pep (19.9-100) pg/mL Total Protein (6.3-8.2) g/dL Albumin (3.5-5.1) g/dL Lipase (23-300) U/L TSH (Reflex) (0.465-4.68) uIU/mL Urine Color (Yellow) Urine Appearance (Clear) Urine pH (5.0-9.0) Ur Specific [place] (1.001-1.035) Urine Protein (Negative) mg/dL Urine Glucose (UA) (Negative) mg/dL Urine Ketones (Negative) mg/dL Ur Blood (Man) (Negative) Urine Nitrate (Negative) Urine Bilirubin (Negative) Urine Urobilinogen (<2.0) mg/dL Leukocyte Esterase Rfl (Negative) BRYAN/UL Urine RBC (0-2) /hpf Urine WBC (0-3) /hpf Ur Squamous Epith Cells (Few) /hpf Urine Bacteria /hpf Urine Casts Influenza A (RT-PCR) (Negative) Influenza B (RT-PCR) (Negative) RSV (RT-PCR) (Negative) SARS-CoV-2 RNA (RT-PCR) (Negative) ABG Data ABG results: 09/13/24 12:50 Puncture Site Right radial ABG pH 7.470 H ABG pCO2 35.3 ABG pO2 58.4 L ABG PO2/FiO2 Ratio 2.78 ABG HCO3 25.1 ABG O2 Saturation 92.1 L ABG O2 Content 18.7 ABG Base Excess 1.9 A-a Gradient 49.1 Oxyhemoglobin 89.2 L Total Hemoglobin 14.9 O2 Delivery Device Room air O2 Liters/Min Not Reportable FiO2 21 Critical Care Time Critical Care Time Critical Care Time: Yes Total Critical Care Time: 35 Discharge Plan Discharge Clinical Impression: Pulmonary embolism, Hypomagnesemia, Hypokalemia, PNA (pneumonia) Patient Disposition: Still a Patient Condition: Guarded Prognosis Patient Language: Bol[place]ian Prescriptions: No Action potassium gluconate 595 mg (99 mg) tablet 595 mg PO DAILY aspirin 81 mg tablet,delayed release (DR/EC) 81 mg PO DAILY metformin 500 mg tablet 500 mg PO DAILY lisinopril 10 mg tablet 5 mg PO DAILY fluticasone furoate-vilanterol [Breo Ellipta] 100-25 mcg/dose blister with device 1 inh INHALATION Q24H 30 Days Qty: 60 11RF Rx Instructions: Rinse mouth and spit after each use albuterol sulfate [Ventolin HFA] 90 mcg/actuation HFA aerosol inhaler 1 - 2 inh inhalation Q4-6H Qty: 8.5 3RF Centrum Silver 0.4 mg-300 mcg- 250 mcg tablet 1 tablet PO DAILY Tylenol Extra Strength 500 mg powder in packet 500 mg PO Q6H PRN pantoprazole 20 mg tablet,delayed release (DR/EC) PO ergocalciferol (vitamin D2) 1,250 mcg (50,000 unit) capsule 1,250 mcg PO calcium carbonate-vitamin D3 [Oysco 500/D] 500 mg-5 mcg (200 unit) tablet 1 tablet PO ondansetron 4 mg tablet,disintegrating 4 mg PO Q6H PRN (Reason: nausea and vomiting) Qty: 10 0RF pantoprazole [Protonix] 40 mg tablet,delayed release (DR/EC) 40 mg PO BID Qty: 28 0RF montelukast 10 mg tablet 10 mg PO DAILY Qty: 30 11RF Follow-up/Referrals: Annel,MD [facility] [Primary Care Provider] -
[2024-09-13 16:30] LABS: Magnesium 0.6 mg/dL (1.6-2.3)
[2024-09-13 16:36] LABS: Troponin I < 0.012 ng/mL (0.000-0.034)
--- NOTE | 2024-09-13 16:52 | PCCCNOTE ---
Spoke to pt after ED provider discussed POLST form. Pt initally elected comfort measures only then changed his mind to allow selective treatment. Updated the form to show his current wishes.-reanna
[2024-09-13] MEDS: cefTRIAXone 1 GM in SODIUM CHLORIDE 0.9% IV 50 ML 100 ML IVPB (17:26)
[2024-09-13] MEDS: MAGNESIUM SULF 4 GM/WATER100ML 4 GM/100 ML BAG IVPB (17:29)
--- NOTE | 2024-09-13 17:51 | PM.IMHP ---
H&P: HPI History of Present Illness Date/Time: 09/13/24 17:51 Chief Complaint: Weakness Narrative: 74-year-old male with a PMHx: of but not limited to diabetes on p.o. medication, RAOUL uses CPAP, reported to the hospital today with complaints of ongoing dry heaving for a week and had previously visit the hospital due to increased weakness and shakiness, on the morning of the visit the patient had difficulty walking and was extremely shaky and continue to experience dry heaving. Upon arrival to the hospital the patient vomited and reported chest pain and confusion. The patient also has a history of ongoing stomach issues including excessive acid and has undergone an endoscopic B and colonoscopy with polyp removal in the past. A CT scan completed in the emergency room revealed a blood clot in the lungs causing right heart strain. I heparin drip was initiated per protocol to manage the clot, it was also noted that magnesium was critically low and is also being replenished. ED Work-up reveals: Initial vital signs b/p: 144/86, respiratory ray shins 24, heart rate 105, 92% on 2 L NC. Initial labs with the a WBC of 12.1, hgb 12.5 elevated D-dimer 0.7 to K+ 3.0, magnesium 0.6, alk-phos 33, BNP 129, UA unremarkable for infection, MRSA PCR negative, viral PCR negative. [facility] Past Medical History Medical History Obesity (BMI 30-39.9) Tobacco abuse Hypercholesterolemia DJD (degenerative joint disease) Bronchitis GERD (gastroesophageal reflux disease) RAOUL (obstructive sleep apnea) COPD (chronic obstructive pulmonary disease) Surgical History Surgical History H/O wrist surgery History of tonsillectomy H/O knee surgery History of adenoidectomy History of colonoscopy Social History Social History Smoking packs per day: 2 Smoking cigarettes per day: 40.0 Years smoked: 60 Smoking pack-years: 120.00 Smoking status: Current every day smoker Tobacco type: cigarettes Second hand tobacco smoke exposure: Yes Alcohol intake: never Substance use: never Substance use type: does not use Do You Feel Safe in your Home?: Yes Lack of Transportation: No Lack of Food: Never True Current Housing: I Have Housing Concerned About Future Housing: No Difficulty Paying Gas/Electric Bills: No Difficulty Paying for Meds: No Currently Unemployed: No Education: Decline to Answer Difficulty w/ Childcare or Family Care: No Gender identity (if verbalized by the patient): Male Spiritual care concerns: No Meds Home Medications and Allergies Home Medications ?Medication ?Instructions ?Recorded ?Confirmed ?Type potassium gluconate 595 mg (99 mg) 595 mg PO DAILY 04/15/19 09/13/24 History tablet aspirin 81 mg tablet,delayed 81 mg PO DAILY 04/16/19 09/13/24 History release lisinopril 10 mg tablet 5 mg PO DAILY 10/03/20 09/13/24 History metformin 500 mg tablet 500 mg PO DAILY 10/03/20 09/13/24 History acetaminophen 500 mg oral powder 500 mg PO Q6H PRN fever or pain 10/23/21 09/13/24 History packet (Tylenol Extra Strength) mhhwxbka-ocq-tefwl acid 0.4 1 tablet PO DAILY 10/23/21 09/13/24 History mg-lycopene 300 mcg-lutein 250 mcg tablet (Centrum Silver) montelukast 10 mg tablet 10 mg PO DAILY #30 tabs 04/30/22 09/13/24 Rx calcium 500 mg (as 1 tablet PO DAILY 08/29/22 09/13/24 History carbonate)-vitamin D3 5 mcg (200 unit) tablet (Oysco 500/D) ergocalciferol (vitamin D2) 1,250 1,250 mcg PO WEEKLY 08/29/22 09/13/24 History mcg (50,000 unit) capsule albuterol sulfate 90 mcg/actuation 1 - 2 inh inhalation Q4-6H #8.5 10/14/23 09/13/24 Rx aerosol inhaler (Ventolin HFA) grams fluticasone furoate 100 1 inh inhalation Q24H 1 month #60 10/14/23 09/13/24 Rx mcg-vilanterol 25 mcg/dose ea inhalation powder (Breo Ellipta) ondansetron 4 mg disintegrating 4 mg PO Q6H PRN nausea and 09/09/24 09/13/24 Rx tablet vomiting #10 tabs pantoprazole 40 mg tablet,delayed 40 mg PO Q12H 09/13/24 09/13/24 History release (Protonix) Allergies Allergy/AdvReac Type Severity Reaction Status Date / Time dapagliflozin (From [facility]) Allergy Mild Rash Verified 09/13/24 18:51 Sulfa (Sulfonamide Allergy Mild Rash Verified 09/13/24 11:22 Antibiotics) lidocaine Allergy Unknown Hives Verified 09/13/24 11:22 NEOPREEN Allergy Severe RASH Uncoded 09/13/24 11:22 Vital Signs Vital Signs - 24 hr 09/13/24 11:19 09/13/24 11:45 09/13/24 11:49 Temperature 97.8 F Pulse Rate 79 79 75 Respiratory Rate 18 20 16 Blood Pressure 149/101 H 147/83 H 147/83 H Pulse Oximetry 92 91 92 Oxygen Delivery Room Air Room Air 09/13/24 11:56 09/13/24 12:00 09/13/24 12:16 Temperature Pulse Rate 80 75 72 Respiratory Rate 19 19 Blood Pressure 146/82 H 136/95 H Pulse Oximetry 93 91 Oxygen Delivery 09/13/24 12:30 09/13/24 12:45 09/13/24 12:59 Temperature Pulse Rate 76 77 72 Respiratory Rate 20 19 20 Blood Pressure 141/90 H 139/78 Pulse Oximetry 90 96 Oxygen Delivery 09/13/24 13:01 09/13/24 14:42 09/13/24 14:45 Temperature Pulse Rate 71 102 H 102 H Respiratory Rate 22 H 20 20 Blood Pressure 144/76 H 132/71 132/72 Pulse Oximetry 98 91 93 Oxygen Delivery 09/13/24 17:32 Temperature Pulse Rate 105 H Respiratory Rate 24 H Blood Pressure 144/86 H Pulse Oximetry 92 Oxygen Delivery Exam Narrative: APPEARANCE: No apparent distress. Head: atraumatic. EYES: EOMI, NOSE: Atraumatic NECK: Trachea midline RESPIRATORY: No increased rate of breathing, CTAB CARDIOVASCULAR: Tachycardic, no significant edema of the lower extremities ABDOMINAL: Non-distended soft nontender MUSCULOSKELETAl: No obvious deformities NEURO: Alert. Moving 4/4 extremities SKIN:: Warm, dry. Normal color PSYCHIATRIC: Normal affect H&P: Results Labs Labs: Short CBC 09/13/24 Range/Units 11:46 WBC 9.1 (4.5-10.0) K/mm3 Hgb 14.2 (14.0-18.0) g/dL Hct 41.0 L (42.0-52.0) % Plt Count 210 (150-375) k/mm3 BMP 09/13/24 11:46 Sodium 139 Potassium 3.0 L Chloride 100 Carbon Dioxide 26 BUN 8 L Creatinine 0.69 L Glucose 161 H Calcium 7.6 L Cardiac Enzymes 09/13/24 09/13/24 Range/Units 11:46 16:07 Troponin I < 0.012 < 0.012 (0.000-0.034) ng/mL Liver Function 09/13/24 Range/Units 11:46 Total Bilirubin 0.8 (0.2-1.3) mg/dL AST 45 (17-59) U/L ALT 30 (6-50) U/L Alkaline Phosphatase 33 L (38-126) U/L Albumin 4.2 (3.5-5.1) g/dL Urine 09/13/24 Range/Units 14:33 Urine Color Yellow (Yellow) Urine Appearance Clear (Clear) Urine pH 7.0 (5.0-9.0) Ur Specific [place] 1.026 (1.001-1.035) Urine Protein 1+ H (Negative) mg/dL Urine Glucose (UA) Negative (Negative) mg/dL Pulse Oximetry SpO2 results: 94% on 2 L NC Attestation: I personally reviewed and interpreted this pulse oximetry as follows: ECG Attestation: I personally reviewed and interpreted this ECG as follows: ECG completion date: 09/13/24 Prior ECG tracings: available for review Interpretation: Test Date: 2024-09-13 11:42:03 Measurements Intervals [place] Rate: 75 P: 16 MD: 236 QRS: 12 QRSD: 96 T: 43 QT: 356 QTc: 398 Interpretive Statements SINUS RHYTHM WITH FIRST DEGREE AV BLOCK ABNORMAL ECG Compared to ECG 09/09/2024 11:50:33 No significant changes Electronically Signed On 09-13-2024 11:43:43 CDT by Jude Dave M.D. Imaging CT scan - chest: Radiologist's impression: IMPRESSION: CHEST: 1. Pulmonary embolism with right ventricular strain. 2. Consolidation in the right lower lobe area. Atelectatic changes in the left lung base. ABDOMEN/PELVIS: 1. No evidence of appendicitis, diverticulitis or intestinal obstruction. 2. Grossly thickened wall of the stomach. Further evaluation advised. 3. Slightly atrophic pancreas. 4. Calcified mesenteric area unchanged from previous examination. 5. Hepatomegaly. Venous US: Radiologist's impression: IMPRESSION: DVT in the right popliteal vein. Other appearances are unremarkable. Physician: Michel Hoffman MD Was notified with the result of the patient at 6:25 PM on September 13, 2024 Assessment and Plan Assessment and plan (1) Pulmonary embolism: Code(s): I26.99 - Other pulmonary embolism without acute cor pulmonale Status: Acute Assessment and Plan: - as evidence by chest abdomen pelvis CTA -pulmonary embolism seen in the left main pulmonary artery and its branches, right ventricular strain is noted -Continue telemetry monitoring -Continue heparin drip per protocol (2) Pneumonia involving left lung: Code(s): J18.9 - Pneumonia, unspecified organism Status: Acute Assessment and Plan: -PNA vs atelectasis -continue Bronchodilators. CTA, consolidation in the right lower lobe area, atelectatic changes in the left lung base incentive spirometry while awake. sputum culture ordered, blood cultures pending influenza/COVID/RSV negative -continue antibiotic therapy ceftriaxone/azithromycin Q 24 hours supplemental oxygen therapy to maintain oxygen 92% Needs to weaned Guaifenesin b.i.d. Antipyretics for fever and body aches (3) Pulmonary embolism on left: Code(s): I26.99 - Other pulmonary embolism without acute cor pulmonale Status: Acute (4) RAOUL (obstructive sleep apnea): Code(s): G47.33 - Obstructive sleep apnea (adult) (pediatric) Status: Acute Assessment and Plan: use CPAP with home settings (5) Deep vein thrombosis (DVT) of popliteal vein of right lower extremity: Code(s): I82.431 - Acute embolism and thrombosis of right popliteal vein Status: Acute Assessment and Plan: -continue IV UFH per protocol Plan Continue home medications: VTE Prophylaxis: heparin, IV per protocol DIET: regular Anticipated hospital stay: > 2 days Code Status: DNR Hospitalist [facility] Advance Care Plan I have confirmed that the patient's Advanced Care Plan is present, code status is documented, or surrogate decision maker is listed in patient medical record.: Yes Medication Reconciliation I have utilized all available resources to obtain, update and review the patients current medications (includes all prescriptions, OTC, herbals, cannabis, and nutritional supplements).: Yes
[2024-09-13] MEDS: DOXYCYCLINE IV 100 MG in SODIUM CHLORIDE 0.9% IV 100 ML IVPB (17:53)
--- NOTE | 2024-09-13 18:20 | ADMGEN ---
This patient, Glenn Villalpando, was admitted to Intensive Care Unit-5 @ 1820. Patient/family oriented to hospital policies and general routines including ID bracelet, bed and alarms, visiting hours, pain management, procedures, bathroom and other care routines, personal items, smoking policy, room service/diet, and visiting hours. Information on how to activate the Rapid Response Team has been discussed. Patient/Family are encouraged to report perceived risks to care and to ask questions if they do not understand what they are told or what they should do.
[2024-09-13 18:56] LABS: MRSA (PCR) NOT DETECTED (NOT DETECTE)
[2024-09-13] MEDS: LACTATED RINGERS 1,000 ML 75 ML IV CONT (19:00)
[2024-09-13] MEDS: POTASSIUM CHLORIDE 20 MEQ ER TABLET 40 MEQ PO (19:22)
[2024-09-13 21:17] LABS: Hematocrit 36.0 % (42.0-52.0); Hemoglobin 12.5 g/dL (14.0-18.0); Immature Granulocyte Percent A 0.8 % (0-0.5); Lymphocytes Absolute Auto 1.84 K/mm3 (0.9-3.2); Mean Corpuscular HGB Conc 34.7 g/dl (32-36); Mean Corpuscular Hemoglobin 31.2 pg (26-34); Mean Corpuscular Volume 89.8 fl (80-100); Nucleated Red Blood Cells Absolute Auto 0.000 K/mm3 (0.0-0.012); Nucleated Red Blood Cells Perc 0.0 % (0.0-0.2); Platelet Count Result 182 k/mm3 (150-375); Red Blood Count 4.01 M/mm3 (4.6-6.20); White Blood Count 12.1 K/mm3 (4.5-10.0)
[2024-09-13 21:47] LABS: INR 1.4; Prothrombin Time 16.8 Seconds (11.1-14.7)
[2024-09-13 21:50] LABS: Partial Thromboplastin Time 185.4 Seconds (22.3-36.8)
[2024-09-14] VITALS (15 sets, daily range): BP systolic 106–132; BP diastolic 58–72; PULSE 62–82; RESP 14–20; TEMP 36.6–36.9; O2SAT 92–99
--- NOTE | 2024-09-14 | ECG_ITS ---
Test Date: 2024-09-14 12:38:22 Measurements Intervals Jerome Rate: 68 P: 17 RI: 233 QRS: -3 QRSD: 94 T: 49 QT: 385 QTc: 411 Interpretive Statements SINUS RHYTHM WITH FIRST DEGREE AV BLOCK ABNORMAL ECG Compared to ECG 09/13/2024 11:42:03 No significant changes Electronically Signed On 09-15-2024 09:56:43 CDT by J Carlos Barrett M.D.
--- NOTE | 2024-09-14 | ECHO_ITS ---
Patient Info Name: Glenn Villalpando Age: 74 years : 1950 Gender: Male Ht: 71 in Wt: 222 lbs BSA: 2.27 m2 HR: 69 bpm BP: 129 / 71 mmHg Heart Rhythm: Sinus Rhythm Technical Quality: Fair Exam Date: 09/14/2024 10:41 AM Patient Status: I Admit Date: 09/13/2024 Exam Type: CA echo dop color flow w con Complete two-dimensional, color flow and Doppler transthoracic echocardiogram is performed with contrast to opacify the left ventricle and to improve the deliniation of the left ventricle endocardial borders. Staff Referring Physician: Michel Hoffman Care Transition Manager: Mary Santana Attending Provider: Shea Gusman Contrast/Agitated Saline Contrast/Ag. Saline: Definity Amount: 2.00 ml Administered By: Mary Santana Existing IV Access: Yes IV Access Condition: patent with no signs of infiltration Summary 1. This was a technically difficult study with poorly visualized acoustic windows. 2. Overall there appears to be normal biventricular size and systolic function. Left Ventricle The left ventricle is normal in size and systolic function. The left ventricular ejection fraction is visually estimated to be 65-70%. There are no regional wall motion abnormalities. Right Ventricle The right ventricle is normal in size and systolic function. Left Atria The left atrium is normal size. Right Atria The right atrium is normal size. Atrial Septum The atrial septum is not well visualized. Aortic Valve The aortic valve is not well visualized. There is no echo Doppler gradient evidence for hemodynamically significant aortic stenosis. Pulmonic Valve Pulmonic valve is not visualized. Mitral Valve The mitral valve is grossly normal. There is no mitral regurgitation in this study. Tricuspid Valve The tricuspid valve is not well visualized. Pericardium/Pleural Pericardium is normal in appearance with no evidence for significant pericardial effusion. Inferior Vena Cava Dilated inferior vena cava with <50% collapse upon inspiration consistent with significantly elevated right atrial pressure, 15 mmHg. Aorta The aortic root is not well visualized. Left Ventricular Outflow Tract Name Value Normal LVOT 2D LVOT Diameter 2.0 cm LVOT Doppler LVOT Peak Velocity 133 cm/s LVOT Peak Gradient 7 mmHg LVOT Mean Gradient 4 mmHg LVOT VTI 28 cm LVOT VTI/AV VTI Ratio 0.7 LVOT Stroke Volume 84 ml LVOT CO 6.0 l/min LVOT CI 2.6 l/min/m2 Pulmonic Valve Name Value Normal RVOT Doppler RVOT Peak Velocity 104 cm/s RVOT Peak Gradient 4 mmHg PV Doppler PV Peak Velocity 124 cm/s PV Peak Gradient 6 mmHg Tricuspid Valve Name Value Normal TV Regurgitation Doppler TR Peak Velocity 184 cm/s TR Peak Gradient 11 mmHg Estimated PAP/RSVP RA Pressure 15 mmHg <=5 PA Systolic Pressure 28 mmHg <36 RV Systolic Pressure 28 mmHg <36 TV Annular TDI TV Lateral Liv s' Velocity 11.9 cm/s >=9.5 Aortic Valve Name Value Normal AV Doppler AV Peak Velocity 200 cm/s AV Peak Gradient 16 mmHg AV Mean Gradient 9 mmHg AV VTI 41 cm AV Area (Cont Eq VTI) 2.1 cm2 >=3.0 AV Area (Cont Eq Miguelito) 2.0 cm2 AV DI (Miguelito) 0.66 AV Regurgitation 2D LVOT Area 3.0 cm2 Ventricles Name Value Normal LV Dimensions 2D/MM IVS Diastolic Thickness (2D) 0.8 cm 0.6-1.0 LVID Diastole (2D) 5.0 cm 4.2-5.8 LVIW Diastolic Thickness (2D) 0.8 cm 0.6-1.0 LVID Systole (2D) 3.2 cm 2.5-4.0 LVOT Diameter 2.0 cm LV Mass (2D Cubed) 137.87 g 88.00-224.00 LV Mass Index (2D Cubed) 61 g/m2 49-115 Relative Wall Thickness (2D) 0.32 <=0.42 LV Fractional Shortening/Ejection Fraction 2D/MM LV Fractional Shortening (2D) 36 % 25-43 LV EF (2D Teichholz) 65 % LV Diastolic Volume (4C MOD) 64 ml LV EF (4C MOD) 78 % LV Diastolic Volume (2C MOD) 56 ml LV EF (2C MOD) 69 % LV Diastolic Volume (BP MOD) 62 ml 62-150 LV Diastolic Volume Index (BP MOD) 27 ml/m2 34-74 LV Systolic Volume (BP MOD) 15 ml 21-61 LV Systolic Volume Index (BP MOD) 7 ml/m2 11-31 LV EF (BP MOD) 75 % 52-72 LV Diastolic Length (4C) 7.6 cm LV Systolic Length (4C) 5.8 cm LV Stroke Volume (4C MOD) 50 ml Atria Name Value Normal LA Dimensions LA Volume (4C A-L) 38 ml LA Volume (BP A-L) 35 ml RA Dimensions RA Area (4C) 15.2 cm2 <=18.0 Report Signatures
[2024-09-14 04:26] LABS: Hematocrit 35.6 % (42.0-52.0); Hemoglobin 12.3 g/dL (14.0-18.0); Immature Granulocyte Percent A 0.8 % (0-0.5); Lymphocytes Absolute Auto 1.98 K/mm3 (0.9-3.2); Mean Corpuscular HGB Conc 34.6 g/dl (32-36); Mean Corpuscular Hemoglobin 31.4 pg (26-34); Mean Corpuscular Volume 90.8 fl (80-100); Nucleated Red Blood Cells Absolute Auto 0.000 K/mm3 (0.0-0.012); Nucleated Red Blood Cells Perc 0.0 % (0.0-0.2); Platelet Count Result 173 k/mm3 (150-375); Red Blood Count 3.92 M/mm3 (4.6-6.20); White Blood Count 10.4 K/mm3 (4.5-10.0)
[2024-09-14 04:53] LABS: Partial Thromboplastin Time 117.4 Seconds (22.3-36.8)
[2024-09-14 05:17] LABS: Alanine Aminotransferase 25 U/L (6-50); Albumin Level 3.5 g/dL (3.5-5.1); Alkaline Phosphatase 46 U/L (38-126); Anion Gap 6 mmol/L (4-12); Aspartate Amino Transferase 45 U/L (17-59); Bilirubin,Total 0.4 mg/dL (0.2-1.3); Blood Urea Nitrogen 6 mg/dL (9-20); Calcium 7.3 mg/dL (8.4-10.2); Carbon Dioxide 27 mmol/L (22-30); Chloride 107 mmol/L (98-107); Estimated CRCL calculation 100 ml/min; Estimated Glomerular Filt Rate > 60; Glucose 112 mg/dL (65-110); Magnesium 1.4 mg/dL (1.6-2.3); Potassium 3.1 mmol/L (3.4-5.0); Sodium 140 mmol/L (137-145); Total Protein 6.4 g/dL (6.3-8.2)
[2024-09-14] MEDS: DOXYCYCLINE IV 100 MG in SODIUM CHLORIDE 0.9% IV 100 ML IVPB ×2 (06:28→17:25)
[2024-09-14] MEDS: ACETAMINOPHEN 500 MG TABLET BY MOUTH (07:40)
[2024-09-14] MEDS: MAGNESIUM SULF 2 GM/WATER 50ML 2 GM/50 ML BAG IVPB ×2 (08:28→12:18)
[2024-09-14] MEDS: POTASSIUM CHLORIDE 20 MEQ ER TABLET 40 MEQ PO (08:29)
[2024-09-14] MEDS: MONTELUKAST SODIUM 10 MG TABLET PO (08:29)
[2024-09-14] MEDS: CALCIUM/VITAMIN D 500 MG/5 MCG (200 I.U.) TABLET PO (08:29)
[2024-09-14] MEDS: MULTIVITAMINS /C LUTEIN (CENTRUM SILVER) TABLET *BKC 1 TAB PO (08:29)
[2024-09-14] MEDS: POTASSIUM CHLORIDE 20 MEQ ER TABLET PO (08:29)
[2024-09-14] MEDS: ASPIRIN 81 MG ENTERIC TABLET PO (08:30)
[2024-09-14] MEDS: PANTOPRAZOLE 40 MG TABLET PO ×2 (08:30→20:15)
[2024-09-14] MEDS: FLUTICASONE/SALMETEROL 115-21 MCG INHALER 1 PUFF 2 PUFF INHALATION ×2 (08:40→20:00)
--- NOTE | 2024-09-14 09:19 | WPDCNINT ---
Assessment and Plan Assessment and plan (1) Pulmonary embolism: Code(s): I26.99 - Other pulmonary embolism without acute cor pulmonale Status: Acute Assessment and Plan: Patient presented with generalized weakness, developed chest pain shortness with the ER -CT PE protocol revealed a PE in the left pulmonary emboli artery and its branches with right heart strain. -venous Dopplers was positive for right popliteal vein DVT -patient started on heparin infusion -troponin and BNP were within normal limits -will check echocardiogram 09/13: CT chest, abdomen, pelvis: showed pulmonary embolism with right ventricular strain, consolidation in the right lower lobe area. Atelectasis changes in the left lung base. No evidence of appendicitis, diverticulitis, on discussion obstruction. Lost a thickened wall of the stomach, slightly Atrovent pancreas, calcified mesenteric area unchanged from previous exam, hepatomegaly. 09/13: Venous Doppler was positive for DVT in the right popliteal vein (2) Deep vein thrombosis (DVT) of popliteal vein of right lower extremity: Code(s): I82.431 - Acute embolism and thrombosis of right popliteal vein Status: Acute Assessment and Plan: Venous Dopplers was positive for DVT in the right popliteal vein, continue heparin infusion as above (3) PNA (pneumonia): Code(s): J18.9 - Pneumonia, unspecified organism Status: Acute Assessment and Plan: CT chest shows right lower lobe consolidation, left lung base atelectasis. -started on ceftriaxone and doxycycline (09/13) -is requiring 2 L supplemental oxygen (4) COPD (chronic obstructive pulmonary disease): Qualifiers: COPD type: unspecified COPD Qualified Code(s): J44.9 - Chronic obstructive pulmonary disease, unspecified Code(s): J44.9 - Chronic obstructive pulmonary disease, unspecified Status: Acute Assessment and Plan: History of COPD, will continue home bronchodilators (5) Electrolyte imbalance: Code(s): E87.8 - Other disorders of electrolyte and fluid balance, not elsewhere classified Status: Acute Assessment and Plan: Patient presented with significantly low magnesium of 0.2 and hypokalemia, which have been aggressively replaced -this morning magnesium and potassium continue to be low, will replete Plan DVT prophylaxis: Heparin in few Stress ulcer prophylaxis: Protonix, which is has home medication Nutrition: Heart healthy diet Code Status: Do not resuscitate Critical Care Time Spent: 49 minutes Due to a high probability of clinically significant, life threatening deterioration, the patient required my highest level of preparedness to intervene emergently and I personally spent this critical care time directly and personally managing the patient. This critical care time included obtaining a history; examining the patient; pulse oximetry; ordering and review of studies; arranging urgent treatment with development of a management plan; evaluation of patient's response to treatment; frequent reassessment; and discussions with other providers. It was exclusive of separately billable procedures and treating other patients and teaching time. Please see Assessment and Plan section and the rest of the note for further information on patient assessment and treatment This dictation may have been done utilizing a voice recognition system. Attempts have been made to correct errors. However, there may be uncorrected grammatical, spelling, and recognitions errors present. Overnight Houseperson Consult Note Consult date: 09/14/24 Reason for consult: Generalized weakness/fatigue, shortness of breath, cough, nausea, vomiting for a couple of weeks HPI: Glenn Villalpando is a 74 year old male with significant past medical history of obesity, tobacco use, hypercholesterolemia, COPD, GERD, obstructive sleep apnea, degenerative joint disease presented the ED on 09/13/2024 with multiple complaints mainly nausea, vomiting, generalized weakness/fatigue and then developed sudden chest pain shortness a breath in the ER. Workup in the ER revealed normal blood pressures, slightly tachypneic and tachycardic with O2 sats of 92% on 2 L nasal cannula. WBC count of 12.1, hemoglobin 12.5, D-dimer was elevated to 0.7. Potassium was 3.0, magnesium 0.2 initially major after replacement came up to 0.6. Alk phos was 33, BNP 129, UA was unremarkable for infection. MRSA PCR was negative and viral PCR for influenza, RSV and COVID were negative. 09/13: CT chest, abdomen, pelvis: showed pulmonary embolism with right ventricular strain, consolidation in the right lower lobe area. Atelectasis changes in the left lung base. No evidence of appendicitis, diverticulitis, on discussion obstruction. Lost a thickened wall of the stomach, slightly Atrovent pancreas, calcified mesenteric area unchanged from previous exam, hepatomegaly. 09/13: Venous Doppler was positive for DVT in the right popliteal vein Patient was started on heparin infusion, given significant electrolyte imbalance was transferred to the ICU for further management. Patient seen examined this morning in the ICU, states he feels much better, denies any nausea, vomiting, abdominal pain, complains of cough and chest congestion. Denies any difficulty breathing, chest pain. Hemodynamically stable, adequate urine output, patient is tolerating his diet at this time. Afebrile Review of Systems Review of Systems: All systems reviewed & are unremarkable except as noted in HPI and below PMFSH Past Medical History Medical History Obesity (BMI 30-39.9) Tobacco abuse Hypercholesterolemia DJD (degenerative joint disease) Bronchitis GERD (gastroesophageal reflux disease) RAOUL (obstructive sleep apnea) COPD (chronic obstructive pulmonary disease) Surgical History Surgical History H/O wrist surgery History of tonsillectomy H/O knee surgery History of adenoidectomy History of colonoscopy Social History Social History Smoking packs per day: 2 Smoking cigarettes per day: 40.0 Years smoked: 60 Smoking pack-years: 120.00 Smoking status: Current every day smoker Tobacco type: cigarettes Second hand tobacco smoke exposure: Yes Alcohol intake: never Substance use: never Substance use type: does not use Do You Feel Safe in your Home?: Yes Lack of Transportation: No Lack of Food: Never True Current Housing: I Have Housing Concerned About Future Housing: No Difficulty Paying Gas/Electric Bills: No Difficulty Paying for Meds: No Currently Unemployed: No Education: Decline to Answer Difficulty w/ Childcare or Family Care: No Gender identity (if verbalized by the patient): Male Spiritual care concerns: No Meds Home Medications and Allergies Home Medications ?Medication ?Instructions ?Recorded ?Confirmed ?Type potassium gluconate 595 mg (99 mg) 595 mg PO DAILY 04/15/19 09/13/24 History tablet aspirin 81 mg tablet,delayed 81 mg PO DAILY 04/16/19 09/13/24 History release lisinopril 10 mg tablet 5 mg PO DAILY 10/03/20 09/13/24 History metformin 500 mg tablet 500 mg PO DAILY 10/03/20 09/13/24 History acetaminophen 500 mg oral powder 500 mg PO Q6H PRN fever or pain 10/23/21 09/13/24 History packet (Tylenol Extra Strength) onlubntx-mft-wwptt acid 0.4 1 tablet PO DAILY 10/23/21 09/13/24 History mg-lycopene 300 mcg-lutein 250 mcg tablet (Centrum Silver) montelukast 10 mg tablet 10 mg PO DAILY #30 tabs 04/30/22 09/13/24 Rx calcium 500 mg (as 1 tablet PO DAILY 08/29/22 09/13/24 History carbonate)-vitamin D3 5 mcg (200 unit) tablet (Oysco 500/D) ergocalciferol (vitamin D2) 1,250 1,250 mcg PO WEEKLY 08/29/22 09/13/24 History mcg (50,000 unit) capsule albuterol sulfate 90 mcg/actuation 1 - 2 inh inhalation Q4-6H #8.5 10/14/23 09/13/24 Rx aerosol inhaler (Ventolin HFA) grams fluticasone furoate 100 1 inh inhalation Q24H 1 month #60 10/14/23 09/13/24 Rx mcg-vilanterol 25 mcg/dose ea inhalation powder (Breo Ellipta) ondansetron 4 mg disintegrating 4 mg PO Q6H PRN nausea and 09/09/24 09/13/24 Rx tablet vomiting #10 tabs pantoprazole 40 mg tablet,delayed 40 mg PO Q12H 09/13/24 09/13/24 History release (Protonix) sucralfate 1 gram tablet 1 g PO BID 09/14/24 09/14/24 History Allergies Allergy/AdvReac Type Severity Reaction Status Date / Time dapagliflozin (From [facility]) Allergy Mild Rash Verified 09/13/24 18:51 Sulfa (Sulfonamide Allergy Mild Rash Verified 09/13/24 11:22 Antibiotics) lidocaine Allergy Unknown Hives Verified 09/13/24 11:22 NEOPREEN Allergy Severe RASH Uncoded 09/13/24 11:22 Vital Signs Vital Signs - 24 hr 09/13/24 11:19 09/13/24 11:45 09/13/24 11:49 Temperature 97.8 F Pulse Rate 79 79 75 Respiratory Rate 18 20 16 Blood Pressure 149/101 H 147/83 H 147/83 H Pulse Oximetry 92 91 92 Oxygen Delivery Room Air Room Air Oxygen Flow Rate 09/13/24 11:56 09/13/24 12:00 09/13/24 12:16 Temperature Pulse Rate 80 75 72 Respiratory Rate 19 19 Blood Pressure 146/82 H 136/95 H Pulse Oximetry 93 91 Oxygen Delivery Oxygen Flow Rate 09/13/24 12:30 09/13/24 12:45 09/13/24 12:59 Temperature Pulse Rate 76 77 72 Respiratory Rate 20 19 20 Blood Pressure 141/90 H 139/78 Pulse Oximetry 90 96 Oxygen Delivery Oxygen Flow Rate 09/13/24 13:01 09/13/24 14:42 09/13/24 14:45 Temperature Pulse Rate 71 102 H 102 H Respiratory Rate 22 H 20 20 Blood Pressure 144/76 H 132/71 132/72 Pulse Oximetry 98 91 93 Oxygen Delivery Oxygen Flow Rate 09/13/24 17:32 09/13/24 20:00 09/13/24 20:00 Temperature Pulse Rate 105 H 104 H Respiratory Rate 24 H Blood Pressure 144/86 H Pulse Oximetry 92 94 Oxygen Delivery Nasal Cannula Oxygen Flow Rate 2 09/13/24 20:00 09/13/24 21:52 09/13/24 21:52 Temperature 97.8 F Pulse Rate 99 85 Respiratory Rate 20 Blood Pressure 115/90 Pulse Oximetry 94 92 Oxygen Delivery Autopap Nasal Cannula Oxygen Flow Rate 2 09/13/24 22:00 09/13/24 22:00 09/13/24 23:05 Temperature Pulse Rate 78 78 82 Respiratory Rate 20 Blood Pressure 102/64 Pulse Oximetry 92 94 Oxygen Delivery Autopap Oxygen Flow Rate 09/14/24 00:00 09/14/24 00:00 09/14/24 00:00 Temperature 97.9 F Pulse Rate 76 75 Respiratory Rate 20 Blood Pressure 112/58 L Pulse Oximetry 93 93 Oxygen Delivery CPAP Oxygen Flow Rate 09/14/24 02:00 09/14/24 02:00 09/14/24 04:00 Temperature Pulse Rate 75 75 Respiratory Rate 20 Blood Pressure 127/66 Pulse Oximetry 92 94 Oxygen Delivery Nasal Cannula Oxygen Flow Rate 1 09/14/24 04:00 09/14/24 04:00 09/14/24 06:00 Temperature 98.3 F Pulse Rate 63 65 67 Respiratory Rate 17 Blood Pressure 132/63 Pulse Oximetry 94 Oxygen Delivery Oxygen Flow Rate 09/14/24 06:00 09/14/24 07:24 09/14/24 08:40 Temperature 98.2 F Pulse Rate 67 69 82 Respiratory Rate 18 18 Blood Pressure 125/72 129/71 Pulse Oximetry 94 94 94 Oxygen Delivery Nasal Cannula Oxygen Flow Rate 1 Exam Narrative: General: Pleasant gentleman in no acute distress HEENT:? Pupils equal and reactive bilaterally, sclera is clear, moist oral mucosa Neck:? Supple Respiratory:? Trachea in midline, coarse breath sounds at bilateral bases, no wheeze, adequate air entry Cardiac:? S1-S2 normal, regular rate and rhythm Abdomen:? Soft, nontender, obese, nondistended, normoactive bowel sounds Extremities:? No edema, palpable pedal pulses Neuro:? Patient is awake, alert, oriented, nonfocal Skin:? No skin lesions noted Psych:? Normal mentation and affect Results Labs 09/14/24 04:21 09/14/24 04:21 Labs: Short CBC 09/13/24 09/13/24 09/14/24 Range/Units 11:46 21:11 04:21 WBC 9.1 12.1 H 10.4 H (4.5-10.0) K/mm3 Hgb 14.2 12.5 L 12.3 L (14.0-18.0) g/dL Hct 41.0 L 36.0 L 35.6 L (42.0-52.0) % Plt Count 210 182 173 (150-375) k/mm3 BMP 09/13/24 09/14/24 11:46 04:21 Sodium 139 140 Potassium 3.0 L 3.1 L Chloride 100 107 Carbon Dioxide 26 27 BUN 8 L 6 L Creatinine 0.69 L 0.65 L Glucose 161 H 112 H Calcium 7.6 L 7.3 L Cardiac Enzymes 09/13/24 09/13/24 Range/Units 11:46 16:07 Troponin I < 0.012 < 0.012 (0.000-0.034) ng/mL Liver Function 09/13/24 09/14/24 Range/Units 11:46 04:21 Total Bilirubin 0.8 0.4 (0.2-1.3) mg/dL AST 45 45 (17-59) U/L ALT 30 25 (6-50) U/L Alkaline Phosphatase 33 L 46 (38-126) U/L Albumin 4.2 3.5 (3.5-5.1) g/dL Urine 09/13/24 Range/Units 14:33 Urine Color Yellow (Yellow) Urine Appearance Clear (Clear) Urine pH 7.0 (5.0-9.0) Ur Specific [place] 1.026 (1.001-1.035) Urine Protein 1+ H (Negative) mg/dL Urine Glucose (UA) Negative (Negative) mg/dL Quality VTE Prophylaxis VTE prophylaxis: pharmacologic ordered Hospitalist MIPS Advance Care Plan I have confirmed that the patient's Advanced Care Plan is present, code status is documented, or surrogate decision maker is listed in patient medical record.: Yes Medication Reconciliation I have utilized all available resources to obtain, update and review the patients current medications (includes all prescriptions, OTC, herbals, cannabis, and nutritional supplements).: Yes
[2024-09-14] MEDS: CALCIUM GLUC 2,000 MG/NS 100ML 2,000 MG/100 ML BAG 100 MG IVPB (09:28)
[2024-09-14] MEDS: PERFLUTREN LIPID MICROSPHERES 1.5 ML VIAL DILUTED TO 10 ML TOTAL VOLUME IV PUSH (11:00)
[2024-09-14 11:05] LABS: Partial Thromboplastin Time 76.5 Seconds (22.3-36.8)
[2024-09-14 11:36] LABS: Anion Gap 8 mmol/L (4-12); Blood Urea Nitrogen 6 mg/dL (9-20); Calcium 8.1 mg/dL (8.4-10.2); Carbon Dioxide 26 mmol/L (22-30); Chloride 104 mmol/L (98-107); Estimated CRCL calculation 99 ml/min; Estimated Glomerular Filt Rate > 60; Glucose 115 mg/dL (65-110); Magnesium 1.8 mg/dL (1.6-2.3); Potassium 3.1 mmol/L (3.4-5.0); Sodium 138 mmol/L (137-145)
--- NOTE | 2024-09-14 12:18 | IVDEFINITY ---
Prior to administration of IV Definity the patient was educated on the risks and benefits of the imaging enhancing agent including potential adverse side effects. The patient verbalized understanding. Allergies were verified. No exclusion criteria were identified and at least one of the following inclusion criteria were met: 1) physician request, 2) patient technically difficult to image (per the [place] [employer] guidelines of two or more segments not discernable within the apical view), or 3) questionable left ventricular function. ?
[2024-09-14] MEDS: HEPARIN SOD/D5W 100 UNITS/ML 25,000 UNITS/250 ML BAG 10 UNITS IV CONT (12:22)
[2024-09-14] MEDS: POTASSIUM CHLORIDE INJ 40 MEQ in SODIUM CHLORIDE 0.9% IV 500 ML 130 MEQ IVPB (13:13)
[2024-09-14] MEDS: cefTRIAXone 1 GM in SODIUM CHLORIDE 0.9% IV 50 ML 100 ML IVPB (16:58)
[2024-09-14 17:26] LABS: Partial Thromboplastin Time 68.7 Seconds (22.3-36.8)
[2024-09-14 23:58] LABS: Partial Thromboplastin Time 108.1 Seconds (22.3-36.8)
[2024-09-15] VITALS (11 sets, daily range): BP systolic 114–130; BP diastolic 58–73; PULSE 58–76; RESP 12–18; TEMP 36.6–36.9; O2SAT 94–98
[2024-09-15] MEDS: DOXYCYCLINE IV 100 MG in SODIUM CHLORIDE 0.9% IV 100 ML IVPB (05:18)
[2024-09-15 06:15] LABS: Hematocrit 35.0 % (42.0-52.0); Hemoglobin 11.7 g/dL (14.0-18.0); Immature Granulocyte Percent A 1.4 % (0-0.5); Lymphocytes Absolute Auto 1.84 K/mm3 (0.9-3.2); Mean Corpuscular HGB Conc 33.4 g/dl (32-36); Mean Corpuscular Hemoglobin 30.9 pg (26-34); Mean Corpuscular Volume 92.3 fl (80-100); Nucleated Red Blood Cells Absolute Auto 0.000 K/mm3 (0.0-0.012); Nucleated Red Blood Cells Perc 0.0 % (0.0-0.2); Platelet Count Result 149 k/mm3 (150-375); Red Blood Count 3.79 M/mm3 (4.6-6.20); White Blood Count 7.3 K/mm3 (4.5-10.0)
[2024-09-15 06:26] LABS: Partial Thromboplastin Time 62.4 Seconds (22.3-36.8)
[2024-09-15 06:44] LABS: Alanine Aminotransferase 28 U/L (6-50); Albumin Level 3.4 g/dL (3.5-5.1); Alkaline Phosphatase 43 U/L (38-126); Anion Gap 7 mmol/L (4-12); Aspartate Amino Transferase 45 U/L (17-59); Bilirubin,Total 0.4 mg/dL (0.2-1.3); Blood Urea Nitrogen 9 mg/dL (9-20); Calcium 7.6 mg/dL (8.4-10.2); Carbon Dioxide 23 mmol/L (22-30); Chloride 107 mmol/L (98-107); Estimated CRCL calculation 109 ml/min; Estimated Glomerular Filt Rate > 60; Glucose 113 mg/dL (65-110); Magnesium 1.7 mg/dL (1.6-2.3); Potassium 3.6 mmol/L (3.4-5.0); Sodium 137 mmol/L (137-145); Total Protein 6.4 g/dL (6.3-8.2)
[2024-09-15] MEDS: FLUTICASONE/SALMETEROL 115-21 MCG INHALER 1 PUFF 2 PUFF INHALATION ×2 (08:19→20:01)
[2024-09-15] MEDS: CALCIUM/VITAMIN D 500 MG/5 MCG (200 I.U.) TABLET PO (08:28)
[2024-09-15] MEDS: MULTIVITAMINS /C LUTEIN (CENTRUM SILVER) TABLET *BKC 1 TAB PO (08:28)
[2024-09-15] MEDS: APIXABAN 5 MG TABLET 10 MG PO ×2 (08:28→20:28)
[2024-09-15] MEDS: PANTOPRAZOLE 40 MG TABLET PO ×2 (08:28→20:28)
[2024-09-15] MEDS: MAGNESIUM SULF 2 GM/WATER 50ML 2 GM/50 ML BAG IVPB (08:28)
[2024-09-15] MEDS: MONTELUKAST SODIUM 10 MG TABLET PO (08:29)
[2024-09-15] MEDS: ASPIRIN 81 MG ENTERIC TABLET PO (08:29)
[2024-09-15] MEDS: CALCIUM GLUC 2,000 MG/NS 100ML 2,000 MG/100 ML BAG 100 MG IVPB (08:32)
[2024-09-15] MEDS: POTASSIUM CHLORIDE INJ 40 MEQ in SODIUM CHLORIDE 0.9% IV 500 ML 130 MEQ IVPB (09:15)
--- NOTE | 2024-09-15 13:05 | PM.IMPN ---
Progress Note: A&P Assessment and Plan (1) Pulmonary embolism: Code(s): I26.99 - Other pulmonary embolism without acute cor pulmonale Status: Acute Assessment and Plan: Patient presented with generalized weakness, developed chest pain shortness with the ER -CT PE protocol revealed a PE in the left pulmonary emboli artery and its branches with right heart strain. -venous Dopplers was positive for right popliteal vein DVT -troponin and BNP were within normal limits -09/15: -will start patient on Eliquis and discontinue heparin infusion 09/15/2024: Echocardiogram: Technically difficult study, will there appears to be normal biventricular size and systolic function, EF 65-70%, right ventricle is normal in size and systolic function. 09/13: CT chest, abdomen, pelvis: showed pulmonary embolism with right ventricular strain, consolidation in the right lower lobe area. Atelectasis changes in the left lung base. No evidence of appendicitis, diverticulitis, on discussion obstruction. Lost a thickened wall of the stomach, slightly Atrovent pancreas, calcified mesenteric area unchanged from previous exam, hepatomegaly. 09/13: Venous Doppler was positive for DVT in the right popliteal vein (2) Deep vein thrombosis (DVT) of popliteal vein of right lower extremity: Code(s): I82.431 - Acute embolism and thrombosis of right popliteal vein Status: Acute Assessment and Plan: Venous Dopplers was positive for DVT in the right popliteal vein, -heparin being switched to Eliquis (3) PNA (pneumonia): Code(s): J18.9 - Pneumonia, unspecified organism Status: Acute Assessment and Plan: CT chest shows right lower lobe consolidation, left lung base atelectasis. -started on ceftriaxone and doxycycline (09/13) -09/15: Switched to Augmentin and doxycycline p.o. -currently on room air with adequate O2 sats (4) COPD (chronic obstructive pulmonary disease): Qualifiers: COPD type: unspecified COPD Qualified Code(s): J44.9 - Chronic obstructive pulmonary disease, unspecified Code(s): J44.9 - Chronic obstructive pulmonary disease, unspecified Status: Acute Assessment and Plan: History of COPD, will continue home bronchodilators (5) Electrolyte imbalance: Code(s): E87.8 - Other disorders of electrolyte and fluid balance, not elsewhere classified Status: Acute Assessment and Plan: Patient presented with significantly low magnesium of 0.2 and hypokalemia, which have been aggressively replaced -09/15: this morning magnesium and potassium continue to be low, will replete Plan DVT prophylaxis: Eliquis Stress ulcer prophylaxis: Protonix, which is his home medication Nutrition: Heart healthy diet Code Status: Do not resuscitate Due to a high probability of clinically significant, life threatening deterioration, the patient required my highest level of preparedness to intervene emergently and I personally spent this critical care time directly and personally managing the patient. This critical care time included obtaining a history; examining the patient; pulse oximetry; ordering and review of studies; arranging urgent treatment with development of a management plan; evaluation of patient's response to treatment; frequent reassessment; and discussions with other providers. It was exclusive of separately billable procedures and treating other patients and teaching time. Please see Assessment and Plan section and the rest of the note for further information on patient assessment and treatment This dictation may have been done utilizing a voice recognition system. Attempts have been made to correct errors. However, there may be uncorrected grammatical, spelling, and recognitions errors present. Subjective Date/time seen: 09/15/24 13:05 Interval history: Reason for consult: Pulmonary embolism, Generalized weakness/fatigue, shortness of breath, cough, nausea, vomiting for a couple of weeks, hypomagnesemia, hypokalemia 09/15/2024: Patient being seen for hospitalist group Patient seen and examined the ICU. States he feels better this morning. Decreased cough and congestion. Hemodynamically stable, adequate urine output, afebrile. On room air with adequate O2 sats. Remains on heparin infusion. Denies any chest pain, shortness of breath, abdominal pain, nausea, vomiting, wheezing Review of Systems Review of Systems: All systems reviewed & are unremarkable except as noted in HPI and below Exam Narrative: General: Pleasant gentleman in no acute distress HEENT:? Pupils equal and reactive bilaterally, sclera is clear, moist oral mucosa Neck:? Supple Respiratory:? Trachea in midline, coarse breath sounds at bilateral bases, no wheeze, adequate air entry Cardiac:? S1-S2 normal, regular rate and rhythm Abdomen:? Soft, nontender, obese, nondistended, normoactive bowel sounds Extremities:? No edema, palpable pedal pulses Neuro:? Patient is awake, alert, oriented, nonfocal Skin:? No skin lesions noted Psych:? Normal mentation and affect Objective Data Vital Signs Vital Signs: Vital Signs - 24 hr 09/14/24 14:00 09/14/24 16:00 09/14/24 16:00 Temperature Pulse Rate 66 62 62 Respiratory Rate 17 Blood Pressure 130/71 Pulse Oximetry 96 Oxygen Delivery Oxygen Flow Rate 09/14/24 16:00 09/14/24 18:00 09/14/24 20:00 Temperature Pulse Rate 69 Respiratory Rate Blood Pressure Pulse Oximetry 97 96 Oxygen Delivery Nasal Cannula Room Air Oxygen Flow Rate 1 09/14/24 20:00 09/14/24 20:00 09/14/24 20:04 Temperature 98.4 F Pulse Rate 66 66 68 Respiratory Rate 20 20 Blood Pressure 111/58 L Pulse Oximetry 99 Oxygen Delivery Oxygen Flow Rate 09/14/24 20:30 09/14/24 22:00 09/15/24 00:00 Temperature Pulse Rate 79 Respiratory Rate Blood Pressure Pulse Oximetry 98 Oxygen Delivery Autopap Room Air Oxygen Flow Rate 09/15/24 00:00 09/15/24 00:00 09/15/24 02:00 Temperature 98.2 F Pulse Rate 64 64 62 Respiratory Rate 14 Blood Pressure 114/65 Pulse Oximetry 96 Oxygen Delivery Oxygen Flow Rate 09/15/24 04:00 09/15/24 04:00 09/15/24 04:00 Temperature 98.5 F Pulse Rate 58 L 58 L Respiratory Rate 12 Blood Pressure 130/73 Pulse Oximetry 96 95 Oxygen Delivery Room Air Oxygen Flow Rate 09/15/24 06:00 09/15/24 08:00 09/15/24 08:00 Temperature Pulse Rate 72 76 Respiratory Rate Blood Pressure Pulse Oximetry 95 Oxygen Delivery Room Air Oxygen Flow Rate 09/15/24 08:00 09/15/24 08:20 Temperature 97.9 F Pulse Rate 66 Respiratory Rate 17 Blood Pressure 122/59 L Pulse Oximetry 95 97 Oxygen Delivery Room Air Oxygen Flow Rate Intake/Output Intake/Output: Intake & Output 09/12/24 09/13/24 09/14/24 09/15/24 23:59 23:59 23:59 23:59 Intake Total 1298.5 2977.6 701.1 Output Total 325 1250 400 Balance 973.5 1727.6 301.1 Meds/Results Medications: Active Medications Generic Name Dose Route Start Last Admin Trade Name Freq PRN Reason Stop Dose Admin Acetaminophen 500 mg 09/13/24 21:36 09/14/24 07:40 Acetaminophen 500 Mg Tablet BY MOUTH 500 mg Q6H PRN Administration fever or pain Albuterol 2 puff 09/13/24 21:25 Albuterol Sulfate (*Sp) Aerosol 1 Puff INHALATION Q4-6H PRN Shortness Of Breath Or Wheezing Amoxicillin/Clavulanate Potassium 1 tablet 09/15/24 20:00 Amoxicillin/Clavulanate K 875-125 Mg Tab PO 09/18/24 09:01 Q12HR PAT Apixaban 10 mg 09/15/24 09:00 09/15/24 08:28 Apixaban 5 Mg Tablet PO 09/21/24 21:01 10 mg Q12HR PAT Administration Apixaban 5 mg 09/22/24 09:00 Apixaban 5 Mg Tablet PO Q12HR [facility] Aspirin 81 mg 09/14/24 09:00 09/15/24 08:29 Aspirin 81 Mg Enteric Tablet PO 81 mg DAILY PAT Administration Calcium Carbonate 500 mg 09/14/24 09:00 09/15/24 08:28 Calcium/Vitamin D 500 Mg/5 Mcg (200 I.U.) Tablet PO 500 mg DAILY PAT Administration Doxycycline Hyclate 100 mg 09/15/24 20:00 Doxycycline Hyclate 100 Mg Tablet PO 09/17/24 21:01 BID@1200,2100 [facility] Ergocalciferol 1,250 mcg 09/18/24 09:00 Ergocalciferol (Vitamin D2) 1,250 Mcg (50,000 Units) Capsule PO Fr@0900 [facility] Lisinopril 5 mg 09/14/24 09:00 09/15/24 08:28 Lisinopril 5 Mg Tablet PO 5 mg DAILY PAT Administration Montelukast Sodium 10 mg 09/14/24 09:00 09/15/24 08:29 Montelukast Sodium 10 Mg Tablet PO 10 mg DAILY PAT Administration Multivitamins/Minerals 1 tab 09/14/24 09:00 09/15/24 08:28 Multivitamins /C Lutein (Centrum Silver) Tablet *Bkc PO 1 tab DAILY PAT Administration Ondansetron HCl 4 mg 09/13/24 18:45 09/13/24 19:00 Ondansetron Inj 4 Mg/2 Ml Vial IV PUSH 4 mg Q6H PRN Administration Nausea And Vomiting Ondansetron HCl 4 mg 09/13/24 21:25 Ondansetron Hcl Odt 4 Mg Tablet PO Q6H PRN nausea and vomiting Pantoprazole Sodium 40 mg 09/14/24 09:00 09/15/24 08:28 Pantoprazole 40 Mg Tablet PO 40 mg Q12HR PAT Administration Fluticasone/Salmeterol 2 puff 09/14/24 08:00 09/15/24 08:19 Fluticasone/Salmeterol 115-21 Mcg Inhaler 1 Puff INHALATION 2 puff Q12HRT PAT Administration Radiology Results: ITS Impressions Chest X-Ray 09/13/24 12:20 Impression: Subsegmental left basilar atelectatic change. Chest/Abdomen/Pelvis CTA 09/13/24 14:25 IMPRESSION: CHEST: 1. Pulmonary embolism with right ventricular strain. 2. Consolidation in the right lower lobe area. Atelectatic changes in the left lung base. ABDOMEN/PELVIS: 1. No evidence of appendicitis, diverticulitis or intestinal obstruction. 2. Grossly thickened wall of the stomach. Further evaluation advised. 3. Slightly atrophic pancreas. 4. Calcified mesenteric area unchanged from previous examination. 5. Hepatomegaly. Was notified with the result of the patient at 2:50 PM on September 13, 2024 Venous Doppler Study 09/13/24 18:25 IMPRESSION: DVT in the right popliteal vein. Other appearances are unremarkable. Physician: Michel Hoffman MD Was notified with the result of the patient at 6:25 PM on September 13, 2024 Labs Labs: Laboratory Results - last 24 hr 09/14/24 09/14/24 09/14/24 17:09 20:16 23:29 WBC RBC Hgb Hct MCV MCH MCHC RDW Plt Count MPV Immature Gran % (Auto) Neut % (Auto) Lymph % (Auto) [place] % (Auto) Eos % (Auto) Baso % (Auto) Lymph # (Auto) [place] # (Auto) Eos # (Auto) Baso # (Auto) Abs Immat Gran (auto) Absolute Neuts (auto) Absolute Nucleated RBC Nucleated RBC % APTT 68.7 H 108.1 H Sodium Potassium Chloride Carbon Dioxide Anion Gap BUN Creatinine Estim Creat Clear Calc Estimated GFR Glucose POC Capillary Glucose 149 H Calcium Phosphorus Magnesium Total Bilirubin AST ALT Alkaline Phosphatase Total Protein Albumin 09/15/24 09/15/24 09/15/24 05:59 06:00 08:21 WBC 7.3 RBC 3.79 L Hgb 11.7 L Hct 35.0 L MCV 92.3 MCH 30.9 MCHC 33.4 RDW 14.0 Plt Count 149 L MPV 11.2 H Immature Gran % (Auto) 1.4 H Neut % (Auto) 62.9 Lymph % (Auto) 25.3 [place] % (Auto) 6.2 Eos % (Auto) 3.4 Baso % (Auto) 0.8 Lymph # (Auto) 1.84 [place] # (Auto) 0.5 Eos # (Auto) 0.3 Baso # (Auto) 0.1 Abs Immat Gran (auto) 0.10 H Absolute Neuts (auto) 4.6 Absolute Nucleated RBC 0.000 Nucleated RBC % 0.0 APTT 62.4 H Sodium 137 Potassium 3.6 Chloride 107 Carbon Dioxide 23 Anion Gap 7 BUN 9 Creatinine 0.60 L Estim Creat Clear Calc 109 Estimated GFR > 60 Glucose 113 H POC Capillary Glucose 150 H Calcium 7.6 L Phosphorus 2.0 L Magnesium 1.7 Total Bilirubin 0.4 AST 45 ALT 28 Alkaline Phosphatase 43 Total Protein 6.4 Albumin 3.4 L 09/15/24 11:52 WBC RBC Hgb Hct MCV MCH MCHC RDW Plt Count MPV Immature Gran % (Auto) Neut % (Auto) Lymph % (Auto) [place] % (Auto) Eos % (Auto) Baso % (Auto) Lymph # (Auto) [place] # (Auto) Eos # (Auto) Baso # (Auto) Abs Immat Gran (auto) Absolute Neuts (auto) Absolute Nucleated RBC Nucleated RBC % APTT Sodium Potassium Chloride Carbon Dioxide Anion Gap BUN Creatinine Estim Creat Clear Calc Estimated GFR Glucose POC Capillary Glucose 138 H Calcium Phosphorus Magnesium Total Bilirubin AST ALT Alkaline Phosphatase Total Protein Albumin Quality VTE Prophylaxis VTE prophylaxis: pharmacologic ordered
[2024-09-15] MEDS: DOXYCYCLINE HYCLATE 100 MG TABLET PO (20:28)
[2024-09-16] VITALS: BP 130/70; PULSE 72; RESP 16; TEMP 37.1; O2SAT 93
[2024-09-16 04:37] LABS: Alanine Aminotransferase 32 U/L (6-50); Albumin Level 3.5 g/dL (3.5-5.1); Alkaline Phosphatase 45 U/L (38-126); Anion Gap 7 mmol/L (4-12); Aspartate Amino Transferase 46 U/L (17-59); Bilirubin,Total 0.4 mg/dL (0.2-1.3); Blood Urea Nitrogen 9 mg/dL (9-20); Calcium 8.0 mg/dL (8.4-10.2); Carbon Dioxide 23 mmol/L (22-30); Chloride 107 mmol/L (98-107); Estimated CRCL calculation 104 ml/min; Estimated Glomerular Filt Rate > 60; Glucose 119 mg/dL (65-110); Magnesium 1.5 mg/dL (1.6-2.3); Potassium 3.6 mmol/L (3.4-5.0); Sodium 137 mmol/L (137-145); Total Protein 6.5 g/dL (6.3-8.2)
[2024-09-16 07:32] VITALS: BP 170/88; PULSE 97; RESP 20; TEMP 36.8; O2SAT 94
[2024-09-16] MEDS: FLUTICASONE/SALMETEROL 115-21 MCG INHALER 1 PUFF 2 PUFF INHALATION (07:59)
[2024-09-16 08:00] VITALS: PULSE 97; RESP 20; O2SAT 92
[2024-09-16] MEDS: MULTIVITAMINS /C LUTEIN (CENTRUM SILVER) TABLET *BKC 1 TAB PO (09:04)
[2024-09-16] MEDS: PANTOPRAZOLE 40 MG TABLET PO (09:04)
[2024-09-16] MEDS: ASPIRIN 81 MG ENTERIC TABLET PO (09:05)
[2024-09-16] MEDS: APIXABAN 5 MG TABLET 10 MG PO (09:05)
[2024-09-16] MEDS: MONTELUKAST SODIUM 10 MG TABLET PO (09:05)
[2024-09-16] MEDS: CALCIUM/VITAMIN D 500 MG/5 MCG (200 I.U.) TABLET PO (09:05)
[2024-09-16] MEDS: MAGNESIUM SULF 2 GM/WATER 50ML 2 GM/50 ML BAG IVPB (10:31)
[2024-09-16] MEDS: POTASSIUM CHLORIDE 20 MEQ ER TABLET 40 MEQ PO (10:34)
[2024-09-16] MEDS: DOXYCYCLINE HYCLATE 100 MG TABLET PO (11:31)
--- NOTE | 2024-09-16 12:29 | P.DS_ITS ---
DS: Admitting Diagnosis Discharge Date 09/16/2024 Admitting Diagnosis Pulmonary embolism, right lower extremity DVT, Generalized weakness/fatigue, shortness of breath, cough, nausea, vomiting for a couple of weeks, hypomagnesemia, hypokalemia DS: Discharge Diagnosis Discharge Diagnosis (1) Pulmonary embolism: Code(s): I26.99 - Other pulmonary embolism without acute cor pulmonale Status: Acute Assessment and Plan: Patient presented with generalized weakness, developed chest pain shortness with the ER -CT PE protocol revealed a PE in the left pulmonary emboli artery and its branches with right heart strain. -venous Dopplers was positive for right popliteal vein DVT -troponin and BNP were within normal limits -09/15: -started on patient on Eliquis and discontinue heparin infusion 09/15/2024: Echocardiogram: Technically difficult study, will there appears to be normal biventricular size and systolic function, EF 65-70%, right ventricle is normal in size and systolic function. 09/13: CT chest, abdomen, pelvis: showed pulmonary embolism with right ventricular strain, consolidation in the right lower lobe area. Atelectasis changes in the left lung base. No evidence of appendicitis, diverticulitis, on discussion obstruction. Lost a thickened wall of the stomach, slightly Atrovent pancreas, calcified mesenteric area unchanged from previous exam, hepatomegaly. 09/13: Venous Doppler was positive for DVT in the right popliteal vein (2) Deep vein thrombosis (DVT) of popliteal vein of right lower extremity: Code(s): I82.431 - Acute embolism and thrombosis of right popliteal vein Status: Acute Assessment and Plan: Venous Dopplers was positive for DVT in the right popliteal vein, -heparin being switched to Eliquis (3) PNA (pneumonia): Code(s): J18.9 - Pneumonia, unspecified organism Status: Acute Assessment and Plan: CT chest shows right lower lobe consolidation, left lung base atelectasis. -started on ceftriaxone and doxycycline (09/13) -09/15: Switched to Augmentin and doxycycline p.o. -currently on room air with adequate O2 sats (4) COPD (chronic obstructive pulmonary disease): Qualifiers: COPD type: unspecified COPD Qualified Code(s): J44.9 - Chronic obstructive pulmonary disease, unspecified Code(s): J44.9 - Chronic obstructive pulmonary disease, unspecified Status: Acute Assessment and Plan: History of COPD, will continue home bronchodilators (5) Electrolyte imbalance: Code(s): E87.8 - Other disorders of electrolyte and fluid balance, not elsewhere classified Status: Acute Assessment and Plan: Patient presented with significantly low magnesium of 0.2 and hypokalemia, which have been aggressively replaced -09/15 and 09/16: this morning magnesium and potassium continue to be low, will replete -will send home patient on potassium and magnesium supplements, patient to follow-up with his primary care doctor Plan DVT prophylaxis: Eliquis Stress ulcer prophylaxis: Protonix, which is his home medication Nutrition: Heart healthy diet Code Status: Do not resuscitate Patient to follow-up with his primary care doctor in 1 week, obtain labs. Due to a high probability of clinically significant, life threatening deterioration, the patient required my highest level of preparedness to intervene emergently and I personally spent this critical care time directly and personally managing the patient. This critical care time included obtaining a history; examining the patient; pulse oximetry; ordering and review of studies; arranging urgent treatment with development of a management plan; evaluation of patient's response to treatment; frequent reassessment; and discussions with other providers. It was exclusive of separately billable procedures and treating other patients and teaching time. Please see Assessment and Plan section and the rest of the note for further information on patient assessment and treatment This dictation may have been done utilizing a voice recognition system. Attempts have been made to correct errors. However, there may be uncorrected grammatical, spelling, and recognitions errors present. DS: Summary Hospital Course Reason for hospitalization: Pulmonary embolism, Generalized weakness/fatigue, shortness of breath, cough, nausea, vomiting for a couple of weeks, hypomagnesemia, hypokalemia Hospital Course: Glenn Villalpando is a 74 year old male with significant past medical history of obesity, tobacco use, hypercholesterolemia, COPD, GERD, obstructive sleep apnea, degenerative joint disease presented the ED on 09/13/2024 with multiple complaints mainly nausea, vomiting, generalized weakness/fatigue and then developed sudden chest pain shortness a breath in the ER. Workup in the ER revealed normal blood pressures, slightly tachypneic and tachycardic with O2 sats of 92% on 2 L nasal cannula. WBC count of 12.1, hemoglobin 12.5, D-dimer was elevated to 0.7. Potassium was 3.0, magnesium 0.2 initially major after r eplacement came up to 0.6. Alk phos was 33, BNP 129, UA was unremarkable for infection. MRSA PCR was negative and viral PCR for influenza, RSV and COVID were negative. 09/13: CT chest, abdomen, pelvis: showed pulmonary embolism with right ventricular strain, consolidation in the right lower lobe area. Atelectasis changes in the left lung base. No evidence of appendicitis, diverticulitis, on discussion obstruction. Lost a thickened wall of the stomach, slightly Atrovent pancreas, calcified mesenteric area unchanged from previous exam, hepatomegaly. 09/13: Venous Doppler was positive for DVT in the right popliteal vein Patient was started on heparin infusion, given significant electrolyte imbalance was transferred to the ICU for further management. 09/15: Patient was downgraded to medical floor, Eliquis was started and heparin infusion was discontinued. Replaced potassium and magnesium aggressively 09/16: Replace potassium and magnesium, patient has been stable with no complaints, feels better. Physical therapy evaluated the patient and recommended home health. No need for occupational therapy. 09/16: Patient be transferred home with home health services. Status at Discharge Cognitive/behavioral status at discharge: Stable Functional status at discharge: uses cane/walker Overall status at discharge: patient is back to baseline Time Spent with Patient Time attestation: Total time spent providing and/or coordinating discharge services: Time spent: Less than 30 minutes Exam Narrative: General: Pleasant gentleman in no acute distress HEENT:? Pupils equal and reactive bilaterally, sclera is clear, moist oral mucosa Neck:? Supple Respiratory:? Trachea in midline, coarse breath sounds at bilateral bases, no wheeze, adequate air entry Cardiac:? S1-S2 normal, regular rate and rhythm Abdomen:? Soft, nontender, obese, nondistended, normoactive bowel sounds Extremities:? No edema, palpable pedal pulses Neuro:? Patient is awake, alert, oriented, nonfocal Skin:? No skin lesions noted Psych:? Normal mentation and affect DS: Data Data Completed and Pending Labs on day of discharge: Labs from last 24 hours 09/16/24 09/16/24 09/16/24 11:14 07:11 03:25 Sodium 137 Potassium 3.6 Chloride 107 Carbon Dioxide 23 Anion Gap 7 BUN 9 Creatinine 0.63 L Estim Creat Clear Calc 104 Estimated GFR > 60 Glucose 119 H POC Capillary Glucose 158 H 128 H Calcium 8.0 L Phosphorus 1.7 L Magnesium 1.5 L Total Bilirubin 0.4 AST 46 ALT 32 Alkaline Phosphatase 45 Total Protein 6.5 Albumin 3.5 09/15/24 09/15/24 09/15/24 20:22 18:17 16:32 Sodium Potassium Chloride Carbon Dioxide Anion Gap BUN Creatinine Estim Creat Clear Calc Estimated GFR Glucose POC Capillary Glucose 126 H 174 H 178 H Calcium Phosphorus Magnesium Total Bilirubin AST ALT Alkaline Phosphatase Total Protein Albumin Preliminary micro results at discharge 09/13/24 17:22 Blood Culture - Preliminary Blood 09/13/24 17:22 Blood Culture - Preliminary Blood Discharge Plan Discharge Attending physician on discharge: Thomas Carrillo Consulting providers: Thomas Carrillo Discharging Clinician: Thomas Carrillo Anticipated Discharge Date/Time: 09/16/24 12:04 Patient Disposition: Home with Home Health Service Activity: july shower Diet: heart healthy Discharge Instructions: Discharge disposition: Home with home health services Take medications as prescribed Monitor blood pressures Take caution while standing, rising, or moving Change positions slowly taking a break between each position change If you standing feel dizzy sit back down and take a break Encouraged to continue with yearly vaccinations Return to the emergency department if he developed sudden shortness of breath, chest pain, nausea, vomiting, upset stomach or intractable diarrhea, weakness Return to the emergency department if you develop fever greater than 101.5 Follow-up with the primary care physician within 1-2 weeks Thank you for [facility] for your healthcare needs Patient Instructions: Antibiotic Form, Aspirin (By mouth), Heparin (By injection), Pulmonary Embolism (GEN), Deep Vein Thrombosis (GEN) Patient Language: Scottish Stand Alone Forms: General Discharge Information Follow-up/Referrals: Annel,MD [facility] [Primary Care Provider] - 1 Week Discharge Medications: New Eliquis 5 mg Tablet 10 mg PO Q12HR 5 Days Qty: 20 0RF Eliquis 5 mg Tablet 5 mg PO Q12HR 90 Days Qty: 180 0RF Rx Instructions: ELQUIS 5 mg every 12 hours STARTING 09/22/2024 doxycycline hyclate 100 mg Tablet 100 mg PO BID@1200,2100 1 Days Qty: 1 0RF magnesium oxide 400 mg magnesium capsule 400 mg PO DAILY 90 Days Qty: 90 0RF Continued potassium gluconate 595 mg (99 mg) tablet 595 mg PO DAILY aspirin 81 mg tablet,delayed release (DR/EC) 81 mg PO DAILY metformin 500 mg tablet 500 mg PO DAILY lisinopril 10 mg tablet 5 mg PO DAILY fluticasone furoate-vilanterol [Breo Ellipta] 100-25 mcg/dose blister with device 1 inh INHALATION Q24H 30 Days Qty: 60 11RF Rx Instructions: Rinse mouth and spit after each use albuterol sulfate [Ventolin HFA] 90 mcg/actuation HFA aerosol inhaler 1 - 2 inh inhalation Q4-6H Qty: 8.5 3RF Centrum Silver 0.4 mg-300 mcg- 250 mcg tablet 1 tablet PO DAILY Tylenol Extra Strength 500 mg powder in packet 500 mg PO Q6H PRN (Reason: fever or pain) ergocalciferol (vitamin D2) 1,250 mcg (50,000 unit) capsule 1,250 mcg PO WEEKLY calcium carbonate-vitamin D3 [Oysco 500/D] 500 mg-5 mcg (200 unit) tablet 1 tablet PO DAILY pantoprazole [Protonix] 40 mg tablet,delayed release (DR/EC) 40 mg PO Q12H sucralfate 1 gram tablet 1 g PO BID ondansetron 4 mg tablet,disintegrating 4 mg PO Q6H PRN (Reason: nausea and vomiting) Qty: 10 0RF montelukast 10 mg tablet 10 mg PO DAILY Qty: 30 11RF Date of admission: 09/13/24 17:21 Primary Care Provider: Annel,[facility] Admitting Provider: Shea Gusman Attending physician on admission: Shea Gusman Condition: Stable Quality VTE Prophylaxis VTE prophylaxis: pharmacologic ordered
== END 2024-09-16 13:48 | disposition home health service (06) | DRG 175 ==
LOC: ANHED 17:19 → ANHICU 17:54
PROVIDERS: Emergency Medicine; General Practice; Admitting Provider Internal Medicine; Emergency Provider Emergency Medicine; PCP Internal Medicine; Visit Provider Internal Medicine
DX: I26.99 Other pulmonary embolism without acute cor pulmonale (principal); J18.9 Pneumonia, unspecified organism; I82.431 Acute embolism and thrombosis of right popliteal vein; J44.0 Chronic obstructive pulmonary disease with (acute) lower respiratory infection; E87.6 Hypokalemia; E83.42 Hypomagnesemia; G47.33 Obstructive sleep apnea (adult) (pediatric); M19.90 Unspecified osteoarthritis, unspecified site; E66.9 Obesity, unspecified; Z68.31 Body mass index [BMI] 31.0-31.9, adult; Z66 Do not resuscitate; Z20.822 Contact with and (suspected) exposure to COVID-19
CPT/HCPCS: 36415; 36600; 71046; 71275; 74177; 80048; 80053; 81001; 82805; 82948; 83605; 83690; 83735; 83880; 84100; 84443; 84484; 85018; 85025; 85380; 85610; 85730; 87040; 87637; 87641; 93005; 93970; 94640; 96365; 96366; 96367; 96375; 97161; 97530; 99285; A9270; C8929; J0613; J0696; J1644; J2405; J3475; J3480; J7030; J7040; J7120; Q9957; Q9967